=== PATIENT | female | born 1955 | race Caucasian/White ===

== ENCOUNTER 2022-03-27 14:58 | Outpatient (CLI) | payer MEDICARE, OTHER, SELFPAY ==
--- NOTE | 2022-03-27 15:45 | CRLHL7_ITS ---
For Patients: As a result of the Cures Act, medical imaging exams and procedure reports are released immediately into your electronic medical record. You may view this report before your referring provider. If you have questions, please contact your health care provider. BILATERAL MAMMOGRAM WITH COMPUTER-AIDED DETECTION AND TOMOSYNTHESIS TECHNIQUE: CC and MLO views were obtained. These mammographic images have been obtained using full-field digital technique. These mammographic images were interpreted with the benefit of computer-aided detection. Breast Tomosynthesis was used in this interpretation. COMPARISON FILM: 01/17/2021, 12/20/2018, 10/22/2017. FINDINGS: The breasts are heterogeneously dense, which may obscure small masses IMPRESSION: There is no radiographic evidence for malignancy. ASSESSMENT: BI-RADS Category 1: Negative RECOMMENDATION: Routine screening mammogram in 1 year. A lay language report of this examination will be provided to the patient. April Alarcon M.D. Diagnostic Radiologist [email or web address] Transcribed: 1:20 p.m. SCAR/Dictated by: April Alarcon MD @ 03/28/2022 10:42:00 AM (Electronically Signed)
== END 2022-03-27 14:59 | disposition home or self-care (01) ==
LOC: MAMMO 14:59
PROVIDERS: PCP Family Medicine; Visit Provider Family Medicine
DX: Z12.31 Encounter for screening mammogram for malignant neoplasm of breast (principal); R92.8 Other abnormal and inconclusive findings on diagnostic imaging of breast
CPT/HCPCS: 77063; 77067

== ENCOUNTER 2022-11-13 09:12 | Outpatient (CLI) | payer MEDICARE, OTHER, SELFPAY ==
[2022-11-13 10:40] LABS: Albumin* 4.4 g/dL (3.3-5.0)
[2022-11-13 10:41] LABS: Chloride* 107 mmol/L (96-114); Potassium* 4.6 mmol/L (3.6-5.1); Sodium* 141 mmol/L (135-149)
[2022-11-13 10:43] LABS: Bilirubin Total* 0.9 mg/dL (0.1-1.5); Carbon Dioxide* 30 mmol/L (20-32); Cholesterol* 184 mg/dL (90-199); Creatinine* 0.7 mg/dL (0.5-1.5); Estimated Glomerular Filt Rate 94 ml/min
[2022-11-13 10:44] LABS: Alanine Aminotransferase* 29 U/L (4-35); Alkaline Phosphatase* 55 U/L (40-150); Aspartate Amino Transferase* 27 U/L (12-35); Blood Urea Nitrogen* 17 mg/dL (7-30); Calcium* 9.2 mg/dL (8.4-10.6); Glucose* 91 mg/dL (60-115); HDL Cholesterol* 79 mg/dL (>=50); LDL Cholesterol Calculated 71 mg/dL (<100); Triglycerides* 170 mg/dL (40-149)
== END 2022-11-13 09:13 | disposition home or self-care (01) ==
LOC: NFLDREF 09:12
PROVIDERS: PCP Family Medicine; Visit Provider Family Medicine
DX: E78.5 Hyperlipidemia, unspecified (principal); I10 Essential (primary) hypertension
CPT/HCPCS: 80053; 80061

== ENCOUNTER 2023-06-25 13:32 | Outpatient (CLI) | payer MEDICARE, OTHER, SELFPAY ==
--- NOTE | 2023-06-25 13:40 | CRLHL7_ITS ---
For Patients: As a result of the Century Cures Act, medical imaging exams and procedure reports are released immediately into your electronic medical record. You may view this report before your referring provider. If you have questions, please contact your health care provider. BILATERAL SCREENING MAMMOGRAM WITH COMPUTER-AIDED DETECTION AND TOMOSYNTHESIS TECHNIQUE: CC and MLO views were obtained. These mammographic images have been obtained using full-field digital technique. These mammographic images were interpreted with the benefit of computer-aided detection. Breast Tomosynthesis was used in this interpretation. COMPARISON FILM: 03/27/22, 01/17/21, 12/20/18. FINDINGS: The breasts are heterogeneously dense, which may obscure small masses IMPRESSION: There is no radiographic evidence for malignancy. ASSESSMENT: BI-RADS Category 1: Negative RECOMMENDATION: Routine screening mammogram in 1 year. A lay language report of this examination will be provided to the patient. José Miguel Tracy M.D. Diagnostic Radiologist [email or web address] [email or web address]/[email or web address] Transcribed: 6:03 p.[email or web address] reed/Dictated by: José Miguel Tracy MD @ 06/26/2023 12:21:00 PM (Electronically Signed)
== END 2023-06-25 13:33 | disposition home or self-care (01) ==
LOC: MAMMO 13:33
PROVIDERS: PCP Family Medicine; Visit Provider Family Medicine
DX: Z12.31 Encounter for screening mammogram for malignant neoplasm of breast (principal); R92.2 Inconclusive mammogram
CPT/HCPCS: 77063; 77067

== ENCOUNTER 2023-07-03 09:30 | Outpatient (RCR) | payer MEDICARE, OTHER, SELFPAY ==
--- NOTE | 2023-05-29 12:42 | PT.OPEX ---
[facility] Outpatient Eval PT [facility] Outpatient Eval Start: 05/28/23 09:44 Freq: Status: Active Protocol: Document 05/28/23 09:44 CHRISTINA (Rec: 05/28/23 16:14 CHRISTINA [id number]) E-signed By Haritha Charles PT Physical Therapy Outpatient Evaluation Insurance Information Recert Due Date 08/25/23 Insurance Name Medicare B,[employer] [facility] THORACIC DDD M51.3 RHOMBOID STRAIN S46.911A Treating Diagnosis BACK PAIN S39.012A Subjective Subjective PATIENT REPORTS REACHING OVERHEAD PUTTING SOMETHING ON A TOP SHELF AND HEARD A RIP. THEN I FELT IMMEDIATE AND EXCRUCIATING PAIN. SHE FOLLOWED UP WITH HER PHYSICIAN WHO PRESCRIBED A MM RELAXER AND TYLENOL ARTHRITIS. SHE WANTED TO WAIT UNTIL HER PAIN SUBSIDED AND COULD PARTICIPATE IN THERAPY. Date of Last Physician Visit 04/02/23 Current Work Status Retired Preferred Name DON Precautions Treatment Precautions/Contraindications MENIERE'S Therapy Limitations/Systems Review Not Limited Assessment Assessment/Impression PATIENT IS A [address] SP GARRIDO TO EVAL AND TREAT A RIGHT RHOMBOID STRAIN. PMHX INCLUDES BUT NOT LIMITED TO OSTEOPOROSIS, HTN, HLD, IRREGULAR HEART BEAT, BILATERAL BUNIONECTOMY IN HER 40'S, LEFT TROCHANTERIC BURSITIS, BACK PAIN, VERTIGO, LEFT KNEE MENISCAL TEAR, LEFT KNEE OA, RIGHT KNEE OA, R ANKLE FX IN HER 40'S. XRAYS TAKEN ON 04/02/23 REVEALED NARROWING AND SPURRING OF MID T-SPINE AND SLIGHT CURVATURE. PATIENT DEMONSTRATES A PALPABLE AND POINT TENDER RIGHT MAJOR WELL ALONG THE THORACIC SPINE WITH ASSOCIATED HYPOMOBILITY NOTED. SHE DEMONSTRATES GOOD RTC/ SCAPULAR STRENGTH AND FULL ACTIVE AND PASSIVE ROM. SHE HAS VIRTUALLY ELIMINATED REACHING OVERHEAD AND VERY TIMID USING HER RIGHT UE IN GENERAL ABOVE 90 DEGREES. TODAY'S EXAMINATION REVEALED BOTH ACTIVE AND LATENT TRIGGER POINTS ALONG THE RHOMBOID MAJOR/MINOR AND LEVATOR SCAPULA WELL HYPOMOBILITY OF THE THORACIC SPINE. WE BEGAN WITH GENTLE AROM THROUGH BACKWARD CIRCLES WITH A SHRUG AND SCAP SQUEEZE ALONG WITH PEC STRETCH AND MID SCAPULAR STRETCH USING THE DOOR FRAME. LASTLY, SHE RESPONDED WELL TO THE DTM TO THAT AREA USING BOTH MANUAL AND INSTRUMENT ASSISTED TECHNIQUES FOLLOWED BY STATIC AND DRAGGING TECHNIQUES USING CUPS. SHE IS INSTRUCTED TO TAKE NOTE OF THE SYMPTOMS LATER TODAY AND THE NEXT SEVERAL DAYS TO ASCERTAIN THE EFFECTIVENESS OF THE MANUAL THERAPY WELL TO PERFORM HER HEP DAILY. SHE IS APPROPRIATE FOR SKILLED PHYSICAL THERAPY TO ADDRESS THE AFOREMENTIONED DEFICITS ALONG WITH SYMPTOM MGMT. THE PATIENT VERBALIZED UNDERSTANDING TO ALL INSTRUCTION AND AGREEABLE TO POC AND FREQ Primary Functional Limitations REACHING OVERHEAD, BEHIND BACK ADL'S Plan of Care Rehabilitation Potential Good Physical Therapy Goals IN 6-8 VISITS: 1.PATIENT WILL REPORT DECREASED TO <3/10 PAIN AT REST ABOUT THE RHOMBOID REGIONS. 2. PATIENT WILL BE ABLE TO REACH OVERHEAD, BEHIND BACK W/ O PAIN TO PARTICIPATE IN HER ADL'S, AND IADL'S 3. PATIENT WILL BE INDEPENDENT WITH HER HEP Coordination/Communication With Referral Source Treatment Plan/Direct Interventions Electrical Stimulation,Heat, Ice/Cold/Vasopneumatic,Joint Mobilization,Manual Therapy, Neuromuscular Re-ed, Therapeutic Activities, Therapeutic Exercises Patient Will Be Discharged From Therapy Completion of LTG(s), Independent w/HEP Discharge Plan Comments DISCHARGE TO SELF AND INDEPENDENT HOME PROGRAM. Evaluation Billing PT Eval No Charge No Complexity Moderate Certification Information Initial Certification Date 05/28/23 Ending Certification Date 08/25/23 Provider Signature Shows Agreement With POC & Medical Necessity Physician Signature & Date Requested Please Sign/Date Here Physician Comment/Change : Physician NPI Number #
== END 2023-08-12 11:19 | disposition home or self-care (01) ==
PROVIDERS: PCP Family Medicine; Visit Provider Family Medicine
DX: M54.9 Dorsalgia, unspecified (principal); M51.34 Other intervertebral disc degeneration, thoracic region; Z51.89 Encounter for other specified aftercare
CPT/HCPCS: 97110; 97140; 97162

== ENCOUNTER 2023-11-24 13:12 | Outpatient (CLI) | payer MEDICARE, OTHER, SELFPAY ==
--- NOTE | 2023-11-24 13:30 | XR_ITS ---
Patient: DON ALVAREZ Facility:?[facility] Patient ID:?[id number] Site Patient ID:?[id number]. Site :?[id number] Study:?DEXA-Bone Density Right DEXA - Spine/Hips-11/24/2023 1:54:46 PM Ordering Physician:SP THOMAS Final Report: DXA BONE MINERAL DENSITY STUDY Reason for exam: Osteoporosis. Current height (in): 59. Weight (lb): 116. Menopause age: 29. Ethnicity: White. 1. Have you had a previous hip or vertebral fracture? No. 2. Have you had any fractures during your adult life which did not result from significant trauma (e.g., auto accident)? Yes. 3. Did either of your parents have a hip fracture? No. 4. Do you smoke? No. 5. Have you ever taken Glucocorticoids? No. 6. Do you have rheumatoid arthritis? No. 7. Do you have secondary osteoporosis? No. 8. Do you drink 3 or more alcoholic drinks per day? No. 9. Are you being treated for osteoporosis? Yes. 10. Have you ever taken any of the following medications: Actonel, Evista, Fosamax, Miacalcin, Reclast, Boniva, Forteo, HRT (i.e., estrogen/hormone therapy), Protelos, Prolia, Vitamin D, Calcium, other ? please specify. ANSWER: Yes, Fosamax (i.e. alendronate), vitamin D, Boniva (i.e. ibandronate), and calcium. 11. Do you have any of the following medical conditions: Anorexia or bulimia, asthma or emphysema, end stage renal disease, hyperparathyroidism, any seizure disorders, cancer, inflammatory bowel diseases, hysterectomy, other ? please specify. ANSWER: Yes, hysterectomy. 12. What was your maximum height (inches)? 59. 13. Do you perform weight bearing exercise regularly? No. 14. Do you regularly consume dairy products? Yes. 15. Do you drink caffeinated beverages? Yes. If female: 16. At what age did your period start? 10. 17. Are you premenopausal? No. 18. How many full-term pregnancies have you had? 2. 19. Have you ever missed your period for more than 6 months in a row (not including or menopause)? No. TECHNIQUE: Bone mineral density study was performed using the [employer]. FINDINGS: The results of the study expressed as bone mineral density (BMD) are as follows: Lumbar spine L1 to L4: BMD: 0.915 g/cm2. T-score: -1.2. Z-score: 0.9 Neck Left: BMD: 0.724 g/cm2. T-score: -1.1. Z-score: 0.7 Right: BMD: 0.772 g/cm2. T-score: -0.7. Z-score: 1.1 Total Left: BMD: 0.880 g/cm2. T-score: -0.5. Z-score: 1.0 Right: BMD: 0.882 g/cm2. T-score: -0.5. Z-score: 1.0 IMPRESSION: Osteopenia. *Comparison exams done prior to 02/2020 were performed on different unit, [employer]. COMPARISON: Compared with scan of 12/12/2021, the bone mineral density has increased by 0.8 percent at the spine and decreased by 0.1 percent at the hip. Compared with scan of 10/06/2019, the bone mineral density has increased by 0.8 percent at the spine and increased by 7.0 percent at the hip. José Miguel Tracy M.D. Diagnostic Radiologist [email or web address] [email or web address]/[email or web address] derek/Dictated by: José Miguel Tracy MD @ 11/25/2023 8:24:00 AM Signed by:?José Miguel Tracy MD @11/26/2023 4:46:44 AM (Electronic Signature)
== END 2023-11-24 13:13 | disposition home or self-care (01) ==
PROVIDERS: PCP Family Medicine; Visit Provider Family Medicine
DX: M81.0 Age-related osteoporosis without current pathological fracture (principal)
CPT/HCPCS: 77080

== ENCOUNTER 2023-12-07 11:52 | Outpatient (CLI) | payer MEDICARE, OTHER, SELFPAY ==
[2023-12-07 12:16] LABS: Hematocrit 40.5 % (33.0-51.0); Hemoglobin* 13.7 gm/dL (12.0-16.0); Mean Corpuscular HGB Conc 34 gm/dL (32-36); Mean Corpuscular Hemoglobin 32 pg (26-34); Mean Corpuscular Volume 96 fL (80-100); Platelet Count* 517 K/uL (140-440); Red Blood Count 4.24 m/uL (4.00-5.20); White Blood Count* 9.23 K/uL (4.50-11.00)
[2023-12-07 12:17] LABS: Slide Review Reflex No
[2023-12-07 12:25] LABS: Albumin* 4.8 g/dL (3.3-5.0); Chloride* 97 mmol/L (96-114); Sodium* 134 mmol/L (135-149)
[2023-12-07 12:26] LABS: Potassium* 3.7 mmol/L (3.6-5.1)
[2023-12-07 12:27] LABS: Cholesterol* 168 mg/dL (90-199)
[2023-12-07 12:28] LABS: Alanine Aminotransferase* 33 U/L (4-35); Alkaline Phosphatase* 84 U/L (40-150); Anion Gap 8 mEq/L (7-15); Aspartate Amino Transferase* 29 U/L (12-35); Bilirubin Total* 0.7 mg/dL (0.1-1.5); Blood Urea Nitrogen* 23 mg/dL (7-30); Carbon Dioxide* 29 mmol/L (20-32); Creatinine* 0.9 mg/dL (0.5-1.5); Estimated Glomerular Filt Rate 69 ml/min; Glucose* 109 mg/dL (60-115); Triglycerides* 202 mg/dL (40-149)
[2023-12-07 12:29] LABS: Calcium* 9.7 mg/dL (8.4-10.6); HDL Cholesterol* 60 mg/dL (>=50); LDL Cholesterol Calculated 68 mg/dL (<100)
== END 2023-12-07 11:53 | disposition home or self-care (01) ==
PROVIDERS: PCP Family Medicine; Visit Provider Family Medicine
DX: E78.00 Pure hypercholesterolemia, unspecified (principal); I10 Essential (primary) hypertension; M81.0 Age-related osteoporosis without current pathological fracture; R53.83 Other fatigue
CPT/HCPCS: 36415; 80053; 80061; 84443; 85027

== ENCOUNTER 2023-12-16 01:02 | Emergency (ER) | payer MEDICARE, OTHER, SELFPAY ==
[2023-12-16] VITALS (7 sets, daily range): BP systolic 146–155; BP diastolic 82–85; PULSE 90–107; RESP 18; TEMP 36.8; O2SAT 93–96; BMI 24.6
[2023-12-16 01:34] LABS: Appearance Urine Clear (Clear); Bilirubin Urine Negative (Negative); Blood Urine Trace-intact (Negative); Color Urine Yellow (Yellow); Glucose Urine Trace (Negative); Ketones Urine Negative (Negative); Leukocyte Esterase Urine 2+ (Negative); Nitrite Urine Negative (Negative); Protein Urine 1+ (Negative); Urobilinogen Urine 0.2 (0.2-1.0)
--- NOTE | 2023-12-16 01:45 | XR_ITS ---
Patient: DON ALVAREZ Facility:?[facility] Patient ID:?[id number] Site Patient ID:?[id number]. Site :?[id number] Study:?XRay-Abdomen -12/16/2023 2:46:49 AM Ordering Physician:Immanuel Final Report: Indication: Distended, constipation Technique: Supine and upright views of the abdomen Comparison: None Findings/Impression: Nonobstructive, nonspecific bowel gas pattern with no acute radiographic abnormality appreciated. Dictated by Hermann Moreno MD @ 12/16/2023 2:54:13 AM Signed by:?Hermann Moreno MD @12/16/2023 2:54:13 AM (Electronic Signature)
[2023-12-16 01:49] LABS: Bacteria Urine Few; RBC Urine 0-2 (0-2); Squamous Epithelial Cell Urine Few (None-Few)
--- NOTE | 2023-12-16 01:51 | ED.GENADULT ---
HPI - General Adult General Chief complaint: Constipation Stated complaint: Dehydrated/Can't pee Time Seen by Provider: 12/16/23 01:08 Source: patient and family Mode of arrival: ambulatory Limitations: no limitations History of Present Illness HPI narrative: 68-year-old female presents the emergency department for evaluation of fear to constipation and inability to urinate. Patient reports that she had diarrhea over the last weekend, Thursday and Thursday. It is currently Thursday night. She has not had a bowel movement for the past 2 days. She typically takes MiraLax for chronic constipation from prior colectomy. She reports that she stop taking the MiraLax over the weekend. Since she had not had a bowel movement in 2 days, she restarted it this afternoon and has taken 2 additional doses out of fear that she has not yet had a bowel movement. She feels like she must have a ?blockage? and has been sitting on the stool straining to have a bowel movement. She reports that she has been did bearing down extensively and feels like this has made her dizzy and anxious and she fears that it could give her a stroke. She tried using an enema with no improvement in her symptoms. She has been eating and drinking normally but feels she could be dehydrated as she was recently started on a gentle diuretic for vertigo. Records reviewed, this was hydrochlorothiazide. She reports that tonight she felt like she could not urinate as well. She was also recently started on meclizine. No bloody stools. No vaginal discharge. No dysuria or feelings like a bladder infection. I had the nurses bladder scan her after triage, 240 mL noted but she was able to void just after that. It was not a large amount of urine but enough for a sample certainly. She is not running a fever. She felt nauseated when she was straining but has not had any vomiting. No injury or trauma. No abdominal pain. No dysuria or hematuria. On specific questioning, she does report known history of pelvic prolapse with no prior repair. Past medical history notable for the allergies accurate as listed. Medications are accurate as well the meclizine and hydrochlorothiazide are new. She also does occasionally use Mucinex and Sudafed which she wonders may have caused her diarrhea. She has a history of hypertension and hyperlipidemia. Surgical history pertinent in this case for her prior partial colectomy and reanastomosis. Related Data Home Medications Medication Instructions Recorded Confirmed cyclosporine 0.05 % eye drops in a drp ophthalmic (eye) 06/20/22 10/27/23 dropperette (Restasis) Previous Rx's Medication Instructions Recorded diclofenac sodium 50 mg 50 mg PO BID #180 tabs 10/27/23 tablet,delayed release hydrochlorothiazide 25 mg tablet 25 mg PO QAM PRN vertigo #30 tabs 10/27/23 ibandronate 150 mg tablet 150 mg PO Q30D #3 tabs 10/27/23 metoprolol succinate 50 mg 50 mg PO QDAY #90 tabs 10/27/23 tablet,extended release 24 hr nifedipine 60 mg tablet,extended 60 mg PO QDAY #90 tabs 10/27/23 release simvastatin 20 mg tablet 20 mg PO QHS #90 tabs 10/27/23 nitrofurantoin 100 mg PO Q12H 5 days #10 caps 12/16/23 monohydrate/macrocrystals 100 mg capsule (Macrobid) Allergies Allergy/AdvReac Type Severity Reaction Status Date / Time clarithromycin [From Biaxin] AdvReac Rash Verified 12/16/23 01:14 tolmetin [From Tolectin] AdvReac throat Verified 12/16/23 01:14 swelled shut tolterodine AdvReac kidney Verified 12/16/23 01:14 infection symptoms PFSH PFS Medical History Trochanteric bursitis of left hip ?M70.62 - Trochanteric bursitis, left hip (ICD-10) Skin tag ?L91.8 - Other hypertrophic disorders of the skin (ICD-10) Raynaud's disease (10/01/12) ?I73.00 - Raynaud's syndrome without gangrene (ICD-10) Papilloma of breast (10/01/12) ?D24.9 - Benign neoplasm of unspecified breast (ICD-10) Palpitations (10/01/12) ?R00.2 - Palpitations (ICD-10) Pain of left hip ?M25.552 - Pain in left hip (ICD-10) Neck pain ?M54.2 - Cervicalgia (ICD-10) History of benign breast biopsy (10/01/12) ?Z98.890 - Other specified postprocedural states (ICD-10) High risk medication use ?Z79.899 - Other adjunct faculty for medical terminology (current) drug therapy (ICD-10) Female genital prolapse (10/01/12) ?N81.9 - Female genital prolapse, unspecified (ICD-10) Dyskinesia of esophagus (10/01/12) ?K22.4 - Dyskinesia of esophagus (ICD-10) Chronically dry eyes (10/01/12) ?H04.129 - Dry eye syndrome of unspecified lacrimal gland (ICD-10) Back pain ?M54.9 - Dorsalgia, unspecified (ICD-10) Vertigo ?R42 - Dizziness and giddiness (ICD-10) Surgical History Status post bunionectomy (10/01/12) ?Z98.890 - Other specified postprocedural states (ICD-10) History of tonsillectomy (10/01/12) ?Z90.89 - Acquired absence of other organs (ICD-10) History of partial surgical removal of colon (10/01/12) ?Z90.49 - Acquired absence of other specified parts of digestive tract (ICD-10) History of hysterectomy (10/01/12) ?Z90.710 - Acquired absence of both cervix and uterus (ICD-10) Family History Mother High blood pressure Stroke Other Dementia High cholesterol Social History Smoking Status: Never smoker Do you use any of these nicotine containing products: None Second hand tobacco smoke exposure: No How often do you have a drink containing alcohol: 2-3 times a week AUDIT-C Alcohol total score: 3 Non-prescribed substance use: denies use Little interest or pleasure in doing things: more than half the days Feeling down, depressed, or hopeless: several days Exam Const: Vital Signs, click to edit/add: Vital Signs - 24 hr 12/16/23 01:07 Temperature 98.3 F Pulse Rate [Pulse Oximeter] 107 H Respiratory Rate 18 Blood Pressure [Le ft Upper Arm] 146/82 H Pulse Oximetry 96 Oxygen Delivery Me thod Room Air Documenting provider has reviewed patient's vital signs: yes Other: Anxious but well-appearing. Cooperative. HENMT: Common normals: normocephalic Head and scalp: normocephalic Face and sinus: normal facial exam Mouth: oral and palatal mucosa normal Throat: posterior oropharynx normal Eye: Common normals: conjunctivae normal General eye: normal appearance of both eyes Conjunctiva: conjunctiva(e) normal Neck & C-Spine: Common normals: full ROM and no lymphadenopathy Resp: Common normals: normal respiratory effort, no use of accessory muscles and clear to auscultation bilaterally Effort & inspection: able to speak in complete sentences Auscultation: clear to auscultation bilaterally Cardio: Common normals: regular rate, regular rhythm, S1 normal heart sound, S2 normal heart sound and no murmurs Rate: regular rate Rhythm: regular rhythm Heart sounds: S1 normal and S2 normal GI: Other: Abdomen does look slightly distended but bowel sounds are normoactive. She is nontender to palpation. Surgical scarring is consistent with reported history. Rectal exam shows rectal prolapse but no bleeding hemorrhoids. There was no stool in the rectal vault. Normal rectal tone. Extremity: Common normals: normal capillary refill and no pedal edema Neuro: Speech: speech normal Motor exam: no movement abnormalities noted Psych: Appearance: grossly normal Attitude: engaged Activity/motor behavior: appropriate eye contact Mood and affect: anxious Insight: fair Judgement: fair Skin: Common normals: no rashes or lesions noted General skin exam: no rashes or lesions noted Course Course ED Course: 68-year-old female with feared constipation but no evidence of fecal impaction. Possible urinary retention is likely related to meclizine but is not severe. Patient reassured regarding the fecal impaction and I do think that she probably has increased pelvic pressure from her prolapse and recent diarrhea. I recommended urinalysis, COVID influenza swabs, basic labs and an x-ray to make sure she is not obstructed. She was agreeable to this. Will give 1 L of normal saline and attempt again to urinate once she has finished her fluids. Differential diagnosis also including UTI, viral infection, bowel obstruction, colitis, rectal prolapse, constipation, dehydration, medication side effect, among others. Reevaluation(s) Time of Reevaluation #1: 03:14 Reevaluation #1: Patient was able to give a very small stool sample. C diff is pending. UA reviewed, suspicious for early bladder infection. I do not want to risk significant super infection, therefore will treat with Macrobid and anticipate 5 days of outpatient treatment. Peridium for bladder spasm to see if this improves her symptoms. Await C diff specimen results. No significant signs of dehydration or inflammation on labs otherwise. X-ray reassuring. Time of Reevaluation #2: 04:05 Reevaluation #2: Reviewed negative C diff findings with patient, reassuring. Cannot completely rule out C diff but less likely with negative testing. Uncertain what to make of the leukocytosis. Could be multifactorial. No hypotension. Tachycardia resolved honestly even before the fluids and was likely related to anxiety. She is feeling quite a bit better and was able to void and completely empty her bladder with no difficulty. Gave a dose of Pyridium and a 1st dose of Macrobid for what looks to be an early bladder infection. This is starting to help already. Counseled on alarm symptoms that would warrant further workup and return to the emergency department. She is comfortable starting Macrobid and seeing how her symptoms progress. Encouraged her to hold that MiraLax for a couple of days. Drink plenty of fluids. Return to the emergency department with abdominal pain, fever. Would have a low threshold for ordering an abdominal CT. Vital Signs Vital signs: Initial Vital Signs Temperature 98.3 F 12/16/23 01:07 Temperature Source Temporal Artery Scan 12/16/23 01:07 Pulse Rate 107 H 12/16/23 01:07 Respiratory Rate 18 12/16/23 01:07 Blood Pressure 146/82 H 12/16/23 01:07 Blood Pressure Mean 103 12/16/23 01:07 Blood Pressure Position Sitting 12/16/23 01:07 Pulse Oximetry 96 12/16/23 01:07 Oxygen Delivery Method Room Air 12/16/23 01:07 Vital Signs Temperature 98.3 F 12/16/23 01:07 Pulse Rate 107 H 12/16/23 01:07 Respiratory Rate 18 12/16/23 01:07 Blood Pressure 146/82 H 12/16/23 01:07 Pulse Oximetry 96 12/16/23 01:07 Oxygen Delivery Method Room Air 12/16/23 01:07 Temperature 98.3 F 12/16/23 01:07 Pulse Rate 107 H 12/16/23 01:07 Respiratory Rate 18 12/16/23 01:07 Blood Pressure 146/82 H 12/16/23 01:07 Pulse Oximetry 96 12/16/23 01:07 Oxygen Delivery Method Room Air 12/16/23 01:07 Medications Administered Medications: Discontinued Medications Generic Name Dose Route Start Last Admin Trade Name Freq PRN Reason Stop Dose Admin Sodium Chloride 1,000 mls @ 1,000 mls/hr 12/16/23 01:46 12/16/23 03:10 0.9 % Sodium Chloride 1000 Ml IV 12/16/23 02:45 Infused .Q1H ELOINA Infusion Nitrofurantoin Macrocrystals 100 mg 12/16/23 03:13 12/16/23 03:28 Nitrofurantoin Monohyd Macro 100 Mg Capsule PO 12/16/23 03:14 100 mg ONCE ONE Administration Phenazopyridine HCl 200 mg 12/16/23 03:13 12/16/23 03:28 Phenazopyridine Hcl 200 Mg Tablet PO 12/16/23 03:14 200 mg ONCE ONE Administration Medical Decision Making Lab Data Lab results reviewed: Yes I reviewed the patient's lab results Lab results narrative: Elevated white count of uncertain etiology. Certainly does raise the concern for C diff. inflammatory markers are reassuring, platelets are elevated. Urinalysis is mildly suspicious for infection as well. Stool C diff ordered. Labs: Lab Results 12/16/23 12/16/23 12/16/23 Range/Units 01:25 01:54 02:55 WBC 26.45 H* (4.50-11.00) K/uL RBC 3.93 L (4.00-5.20) m/uL Hgb 12.8 (12.0-16.0) gm/dL Hct 37.6 (33.0-51.0) % MCV 96 (80-100) fL MCH 33 (26-34) pg MCHC 34 (32-36) gm/dL RDW Coeff of Heri 12.5 (11.5-15.5) % Plt Count 441 H (140-440) K/uL Neut % (Auto) 89.8 H (42.0-72.0) % Lymph % (Auto) 4.4 L (20-44) % Dougherty % (Auto) 4.9 (0.0-11.0) % Eos % (Auto) 0.0 (0.0-7.0) % Baso % (Auto) 0.1 (0.0-3.0) % Neut # (Auto) 23.80 H (1.7-7.0) K/uL Lymph # (Auto) 1.20 (0.90-2.90) K/uL Dougherty # (Auto) 1.30 H (0.00-0.90) K/UL Eos # (Auto) 0.00 (0.00-0.50) K/uL Baso # (Auto) 0.00 (0.00-0.30) K/uL Abs Immat Gran (auto) 0.20 (0.00-0.30) K/uL Imm/Tot Granulo (auto) 0.8 % Diff Slide Review Acceptable Review (Acceptable) Sodium 135 (135-149) mmol/L Potassium 3.2 L (3.6-5.1) mmol/L Chloride 98 (96-114) mmol/L Carbon Dioxide 27 (20-32) mmol/L Anion Gap 10 (7-15) mEq/L BUN 20 (7-30) mg/dL Creatinine 0.5 (0.5-1.5) mg/dL Estimated Creat Clear 45.73 Estimated GFR 101 ml/min Glucose 144 H (60-115) mg/dL Lactate 2.1 H (0.5-1.9) mmol/L Calcium 9.1 (8.4-10.6) mg/dL C-Reactive Protein < 0.5 L (0.5-1.0) mg/dL Urine Color Yellow (Yellow) Urine Appearance Clear (Clear) Urine pH 7.0 (5.0-8.5) Ur Specific [place] 1.020 (1.000-1.030) Urine Protein 1+ A (Negative) Urine Glucose (UA) Trace A (Negative) Urine Ketones Negative (Negative) Urine Blood Trace-intact A (Negative) Urine Nitrite Negative (Negative) Urine Bilirubin Negative (Negative) Urine Urobilinogen 0.2 (0.2-1.0) Ur Leukocyte Esterase 2+ A (Negative) Urine RBC 0-2 (0-2) Urine WBC 2-5 (0-5) Ur Squamous Epith Cells Few (None-Few) Urine Bacteria Few A (None) Stl C. diff Tox B Gene Negative (Negative) Stl C. diff [id number] PRESUMPTIVE NEGATIVE (Negative) SARS-CoV-2 (PCR) Negative SARS-CoV-2 (Negative) Influenza Type A (PCR) Negative PCR FLU A (Negative) Influenza Type B (PCR) Negative PCR FLU B (Negative) RSV (PCR) Negative PCR RSV (Negative) Imaging Data Abdominal x-ray: Attestation: I have reviewed the pertinent imaging results. My impression: Nonobstructive, no free air. Certainly no constipation or fecal impaction. Radiologist's impression: Findings/Impression: Nonobstructive, nonspecific bowel gas pattern with no acute radiographic abnormality appreciated. Discharge Plan Discharge Clinical Impression: Gastroenteritis, Bladder infection Patient Disposition: Home w/ Parent or Adult Condition: Improved Instructions: Urinary Tract Infection in Older Adults (ED) Additional Instructions: As we discussed, there were no signs of fecal impaction or blockage today. Your white blood cell count was elevated. Your C diff test was negative, thankfully. There were signs of a bladder infection and I certainly do think that you recently had a bout of stomach flu that could have caused this. Since everything else looks so good an you are feeling a little better, we elected not to perform a CT scan. I would lay off the MiraLax for a couple more days. There is no harm to continuing the hydrochlorothiazide which is the diuretic that you were prescribed. The meclizine could cause urinary retention. If you have return of those symptoms, consider discontinuing that medication. It is okay to use Tylenol and ibuprofen for that heavy pelvic fullness feeling. It is okay to use diaper rash ointments on your perirectal area to help with that irritation from the prolapse as well. I have prescribed Macrobid, a gentle antibiotic to help with your bladder. We will culture your urine and adjust the antibiotic if needed. No call is good news. If you are not feeling markedly better in 48 hours, I would like for you to make a follow-up appointment with your primary care provider. If your symptoms worsen in the meantime, please come back to the emergency department. This would be especially important if you have fever, abdominal pain, bloody stools. We would want to proceed with a CT scan and some repeat testing. Your given a bladder spasm/numbing medication called pyridium. Remember that this will turn your urine dark orange. It is still [id number] as Uristat or as ?urinary pain relief? if you need subsequent dosing. Activity Level: Activity as Tolerated Discharge Diet: Regular Prescriptions: New nitrofurantoin monohyd/m-cryst [Macrobid] 100 mg capsule 100 mg PO Q12H 5 Days Qty: 10 0RF Rx Instructions: must administer with a meal/food No Action cyclosporine [Restasis] 0.05 % dropperette ophthalmic (eye) diclofenac sodium 50 mg tablet,delayed release (DR/EC) 50 mg PO BID Qty: 180 3RF hydrochlorothiazide 25 mg tablet 25 mg PO QAM PRN (Reason: vertigo) Qty: 30 1RF ibandronate 150 mg tablet 150 mg PO Q30D Qty: 3 3RF metoprolol succinate 50 mg tablet extended release 24 hr 50 mg PO QDAY Qty: 90 3RF nifedipine 60 mg tablet extended release 60 mg PO QDAY Qty: 90 3RF simvastatin 20 mg tablet 20 mg PO QHS Qty: 90 3RF Follow Up/Referrals: John Paul Miller MD [Primary Care Provider] - Stand Alone Forms: [employer] Info Instructions
[2023-12-16] MEDS: 0.9 % SODIUM CHLORIDE 1000 ml 1,000 ML IV (01:54)
[2023-12-16 01:59] LABS: Lactate* 2.1 mmol/L (0.5-1.9)
[2023-12-16 02:01] LABS: Basophils Percent Auto 0.1 % (0.0-3.0); Hematocrit 37.6 % (33.0-51.0); Hemoglobin* 12.8 gm/dL (12.0-16.0); Immature Granulocytes Pct Auto 0.8 %; Lymphocytes Percent Auto 4.4 % (20-44); Mean Corpuscular HGB Conc 34 gm/dL (32-36); Mean Corpuscular Hemoglobin 33 pg (26-34); Mean Corpuscular Volume 96 fL (80-100); Monocytes Percent Auto 4.9 % (0.0-11.0); Neutrophils Percent Auto 89.8 % (42.0-72.0); Platelet Count* 441 K/uL (140-440); RDW Coefficient of Variation % 12.5 % (11.5-15.5); Red Blood Count 3.93 m/uL (4.00-5.20)
[2023-12-16 02:08] LABS: PCR FLU A Negative PCR FLU A (Negative); PCR FLU B Negative PCR FLU B (Negative); PCR RSV Negative PCR RSV (Negative); SARS PCR* Negative SARS-CoV-2 (Negative)
[2023-12-16 02:15] LABS: Chloride* 98 mmol/L (96-114); Potassium* 3.2 mmol/L (3.6-5.1); Sodium* 135 mmol/L (135-149)
[2023-12-16 02:18] LABS: Creatinine* 0.5 mg/dL (0.5-1.5); Est. Creatinine Clearance* 45.73; Estimated Glomerular Filt Rate 101 ml/min
[2023-12-16 02:19] LABS: Anion Gap 10 mEq/L (7-15); Blood Urea Nitrogen* 20 mg/dL (7-30); Calcium* 9.1 mg/dL (8.4-10.6); Carbon Dioxide* 27 mmol/L (20-32); Glucose* 144 mg/dL (60-115)
[2023-12-16 02:22] LABS: Slide Review Reflex Yes; White Blood Count* 26.45 K/uL (4.50-11.00)
[2023-12-16 02:23] LABS: C Reactive Protein* < 0.5 mg/dL (0.5-1.0)
[2023-12-16 02:24] LABS: Slide Review Acceptable Review (Acceptable)
[2023-12-16] MEDS: PHENAZOPYRIDINE HCL 200 MG TABLET PO (03:28)
[2023-12-16] MEDS: NITROFURANTOIN MONOHYD MACRO 100 MG CAPSULE PO (03:28)
[2023-12-16 03:53] LABS: C.Difficile Negative (Negative); CDIFFEPI 027 PRESUMPTIVE NEGATIVE (Negative)
--- NOTE | 2023-12-19 09:57 | ED_ITS ---
HPI - General Adult General Chief complaint: Constipation Stated complaint: Dehydrated/Can't pee Time Seen by Provider: 12/16/23 01:08 Source: patient and family Mode of arrival: ambulatory Limitations: no limitations History of Present Illness HPI narrative: This note is an addendum to Dr. Martinez see ER note from 12/16/23. Patient was prescribed nitrofurantoin after her ER visit for possible UTI. Patient had urine culture that resulted this morning for Pseudomonas fluorescens Pseudomonas species would be resistant typically to nitrofurantoin. Sensitivity data indicates that it is also sensitive to fluoroquinolones such as level floxacillin. I contacted the patient on her cell phone this morning. She says she is doing better but is still ?not 100%?. She will discontinue the nitrofurantoin start Levaquin today. She requests that I send the prescription for Levaquin to her pharmacy at [facility]. Prescription for level floxacillin 250 mg daily for 3 days- total 3 pills- E prescribed at 9:55 a.m. 12/19/2023 Related Data Home Medications Medication Instructions Recorded Confirmed cyclosporine 0.05 % eye drops in a drp ophthalmic (eye) 06/20/22 10/27/23 dropperette (Restasis) Previous Rx's Medication Instructions Recorded diclofenac sodium 50 mg 50 mg PO BID #180 tabs 10/27/23 tablet,delayed release hydrochlorothiazide 25 mg tablet 25 mg PO QAM PRN vertigo #30 tabs 10/27/23 ibandronate 150 mg tablet 150 mg PO Q30D #3 tabs 10/27/23 metoprolol succinate 50 mg 50 mg PO QDAY #90 tabs 10/27/23 tablet,extended release 24 hr nifedipine 60 mg tablet,extended 60 mg PO QDAY #90 tabs 10/27/23 release simvastatin 20 mg tablet 20 mg PO QHS #90 tabs 10/27/23 nitrofurantoin 100 mg PO Q12H 5 days #10 caps 12/16/23 monohydrate/macrocrystals 100 mg capsule (Macrobid) levofloxacin 250 mg tablet 250 mg PO DAILY #3 tabs 12/19/23 Allergies Allergy/AdvReac Type Severity Reaction Status Date / Time clarithromycin [From Biaxin] AdvReac Rash Verified 12/16/23 01:14 tolmetin [From Tolectin] AdvReac throat Verified 12/16/23 01:14 swelled shut tolterodine AdvReac kidney Verified 12/16/23 01:14 infection symptoms PFSH PFS Medical History Trochanteric bursitis of left hip ?M70.62 - Trochanteric bursitis, left hip (ICD-10) Skin tag ?L91.8 - Other hypertrophic disorders of the skin (ICD-10) Raynaud's disease (10/01/12) ?I73.00 - Raynaud's syndrome without gangrene (ICD-10) Papilloma of breast (10/01/12) ?D24.9 - Benign neoplasm of unspecified breast (ICD-10) Palpitations (10/01/12) ?R00.2 - Palpitations (ICD-10) Pain of left hip ?M25.552 - Pain in left hip (ICD-10) Neck pain ?M54.2 - Cervicalgia (ICD-10) History of benign breast biopsy (10/01/12) ?Z98.890 - Other specified postprocedural states (ICD-10) High risk medication use ?Z79.899 - Other bench technician (current) drug therapy (ICD-10) Female genital prolapse (10/01/12) ?N81.9 - Female genital prolapse, unspecified (ICD-10) Dyskinesia of esophagus (10/01/12) ?K22.4 - Dyskinesia of esophagus (ICD-10) Chronically dry eyes (10/01/12) ?H04.129 - Dry eye syndrome of unspecified lacrimal gland (ICD-10) Back pain ?M54.9 - Dorsalgia, unspecified (ICD-10) Vertigo ?R42 - Dizziness and giddiness (ICD-10) Surgical History Status post bunionectomy (10/01/12) ?Z98.890 - Other specified postprocedural states (ICD-10) History of tonsillectomy (10/01/12) ?Z90.89 - Acquired absence of other organs (ICD-10) History of partial surgical removal of colon (10/01/12) ?Z90.49 - Acquired absence of other specified parts of digestive tract (ICD- 10) History of hysterectomy (10/01/12) ?Z90.710 - Acquired absence of both cervix and uterus (ICD-10) Family History Mother High blood pressure Stroke Other Dementia High cholesterol Social History Smoking Status: Never smoker Do you use any of these nicotine containing products: None Second hand tobacco smoke exposure: No How often do you have a drink containing alcohol: 2-3 times a week AUDIT-C Alcohol total score: 3 Non-prescribed substance use: denies use Little interest or pleasure in doing things: more than half the days Feeling down, depressed, or hopeless: several days Course Vital Signs Vital signs: Initial Vital Signs Temperature 98.3 F 12/16/23 01:07 Temperature Source Temporal Artery Scan 12/16/23 01:07 Pulse Rate 107 H 12/16/23 01:07 Respiratory Rate 18 12/16/23 01:07 Blood Pressure 146/82 H 12/16/23 01:07 Blood Pressure Mean 103 12/16/23 01:07 Blood Pressure Position Sitting 12/16/23 01:07 Pulse Oximetry 96 12/16/23 01:07 Oxygen Delivery Method Room Air 12/16/23 01:07 Vital Signs Temperature 98.3 F 12/16/23 01:07 Pulse Rate 107 H 12/16/23 01:07 Respiratory Rate 18 12/16/23 01:07 Blood Pressure 146/82 H 12/16/23 01:07 Pulse Oximetry 96 12/16/23 01:07 Oxygen Delivery Method Room Air 12/16/23 01:07 Temperature 98.3 F 12/16/23 01:07 Pulse Rate 90 12/16/23 04:15 Respiratory Rate 18 12/16/23 01:07 Blood Pressure 155/85 H 12/16/23 04:01 Pulse Oximetry 93 12/16/23 04:15 Oxygen Delivery Method Room Air 12/16/23 03:31 Medications Administered Medications: Discontinued Medications Generic Name Dose Route Start Last Admin Trade Name Freq PRN Reason Stop Dose Admin Sodium Chloride 1,000 mls @ 1,000 mls/hr 12/16/23 01:46 12/16/23 03:10 0.9 % Sodium Chloride 1000 Ml IV 12/16/23 02:45 Infused .Q1H ELOINA Infusion Nitrofurantoin Macrocrystals 100 mg 12/16/23 03:13 12/16/23 03:28 Nitrofurantoin Monohyd Macro 100 Mg Capsule PO 12/16/23 03:14 100 mg ONCE ONE Administration Phenazopyridine HCl 200 mg 12/16/23 03:13 12/16/23 03:28 Phenazopyridine Hcl 200 Mg Tablet PO 12/16/23 03:14 200 mg ONCE ONE Administration Medical Decision Making Lab Data Labs: Lab Results 12/16/23 12/16/23 12/16/23 Range/Units 01:25 01:54 02:55 WBC 26.45 H* (4.50-11.00) K/uL RBC 3.93 L (4.00-5.20) m/uL Hgb 12.8 (12.0-16.0) gm/dL Hct 37.6 (33.0-51.0) % MCV 96 (80-100) fL MCH 33 (26-34) pg MCHC 34 (32-36) gm/dL RDW Coeff of Heri 12.5 (11.5-15.5) % Plt Count 441 H (140-440) K/uL Neut % (Auto) 89.8 H (42.0-72.0) % Lymph % (Auto) 4.4 L (20-44) % Weber % (Auto) 4.9 (0.0-11.0) % Eos % (Auto) 0.0 (0.0-7.0) % Baso % (Auto) 0.1 (0.0-3.0) % Neut # (Auto) 23.80 H (1.7-7.0) K/uL Lymph # (Auto) 1.20 (0.90-2.90) K/uL Weber # (Auto) 1.30 H (0.00-0.90) K/UL Eos # (Auto) 0.00 (0.00-0.50) K/uL Baso # (Auto) 0.00 (0.00-0.30) K/uL Abs Immat Gran (auto) 0.20 (0.00-0.30) K/uL Imm/Tot Granulo (auto) 0.8 % Diff Slide Review Acceptable Review (Acceptable) Sodium 135 (135-149) mmol/L Potassium 3.2 L (3.6-5.1) mmol/L Chloride 98 (96-114) mmol/L Carbon Dioxide 27 (20-32) mmol/L Anion Gap 10 (7-15) mEq/L BUN 20 (7-30) mg/dL Creatinine 0.5 (0.5-1.5) mg/dL Estimated Creat Clear 45.73 Estimated GFR 101 ml/min Glucose 144 H (60-115) mg/dL Lactate 2.1 H (0.5-1.9) mmol/L Calcium 9.1 (8.4-10.6) mg/dL C-Reactive Protein < 0.5 L (0.5-1.0) mg/dL Urine Color Yellow (Yellow) Urine Appearance Clear (Clear) Urine pH 7.0 (5.0-8.5) Ur Specific [place] 1.020 (1.000-1.030) Urine Protein 1+ A (Negative) Urine Glucose (UA) Trace A (Negative) Urine Ketones Negative (Negative) Urine Blood Trace-intact A (Negative) Urine Nitrite Negative (Negative) Urine Bilirubin Negative (Negative) Urine Urobilinogen 0.2 (0.2-1.0) Ur Leukocyte Esterase 2+ A (Negative) Urine RBC 0-2 (0-2) Urine WBC 2-5 (0-5) Ur Squamous Epith Cells Few (None-Few) Urine Bacteria Few A (None) Stl C. diff Tox B Gene Negative (Negative) Stl C. diff [id number] PRESUMPTIVE NEGATIVE (Negative) SARS-CoV-2 (PCR) Negative SARS-CoV-2 (Negative) Influenza Type A (PCR) Negative PCR FLU A (Negative) Influenza Type B (PCR) Negative PCR FLU B (Negative) RSV (PCR) Negative PCR RSV (Negative) Discharge Plan Discharge Clinical Impression: Gastroenteritis, Bladder infection Patient Disposition: Home w/ Parent or Adult Condition: Improved Instructions: Urinary Tract Infection in Older Adults (ED) Additional Instructions: As we discussed, there were no signs of fecal impaction or blockage today. Your white blood cell count was elevated. Your C diff test was negative, thankfully. There were signs of a bladder infection and I certainly do think that you recently had a bout of stomach flu that could have caused this. Since everything else looks so good an you are feeling a little better, we elected not to perform a CT scan. I would lay off the MiraLax for a couple more days. There is no harm to continuing the hydrochlorothiazide which is the diuretic that you were prescribed. The meclizine could cause urinary retention. If you have return of those symptoms, consider discontinuing that medication. It is okay to use Tylenol and ibuprofen for that heavy pelvic fullness feeling. It is okay to use diaper rash ointments on your perirectal area to help with that irritation from the prolapse as well. I have prescribed Macrobid, a gentle antibiotic to help with your bladder. We will culture your urine and adjust the antibiotic if needed. No call is good news. If you are not feeling markedly better in 48 hours, I would like for you to make a follow-up appointment with your primary care provider. If your symptoms worsen in the meantime, please come back to the emergency department. This would be especially important if you have fever, abdominal pain, bloody stools. We would want to proceed with a CT scan and some repeat testing. Your given a bladder spasm/numbing medication called pyridium. Remember that this will turn your urine dark orange. It is still [id number] as Uristat or as ?urinary pain relief? if you need subsequent dosing. Activity Level: Activity as Tolerated Discharge Diet: Regular Prescriptions: New nitrofurantoin monohyd/m-cryst [Macrobid] 100 mg capsule 100 mg PO Q12H 5 Days Qty: 10 0RF Rx Instructions: must administer with a meal/food levofloxacin 250 mg tablet 250 mg PO DAILY Qty: 3 0RF No Action cyclosporine [Restasis] 0.05 % dropperette ophthalmic (eye) diclofenac sodium 50 mg tablet,delayed release (DR/EC) 50 mg PO BID Qty: 180 3RF hydrochlorothiazide 25 mg tablet 25 mg PO QAM PRN (Reason: vertigo) Qty: 30 1RF ibandronate 150 mg tablet 150 mg PO Q30D Qty: 3 3RF metoprolol succinate 50 mg tablet extended release 24 hr 50 mg PO QDAY Qty: 90 3RF nifedipine 60 mg tablet extended release 60 mg PO QDAY Qty: 90 3RF simvastatin 20 mg tablet 20 mg PO QHS Qty: 90 3RF Follow Up/Referrals: Felland,John Paul A, MD [Primary Care Provider] - Stand Alone Forms: [employer] Info Instructions
== END 2023-12-16 04:30 | disposition home or self-care (01) ==
PROVIDERS: Emergency Provider Family Medicine; PCP Family Medicine
DX: K52.9 Noninfective gastroenteritis and colitis, unspecified (principal); N30.90 Cystitis, unspecified without hematuria
CPT/HCPCS: 36415; 51798; 74019; 80048; 81001; 83605; 85025; 86140; 87086; 87186; 87493; 87631; 96360; 99281; 99284; A9270; J7030

== ENCOUNTER 2023-12-24 11:09 | Outpatient (CLI) | payer MEDICARE, OTHER, SELFPAY | END 2023-12-24 11:10 | disposition home or self-care (01) | LOC: NFLDREF 12-25 11:06 | PROVIDERS: PCP Family Medicine; Referring Provider Family Medicine; Visit Provider Family Medicine | DX: N39.0 Urinary tract infection, site not specified (principal); E87.6 Hypokalemia; Z90.49 Acquired absence of other specified parts of digestive tract | CPT/HCPCS: 87086 ==

== ENCOUNTER 2024-02-15 21:12 | Emergency (ER) | payer MEDICARE, OTHER, SELFPAY ==
[2024-02-15 21:50] VITALS: BP 129/96; PULSE 80; RESP 20; TEMP 36.1; O2SAT 97; BMI 24.2
--- NOTE | 2024-02-15 23:06 | ED_ITS ---
HPI - Wound/Laceration General Time Seen by Provider: 23:06 Date Seen: 02/15/24 Chief Complaint: Laceration/Wound Stated Complaint: right thumb lac Time Seen by Provider: 02/15/24 23:00 Source: patient and RN notes reviewed Mode of arrival: ambulatory Limitations: no limitations History of Present Illness HPI narrative: Patient is a very pleasant 68-year-old female with unsure tetanus date who comes to the emergency room after having sustained a laceration to the dorsal aspect of her right thumb over the IP joint. Patient was noted to be doing dishes and accidentally caused a laceration. Since that time and has been bleeding quite a bit but she has been able to move her finger without difficulty. She thinks her last tetanus was greater than 20 years ago. She is not currently on a blood thinners and has not taken any medications. Related Data Home Medications Medication Instructions Recorded Confirmed cyclosporine 0.05 % eye drops in a drp ophthalmic (eye) 06/20/22 01/07/24 dropperette (Restasis) Previous Rx's Medication Instructions Recorded diclofenac sodium 50 mg 50 mg PO BID #180 tabs 10/27/23 tablet,delayed release hydrochlorothiazide 25 mg tablet 25 mg PO QAM PRN vertigo #30 tabs 10/27/23 ibandronate 150 mg tablet 150 mg PO Q30D #3 tabs 10/27/23 metoprolol succinate 50 mg 50 mg PO QDAY #90 tabs 10/27/23 tablet,extended release 24 hr nifedipine 60 mg tablet,extended 60 mg PO QDAY #90 tabs 10/27/23 release simvastatin 20 mg tablet 20 mg PO QHS #90 tabs 10/27/23 loratadine 10 mg tablet (Allergy 10 mg PO QDAY PRN allergic 12/24/23 Relief (loratadine)) symptoms #90 tabs mupirocin 2 % topical ointment 1 applic topical 3XW #15 grams 01/07/24 Allergies Allergy/AdvReac Type Severity Reaction Status Date / Time clarithromycin [From Biaxin] AdvReac Rash Verified 01/07/24 10:38 tolmetin [From Tolectin] AdvReac throat Verified 01/07/24 10:38 swelled shut tolterodine AdvReac kidney Verified 01/07/24 10:38 infection symptoms PFSH PFSH Medical History Encounter for Medicare annual wellness exam ?Z00.00 - Encounter for general adult medical examination without abnormal findings (ICD-10) Trochanteric bursitis of left hip ?M70.62 - Trochanteric bursitis, left hip (ICD-10) Skin tag ?L91.8 - Other hypertrophic disorders of the skin (ICD-10) Raynaud's disease (10/01/12) ?I73.00 - Raynaud's syndrome without gangrene (ICD-10) Papilloma of breast (10/01/12) ?D24.9 - Benign neoplasm of unspecified breast (ICD-10) Palpitations (10/01/12) ?R00.2 - Palpitations (ICD-10) Pain of left hip ?M25.552 - Pain in left hip (ICD-10) Neck pain ?M54.2 - Cervicalgia (ICD-10) History of benign breast biopsy (10/01/12) ?Z98.890 - Other specified postprocedural states (ICD-10) High risk medication use ?Z79.899 - Other chcf (current) drug therapy (ICD-10) Female genital prolapse (10/01/12) ?N81.9 - Female genital prolapse, unspecified (ICD-10) Dyskinesia of esophagus (10/01/12) ?K22.4 - Dyskinesia of esophagus (ICD-10) Chronically dry eyes (10/01/12) ?H04.129 - Dry eye syndrome of unspecified lacrimal gland (ICD-10) Back pain ?M54.9 - Dorsalgia, unspecified (ICD-10) Vertigo ?R42 - Dizziness and giddiness (ICD-10) Surgical History Status post bunionectomy (10/01/12) ?Z98.890 - Other specified postprocedural states (ICD-10) History of tonsillectomy (10/01/12) ?Z90.89 - Acquired absence of other organs (ICD-10) History of partial surgical removal of colon (10/01/12) ?Z90.49 - Acquired absence of other specified parts of digestive tract (ICD- 10) History of hysterectomy (10/01/12) ?Z90.710 - Acquired absence of both cervix and uterus (ICD-10) Family History Mother High blood pressure Stroke Other Dementia High cholesterol Social History Smoking Status: Never smoker Do you use any of these nicotine containing products: None Second hand tobacco smoke exposure: No How often do you have a drink containing alcohol: 2-3 times a week AUDIT-C Alcohol total score: 3 Non-prescribed substance use: denies use Little interest or pleasure in doing things: not at all Feeling down, depressed, or hopeless: not at all Exam Narrative: Exam Narrative: Patient is very pleasant. Alert and oriented. Examination of the right thumb shows a 1.3 cm laceration extending over the IP joint of the right thumb. This is proximal to distal. There is moderate bleeding occurring. No foreign bodies are noted. No underlying structures are noted. Patient is able to flex extend and extend against resistance without difficulty. Distally sensation is intact. Const: Vital Signs, click to edit/add: Vital Signs - 24 hr 02/15/24 21:50 Temperature 96.9 F L Pulse Rate [Left P ulse Oximeter] 80 Respiratory Rate 20 Blood Pressure [Ri ght Upper Arm] 129/96 H Pulse Oximetry 97 Oxygen Delivery Me thod Room Air Documenting provider has reviewed patient's vital signs: yes Course Course ED Course: At this time I give patient 2 options. First option would be to put pressure on the wound allowed to stop bleeding an add glue. The risk of this is any hyper flexion would cause this to break open. Instead patient would like us to do stitches which I do agrees the better option. She agrees to anesthesia and stitch placement. Does not appear to be any underlying structural damage were given the exam. Vital Signs Vital signs: Initial Vital Signs Temperature 96.9 F L 02/15/24 21:50 Temperature Source Temporal Artery Scan 02/15/24 21:50 Pulse Rate 80 02/15/24 21:50 Pulse Rhythm Regular 02/15/24 21:50 Respiratory Rate 20 02/15/24 21:50 Blood Pressure 129/96 H 02/15/24 21:50 Blood Pressure Mean 107 H 02/15/24 21:50 Blood Pressure Position Sitting 02/15/24 21:50 Pulse Oximetry 97 02/15/24 21:50 Oxygen Delivery Method Room Air 02/15/24 21:50 Vital Signs Temperature 96.9 F L 02/15/24 21:50 Pulse Rate 80 02/15/24 21:50 Respiratory Rate 20 02/15/24 21:50 Blood Pressure 129/96 H 02/15/24 21:50 Pulse Oximetry 97 02/15/24 21:50 Oxygen Delivery Method Room Air 02/15/24 21:50 Temperature 96.9 F L 02/15/24 21:50 Pulse Rate 80 02/15/24 21:50 Respiratory Rate 20 02/15/24 21:50 Blood Pressure 129/96 H 02/15/24 21:50 Pulse Oximetry 97 02/15/24 21:50 Oxygen Delivery Method Room Air 02/15/24 21:50 Medications Administered Medications: Generic Name Dose Route Start Last Admin Trade Name Freq PRN Reason Stop Dose Admin Lidocaine/Epinephrine 20 ml 02/15/24 23:07 02/15/24 23:44 Lidocaine 1%-Epi 1:100,000 20 Ml INFILTRATI 02/15/24 23:08 20 ml ONCE ONE Administration MDM - Wound/Laceration MDM Narrative Medical decision making narrative: Procedure note: Patient's wound was soaked in Hibiclens. There was no evidence of underlying foreign body. Patient was anesthetized with 1% lidocaine with epinephrine. Approximately 0.5 mils. Patient tolerated procedure well and 3 sutures of 4 0 Ethilon were placed in interrupted fashion with good wound closure. Assessment/plan 1. Right thumb laceration-no evidence of underlying injury. Patient had sutures placed and wound is hemostatic at this time. Have recommended not getting wound wet over the next 24 hours. Thereafter may get wet such as washing hands or in the shower but I did discuss with her that I would rather not her take a bath or swim or submerge the thumb such as with dish washing. Suture removal in 10 days time. Ibuprofen or Tylenol may be used for discomfort. 2. Disposition-home. Recommend return for increasing fever redness purulent drainage and as needed. Suture removal in 10 days at the clinic. Discharge Plan Discharge Clinical Impression: Laceration of thumb Qualifiers: Encounter type: initial encounter Damage to nail status: without damage Foreign body presence: with foreign body Laterality: right Qualified Code(s): S61.021A - Laceration with foreign body of right thumb without damage to nail, initial encounter Patient Disposition: Home, Self-Care Condition: Improved Additional Instructions: Keep clean and dry for 24 hours. Thereafter you may wash your hands or shower but she still should not soak your thumb such as doing dishes or in a bath tub or swimming until sutures are removed. Suture removal in 10 days time. This can happen at your clinic. Monitor for signs of infection which would include increasing redness, drainage, fever or chills. Return if needed. Ibuprofen or Tylenol as needed for discomfort. Do your best to not bend your some in extreme angles for at least 72 hours. Prescriptions: No Action mupirocin 2 % ointment 1 applic topical 3XW Qty: 15 1RF loratadine [Allergy Relief (loratadine)] 10 mg tablet 10 mg PO QDAY PRN (Reason: allergic symptoms) Qty: 90 2RF cyclosporine [Restasis] 0.05 % dropperette ophthalmic (eye) diclofenac sodium 50 mg tablet,delayed release (DR/EC) 50 mg PO BID Qty: 180 3RF hydrochlorothiazide 25 mg tablet 25 mg PO QAM PRN (Reason: vertigo) Qty: 30 1RF ibandronate 150 mg tablet 150 mg PO Q30D Qty: 3 3RF metoprolol succinate 50 mg tablet extended release 24 hr 50 mg PO QDAY Qty: 90 3RF nifedipine 60 mg tablet extended release 60 mg PO QDAY Qty: 90 3RF simvastatin 20 mg tablet 20 mg PO QHS Qty: 90 3RF Follow Up/Referrals: John Paul Miller MD [Primary Care Provider] - Stand Alone Forms: [employer] Info Instructions
--- OUTSIDE RECORDS SUMMARY | 2024-02-15 23:15 | XMS_ITS | Clinical Summary ---
Author Name Unknown Organization [facility] Address [address] [place] [address] Care Team Providers Care Slurry Worker Name Role Phone Unavailable Primary Care Provider Unavailabl e Source Comments Patient records contain information from all sites at [facility]. For routine questions regarding patient records, call [phone] during business hours, M-F 8:00 AM - 5:00 PM Central Time. Record requests for emergency care only can be directed to [phone] at any time.[facility] Allergies Active Allergy Reactions Criticality Noted Date Comments Clarithromycin Hives (Reselect Reaction),Rash Medium 01/05/2013 Tolectin 600 Other (see comments) ,Edema, suggestive of allergic reaction, i.e., lip, tongue, or throat swelling High 01/08/2024 Throat swells up Tolmetin Edema, suggestive of allergic reaction, i.e., lip, tongue, or throat swelling,Swelling,Anaphylaxi s High 01/05/2013 Tolterodine Other (see comments) 11/28/2016 Medications Medication Sig Dispensed Refills Start Date End Date Status calcium carbonate (TUMS) 500 mg (200 mg calcium) chewable tablet Chew 1 tablet daily. 11/28/2016 Acti ve cycloSPORINE (Restasis) 0.05 % ophthalmic emulsion Administer 1 drop into both eyes daily. 01/05/2013 Active diclofenac sodium (VOLTAREN) 50 mg EC tablet Take 1 tablet by mouth 2 (two) times a day. 10/27/2023 Active esomeprazole (NexIUM) [address] capsule Take 1 capsule by mouth at bedtime. 11/28/2016 Active hydroCHLOROthiazide (HYDRODIURIL) 25 mg tablet Take 25 mg by mouth as needed. Active ibandronate (BONIVA) 150 mg tablet Take 150 mg by mouth every 30 (thirty) days. 11/04/2023 Active meclizine (ANTIVERT) 25 mg tablet Take 25 mg by mouth 3 (three) times a day as needed. 11/28/2016 Active metoprolol succinate (TOPROL-XL) 50 mg 24 hr tablet Take 50 mg by mouth daily. Active multivitamin tablet Take 1 tablet by mouth daily. 11/28/2016 Active NIFEdipine XL (PROCARDIA XL) 60 mg 24 hr tablet Take 60 mg by mouth at bedtime. 10/27/2023 Active nitroglycerin (NITRO-BID) 2 % ointment 2 (two) times a day as needed. 11/28/2016 Active nitroglycerin (NITROSTAT) 0.[address] 0.4 mg under the tongue every 2 (two) hours as needed. 11/28/2016 Active polyethylene glycol (MIRALAX) 17 gram powder packet Take 1 packet by mouth daily. 11/28/2016 Active simvastatin (ZOCOR) 20 mg tablet Take 20 mg by mouth at bedtime. 08/31/2016 Active vits A,C,E/lutein/mineral s (OCUVITE WITH LUTEIN ORAL) Take 150 mg by mouth daily. 11/28/2016 Active mupirocin (BACTROBAN) 2 % ointment Apply 1 Application topically as directed. Apply to affected areas topically three times weekly as directed 01/07/2024 Active Active Problems Problem Noted Date Diagnosed Date Adjustment Disorder With Depressed Mood 01/09/20 24 Cystitis Unspecified Without Hematuria Fatigue 01/09/2024 Gastroenteritis 01/09/2024 Pain Back 01/09/2024 Primary Osteoarthritis Knee Right 01/09/2024 Primary Osteoarthritis First Carpometacarpal Joints Bilateral 01/09/2024 Strain Of Muscle And Tendon Of Back Wall Of Thor ax Initial 01/09/2024 Tear Knee Lateral Meniscus Current Initial Left 01/09/2024 Vertigo 01/09/2024 Prolapse Rectal 01/09/2024 Angina Pectoris Unspecified 01/09/2024 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 11/28/2016 Degeneration Macular 11/28/2016 Diffuse Cystic Mastopathy Of Right Breast 2016 Dry Eye Syndrome Right 11/28/2016 Dyskinesia Esophagus 11/28/2016 Gastroesophageal Reflux Disease NOS 11/28/2016 Polyosteoarthritis Unspecified 11/28/2016 Raynaud's Phenomena Without Gangrene 11/28/2016 Hyperlipidemia 10/01/2012 Hypertension Essential Primary 10/01/2012 Meniere's Disease Right 10/01/2012 Osteoporosis 10/01/2012 Pneumonia Osteopenia Encounters Date Type Department Care Team Description 01/11/2024 9:30 AM CDT Telemedicine Division of Colon and Rectal Surgery in [place], [place] [address] [place] [phone] Renate Youngblood APRN, C.N.P., M.S.N. Prolapse Rectal (Primary Dx); Gastroenteritis; Acquired Absence Of Other Specified Parts Of Digestive Tract; Hypertension Essential Primary; Palpitations; Angina Pectoris Unspecified (HCC); Hyperlipidemia; Dyskinesia Esophagus; Gastroesophageal Reflux Disease Without Esophagitis; Raynaud's Phenomena Without Gangrene; Pain Back; Polyosteoarthritis Unspecified; Osteoporosis; Adjustment Disorder With Depressed Mood; Vertigo; Other Female Genital Prolapse 01/11/2024 Clinical Communication Division of Colon and Rectal Surgery in [place], [place] [address] [place] [phone] Renate Youngblood APRN, C.N.P., M.S.N. 01/08/2024 8:00 AM CDT Clinical Communication Virtual Review in [place], [place] 200 [place] [phone] Pre-visit Intake 12/24/2023 [facility] [address] [place] [address] John Paul Miller M.D. Acquired Absence Of Other Specified Parts Of Digestive Tract (Primary Dx); Urinary Tract Infection Site Not Specified; Hypokalemia from Last 3 Months Immunizations Name Administration Dates Next Due Influenza Split 09/29/2012 Tdap 09/29/2012 Family History Medical History Relation Name Comments Prostate cancer Father Emilia Skin cancer Father Emilia Arthritis Mother Cheri Dementia Mother Cheri Hypertension Mother Cheri Stroke Mother Cheri Relation Name Status Comments Father Emilia Mother Cheri Social History Tobacco Use Types Packs/Day Years Used Date Smoking Tobacco: Never Passive Smoke Exposure: Never Smokeless Tobacco: Never Tobacco Cessation:Counseling Given: Not Answered Alcohol Use Standard Drinks/Week Comments Yes 3 (1 standard drink = 0.6 oz pur e alcohol) [facility] Utilities Answer Date Recorded In the past 12 months has th e electric, gas, oil, or water company threatened to shut off services in your home? No 01/07/2024 Exercise Vital Sign Answer Date Recorde d On average, how many days pe r week do you engage in moderate to strenuous exercise (like a brisk walk)? 3 days 01/07/2024 On average, how many minutes do you engage in exercise at this level? 60 min 01/07/2024 Hunger Vital Sign Answer Date Recorded Within the past 12 months, y ou worried that your food would run out before you got the money to buy more. Never true 01/07/20 24 Within the past 12 months, t he food you bought just didn't last and you didn't have money to get more. Never true 01/07/2024 PRAPARE - Transportation Answer Date Re corded In the past 12 months, has l ack of transportation kept you from medical appointments or from getting medications? No 12/27 In the past 12 months, has l ack of transportation kept you from meetings, work, or from getting things needed for daily living? No 01/07/2024 Nutrition Answer Date Recorded Nutrition: EVOO Fat Source Unknown 01/06 On average, how many serving s of fruits and vegetables do you eat per day (serving size is equal to 1 cup or approximately the size of a tennis ball)? 0-2 01/07/2024 Dental Answer Date Recorded Dental: Regular Dentist Yes 01/07/20 24 Employment Answer Date Recorded Employment status Retired 01/07/2024 Housing Stability Answer Date Recorded What is your living situation today? I have a [facility] place to live 01/07/2024 Sex and Gender Information Value Date Recorded Sex Assigned at Female 01/07/2024 8:31 PM CDT Gender Identity Female 01/07/2024 8:31 PM CDT Sexual Orientation Straight 01/07/2024 8: 31 PM CDT Last Filed Vital Signs Vital Sign Reading Time Taken Comments Blood Pressure 136/81 01/05/2013 12:35 PM CDT Pulse 60 01/05/2013 12:35 PM CDT Temperature - - Respiratory Rate - - Oxygen Saturation - - Inhaled Oxygen Concentration - - Weight 56.7 kg (125 lb) 01/05/2013 12:35 PM CDT Height 149.5 cm (4' 10.86) 01/05/2013 12:35 PM CDT Body Mass Index 25.37 01/05/2013 12:35 PM CDT Plan of Treatment Upcoming Encounters Date Type Department Care Team (Latest Contact Info) Description 04/05/2024 9:00 AM CDT Clinical Communication Virtual Review in [address] [phone] 04/07/2024 8:00 AM CDT Appointment Department of Radiology, [facility], in [address] [phone] Renate Youngblood APRN, C.N.P., M.S.N. [address] [place] [phone] 04/07/2024 10:00 AM CDT Ancillary Procedure Department of Cardiovascular Medicine in [address] [phone] Renate Youngblood APRN, C.N.P., M.S.N. [address] [place] [phone] 04/07/2024 11:00 AM CDT Clinical Support Enema Prep Facility in [address] [phone] Renate Youngblood APRN, Celeste.N.P., M.S.N. [address] [place] [phone] 04/07/2024 12:30 PM CDT Appointment Division of Gastroenterology in [address] [phone] Renate Youngblood APRN, C.N.P., M.S.N. [address] [place] [phone] 04/08/2024 10:00 AM CDT Comprehensive Visit Division of Colon and Rectal Surgery in [place], [place] [address] [place] [phone] Brianne Beebe M.D., Ph.D. [address] [place] [phone] 04/08/2024 11:30 AM CDT Office Visit Division of Colon and Rectal Surgery in [place], [place] [address] [place] [phone] Renate Youngblood APRN, C.N.P., M.S.N. [address] [place] [phone] Health Maintenance Due Date Last Done Comments CT Colonography 1953 Cologuard 1953 Colonoscopy 1953 Colorectal Cancer Screening 1953 Creatinine Level (Kidney Fun ction Test) 1953 FIT 1953 Hepatitis C Screening 1953 Lipid (Cholesterol) Screening 1953 Mammogram 1953 Office Visit for Blood Press ure Check / Re-check 1953 Potassium Level 1953 Sodium Level 01/10/2014 01/10/2013 Fasting Glucose for Diabetes Screening 02/25/2016 02/24/2013 Depression Screening (Annual PHQ-2) 09/28/2023 Fall Risk Screen (Annual) 09/28/2023 COVID-19 Vaccine (2022-2 4 season) 2023 07/24/2023, 08/06/2022, 07/26/2021, Additional history exists DTaP,Tdap,and Td Vaccines (3 - Td or Tdap) 10/27/2033 10/27/2023, 09/29/2012 Zoster Vaccines Completed 11/05/2021, 04/28, 08/31/2015 Pneumococcal vaccine (65+ years) Completed 11/29/19, 09/30/2019 Influenza Vaccine Completed 08/26/2023, , 09/10/2021, Additional history exists Medical Devices Implanted Type Area Felter Tennis Balls Device Identifier Shelf Expiration Date Model / Serial / Lot Hardware E.G. Pins/Screws/R ods Hardware e.g. pins/screws/ rods Right: Foot Description:Pins in right fo ot. Hardware E.G. Pins/Screws/R ods-09/28/1999 Implanted:09/1999 (Quantity not on file) Hardware e.g. pins/screws/ rods Bilateral: Hip Description:Pins implanted o n hips to hold slings. Pt unsure of exact date of procedure. Imaging Marker-09/28/19 08 Implanted:09/2007 (Quantity not on file) Imaging Marker Left: Breast Description:Marker on the le ft breast Procedures Procedure Name Priority Date/Time Associated Diagnosis Comments GLUCOSE, FASTING, S/P Routine 02/24/2013 11:22 AM CDT SODIUM, S/P Routine 01/10/2013 9:29 AM CDT from Last 3 Months or Most Recently Relevant to Health Maintenance Results * Glucose, Fasting (02/24/2013 11:22 AM CDT) Last Intake 16 HR [facility] Glucose, P 96 70 - 100 MG/DL [facility] 02/24/2013 11:2 2 AM CDT 02/24/2013 11:22 AM CDT Any Atkins M.D. LAB BLOOD NON AD D-ON [facility] [address] * Sodium (01/10/2013 9:29 AM CDT) Sodium, S 145 135 - 145 MMOL/L [facility] 01/10/2013 9:29 AM CDT 01/10/2013 9:29 AM CDT Judie Stanton M.D. LAB BLOOD ADD-ON [facility] [address] [place] [address], [facility] from Last 3 Months or Most Recently Relevant to Health Maintenance
--- OUTSIDE RECORDS SUMMARY | 2024-02-15 23:16 | XMS_ITS | Encounter Summary ---
Author Name Unknown Organization [facility] Address [address] [place] [address] Care Team Providers Care Board Setter Name Role Phone Unavailable Primary Care Provider Unavailabl e Encounter Details Date Type Department Care Team ([facility] st Contact Info) Description 01/11/2024 Clinical Communication Division of Colon and Rectal Surgery in [place], [place] [address] [place] [phone] Renate Youngblood APRN, C.N.P., M.S.N. [address] [place] [phone] Social History Tobacco Use Types Packs/Day Years Used Date Smoking Tobacco: Never Passive Smoke Exposure: Never Smokeless Tobacco: Never Alcohol Use Standard Drinks/Week Comments Yes 3 (1 standard drink = 0.6 oz pur e alcohol) [facility] Utilities Answer Date Recorded In the past 12 months has [employer], gas, oil, or water [employer] threatened to shut off services in your [...] Date Recorded Dental: Regular Dentist Yes 01/07/20 Employment Answer Date Recorded Employment status Retired 01/07/2024 Housing Stability Answer Date Recorded What is your living situation today? I have a [facility] place to live 01/07/2024 Sex and Gender Information Value Date Recorded Sex Assigned at Female 01/07/2024 8:31 PM CDT Gender Identity Female 01/07/2024 8:31 PM CDT Sexual Orientation Straight 01/07/2024 8: 31 PM CDT documented as of this encounter Plan of Treatment Upcoming Encounters Date Type Department Care Team (Latest Contact Info) Description 04/05/2024 9:00 AM CDT Clinical Communication Virtual Review in [place], [place] 200 [place] [phone] 04/07/2024 8:00 AM CDT Appointment Department of Radiology, [facility], in [place], [place] [address] [place] [phone] Renate Youngblood APRN, C.N.P., M.S.N. [address] [place] [phone] 04/07/2024 10:00 AM CDT Ancillary Procedure Department of Cardiovascular Medicine in [place], [place] [address] [place] [phone] Renate Youngblood APRN, C.N.P., M.S.N. [address] [place] [phone] 04/07/2024 11:00 AM CDT Clinical Support Enema Prep Facility in [place], [place] [address] [place] [phone] Renate Youngblood APRN, Celeste.N.P., M.S.N. [address] [place] [phone] 04/07/2024 12:30 PM CDT Appointment Division of Gastroenterology in [place], [place] [address] [place] [phone] Renate Youngblood APRN, C.N.P., M.S.N. [address] [place] [phone] 04/08/2024 10:00 AM CDT Comprehensive Visit Division of Colon and Rectal Surgery in [place], [place] [address] [place] [phone] Brianne Beebe M.D., Ph.D. [address] [place] [phone] 04/08/2024 11:30 AM CDT Office Visit Division of Colon and Rectal Surgery in [place], [place] [address] [place] [phone] Renate Youngblood APRN, C.N.P., M.S.N. [address] [place] [phone] documented as of this encounter Visit Diagnoses Not on filedocumented in this encounter
--- OUTSIDE RECORDS SUMMARY | 2024-02-15 23:16 | XMS_ITS ---
Author Name Unknown Organization [facility] Address [address] [place] [address] Care Team Providers Care Manager Support Services Name Role Phone Unavailable Unavailable Unavailable Surgery Details Not on file Complications Check Surgery Details section. Procedure Estimated Blood Loss Check Surgery Details section. Procedure Findings Check Surgery Details section. Procedure Specimens Taken Check Surgery Details section.
--- OUTSIDE RECORDS SUMMARY | 2024-02-15 23:16 | XMS_ITS | Clinical Summary ---
Author Name Unknown Organization [facility] Address [place], [place] [address] Care Team Providers Care Rolls Baker Name Role Phone John Paul Miller MD Primary Care Provider [phone] Allergies Active Allergy Reactions Criticality Noted Date Comments Clarithromycin Hives 11/28/2016 Tolterodine Intolerance-Can't Take 11/28/2016 Tolmetin Throat Swelling/Closing High 11/28/2016 Medications Medication Sig Dispensed Refills Start Date End Date Status metoprolol tartrate (LOPRESSOR) 50 mg tablet Take 1 tablet by mouth 2 times daily. 0 11/28/2016 Active simvastatin (ZOCOR) 20 mg tabletIndications:Hyp erlipidemia, unspecified Take 1 tablet by mouth once daily with evening meal. 90 tablet 3 11/28/2016 Active polyethylene glycol (MIRALAX) 17 g powder for solutionIndications:H /O colectomy Take 17 g by mouth. 0 11/28/2016 Active hydroCHLOROthiazide (HCTZ) 25 mg tabletIndications:Men iere disease, unspecified laterality Take 1 tablet by mouth once daily. 0 11/28/2016 Active cycloSPORINE (RESTASIS) 0.05 % ophthalmic emulsionIndications:D ry eye 1 Drop every 12 hours. 0 11/28/2016 Active multivitamin (MVI) tabletIndications:H/O colectomy Take 1 tablet by mouth once daily. 0 11/28/2016 Active calcium carbonate (CALCIUM ANTACID) 200 mg calcium (500 mg) chewable tabletIndications:Chr onic GERD Take 1 tablet by mouth 3 times daily with meals. 0 11/28/2016 Active Vit C-Vit A-Zouilw-Eky-OM-3 (OCUVITE 150 MG-30 UNIT-5 MG-150 MG CAPSULE) [id number] af-lwjf-ib-mg capsuleIndications:Ma cular degeneration (senile) of retina, unspecified Take by mouth. 0 11/28/2016 Active Qmbor-0-SBN-EPA-Fish Oil (FISH OIL) 1,000 mg (120 mg-180 mg) capIndications:Essent ial hypertension Take by mouth. 0 11/28/2016 Acti ve meclizine (ANTIVERT) 25 mg tabletIndications:Men iere disease, unspecified laterality Take 1 tablet by mouth 3 times daily if needed. 0 11/28/2016 Active simvastatin (ZOCOR) 20 mg tablet Take 20 mg by mouth at bedtime. 1 08/31/2016 Active RESTASIS 0.05 % ophthalmic emulsion INSTILL 1 DROP(S) IN EACH EYE BY OPHTHALMIC ROUTE TWICE A DAY 4 08/28/2016 Active esomeprazole (NEXIUM) 20 mg capsuleIndications:Ch ronic GERD Take 1 capsule by mouth once daily before a meal. 0 11/28/2016 Active nitroglycerin (NITRO-BID) 2 % ointmentIndications:P rimary Raynaud's phenomenon Apply twice daily as needed. 0 11/28/2016 Active nitroglycerin (NITROSTAT) 0.4 mg sublingual tabletIndications:Ess ential hypertension Place 1 tablet under the tongue every 5 minutes if needed for Chest Pain. 1 Bottle 11 11/28/2016 Active metoprolol succinate (TOPROL XL) 50 mg sustained-release tabletIndications:Ess ential hypertension Take 1 tablet by mouth once daily. 90 tablet 3 01/05/2017 Active celecoxib (CELEBREX) 200 mg capsuleIndications:Pr imary osteoarthritis involving multiple joints Take 1 capsule by mouth once daily with a meal. 90 capsule 3 01/13/2017 Active NIFEdipine (ADALAT CC) 60 mg Extended-Release tabletIndications:HTN (hypertension) Take 1 tablet by mouth once daily before a meal. 90 tablet 3 01/13/2017 Active Active Problems Problem Noted Date Diagnosed Date Chronic GERD 11/28/2016 Esophageal spasm 11/28/2016 Essential hypertension 11/28/2016 History of PSVT (paroxysmal supraventricular tac hycardia) 11/28/2016 Hyperlipidemia, unspecified 11/28/2016 Primary osteoarthritis involving multiple joints 11/28/2016 H/O colectomy 11/28/2016 Primary Raynaud's phenomenon 11/28/2016 Meniere disease 11/28/2016 H/O osteopenia 11/28/2016 Macular degeneration (senile) of retina, unspeci fied 11/28/2016 Dry eye 11/28/2016 Fibrocystic breast changes of both breasts 11/28 High risk for cervical cancer 11/28/2016 Family History Medical History Relation Name Comments Arthritis Brother Cancer-prostate Father Irregular heart beat Father Stroke Maternal Grandmother Dementia Mother Hypertension Mother Stroke Mother Stroke Other Aunt indentical twin to sister Relation Name Status Comments Brother Alive Father Alive Maternal Grandmother Mother Alive Other Aunt Social History Tobacco Use Types Packs/Day Years Used Date Smoking Tobacco: Never Smokeless Tobacco: Never Tobacco Cessation:Counseling Given: Yes Alcohol Use Standard Drinks/Week Comments Yes 0 (1 standard drink = 0.6 oz pur e alcohol) Social Connections Answer Date Recorded Frequency of Communication with Friends and Fami ly Not on file 02/03/2022 Sex and Gender Information Value Date Recorded Sex Assigned at Not on file Gender Identity Not on file Sexual Orientation Not on file Obstetrics History Last Filed Vital Signs Vital Sign Reading Time Taken Comments Blood Pressure 110/67 02/03/2022 9:06 AM CDT tow er Pulse 58 02/03/2022 9:06 AM CDT Temperature 36.8 ??C (98.3 ??F) 11/28/2016 9:05 AM CS T Respiratory Rate - - Oxygen Saturation 98% 02/03/2022 9:06 AM CDT Inhaled Oxygen Concentration - - Weight 54.9 kg (121 lb) 02/03/2022 9:06 AM CDT Height 148.6 cm (4' 10.5) 11/28/2016 9:05 AM CS T Body Mass Index 24.86 11/28/2016 9:05 AM BOLT MAKER Plan of Treatment Health Maintenance Due Date Last Done Comments Tdap 1964 Tetanus booster 1973 Colonoscopy through age 75 1998 Mammogram for age 45-75 1998 Zoster (shingles) series for age 50+ (1 of 2) 2003 BMI (ht and wt on same day) for age 18+ 11/28/2017 11/28/2016 Depression screening for age 12+ 11/28/2017 11/29/19 17 DEXA/DXA scan for age 65+ 2018 Medicare Wellness for age 65+ 2018 Pneumococcal series for age 65+ (1 of 1 - PCV) 2018 Lipids for age 45-75 11/28/2021 11/28/2016 COVID-19 vaccine series (4 - 2022- season) 2023 07/26/2021, 12/01/2020, 11/10/2020 Influenza for age 65+ 05/29/2024 Hepatitis C screening for age 18-79 Completed 11/28 Procedures Procedure Name Priority Date/Time Associated Diagnosis Comments ANTI HCV Routine 11/28/2016 10:50 AM BOLT MAKER Need for hepatitis C screening test LIPID PANEL W REFLEX MEASURED LDL Routine 11/28/2016 10:50 AM BOLT MAKER Hyperlipidemia, unspecified from Last 3 Months or Most Recently Relevant to Health Maintenance Results * LIPID PANEL W REFLEX MEASURED LDL (11/28/2016 10:50 AM BOLT MAKER) CHOLESTEROL,TOTAL 164 100 - 199 mg/dL 11/28/2016 11:36 AM BOLT MAKER [facility] TRIGLYCERIDES 85 <150 mg/dL 11/28/2016 11:36 AM BOLT MAKER [facility] HDL CHOLESTEROL 65 >40 mg/dL 7 11:36 AM BOLT MAKER [facility] NON-HDL CHOLESTEROL 99 <145 mg/dl 11/28/2016 11:36 AM BOLT MAKER [facility] CHOL/HDL RATIO 2.52 <4.50 11/28/2016 11:36 AM BOLT MAKER [facility] LDL CHOLESTEROL 82 <=130 mg/dL 11/28/2016 11:36 AM BOLT MAKER [facility] PATIENT STATUS FASTING 11/28/2016 11:36 AM BOLT MAKER [facility] Blood BLOOD SPECIMEN / Unknown Venipuncture / Unknown 11/28/2016 10:50 AM BOLT MAKER 11/28/2016 10:50 AM BOLT MAKER Lucas Abebe MD CHEMISTRY [facility] [address] [place] [address], [place] [phone] * ANTI HCV [85360.2] (11/28/2016 10:50 AM BOLT MAKER) HEPATITIS C ANTIBODY Non-Reacti ve Non-Reacti ve 11/28/2016 4:20 PM BOLT MAKER [facility] Blood BLOOD SPECIMEN / Unknown Venipuncture / Unknown 11/28/2016 10:50 AM BOLT MAKER 11/28/2016 10:50 AM BOLT MAKER Narrative [facility] - 11/28/2016 4:20 PM BOLT MAKER Antibodies to HCV not detected; does not exclude the possibility of exposure to HCV. Lucas Abebe MD SEND OUTS [facility] [address] [place] [address], from Last 3 Months or Most Recently Relevant to Health Maintenance Care Teams Rolls Baker Relationship Specialty Start Date End Date John Paul Miller MD [address] [place] [address] PCP - General Family Practice 01/03/22
--- OUTSIDE RECORDS SUMMARY | 2024-02-15 23:16 | XMS_ITS | Encounter Summary ---
Author Name Unknown Organization [facility] Address [address] [place] [address] Care Team Providers Care Payroll Supervisor Name Role Phone Unavailable Primary Care Provider Unavailabl e Encounter Details Date Type Department Care Team (Late st Contact Info) Description 12/24/2023 [facility] [address] [place] [address] John Paul Miller M.D. [address], [place] [phone] Acquired Absence Of Other Specified Parts Of Digestive Tract (Primary Dx); Urinary Tract Infection Site Not Specified; Hypokalemia Social History Tobacco Use Types Packs/Day Years Used Date Smoking Tobacco: Never Nutrition Answer Date Recorded Nutrition: EVOO Fat Source Unknown 12/23 Nutrition: Servings of Fruits/Vegetables per Day Not on file 12/24/2023 Dental Answer Date Recorded Dental: Regular Dentist Unknown 12/24/19 Sex and Gender Information Value Date Recorded Sex Assigned at Female 01/07/2024 8:31 PM CDT Gender Identity Female 01/07/2024 8:31 PM CDT Sexual Orientation Straight 01/07/2024 8: 31 PM CDT documented as of this encounter Plan of Treatment Upcoming Encounters Date Type Department Care Team (Latest Contact Info) Description 04/05/2024 9:00 AM CDT Clinical Communication Virtual Review in [place], [place] [address] [place] [phone] 04/07/2024 8:00 AM CDT Appointment Department of Radiology, [facility], in [place], [place] [address] [place] [phone] Renate Youngblood APRN, C.NLewis., M.S.N. [address] [place] [phone] 04/07/2024 10:00 AM CDT Ancillary Procedure Department of Cardiovascular Medicine in [place], [place] [address] [place] [phone] Renate Youngblood APRN, C.NLewis., M.S.N. [address] [place] [phone] 04/07/2024 11:00 AM CDT Clinical Support Enema Prep Facility in [place], [place] [address] [place] [phone] Renate Youngblood APRN, C.N.P., M.S.N. [address] [place] [phone] 04/07/2024 12:30 PM CDT Appointment Division of Gastroenterology in [address] [phone] Renate Youngblood APRN, C.N.P., M.S.N. [address] [place] [phone] 04/08/2024 10:00 AM CDT Comprehensive Visit Division of Colon and Rectal Surgery in [address] [phone] Brianne Beebe M.D., Ph.D. [address] [place] [phone] 04/08/2024 11:30 AM CDT Office Visit Division of Colon and Rectal Surgery in [place], [place] [address] [place] [phone] Renate Youngblood APRN, C.N.P., M.S.N. [address] [place] [phone] documented as of this encounter Visit Diagnoses Diagnosis Acquired Absence Of Other Specified Parts Of Digestive Tract- Primary Urinary Tract Infection Site Not Specified Hypokalemia documented in this encounter
--- OUTSIDE RECORDS SUMMARY | 2024-02-15 23:16 | XMS_ITS | Encounter Summary ---
Author Name Unknown Organization [facility] Address [address] [place] [address] Care Team Providers Care Sack Sorter Name Role Phone Unavailable Primary Care Provider Unavailabl e Reason for Referral * Outpatient (Routine) - Authorized Specialty Diagnoses / Procedures Referred By Contac t Referred To Contact Diagnoses Prolapse Rectal Hypertension Essential Primary Palpitations Angina Pectoris Unspecified (HCC) Hyperlipidemia Procedures ECG 12 Lead Renate Youngblood APRN, C.N.Dandre., M.S.N. 200 [place] [phone] [facility] Referral ID Status Reason Start Date Expiration Date V isits Requested Visits Authorized [id number] Authorized 01/11/2024 01/10/2025 1 1 * Outpatient (Routine) - Authorized Specialty Diagnoses / Procedures Referred By Contac t Referred To Contact Colon and Rectal Surgery Renate Youngblood APRN, C.NBenton, M.S.N. 200 [place] [address] [facility] Referral ID Status Reason Start Date Expiration Date V isits Requested Visits Authorized [id number] Authorized 01/11/2024 07/12/2025 1 1 Scheduling Instructions Rectal Prolapse; RENAY * Outpatient (Routine) - Authorized Specialty Diagnoses / Procedures Referred By Contac t Referred To Contact Colon and Rectal Surgery Diagnoses Prolapse Rectal Acquired Absence Of Other Specified Parts Of Digestive Tract Hypertension Essential Primary Palpitations Angina Pectoris Unspecified (HCC) Hyperlipidemia Dyskinesia Esophagus Gastroesophageal Reflux Disease Without Esophagitis Raynaud's Phenomena Without Gangrene Pain Back Polyosteoarthritis Unspecified Osteoporosis Other Female Genital Prolapse Renate Youngblood APRN, C.NBenton, M.S.N. [address] [place] [phone] [facility] Referral ID Status Reason Start Date Expiration Date V isits Requested Visits Authorized [id number] Authorized 01/11/2024 07/12/2025 1 1 * Outpatient (Routine) - Authorized Specialty Diagnoses / Procedures Referred By Contac t Referred To Contact Diagnoses Prolapse Rectal Acquired Absence Of Other Specified Parts Of Digestive Tract Other Female Genital Prolapse Procedures Enema Prep Renate Youngblood APRN, C.N.P., M.S.N. [address] [place] [phone] [facility] Referral ID Status Reason Start Date Expiration Date V isits Requested Visits Authorized [id number] Authorized 01/11/2024 01/10/2025 1 1 * Outpatient (Routine) - Authorized Specialty Diagnoses / Procedures Referred By Contac t Referred To Contact Diagnoses Prolapse Rectal Acquired Absence Of Other Specified Parts Of Digestive Tract Other Female Genital Prolapse Procedures Anorectal Manometry Renate Youngblood APRN, C.N.Aliyah, M.S.N. [address] [place] [phone] [facility] Referral ID Status Reason Start Date Expiration Date V isits Requested Visits Authorized [id number] Authorized 01/11/2024 01/10/2025 1 1 * MRI/CAT/PET Scan (Routine) - Authorized Specialty Diagnoses / Procedures Referred By Contac t Referred To Contact Radiology Diagnoses Other Female Genital Prolapse Procedures MR Proctogram Dynamic and Sphincter Eval without IV Contrast Renate Youngblood APRN, C.N.P., M.S.N. 200 [place] [address] [facility] Referral ID Status Reason Start Date Expiration Date V isits Requested Visits Authorized [id number] Authorized 01/11/2024 01/10/2025 1 1 Reason for Visit * Appointment Request (Routine) - Closed Specialty Diagnoses / Procedures Referred By Contac t Referred To Contact Colon and Rectal Surgery Diagnoses Prolapse Rectal John Paul Miller M.D. [address] [place] [phone] Referral ID Status Reason Start Date Expiration Date Visits Re quested Visits Authorized [id number] Closed 12/24/2023 12/23/2024 1 1 Encounter Details Date Type Department Care Team (Late st Contact Info) Description 01/11/2024 9:30 AM CDT Telemedicine Division of Colon and Rectal Surgery in [place], [place] 200 [place] [phone] Renate Youngblood APRN, C.NB[place], M.S.N. 200 [place] [phone] Prolapse Rectal (Primary Dx); Gastroenteritis; Acquired Absence Of Other Specified Parts Of Digestive Tract; Hypertension Essential Primary; Palpitations; Angina Pectoris Unspecified (HCC); Hyperlipidemia; Dyskinesia Esophagus; Gastroesophageal Reflux Disease Without Esophagitis; Raynaud's Phenomena Without Gangrene; Pain Back; Polyosteoarthritis Unspecified; Osteoporosis; Adjustment Disorder With Depressed Mood; Vertigo; Other Female Genital Prolapse Social History Tobacco Use Types Packs/Day Years Used Date Smoking Tobacco: Never Passive Smoke Exposure: Never Smokeless Tobacco: Never Tobacco Cessation:Counseling Given: Not Answered Alcohol Use Standard Drinks/Week Comments Yes 3 (1 standard drink = 0.6 oz pur e alcohol) [facility] Utilities Answer Date Recorded In the past 12 months has th e [place], gas, oil, or water [employer] threatened to shut off services in your [...] money to buy more. Never true 01/07/20 Within the past 12 months, t he [...] your living situation today? I have a [facility] place to live 01/07/2024 Sex and Gender Information Value Date Recorded Sex Assigned at Female 01/07/2024 8:31 PM CDT Gender Identity Female 01/07/2024 8:31 PM CDT Sexual Orientation Straight 01/07/2024 8: 31 PM CDT documented as of this encounter Consult Notes * Renate Youngblood APRN, C.N.P., M.S.N. - 01/11/2024 9:30 AM CDT Consult conducted via real-time video technology by Renate Youngblood APRN, C.N.P., M.S.N. in [facility] [place] to the patient in Patient's Home SUBJECTIVE CHIEF COMPLAINT / REASON FOR VISIT Allie Barbosa is a very pleasant 68 y.o. female, retired [employer] employee, presenting in [facility] John Paul Miller M.D. for a Pre-Visit Intake and requesting future surgical consultation regarding Rectal Prolapse. HISTORY OF PRESENT ILLNESS Mrs. Allie Barbosa has comorbidities that include: gastroenteritis, chronic constipation s/p bowel resection, back pain, esophageal dyskinesia, GERD, raynaud's, hypertension, hyperlipidemia, SVThistory, palpitations, angina, meniere's disease right, osteoarthritis, osteoporosis, depression, vertigo, fatigue, fracture history, pneumonia history, pelvic floor weakness, rectal prolapse Surgical/procedural history includes: tonsillectomy (1965), total hysterectomy (1984), bunionectomy(1986), partial colectomy (2005), cystocele repair (2000), left breast lumpectomy (2011), right foot surgery (horse stepped on foot) Family history: prostate cancer (Dad) Mrs. Allie Barbosa underwent a partial colectomy in 2005, related to chronic constipation and rectalprolapse and continues to take MiraLAX daily since surgery. In review of outside records on 12/16/2023, she presented to her local emergency department with an inability to urinate, pelvic pressure/heaviness, and no bowel movement for 2 days after experiencingdiarrhea the weekend prior. She took additional doses of MiraLAX and proceeded to bear down extensively, making her feel dizzy, anxious, and fearful of a stroke. She felt like she had a tennis ball in her rectum and was straining to try and relieve this. She was needing to push up on her rectum in order to pass urine. Physical exam revealed a rectal prolapse. She recently started hydrochlorothiazide and meclizine for her vertigo. C diff was negative, positive bladder infection-prescribed Macrobid and later Levaquin after culture returned, slight urinary retention felt to be related to meclozine. Leucocytosis felt to be related to bladder infection from recent diarrhea from stomach flu, abdominal x-ray did not show constipation or obstructive findings. Her last colonoscopy was approximately 2 years ago at the [facility]. She states that internal hemorrhoids were noted and unsure if she has a colon polyp history.- Report is not available. Today, patient is reporting: - history of rectal prolapse previously; s/p 12 inches colectomy in 2005 - weak pelvic floor; s/p rectocele/cystocele repair - She has never had pelvic floor physical therapy. - urinary symptoms have resolved - she is no longer having bowel issues; returned to baseline Prolapse symptoms: - known pelvic floor weakness s/p prior prolapse repair - pelvic pressure and heaviness, feeling like a tennis ball in rectum and recent dysuria - no external prolapse Typical bowel pattern: - movements/day: 2-3 - stool consistency: soft, formed and pinky finger sized - pushing/straining: not currently - bleeding/drainage: no bleeding or mucous drainage Interventions trialed: - daily MiraLAX since colectomy/prolapse repair in 2005 - reports eating a healthy diet; cooks her meals from scratch. - consuming 6-8 cups water daily Mrs. Barbosa's goal from Colorectal surgery is: determine if she is experiencing pelvic organ prolapse that contributed to her recent rectal/pelvic pain and inability to urinate and defecate. She is hopeful that surgery will not be required and mentions that her last prolapse surgery was difficult. The following portions of the patient's history were reviewed and updated as appropriate: allergies, current medications, family history, medical history, social history, surgical history, and problem list. ASSESSMENT / PLAN #1 Prolapse Rectal #2 Gastroenteritis #3 Acquired Absence Of Other Specified Parts Of Digestive Tract It is a pleasure meeting with Mrs. Allie Barbosa today regarding a rectal prolapse that was found onphysical exam locally after presenting to the Emergency Department with pelvic heaviness/pressure, inability to urinate, and no bowel movement for 2 days after experiencing a few days of diarrhea stools. She was found to have a bladder infection likely related to the diarrhea episodes. She does have a history of chronic constipation and rectal prolapse that she underwent a partial colectomy for in 2005 and continues with daily MiraLAX. Mrs. Barbosa's goal from Colorectal surgery is: determine if she is experiencing pelvic organ prolapse that contributed to her recent rectal/pelvic pain and inability to urinate and defecate. She is hopeful that surgery will not be required and mentions that her last prolapse surgery was difficult. Plan: - MR Proctogram with sphincter evaluation - Anorectal manometry - Enema prep prior - CRS surgeon consultation after testing is complete - RENAY with me if surgery is pursued - ECG - Obtain outside Operative Report from partial colectomy for rectal prolapse in 2005 - Obtain outside colonoscopy report from [facility] from 2 years ago #4 Hypertension Essential Primary #5 Palpitations #6 Angina Pectoris Unspecified (HCC) #7 Hyperlipidemia On simvastatin, nitroglycerin SL tablet, nitroglycerin ointment, nifedipine, metoprolol, Hctz. Managed by local providers #8 Dyskinesia Esophagus #9 Gastroesophageal Reflux Disease Without Esophagitis On esomeprazole and Tums. Managed by local providers. #10 Raynaud's Phenomena Without Gangrene Managed by local providers. #11 Pain Back #12 Polyosteoarthritis Unspecified #13 Osteoporosis On ibandronate (Boniva), diclofenac sodium. Managed by local providers #14 Adjustment Disorder With Depressed Mood Not medicated. Managed by local providers #15 Vertigo On hydrochlorothiazide and meclizine. Managed by local providers documented in this encounter Plan of Treatment Upcoming Encounters Date Type Department Care Team (Latest Contact Info) Description 04/05/2024 9:00 AM CDT Clinical Communication Virtual Review in [place], [place] 200 [place] [phone] 04/07/2024 8:00 AM CDT Appointment Department of Radiology, [facility], in [place], [place] [address] [place] [phone] Renate Youngblood APRN, C.N.P., M.S.N. [address] [place] [phone] 04/07/2024 10:00 AM CDT Ancillary Procedure Department of Cardiovascular Medicine in [place], [place] [address] [place] [phone] Renate Youngblood APRN, Celeste.N.P., M.S.N. [address] [place] [phone] 04/07/2024 11:00 AM CDT Clinical Support Enema Prep Facility in [place], [place] [address] [place] [phone] Renate Youngblood APRN, C.N.P., M.S.N. [address] [place] [phone] 04/07/2024 12:30 PM CDT Appointment Division of Gastroenterology in [address] [phone] Renate Youngblood APRN, Celeste.N.P., M.S.N. [address] [place] [phone] 04/08/2024 10:00 AM CDT Comprehensive Visit Division of Colon and Rectal Surgery in [address] [phone] Brianne Beebe M.D., Ph.D. [address] [place] [phone] 04/08/2024 11:30 AM CDT Office Visit Division of Colon and Rectal Surgery in [address] [phone] Renate Youngblood APRN, Celeste.N.P., M.S.N. [address] [place] [phone] Scheduled Orders Name Type Priority Associated Diagnoses Orde r Schedule MR Proctogram Dynamic and Sphincter Eval without IV Contrast Imaging RAD - Routine (most inpatients and all outpatients) Other Female Genital Prolapse Expected: 01/11/2024, Expires: 01/08/2025 Anorectal Manometry GI Routine Prolapse Rectal Acquired Absence Of Other Specified Parts Of Digestive Tract Other Female Genital Prolapse Expected: 01/11/2024, Expires: 04/09/2025 Enema Prep Procedures Routine Prolapse Rectal Acquired Absence Of Other Specified Parts Of Digestive Tract Other Female Genital Prolapse Expected: 01/11/2024, Expires: 04/09/2025 ECG 12 Lead ECG Routine Prolapse Rectal Hypertension Essential Primary Palpitations Angina Pectoris Unspecified (HCC) Hyperlipidemia Expected: 01/11/2024, Expires: 04/09/2025 Scheduled Referrals Name Type Priority Associated Diagnoses Orde r Schedule Colon and Rectal Surgery - General consult (clinic) Outpatient Referral Routine Prolapse Rectal Acquired Absence Of Other Specified Parts Of Digestive Tract Hypertension Essential Primary Palpitations Angina Pectoris Unspecified (HCC) Hyperlipidemia Dyskinesia Esophagus Gastroesophageal Reflux Disease Without Esophagitis Raynaud's Phenomena Without Gangrene Pain Back Polyosteoarthritis Unspecified Osteoporosis Other Female Genital Prolapse Expected: 01/11/2024, Expires: 04/09/2025 Colon and Rectal Surgery office visit (clinic) Outpatient Referral Routine Expected: 01/11/2024, Expires: 04/09/2025 documented as of this encounter Visit Diagnoses Diagnosis Prolapse Rectal- Primary Gastroenteritis Acquired Absence Of Other Specified Parts Of Digestive Tract Hypertension Essential Primary Palpitations Angina Pectoris Unspecified (HCC) Hyperlipidemia Dyskinesia Esophagus Gastroesophageal Reflux Disease Without Esophagitis Raynaud's Phenomena Without Gangrene Pain Back Polyosteoarthritis Unspecified Osteoporosis Adjustment Disorder With Depressed Mood Vertigo Other Female Genital Prolapse documented in this encounter
--- OUTSIDE RECORDS SUMMARY | 2024-02-15 23:16 | XMS_ITS | Encounter Summary ---
Author Name Unknown Organization [facility] Address [address] [place] [address] Care Team Providers Care Surgical Scrub Technologist Name Role Phone Unavailable Primary Care Provider Unavailabl e Encounter Details Date Type Department Care Team (Late st Contact Info) Description 02/24/2013 Historical Ophthalmology [facility] Wyatt Calle O.D., Ph.D. Social History Tobacco Use Types Packs/Day Years Used Date Smoking Tobacco: Never Assessed Sex and Gender Information Value Date Recorded Sex Assigned at Female 01/07/2024 8:31 PM CDT Gender Identity Female 01/07/2024 8:31 PM CDT Sexual Orientation Straight 01/07/2024 8: 31 PM CDT documented as of this encounter Progress Notes * Wyatt Calle O.D., Ph.D. - 02/24/2013 1:27 PM CDT Eye General CHIEF COMPLAINT chronic dry eye HISTORY OF PRESENT ILLNESS 57 year old here for eye exam. Blurred vision; comes and goes; some days vision is so blurred she can't drive; other days it's crystal clear. Trouble driving at night. Chronic dry eye; She has had a Clifford test done, and found to have no moisture in her eyes. She has used Restasis, and other drops. Currently using Restasis both eyes twice per day. She has a salty taste in her mouth. She has been told it may be the Restasis causing this. [facility] - in [facility], she was placed on Lotemax, elvin 128, and artificial tears at different times IMPRESSION / REPORT / PLAN Consult requested by: Wilbert [id number] #1 Dry eye Refer to Dr. Ospina, anterior segment #2 Night blindness She notes difficulty in theaters, driving at night, in the presence of good visual acuity It is possible that this is related to blur from dry eye, but the symptoms in the theater Vitamin A level is normal - 71.3 mcg/dL on 02/07/13 Get ERG (full field and mfERG), manual visual field, OCT spectralis with 12 radial cuts, photo, refer to retina DIAGNOSIS #1 Dry eye #2 Night blindness CDM Reports - EYEGEN Id: [id number] Status: Fnl documented in this encounter Plan of Treatment Upcoming Encounters Date Type Department Care Team (Latest Contact Info) Description 04/05/2024 9:00 AM CDT Clinical Communication Virtual Review in [address] [phone] 04/07/2024 8:00 AM CDT Appointment Department of Radiology, [facility], in [address] [phone] Renate Youngblood APRN, C.N.P., M.S.N. [address] [place] [phone] 04/07/2024 10:00 AM CDT Ancillary Procedure Department of Cardiovascular Medicine in [address] [phone] Renate Youngblood APRN, C.N.P., M.S.N. [address] [place] [phone] 04/07/2024 11:00 AM CDT Clinical Support Enema Prep Facility in [address] [phone] Renate Youngblood APRN, C.N.P., M.S.N. [address] [place] [phone] 04/07/2024 12:30 PM CDT Appointment Division of Gastroenterology in [place], [place] [address] [place] [phone] Renate Youngblood APRN, C.N.P., M.S.N. [address] [place] [phone] 04/08/2024 10:00 AM CDT Comprehensive Visit Division of Colon and Rectal Surgery in [place], [place] [address] [place] [phone] Brianne Beebe M.D., Ph.D. [address] [place] [phone] 04/08/2024 11:30 AM CDT Office Visit Division of Colon and Rectal Surgery in [place], [place] [address] [place] [phone] Renate Youngblood APRN, C.N.P., M.S.N. [address] [place] [phone] documented as of this encounter Visit Diagnoses Not on filedocumented in this encounter
--- OUTSIDE RECORDS SUMMARY | 2024-02-15 23:16 | XMS_ITS | Referral Summary ---
Author Name Unknown Organization [facility] Address [address] [place] [address] Care Team Providers Care Saw Feeder Name Role Phone Unavailable Primary Care Provider Unavailabl e Source Comments Patient records contain information from all sites at [facility]. For routine questions regarding patient records, call [phone] during business hours, M-F 8:00 AM - 5:00 PM Central Time. Record requests for emergency care only can be directed to [phone] at any time.[facility] Encounters Date Type Department Care Team Description 01/11/2024 Clinical Communication Division of Colon and Rectal Surgery in [address] [phone] Renate Youngblood APRN, C.N.P., M.S.N. 01/11/2024 9:30 AM CDT Telemedicine Division of Colon and Rectal Surgery in [address] [phone] Renate Youngblood APRN C.N.P., M.S.N. Prolapse Rectal (Primary Dx); Gastroenteritis; Acquired Absence Of Other Specified Parts Of Digestive Tract; Hypertension Essential Primary; Palpitations; Angina Pectoris Unspecified (HCC); Hyperlipidemia; Dyskinesia Esophagus; Gastroesophageal Reflux Disease Without Esophagitis; Raynaud's Phenomena Without Gangrene; Pain Back; Polyosteoarthritis Unspecified; Osteoporosis; Adjustment Disorder With Depressed Mood; Vertigo; Other Female Genital Prolapse 01/08/2024 8:00 AM CDT Clinical Communication Virtual Review in [address] [phone] Pre-visit Intake 12/24/2023 [facility] AND [address] [phone] John Paul Miller M.D. Acquired Absence Of Other Specified Parts Of Digestive Tract (Primary Dx); Urinary Tract Infection Site Not Specified; Hypokalemia from Last 3 Months Allergies Active Allergy Reactions Criticality Noted Date [...] Disease Right 10/01/2012 Osteoporosis 10/01/2012 Pneumonia Osteopenia Immunizations Name Administration Dates Next Due Influenza Split 09/29/2012 Tdap 09/29/2012 Social History Tobacco Use Types Packs/Day Years Used Date Smoking Tobacco: Never Passive Smoke Exposure: Never Smokeless Tobacco: Never Tobacco Cessation:Counseling Given: Not Answered Alcohol Use Standard Drinks/Week Comments Yes 3 (1 standard drink = 0.6 oz pur e alcohol) [facility] Utilities Answer Date Recorded In the past [...] your living situation today? I have a [facility] place to live 01/07/2024 Sex [...] AM CDT Clinical Communication Virtual Review in [place], [place] 200 [place] [address] 04/07/2024 8:00 AM CDT Appointment Department of Radiology, [facility], in [place], [place] [address] [place] [phone] Renate Youngblood APRN, C.N.P., M.S.N. [address] [place] [phone] 04/07/2024 10:00 AM CDT Ancillary Procedure Department of Cardiovascular Medicine in [address] [phone] Renate Youngblood APRN, C.N.P., M.S.N. [address] [place] [phone] 04/07/2024 11:00 AM CDT Clinical Support Enema Prep Facility in [address] [phone] Renate Youngblood APRN, C.N.P., M.S.N. [address] [place] [phone] 04/07/2024 12:30 PM CDT Appointment Division of Gastroenterology in [place], [place] [address] [place] [phone] Renate Youngblood APRN, C.N.P., M.S.N. [address] [place] [phone] 04/08/2024 10:00 AM CDT Comprehensive Visit Division of Colon and Rectal Surgery in [place], [place] [address] [place] [address] Brianne Beebe M.D., Ph.D. [address] [place] [phone] 04/08/2024 11:30 AM CDT Office Visit Division of Colon and Rectal Surgery in [place], [place] [address] [place] [phone] Renate Youngblood APRN, C.N.P., M.S.N. [address] [place] [phone] Medical Devices Implanted Type Area Automatic Steel Tie Adjuster Device Identifier Shelf Expiration Date Model / [...] 11:22 AM CDT) Last Intake 16 HR [facility] Glucose, P 96 70 - 100 MG/DL [facility] 02/24/2013 11:2 2 AM CDT 02/24/2013 11:22 AM CDT Any Atkins M.D. LAB BLOOD NON AD D-ON Performing Organization Address City/[facility]/ZIP Co de Phone Number [facility] [address] * Sodium (01/10/2013 9:29 AM CDT) Sodium, S 145 135 - 145 MMOL/L [facility] 01/10/2013 9:29 AM CDT 01/10/2013 9:29 AM CDT Judie Stanton M.D. LAB BLOOD ADD-ON Performing Organization Address City/[facility] Co de Phone Number [facility] [address] from Last 3 Months or Most Recently Relevant to Health Maintenance
--- OUTSIDE RECORDS SUMMARY | 2024-02-15 23:16 | XMS_ITS | Encounter Summary ---
Author Name Unknown Organization [facility] Address [address] [place] [address] Care Team Providers Care Forming Roll Operator Name Role Phone Unavailable Primary Care Provider Unavailabl e Reason for Visit * Reason Onset Date Comments Pre-visit Intake 01/08/2024 Encounter Details Date Type Department Care Team (Latest Contact Info) Description 01/08/2024 8:00 AM CDT Clinical Communication Virtual Review in [place], [place] 200 [place] [address] Pre-visit Intake Social History Tobacco Use Types Packs/Day Years Used Date Smoking Tobacco: Never Passive Smoke Exposure: Never Smokeless Tobacco: Never Tobacco Cessation:Counseling Given: Not Answered Alcohol Use Standard Drinks/Week Comments Yes 2 (1 standard drink = 0.6 oz pur e alcohol) [facility] Utilities Answer Date Recorded In the past 12 months has [facility] [employer], gas, oil, or water [employer] threatened to shut off services in your [...] your living situation today? I have a [facility] place to live 01/07/2024 Sex [...] AM CDT Clinical Communication Virtual Review in [place], [place] 200 [place] [address] 04/07/2024 8:00 AM CDT Appointment Department of Radiology, [facility], in [place], [place] [address] [place] [phone] Renate Youngblood APRN, C.N.P., M.S.N. [address] [place] [phone] 04/07/2024 10:00 AM CDT Ancillary Procedure Department of Cardiovascular Medicine in [place], [place] [address] [place] [phone] Renate Youngblood APRN, C.N.P., M.S.N. [address] [place] [phone] 04/07/2024 11:00 AM CDT Clinical Support Enema Prep Facility in [place], [place] [address] [place] [phone] Renate Youngblood APRN, Celeste.N.P., M.S.N. [address] [place] [phone] 04/07/2024 12:30 PM CDT Appointment Division of Gastroenterology in [place], [place] [address] [place] [phone] Renate Youngblood APRN, C.N.Dandre., M.S.N. [address] [place] [phone] 04/08/2024 10:00 AM CDT Comprehensive Visit Division of Colon and Rectal Surgery in [place], [place] [address] [place] [phone] Brianne Beebe M.D., Ph.D. [address] [place] [phone] 04/08/2024 11:30 AM CDT Office Visit Division of Colon and Rectal Surgery in [place], [place] [address] [place] [phone] Renate Youngblood APRN, C.N.P., M.S.N. [address] [place] [phone] documented as of this encounter Visit Diagnoses Not on filedocumented in this encounter
--- OUTSIDE RECORDS SUMMARY | 2024-02-15 23:16 | XMS_ITS | Encounter Summary ---
Author Name Unknown Organization [facility] Address [address] [place] [address] Care Team Providers Care Price Accuracy Supervisor Name Role Phone Unavailable Primary Care Provider Unavailabl e Encounter Details Date Type Department Care Team (Late st Contact Info) Description 04/08/2013 Historical Ophthalmology RST OPH Dmitriy Staples M.D. [address] [place] [phone] Social History Tobacco Use Types Packs/Day Years Used Date Smoking Tobacco: Never Assessed Sex and Gender Information Value Date Recorded Sex Assigned at Female 01/07/2024 8:31 PM CDT Gender Identity Female 01/07/2024 8:31 PM CDT Sexual Orientation Straight 01/07/2024 8: 31 PM CDT documented as of this encounter Progress Notes * Dmitriy Staples M.D. - 04/08/2013 7:52 AM CDT Eye General CHIEF COMPLAINT Referral for evaluation of night blindness HISTORY OF PRESENT ILLNESS Patient denies ocular pain. Blurred vision; comes and goes; some days vision is so blurred she can't drive; other days it's crystal clear. Trouble driving at night. Chronic dry eye; She has had a Clifford test done, and found to have no moisture in her eyes. She has used Restasis, and other drops. Currently using Restasis both eyes twice per day. Patient had an ERG,manual VF, and OCT done yestersday. Denies light flashes. Floaters;xseveral years;both eyes;intermittently. +diabetes insipidus.Has noted poor night vision for about 10 years. Difficulty seeing chairs in movie theater in dark. IMPRESSION / REPORT / PLAN Consult requested by: Cachorro Atkins #1 nyctalopia Vitamin A level is normal - 71.3 mcg/dL on 02/07/13. Full Goldmann meng OU, normal ffERG today. Noexam findings to suggest retinal degeneration, no significant family history. Consider dark adaptation testing and scotopic microperimetry and/or scotopic meng. 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 Drusen consistent with early ARMD. Plan: Appointment for Dark adaptation curve and return to [facility] for appt after that return to Dr. Calle today [address] for dilated refraction Recommend AREDS II 04/08/13 Addendum: DAC shows mildly reduced christopher sensitivity after 10-minutes. recommend return 2-3 years with repeat dark adaptation curve testing. 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 [address] [place] [phone] 04/07/2024 10:00 AM CDT Ancillary Procedure Department of Cardiovascular Medicine in [address] [phone] Renate Youngblood APRN, C.N.P., M.S.N. [address] [place] [phone] 04/07/2024 11:00 AM CDT Clinical Support Enema Prep Facility in [place], [place] [address] [place] [phone] Renate Youngblood APRN, C.N.P., M.S.N. [address] [place] [phone] 04/07/2024 12:30 PM CDT Appointment Division of Gastroenterology in [place], [place] [address] [place] [phone] Renate Youngblood APRN, C.N.Dandre., M.S.N. [address] [place] [phone] 04/08/2024 10:00 AM CDT Comprehensive Visit Division of Colon and Rectal Surgery in [place], [place] [address] [place] [phone] Brianne Beebe M.D., Ph.D. [address] [place] [phone] 04/08/2024 11:30 AM CDT Office Visit Division of Colon and Rectal Surgery in [place], [place] [address] [place] [phone] Renate Youngblood APRN, Celeste.N.P., M.S.N. [address] [place] [phone] documented as of this encounter Visit Diagnoses Not on filedocumented in this encounter
--- OUTSIDE RECORDS SUMMARY | 2024-02-15 23:16 | XMS_ITS | Encounter Summary ---
Author Name Unknown Organization [facility] Address [address] [place] [address] Care Team Providers Care Bronzer Name Role Phone Unavailable Primary Care Provider Unavailabl e Encounter Details Date Type Department Care Team (Late st Contact Info) Description 04/18/2013 Historical Ophthalmology RST OPH Thomas Ospina M.D. Social History Tobacco Use Types Packs/Day Years Used Date Smoking Tobacco: Never Assessed Sex and Gender Information Value Date Recorded Sex Assigned at Female 01/07/2024 8:31 PM CDT Gender Identity Female 01/07/2024 8:31 PM CDT Sexual Orientation Straight 01/07/2024 8: 31 PM CDT documented as of this encounter Progress Notes * Thomas Ospina M.D. - 04/18/2013 7:19 AM CDT Eye General CHIEF COMPLAINT dry eyes HISTORY OF PRESENT ILLNESS Pt with dry eyes for years despite rx with restasis. Noticing variable vision during the day with some progression; occurs on top of her nyctalopia issues. Note nl vit A level. pt feels her dryness is better with the restasis x 3 years- she is comfortable while using this.. Dr Calle wanted this eval since this has been an ongoing issue. she has been tested for sjogrens- burning dry mouth as well.. she is unsure of the results. SHE FEEL GOOD ON RESTASIS AND DOES NOT FEEL SHE NEEDS A VISIT TODAY. IMPRESSION / REPORT / PLAN PT DOES NOT WANT EXAM FOR DRY EYES SHE IS FEELING FINE ON RESTASIS CDM Reports - EYEGEN Id: [id number] Status: Fnl documented in this encounter Plan of Treatment Upcoming Encounters Date Type Department Care Team (Latest Contact Info) Description 04/05/2024 9:00 AM CDT Clinical Communication Virtual Review in [place], [place] 200 [place] [address] 04/07/2024 8:00 AM CDT Appointment Department of Radiology, [facility], in [address] [phone] Renate Youngblood APRN, Celeste.N.P., M.S.N. [address] [place] [phone] 04/07/2024 10:00 AM CDT Ancillary Procedure Department of Cardiovascular Medicine in [address] [phone] Renate Youngblood APRN, C.N.P., M.S.N. [address] [place] [phone] 04/07/2024 11:00 AM CDT Clinical Support Enema Prep Facility in [address] [phone] Renate Youngblood APRN, C.N.P., M.S.N. [address] [place] [phone] 04/07/2024 12:30 PM CDT Appointment Division of Gastroenterology in [address] [phone] Renate Youngblood APRN, C.N.P., M.S.N. [address] [place] [phone] 04/08/2024 10:00 AM CDT Comprehensive Visit Division of Colon and Rectal Surgery in [place], [place] [address] [place] [phone] Brianne Beebe M.D., Ph.D. [address] [place] [phone] 04/08/2024 11:30 AM CDT Office Visit Division of Colon and Rectal Surgery in [place], [place] [address] [place] [phone] Renate Youngblood APRN, C.N.P., M.S.N. [address] [place] [phone] documented as of this encounter Visit Diagnoses Not on filedocumented in this encounter
--- OUTSIDE RECORDS SUMMARY | 2024-02-15 23:16 | XMS_ITS | Encounter Summary ---
Author Name Unknown Organization [facility] Address [address] [place] [address] Care Team Providers Care Donor Center Technician Name Role Phone Unavailable Primary Care Provider Unavailabl e Encounter Details Date Type Department Care Team (Late st Contact Info) Description 04/07/2013 Historical Ophthalmology RST OPH Wyatt Calle O.D., [...] Notes * Wyatt Calle O.D., Ph.D. - 04/07/2013 7:37 AM CDT Eye Subsequent Visit HISTORY OF PRESENT ILLNESS The following tests have been completed and need interpretation. Manual visual field TOLECTIN - Swelling BIAXIN - Rash IMPRESSION / REPORT / PLAN The following tests have been completed and need interpretation. OCT macula, fundus #1 Night blindness with normal meng, normal retina OCT normal Visual field normal DIAGNOSIS #1 Night blindness with normal meng, normal retina CDM Reports - EYESV Id: [id number] Status: Fnl documented in this encounter Plan of Treatment Upcoming Encounters Date Type Department Care Team (Latest Contact Info) Description 04/05/2024 9:00 AM CDT Clinical Communication Virtual Review in [place], [place] 200 [place] [address] 04/07/2024 8:00 AM CDT Appointment Department of Radiology, [facility], in [place], [place] [address] [place] [phone] Renate Youngblood APRN, Celeste.N.P., M.S.N. [address] [place] [phone] 04/07/2024 10:00 AM CDT Ancillary Procedure Department of Cardiovascular Medicine in [place], [place] [address] [place] [phone] Renate Yougnblood APRN, Celeste.N.P., M.S.N. [address] [place] [phone] 04/07/2024 11:00 AM CDT Clinical Support Enema Prep Facility in [place], [place] [address] [place] [phone] Renate Youngblood APRN, Celeste.N.P., M.S.N. [address] [place] [phone] 04/07/2024 12:30 PM CDT Appointment Division of Gastroenterology in [address] [phone] Renate Youngblood APRN, C.N.P., M.S.N. [address] [place] [phone] 04/08/2024 10:00 AM CDT Comprehensive Visit Division of Colon and Rectal Surgery in [address] [phone] Brianne Beebe M.D., Ph.D. [address] [place] [phone] 04/08/2024 11:30 AM CDT Office Visit Division of Colon and Rectal Surgery in [place], [place] [address] [place] [phone] Renate Youngblood APRN, C.N.P., M.S.N. [address] [place] [phone] documented as of this encounter Visit Diagnoses Not on filedocumented in this encounter
== END 2024-02-16 00:09 | disposition home or self-care (01) ==
PROVIDERS: Emergency Provider Family Medicine; PCP Family Medicine
DX: S61.011A Laceration without foreign body of right thumb without damage to nail, initial encounter (principal); W26.9XXA Contact with unspecified sharp object(s), initial encounter
CPT/HCPCS: 12001; 99283

== ENCOUNTER 2024-07-07 10:17 | Outpatient (CLI) | payer OTHER, SELFPAY ==
--- OUTSIDE RECORDS SUMMARY | 2024-07-07 10:19 | XMS_ITS | Clinical Summary ---
Author Organization [facility] Address [address] [place] [address] Care Team Providers Care Captain Airline Pilot Name Role Phone Elsewhere, Pcp Primary Care Provider Unavailabl e Source Comments Patient records contain information from all sites at [facility]. For routine questions regarding patient records, call [phone] during business hours, M-F 8:00 AM - 5:00 PM Central Time. Record requests for emergency care only can be directed to [phone] at any time.[facility] Allergies Active Allergy Reactions Criticality Noted Date Comments Clarithromycin Hives (Reselect Reaction),Rash Medium 01/05/2013 Tolectin 600 Other (see comments) ,Edema, suggestive of allergic reaction, i.e., lip, tongue, or throat swelling High 01/08/2024 Throat swells up Tolmetin Edema, suggestive of allergic reaction, i.e., lip, tongue, or throat swelling,Swelling,Anaphylaxi s High 01/05/2013 Medications Medication Sig Dispensed Refills Start Date End Date Status cycloSPORINE (Restasis) 0.05 % ophthalmic emulsion Administer 1 drop into both eyes 2 (two) times a day. 01/05/2013 Active diclofenac sodium (VOLTAREN) 50 mg [...] mouth every 30 (thirty) days. 11/04/2023 Active metoprolol succinate (TOPROL-XL) 50 mg 24 hr tablet Take 50 mg by mouth daily. Active multivitamin tablet Take 1 tablet by mouth daily. 11/28/2016 Active NIFEdipine XL (PROCARDIA XL) 60 mg 24 hr tablet Take 60 mg by mouth at bedtime. 10/27/2023 Active nitroglycerin (NITROSTAT) 0.4 mg SL tablet [...] 150 mg by mouth daily. 11/28/2016 Active Active Problems Problem Noted Date Diagnosed Date Other Female Genital Prolapse 04/08/2024 Adjustment Disorder With Depressed Mood 01/09/20 Cystitis Unspecified Without Hematuria Fatigue 01/09/2024 Gastroenteritis [...] Encounters Date Type Department Care Team Description 07/05/2024 Clinical Communication Department of Obstetrics and Gynecology in [place], [place] [address] [place] [phone] Prescheduling, Provider 07/04/2024 Clinical Communication Division of Colon and Rectal Surgery in [place], [place] [address] [place] [phone] Brianne Beebe M.D., Ph.D. 07/04/2024 Referral Triage Division of General Internal Medicine in [place], [place] [address] [place] [phone] Prescheduling, Provider Referral Triage 07/01/2024 10:12 PM CDT - 07/02/2024 2:58 AM CDT Emergency [facility] Emergency Department [address] [place] [phone] Micha Baumann M.D. Abnormal Computed Tomography (Primary Dx); Constipation; Proctitis Discharge Disposition: Home or Self Care 06/13/2024 9:00 AM CDT Telemedicine Department of Medical Genetics in [place], [place] [address] [place] [address] Renate Youngblood APRN, C.N.P., M.S.N. Fern Ewing, M.S., [facility] Pain Back (Primary Dx); Raynaud's Phenomena Without Gangrene; Other Female Genital Prolapse; Tear Knee Lateral Meniscus Current Initial Left; Strain Of Muscle And Tendon Of Back Wall Of Thorax Initial; Primary Osteoarthritis First Carpometacarpal Joints Bilateral; Polyosteoarthritis Unspecified; Prolapse Rectal; Dyskinesia Esophagus; Hypermobility Joint 06/08/2024 11:00 AM CDT Clinical Support Department of Medical Genetics in [place], [place] [address] [place] [phone] Renate Youngblood APRN, C.N.P., M.S.N. Peng Cowart Pain Back; Raynaud's Phenomena Without Gangrene; Other Female Genital Prolapse; Tear Knee Lateral Meniscus Current Initial Left; Strain Of Muscle And Tendon Of Back Wall Of Thorax Initial; Primary Osteoarthritis First Carpometacarpal Joints Bilateral; Polyosteoarthritis Unspecified; Prolapse Rectal; Dyskinesia Esophagus; Hypermobility Joint 04/19/2024 9:00 AM CDT Comprehensive Visit Department of Physical Medicine and Rehabilitation in [place], [place] [address] [place] [phone] Renate Youngblood APRN, Celeste.N.P., M.S.N. Karin Chambers, P.T., D.P.T. Dysfunction Pelvic Floor; Prolapse Rectal; Acquired Absence Of Other Specified Parts Of Digestive Tract; Other Female Genital Prolapse 04/08/2024 5:45 PM CDT Admin Visit Division of Colon and Rectal Surgery in [place], [place] [address] [place] [phone] Renate Youngblood APRN, C.N.P., M.S.N. 04/08/2024 11:30 AM CDT Office Visit Division of Colon and Rectal Surgery in [place], [place] [address] [place] [phone] Renate Youngblood APRN, C.N.P., M.S.N. Preanesthetic Medical Exam (Primary Dx); Prolapse Rectal; Gastroenteritis; Acquired Absence Of Other Specified Parts Of Digestive Tract; Hypertension Essential Primary; Hyperlipidemia; Angina Pectoris Unspecified (HCC); Abnormal Electrocardiogram; Silent Myocardial Ischemia; Dyskinesia Esophagus; Gastroesophageal Reflux Disease Without Esophagitis; Raynaud's Phenomena Without Gangrene; Pain Back; Polyosteoarthritis Unspecified; Osteoporosis; Osteopenia; Adjustment Disorder With Depressed Mood; Vertigo 04/08/2024 10:00 AM CDT Comprehensive Visit Division of Colon and Rectal Surgery in [place], [place] [address] [place] [phone] Brianne Beebe M.D., Ph.D. Angina Pectoris Unspecified (HCC) (Primary Dx); Prolapse Rectal; Other Female Genital Prolapse 04/08/2024 Orders Only Division of Colon and Rectal Surgery in [address] [phone] Renate Youngblood APRN, C.N.P., M.S.N. Pain Back (Primary Dx); Raynaud's Phenomena Without Gangrene; Other Female Genital Prolapse; Tear Knee Lateral Meniscus Current Initial Left; Strain Of Muscle And Tendon Of Back Wall Of Thorax Initial; Primary Osteoarthritis First Carpometacarpal Joints Bilateral; Polyosteoarthritis Unspecified; Prolapse Rectal; Dyskinesia Esophagus; Hypermobility Joint 04/07/2024 11:38 AM CDT - 04/07/2024 11:59 PM CDT Hospital Encounter Division of Gastroenterology in [place], [place] [address] [place] [phone] Renate Youngblood APRN C.N.P., M.S.N. Prolapse Rectal; Acquired Absence Of Other Specified Parts Of Digestive Tract; Other Female Genital Prolapse Discharge Disposition: Home or Self Care 04/07/2024 11:00 AM CDT Clinical Support Enema Prep Facility in [place], [place] [address] [place] [phone] Renate Youngblood APRN, C.N.P., M.S.N. Jose Guadalupe Obregon, RJose. Prolapse Rectal; Acquired Absence Of Other Specified Parts Of Digestive Tract; Other Female Genital Prolapse 04/07/2024 7:18 AM CDT - 04/07/2024 11:37 AM CDT Hospital Encounter Department of Radiology, [facility], in [place], [place] [address] [place] [address] Renate Youngblood APRN, C.N.P., M.S.N. Other Female Genital Prolapse Discharge Disposition: Home or Self Care 04/07/2024 Orders Only Division of Colon and Rectal Surgery in [place], [place] [address] [place] [phone] Renate Youngblood APRN, C.N.P., M.S.N. Dysfunction Pelvic Floor (Primary Dx); Prolapse Rectal; Acquired Absence Of Other Specified Parts Of Digestive Tract; Other Female Genital Prolapse from Last 3 Months Immunizations Name Administration Dates Next Due Influenza Split 09/29/2012 Tdap 09/29/2012 Family History Medical History Relation Name Comments Prostate cancer Father Emilia Skin cancer Father Emilia Arthritis Mother Cheri Dementia Mother Cheri Hypertension Mother Cheri Stroke Mother Cheri Terrance-Danlos syndrome Niece 1 neck muscles have collapsed leading to TIAs TIA - Transient ischaemic attack Niece 1 Spasticity Niece 3 Relation Name Status Comments Brother Alive Daughter 1 Alive Daughter 2 Alive Father Emilia Alive Mother Cheri (Age 89) d. older a ge/Dementia Niece 1 Alive Niece 2 Alive Niece 3 Alive Social History Tobacco Use Types Packs/Day Years [...] living? No 01/07/2024 Nutrition Answer Date Recorded On average, how many serving s of fruits and vegetables do you eat per day (serving size is equal to 1 cup or approximately the size of a tennis ball)? 0-2 01/07/2024 Dental Answer Date Recorded Dental: Regular Dentist Yes 01/07/20 Employment Answer Date Recorded Employment status Retired 01/07/2024 Housing Stability Answer Date Recorded What is your living situation today? I have a [facility] place to live 01/07/2024 Sex and Gender Information Value Date Recorded Sex Assigned at Female 01/07/2024 8:31 PM CDT Gender Identity Female 01/07/2024 8:31 PM CDT Sexual Orientation Straight 01/07/2024 8: 31 PM CDT Last Filed Vital Signs Vital Sign Reading Time Taken Comments Blood Pressure 145/86 07/02/2024 2:30 AM CDT Pulse 95 07/02/2024 2:30 AM CDT Temperature 36.6 ??C (97.9 ??F) 07/02/2024 2:35 AM CD T Respiratory Rate 15 07/02/2024 2:30 AM CDT Oxygen Saturation 98% 07/02/2024 2:30 AM CDT Inhaled Oxygen Concentration - - Weight 54.1 kg (119 lb 4.3 oz) 07/01/2024 10:14 PM CDT Height 153 cm (5' 0.24) 04/08/2024 9:50 AM CDT Body Mass Index 23.11 04/08/2024 9:50 AM CDT Plan of Treatment Upcoming Encounters Date Type Department Care Team (Latest Contact Info) Description 07/08/2024 9:30 AM CDT Office Visit Division of Colon and Rectal Surgery in [place], [place] [address] [place] [phone] Brianne Beebe M.D., Ph.D. [address] [place] [phone] 07/25/2024 2:15 PM CDT Clinical Communication Virtual Review in [place], [place] 200 [place] [phone] 07/26/2024 9:15 AM CDT Appointment Department of Radiology, [facility], in [place], [place] [address] [place] [phone] Eleazar Yin M.D. [address] [place] [phone] 07/26/2024 3:00 PM CDT Comprehensive Visit Department of Obstetrics and Gynecology in [place], [place] [address] [place] [phone] Elia Portillo M.D. [address] [place] [phone] Health Maintenance Due Date Last Done Comments CT Colonography 1953 Cologuard 1955 Colonoscopy 1953 Colorectal Cancer Screening 1953 FIT 1953 Hepatitis C Screening 1953 Lipid (Cholesterol) Screening 1955 Mammogram 1955 Depression Screening (Annual PHQ-2) 09/28/2023 Fall Risk Screen (Annual) 09/28/2023 COVID-19 Vaccine (2023-2 5 season) 2024 07/24/2023, 08/06/2022, 07/26/2021, Additional history exists Influenza Vaccine (#1) 2024 , 07/25/2022, 09/10/2021, Additional history exists Office Visit for Blood Press ure Check / Re-check 04/08/2025 04/08/2024 Creatinine Level (Kidney Fun ction Test) 07/01/2025 07/01/2024 Potassium Level 07/01/2025 07/01/2024 Sodium Level 07/01/2025 07/01/2024, 01/10/2013 Fasting Glucose for Diabetes Screening 07/01/2027 07/01/2024, 02/24/2013 DTaP,Tdap,and Td Vaccines (3 - Td or Tdap) 10/27/2033 10/27/2023, 09/29/2012 Zoster Vaccines Completed 11/05/2021, 04/28, 08/31/2015 Pneumococcal vaccine (65+ years) Completed 11/29/19, 09/30/2019 RSV vaccine - (32-3 6 weeks) or 60+ years Completed 07/31/2023 Medical Devices Implanted Type Area [employer]afood Process Worker Device Identifier Shelf Expiration Date Model / [...] Procedure Name Priority Date/Time Associated Diagnosis Comments CT ABDOMEN PELVIS WITH IV CONTRAST RAD - Semiurgent (Fast; most ED patients; some inpatients) 07/01/2024 11:49 PM CDT LACTATE, B/P STAT 07/01/2024 10:55 PM CDT CBC WITH DIFFERENTIAL, B STAT 07/01/2024 10:55 PM CDT LIPASE, S/P STAT 07/01/2024 10:55 PM CDT HEPATIC FUNCTION PANEL, S STAT 07/01/2024 10:55 PM CDT BASIC METABOLIC PANEL, S/P STAT 07/01/2024 10:55 PM CDT ANORECTAL MANOMETRY Routine 04/07/2024 5:52 PM CDT Prolapse Rectal Acquired Absence Of Other Specified Parts Of Digestive Tract Other Female Genital Prolapse ECG Routine 04/07/2024 10:10 AM CDT Prolapse Rectal Hypertension Essential Primary Palpitations Angina Pectoris Unspecified (HCC) Hyperlipidemia MR PROCTOGRAM DYNAMIC AND SPHINCTER EVAL WITHOUT IV CONTRAST RAD - Routine (most inpatients and all outpatients) 04/07/2024 9:22 AM CDT Other Female Genital Prolapse from Last 3 Months Results * CT Abdomen Pelvis with IV Contrast (07/01/2024 11:49 PM CDT) Anatomical Region Laterality Modality Abdomen, Pelvis, Abdominal R ST LOS, Abdominal ARZ LOS, Abdominal FLA LOS N/A Computed Tomograp hy, Computed Tomography 07/01/2024 11:4 5 PM CDT Impressions 07/02/2024 9:41 AM CDT Findings suggestive of a mild proctitis. Narrative 07/02/2024 9:41 AM CDT EXAM: ??CT ABDOMEN PELVIS WITH IV CONTRAST COMPARISON: ??None FINDINGS: ??Normal liver, gallbladder, pancreas, spleen, adrenals, kidneys. Small hiatal hernia. Small and large bowel are normal in caliber. Postsurgical changes of the sigmoid colon. Mild rectal wall thickening. Normal appendix. Left adnexal cystic lesion measuring 12 mm (series 3, image 88). No free intraperitoneal fluid. No adenopathy. No suspicious osseous abnormality. Degenerative changes of the pubic symphysis. Arterial calcification. Normal caliber abdominal aorta. Visualized lung bases are clear. Procedure Note Lupe Hays M.D. - 07/02/2024 EXAM: CT ABDOMEN PELVIS WITH IV CONTRAST COMPARISON: None FINDINGS: Normal liver, gallbladder, pancreas, spleen, adrenals, kidneys.Small hiatal hernia. Small and large bowel are normal in caliber.Postsurgical changes of the sigmoid colon. Mild rectal wall thickening.Normal appendix. Left adnexal cystic lesion measuring 12 mm (series 3, image 88). No free intraperitonealfluid. No adenopathy. No suspicious osseous abnormality. Degenerativechanges of the pubic symphysis. Arterial calcification. Normal caliberabdominal aorta. Visualized lung bases are clear. IMPRESSION: Findings suggestive of a mild proctitis. Micha Baumann M.D. [facility] [place] PROCEDURES * Hepatic Function Panel (07/01/2024 10:55 PM CDT) Bilirubin, Total, S 0.4 0.0 - 1.2 mg/dL 07/01/2024 11:44 PM CDT DTL Bilirubin, Direct, S <0.2 0.0 - 0.3 mg/dL 07/01/2024 11:44 PM CDT DTL Aspartate Aminotransferase (AST), S 22 8 - 43 U/L 07/01/2024 11:44 PM CDT DTL Alanine Aminotransferase (ALT), S 39 7 - 45 U/L 07/01/2024 11:44 PM CDT DTL Alkaline Phosphatase, S 103 35 - 104 U/L 07/01/2024 11:44 PM CDT DTL Albumin, S 4.3 3.5 - 5.0 g/dL 07/01/2024 11:44 PM CDT DTL Protein, Total, S 7.1 6.3 - 7.9 g/dL 07/01/2024 11:44 PM CDT DTL Blood (Blood, Venous) 07/01/2024 10:55 PM CDT 07/01/2024 11:30 PM CDT Micha Baumann M.D. LAB BLOOD ADD-ON [facility] [address] [place] [address], [facility] [address] [place] [address] * (ABNORMAL) CBC with Differential, Blood (07/01/2024 10:55 PM CDT) Hemoglobin 11.8 11.6 - 15.0 g/dL 07/01/2024 11:13 PM CDT [facility] Hematocrit 34.5(L) 35.5 - 44.9 % 07/01/2024 11:13 PM CDT [facility] Erythrocytes 3.59(L) 3.92 - 5.13 x10(12)/L 07/01/2024 11:13 PM CDT [facility] MCV 96.1 78.2 - 97.9 fL 07/01/2024 11:13 PM CDT [facility] RBC Distrib Width 12.4 12.2 - 16.1 % 07/01/2024 11:13 PM CDT [facility] Platelet Count 502(H) 157 - 371 x10(9)/L 07/01/2024 11:13 PM CDT [facility] Leukocytes 10.4(H) 3.4 - 9.6 x10(9)/L 07/01/2024 11:13 PM CDT [facility] Neutrophils 5.94 1.56 - 6.45 x10(9)/L 07/01/2024 11:13 PM CDT DHPM Lymphocytes 3.48(H) 0.95 - 3.07 x10(9)/L 07/01/2024 11:13 PM CDT [facility] Monocytes 0.85(H) 0.26 - 0.81 x10(9)/L 07/01/2024 11:13 PM CDT [facility]MA Eosinophils 0.07 0.03 - 0.48 x10(9)/L 07/01/2024 11:13 PM CDT [facility] Basophils 0.04 0.01 - 0.08 x10(9)/L 07/01/2024 11:13 PM CDT ST[facility] Blood (Blood, Venous) 07/01/2024 10:55 PM CDT 07/01/2024 11:10 PM CDT Micha Baumann M.D. LAB BLOOD ADD-ON [facility] [address] [place] [address], [facility] STMA [facility] [address] [place] [address] DHPM [facility] [address] [place] [address] * Lipase (07/01/2024 10:55 PM CDT) Pathologist [facility] Lipase, S 30 13 - 60 U/L 07/01/2024 11:44 PM CDT DTL Blood (Blood, Venous) 07/01/2024 10:55 PM CDT 07/01/2024 11:30 PM CDT Micha Baumann M.D. LAB BLOOD ADD-ON [facility] [address] [place] [address], [facility] DTL [facility] [address] [place] [address] * Lactate (07/01/2024 10:55 PM CDT) Lactate, P 1.0 0.5 - 2.2 mmol/L 07/01/2024 11:25 PM CDT ST[facility] Blood (Blood, Venous) 07/01/2024 10:55 PM CDT 07/01/2024 11:10 PM CDT Micha Baumann M.D. LAB BLOOD NON ADD -ON [facility] [address] [place] [address], [facility] STMA [facility] [address] [place] [address] * (ABNORMAL) Basic Metabolic Panel (07/01/2024 10:55 PM CDT) [facility] Potassium, P 3.5(L) 3.6 - 5.2 mmol/L 07/01/2024 11:28 PM CDT ST[facility] Sodium, P 139 135 - 145 mmol/L 07/01/2024 11:28 PM CDT ST[facility] Chloride, P 103 98 - 107 mmol/L 07/01/2024 11:28 PM CDT ST[facility] Bicarbonate, P 22 22 - 29 mmol/L 07/01/2024 11:28 PM CDT ST[facility] Anion Gap, P 14 7 - 15 07/01/2024 11:28 PM CDT [facility] BUN (Blood Urea Nitrogen), P 12 6 - 21 mg/dL 07/01/2024 11:28 PM CDT ST[facility] Creatinine 0.74 0.59 - 1.04 mg/dL 07/01/2024 11:28 PM CDT ST[facility] Estimated GFR (eGFR) 87 >=60 mL/min/BSA 07/01/2024 11:28 PM CDT ST[facility] Comment: Estimated GFR calculated using the 2020 CKD_EPI creatinine equation. Calcium, Total, P 9.3 8.8 - 10.2 mg/dL 07/01/2024 11:28 PM CDT ST[facility] Glucose, P 101 70 - 140 mg/dL 07/01/2024 11:28 PM CDT ST[facility] Blood (Blood, Venous) 07/01/2024 10:55 PM CDT 07/01/2024 11:10 PM CDT Micha Baumann M.D. LAB BLOOD ADD-ON [facility] [address] [place] [address], [facility] [address] [place] [address] * Anorectal Manometry (04/07/2024 5:52 PM CDT) Renate Youngblood APRN, C.N.P., M.S.N. GI PROCEDURE ORDERABLES Performing Organization Address [facility] de Phone Number MMODAL NA * ECG 12 Lead (04/07/2024 10:10 AM CDT) Ventricular Rate ECG/Min 63 BPM MUSE [place] Interval 134 ms MUSE QRSD Interval 84 ms MUSE QT Interval 424 ms MUSE QTC Interval 433 ms MUSE P [place] 63 degrees MUSE R [place] 76 degrees MUSE T Wave [place] 64 degrees MUSE 04/07/2024 10:1 0 AM CDT 04/07/2024 10:12 AM CDT Impressions MUSE - 04/07/2024 10:12 AM CDT Normal sinus rhythm ST and T wave abnormality, consider anterior ischemia No previous ECGs available Reviewed by CONOR Thompson Narrative Procedure Note Jose Caraballo M.D., Ph.D. - 04/07/2024 IMPRESSION: Normal sinus rhythm ST and T wave abnormality, consider anterior ischemia No previous ECGs available Reviewed by CONOR Thompson Renate Youngblood APRN, C.N.P., M.S.N. EC G ORDERABLES Performing Organization Address [facility] de Phone Number MUSE NA * MR Proctogram Dynamic and Sphincter Eval without IV Contrast (04/07/2024 9:22 AM CDT) Anatomical Region Laterality Modality Abdomen, Pelvis, Abdominal R ST LOS, Abdominal ARZ LOS, Abdominal FLA LOS N/A Magnetic Resonance Impressions 04/07/2024 12:33 PM CDT 1. Normal-appearing internal sphincter. There is some fatty atrophy of the external sphincter, typical for age. 2. By report the patient has had a cystocele and rectocele repair. It is possible that we see PET/CT material, but a definite hitch to the sacrum is not identified. 3. Normal squeeze function and relaxation. 3. Abnormal anorectal junction descent at rest and excessive descent with evacuation. 4. Moderate sized anterior rectocele. 5. Circumferential rectal prolapse. 6. Enterocele. 7. Moderate to large cystocele with urethral kinking. Narrative 04/07/2024 12:33 PM CDT EXAM: ??MR PROCTOGRAM DYNAMIC AND SPHINCTER EVAL WITHOUT IV CONTRAST ANATOMY: ??Endoanal imaging of the anal sphincters was performed. The external anal sphincter mild fatty atrophy but otherwise normal. The internal anal sphincter normal. Puborectalis normal. Coronal and anatomic images of the levator at rest demonstrates mild laxity and with Valsalva mildly more significant downward laxity. INCIDENTAL FINDINGS: Postoperative changes of total hysterectomy and partial colectomy. ??By report the patient has had cystocele and rectocele repair. Linear T2 dark material in the pelvis may be related to pexy material, but no definite connection to the sacrum. FUNCTION: ??Dynamic MR proctography was performed. Anal canal is not patulous at rest. Anorectal angle measures 116 degrees at rest, 79 degrees during squeeze, and 160 degrees during simulated defecation, indicating normal squeeze function and normal relaxation. Anorectal junction is located ??3.8cm below pubococcygeal line at rest, 2.1cm below at squeeze, and 8.8 cm below the pubococcygeal line at maximum descent. This is consistent with abnormal descent at rest, normal rise with squeeze, and excessive descent with evacuation. During simulated defecation, approximately 100% of rectal contents are evacuated with no delay. ?? Moderate 2.8cm anterior rectocele. The rectocele initially does not empty but does eventually empty. Circumferential rectal prolapse, best seen on the postevacuation Valsalva images (series 17 and 18). An enterocele is present and descends 6.7 cm below the pubococcygeal line, and measures 7.7 cm transverse by 6.9 cm AP. Bladder base descends to a maximum of 3cm below the pubococcygeal line, consistent with a moderate to large cystocele. There is urethral hypermobility and kinking. Tiny post void residual. The vaginal cuff descends to a maximum of 2.7cm below the pubococcygeal line. ?? Procedure Note Bryanna Sorto M.D. - 04/07/2024 EXAM: MR PROCTOGRAM DYNAMIC AND SPHINCTER EVAL WITHOUT IV CONTRAST ANATOMY: Endoanal imaging of the anal sphincters was performed. The external anal sphincter mild fatty atrophy but otherwise normal. The internal anal sphincter normal. Puborectalis normal. Coronal and anatomic images of the levator at rest demonstrates mildlaxity and with Valsalva mildly more significant downward laxity. INCIDENTAL FINDINGS: Postoperative changes of total hysterectomy andpartial colectomy. By report the patient has had cystocele and rectocelerepair. Linear T2 dark material in the pelvis may be related to pexymaterial, but no definite connection to the sacrum. FUNCTION: Dynamic MR proctography was performed. Anal canal is not patulous at rest. Anorectal angle measures 116 degrees at rest, 79 degrees during squeeze,and 160 degrees during simulated defecation, indicating normal squeezefunction and normal relaxation. Anorectal junction is located 3.8cm below pubococcygeal line at rest,2.1cm below at squeeze, and 8.8 cm below the pubococcygeal line at maximumdescent. This is consistent with abnormal descent at rest, normal risewith squeeze, and excessive descent with evacuation. During simulated defecation, approximately 100% of rectal contents areevacuated with no delay. Moderate 2.8cm anterior rectocele. The rectocele initially does not emptybut does eventually empty. Circumferential rectal prolapse, best seen on the postevacuation Valsalvaimages (series 17 and 18). An enterocele is present and descends 6.7 cm below the pubococcygeal line,and measures 7.7 cm transverse by 6.9 cm AP. Bladder base descends to a maximum of 3cm below the pubococcygeal line,consistent with a moderate to large cystocele. There is urethralhypermobility and kinking. Tiny post void residual. The vaginal cuff descends to a maximum of 2.7cm below the pubococcygealline. IMPRESSION: 1. Normal-appearing internal sphincter. There is some fatty atrophy of theexternal sphincter, typical for age. 2. By report the patient has had a cystocele and rectocele repair. It ispossible that we see PET/CT material, but a definite hitch to the sacrumis not identified. 3. Normal squeeze function and relaxation. 3. Abnormal anorectal junction descent at rest and excessive descent withevacuation. 4. Moderate sized anterior rectocele. 5. Circumferential rectal prolapse. 6. Enterocele. 7. Moderate to large cystocele with urethral kinking. Renate Youngblood APRN C.N.P., M.S.N. IM G MRI PROCEDURES from Last 3 Months Care Teams Captain Airline Pilot Relationship Specialty Start Date End Date Elsewhere, Pcp PCP - General Internal Medicine 07/02/24
--- OUTSIDE RECORDS SUMMARY | 2024-07-07 10:19 | XMS_ITS ---
Author Organization [facility] Address [address] [place] [address] Care Team Providers Care Surgical Services Coordinator Name Role Phone Unavailable Unavailable Unavailable Surgery Details Not on file Complications Check Surgery Details section. Procedure Estimated Blood Loss Check Surgery Details section. Procedure Findings Check Surgery Details section. Procedure Specimens Taken Check Surgery Details section.
--- OUTSIDE RECORDS SUMMARY | 2024-07-07 10:19 | XMS_ITS | Referral Summary ---
Author Organization [facility] Address [address] [place] [phone] Care Team Providers Care Production Crew Supervisor Name Role Phone Elsewhere, Pcp Primary Care Provider Unavailabl e Source Comments Patient records contain information from all sites at [facility]. For routine questions regarding patient records, call [phone] during business hours, M-F 8:00 AM - 5:00 PM Central Time. Record requests for emergency care only can be directed to [phone] at any time.[facility] Encounters Date Type Department Care Team Description 07/05/2024 Clinical Communication Department of Obstetrics and Gynecology in [place], [place] [address] [place] [address] Prescheduling, Provider 07/04/2024 Clinical Communication Division of Colon and Rectal Surgery in [place], [place] [address] [place] [phone] Brianne Beebe M.D., Ph.D. 07/04/2024 Referral Triage Division of General Internal Medicine in [place], [place] [address] [place] [phone] Prescheduling, Provider Referral Triage 07/01/2024 10:12 PM CDT - 07/02/2024 2:58 AM CDT Emergency [facility] Emergency Department [address] [place] [phone] Micha Baumann M.D. Abnormal Computed Tomography (Primary Dx); Constipation; Proctitis Discharge Disposition: Home or Self Care 06/13/2024 9:00 AM CDT Telemedicine Department of Medical Genetics in [place], [place] [address] [place] [phone] Renate Youngblood APRN, C.N.Dandre., M.S.N. Fern Ewing M.S., CASSANDRA Pain Back (Primary Dx); Raynaud's Phenomena Without Gangrene; Other Female Genital Prolapse; Tear Knee Lateral Meniscus Current Initial Left; Strain Of Muscle And Tendon Of Back Wall Of Thorax Initial; Primary Osteoarthritis First Carpometacarpal Joints Bilateral; Polyosteoarthritis Unspecified; Prolapse Rectal; Dyskinesia Esophagus; Hypermobility Joint 06/08/2024 11:00 AM CDT Clinical Support Department of Medical [facility] in [place], [place] [address] [place] [phone] Renate Youngblood APRN, C.N.P., M.S.N. Peng Cowart Pain Back; Raynaud's Phenomena Without Gangrene; Other Female Genital Prolapse; Tear Knee Lateral Meniscus Current Initial Left; Strain Of Muscle And Tendon Of Back Wall Of Thorax Initial; Primary Osteoarthritis First Carpometacarpal Joints Bilateral; Polyosteoarthritis Unspecified; Prolapse Rectal; Dyskinesia Esophagus; Hypermobility Joint 04/19/2024 9:00 AM CDT Comprehensive Visit Department of Physical Medicine and Rehabilitation in [place], [place] [address] [place] [phone] Renate Youngblood APRN C.N.P., M.S.N. Karin Chambers, P.T., D.P.T. Dysfunction Pelvic Floor; Prolapse Rectal; Acquired Absence Of Other Specified Parts Of Digestive Tract; Other Female Genital Prolapse 04/08/2024 Orders Only Division of Colon and Rectal Surgery in [place], [place] [address] [place] [phone] Renate Youngblood APRN, C.N.P., M.S.N. Pain Back (Primary Dx); Raynaud's Phenomena Without Gangrene; Other Female Genital Prolapse; Tear Knee Lateral Meniscus Current Initial Left; Strain Of Muscle And Tendon Of Back Wall Of Thorax Initial; Primary Osteoarthritis First Carpometacarpal Joints Bilateral; Polyosteoarthritis Unspecified; Prolapse Rectal; Dyskinesia Esophagus; Hypermobility Joint 04/08/2024 5:45 PM CDT Admin Visit Division of Colon and Rectal Surgery in [place], [place] [address] [place] [phone] Renate Youngblood APRN, C.N.P., M.S.N. 04/08/2024 11:30 AM CDT Office Visit Division of Colon and Rectal Surgery in [place], [place] [address] [place] [phone] Renate Youngblood APRN, C.N.P., M.S.N. Preanesthetic Medical [...] Division of Colon and Rectal Surgery in [place], [place] [address] [place] [phone] Brianne Beebe M.D., Ph.D. Angina Pectoris Unspecified (HCC) (Primary Dx); Prolapse Rectal; Other Female Genital Prolapse 04/07/2024 Orders Only Division of Colon and Rectal Surgery in [place], [place] [address] [place] [phone] Renate Youngblood APRN, C.N.P., M.S.N. Dysfunction Pelvic Floor (Primary Dx); Prolapse Rectal; Acquired Absence Of Other Specified Parts Of Digestive Tract; Other Female Genital Prolapse 04/07/2024 11:00 AM CDT Clinical Support [facility] in [place], [place] [address] [place] [phone] Renate Youngblood APRN, C.N.P., M.S.N. Jose Guadalupe Obregon R.N. Prolapse Rectal; Acquired Absence Of Other Specified Parts Of Digestive Tract; Other Female Genital Prolapse 04/07/2024 11:38 AM CDT - 04/07/2024 11:59 PM CDT Hospital Encounter Division of Gastroenterology in [place], [place] [address] [place] [address] Renate Youngblood APRN, C.N.P., M.S.N. Prolapse Rectal; Acquired Absence Of Other Specified Parts Of Digestive Tract; Other Female Genital Prolapse Discharge Disposition: Home or Self Care 04/07/2024 7:18 AM CDT - 04/07/2024 11:37 AM CDT Hospital Encounter Department of Radiology, [facility] in [place], [place] [address] [place] [phone] Renate Youngblood APRN, C.N.P., M.S.N. Other Female Genital Prolapse Discharge Disposition: Home or Self Care from Last 3 Months Allergies Active Allergy [...] 04/08/2024 Adjustment Disorder With Depressed Mood 01/09/20 24 [...] drink = 0.6 oz pur e alcohol) [facility] Utilities Answer Date Recorded In the past 12 months has e electric, gas, oil, or water company [...] your living situation today? I have a [facility] place to live 01/07/2024 Sex [...] Division of Colon and Rectal Surgery in [place], [place] [address] [place] [phone] Brianne Beebe M.D., Ph.D. [address] [place] [phone] 07/25/2024 2:15 PM CDT Clinical Communication Virtual Review in [place], [place] 200 [place] [phone] 07/26/2024 9:15 AM CDT Appointment Department of Radiology, [facility], in [address] [phone] Eleazar Yin M.D. [address] [place] [phone] 07/26/2024 3:00 PM CDT Comprehensive Visit Department of Obstetrics and Gynecology in [address] [phone] Elia Portillo M.D. [address] [place] [phone] Medical Devices Implanted Type Area Video Game Engineer Device Identifier Shelf Expiration Date Model / [...] of a mild proctitis. Micha Baumann M.D. [facility] PROCEDURES * Hepatic Function Panel (07/01/2024 [...] CDT Micha Baumann M.D. LAB BLOOD ADD-ON [facility] [address] [place] [address], [facility] 200 [place] [address] * (ABNORMAL) CBC with Differential, Blood (07/01/2024 10:55 PM CDT) Pathologist [facility] Hemoglobin 11.8 11.6 - 15.0 g/dL 07/01/2024 [...] CDT Micha Baumann M.D. LAB BLOOD ADD-ON [facility] [address] [place] [address], [facility] STMA [facility] [address] [place] [address] DHPM [facility] 200 [place] [address] * Lipase (07/01/2024 10:55 PM CDT) Lipase, S 30 13 - 60 U/L 07/01/2024 11:44 PM CDT DTL Blood (Blood, Venous) 07/01/2024 10:55 PM CDT 07/01/2024 11:30 PM CDT Micha Baumann M.D. LAB BLOOD ADD-ON [facility] [address] [place] [address], [facility] DTL [facility] 200 [place] [address] * Lactate (07/01/2024 10:55 PM CDT) Lactate, P 1.0 0.5 - 2.2 mmol/L 07/01/2024 11:25 PM CDT STMA Blood (Blood, Venous) 07/01/2024 10:55 PM CDT 07/01/2024 11:10 PM CDT Micha Baumann M.D. LAB BLOOD NON ADD -ON [facility] 200 [place] [address], [facility] STMA [facility] 200 [place] [address] * (ABNORMAL) Basic Metabolic Panel (07/01/2024 10:55 PM CDT) [facility] Potassium, P 3.5(L) 3.6 - 5.2 [...] CDT Micha Baumann M.D. LAB BLOOD ADD-ON [facility] 200 [place] [address], [facility] [address] [place] [address] * Anorectal Manometry (04/07/2024 5:52 PM CDT) Renate Youngblood APRN, C.N.P., M.S.N. GI PROCEDURE ORDERABLES Performing Organization Address [facility] de Phone Number MMODAL NA * ECG 12 Lead (04/07/2024 10:10 AM CDT) Ventricular Rate ECG/Min 63 BPM MUSE NM Interval 134 ms MUSE QRSD Interval 84 ms MUSE QT Interval 424 ms MUSE QTC Interval 433 ms MUSE P [place] 63 degrees MUSE R [place] 76 degrees MUSE T Wave [place] 64 degrees MUSE 04/07/2024 10:1 0 AM [...] M.S.N. EC G ORDERABLES Performing Organization Address [facility] de Phone Number MUSE NA * [...] Moderate to large cystocele with urethral kinking. Celeste Montilla APRN.N.Dandre., M.S.N. IM G MRI PROCEDURES from Last 3 Months Care Teams Production Crew Supervisor Relationship Specialty Start Date End Date Elsewhere, Pcp PCP - General Internal Medicine 07/02/24
--- OUTSIDE RECORDS SUMMARY | 2024-07-07 10:19 | XMS_ITS | Encounter Summary ---
Author Organization [facility] Address [address] [place] [address] Care Team Providers Care Needle Maker Name Role Phone Elsewhere, Pcp Primary Care Provider Unavailabl e Reason for Referral * Outpatient (Routine) - Authorized Specialty Diagnoses / Procedures Referred By Contdana t Referred To Contact Diagnoses Abnormal Computed Tomography Lesion Ovary Procedures US Pelvis Transvaginal and Transabdominal Eleazar Yin M.D. [address] [place] [address] [facility] Referral ID Status Reason Start Date Expiration Date V isits Requested Visits Authorized [id number] Authorized 07/05/2024 07/05/2025 1 1 Encounter Details Date Type Department Care Team (Late st Contact Info) Description 07/05/2024 Clinical Communication Department of Obstetrics and Gynecology in [place], [place] [address] [place] [phone] Prescheduling, Provider Social History Tobacco Use Types Packs/Day Years Used Date Smoking Tobacco: Never Passive Smoke Exposure: Never Smokeless Tobacco: Never Alcohol Use Standard Drinks/Week Comments Yes 3 (1 standard drink = 0.6 oz pur e alcohol) [facility] Utilities Answer Date Recorded In the past 12 months has th e electric, gas, oil, or water [employer] threatened to shut off services in your [...] your living situation today? I have a [facility] place to live 01/07/2024 Sex and Gender [...] Division of Colon and Rectal Surgery in [place], [place] [address] [place] [address] Brianne Beebe M.D., Ph.D. 200 [place] [phone] 07/25/2024 2:15 PM CDT Clinical Communication Virtual Review in [place], [place] [address] [place] [address] 07/26/2024 9:15 AM CDT Appointment Department of Radiology, [facility], in [place], [place] [address] [place] [phone] Eleazar Yin M.D. [address] [place] [phone] 07/26/2024 3:00 PM CDT Comprehensive Visit Department of Obstetrics and Gynecology in [place], [place] [address] [place] [phone] Elia Portillo M.D. [address] [place] [phone] Scheduled Orders Name Type Priority Associated Diagnoses Order Schedule US Pelvis Transvaginal and Transabdominal Imaging RAD - Routine (most inpatients and all outpatients) Abnormal Computed Tomography Lesion Ovary Expected: 07/05/2024, Expires: 10/05/2025 documented as of this encounter Visit Diagnoses Diagnosis Abnormal Computed Tomography- Primary Lesion Ovary documented in this encounter Care Teams Needle Maker Relationship Specialty Start Date End Date Elsewhere, Pcp PCP - General Internal Medicine 07/02/24 documented as of this encounter
--- OUTSIDE RECORDS SUMMARY | 2024-07-07 10:19 | XMS_ITS | Encounter Summary ---
Author Organization [facility] Address [address] [place] [address] Care Team Providers Care Chainstitch Elastic Attacher Name Role Phone Elsewhere, Pcp Primary Care Provider Unavailabl e Encounter Details Date Type Department Care Team (Late st Contact Info) Description 07/04/2024 Clinical Communication Division of Colon and Rectal Surgery in [place], [place] [address] [place] [address] Brianne Beebe M.D., Ph.D. [address] [place] [phone] Social History Tobacco Use Types Packs/Day Years Used Date Smoking Tobacco: Never Passive Smoke Exposure: Never Smokeless Tobacco: Never Alcohol Use Standard Drinks/Week Comments Yes 3 (1 standard drink = 0.6 oz pur e alcohol) [facility] Utilities Answer Date Recorded In the past 12 months has [employer] electric, gas, oil, or water company threatened [...] your living situation today? I have a [facility] place to live 01/07/2024 Sex and Gender [...] Division of Colon and Rectal Surgery in [place], [place] [address] [place] [phone] Brianne Beebe M.D., Ph.D. [address] [place] [phone] 07/25/2024 2:15 PM CDT Clinical Communication Virtual Review in [place], [place] [address] [place] [phone] 07/26/2024 9:15 AM CDT Appointment Department of Radiology, [facility], in [place], [place] [address] [place] [phone] Eleazar Yin M.D. [address] [place] [phone] 07/26/2024 3:00 PM CDT Comprehensive Visit Department of Obstetrics and Gynecology in [place], [place] [address] [place] [address] Elia Portillo M.D. [address] [place] [address] documented as of this encounter Visit Diagnoses Not on filedocumented in this encounter Care Teams Chainstitch Elastic Attacher Relationship Specialty Start Date End Date Elsewhere, Pcp PCP - General Internal Medicine 07/02/24 documented as of this encounter
--- OUTSIDE RECORDS SUMMARY | 2024-07-07 10:20 | XMS_ITS | Encounter Summary ---
Author Organization [facility] Address [address] [place] [address] Care Team Providers Care Post Graduate Internship Name Role Phone Elsewhere, Pcp Primary Care Provider Unavailabl e Reason for Visit * Reason Onset Date Comments Referral Triage 07/04/2024 Encounter Details Date Type Department Care Team (Late st Contact Info) Description 07/04/2024 Referral Triage Division of General Internal Medicine in [place], [place] [address] [place] [address] Prescheduling, Provider Referral Triage Social History Tobacco Use Types Packs/Day Years Used Date Smoking Tobacco: Never Passive Smoke Exposure: Never Smokeless Tobacco: Never Alcohol Use Standard Drinks/Week Comments Yes 3 (1 standard drink = 0.6 oz pur e alcohol) [facility] Utilities Answer Date Recorded In the past 12 months has [employer], gas, oil, or water [employer] threatened to shut off services in your [...] your living situation today? I have a [facility] place to live 01/07/2024 Sex and [...] Division of Colon and Rectal Surgery in [place], [place] [address] [place] [phone] Brianne Beebe M.D., Ph.D. [address] [place] [phone] 07/25/2024 2:15 PM CDT Clinical Communication Virtual Review in [place], [place] 200 [place] [address] 07/26/2024 9:15 AM CDT Appointment Department of Radiology, [facility], in [place], [place] [address] [place] [phone] Eleazar Yin M.D. [address] [place] [phone] 07/26/2024 3:00 PM CDT Comprehensive Visit Department of Obstetrics and Gynecology in [place], [place] [address] [place] [phone] Elia Portillo M.D. [address] [place] [address] documented as of this encounter Visit Diagnoses Not on filedocumented in this encounter Care Teams Post Graduate Internship Relationship Specialty Start Date End Date Elsewhere, Pcp PCP - General Internal Medicine 07/02/24 documented as of this encounter
--- OUTSIDE RECORDS SUMMARY | 2024-07-07 10:20 | XMS_ITS | Encounter Summary ---
Author Organization [facility] Address [address] [place] [phone] Care Team Providers Care Substance Abuse Counselor Name Role Phone Unavailable Primary Care Provider Unavailabl e Reason for Visit * Outpatient (Routine) - Closed Specialty Diagnoses / Procedures Referred By Floresita barraza Referred To Contact Colon and Rectal Surgery Renate Youngblood APRN, C.N.P., M.S.N. [address] [place] [phone] [facility] Referral ID Status Reason Start Date Expiration Date Visits Re quested Visits Authorized [id number] Closed 01/11/2024 07/12/2025 1 1 Encounter Details Date Type Department Care Team (Latest Contact Info) Description 04/08/2024 11:30 AM CDT Office Visit Division of Colon and Rectal Surgery in [place], [place] [address] [place] [phone] Renate Youngblood APRN, C.N.P., M.S.N. [address] [place] [phone] Preanesthetic Medical Exam (Primary Dx); Prolapse Rectal; Gastroenteritis; Acquired Absence Of Other Specified Parts Of Digestive Tract; Hypertension Essential Primary; Hyperlipidemia; Angina Pectoris Unspecified (HCC); Abnormal Electrocardiogram; Silent Myocardial Ischemia; Dyskinesia Esophagus; Gastroesophageal Reflux Disease Without Esophagitis; Raynaud's Phenomena Without Gangrene; Pain Back; Polyosteoarthritis Unspecified; Osteoporosis; Osteopenia; Adjustment Disorder With Depressed Mood; Vertigo Social History Tobacco Use Types Packs/Day Years Used Date Smoking Tobacco: Never Passive Smoke Exposure: Never Smokeless Tobacco: Never Alcohol Use Standard Drinks/Week Comments Yes 3 (1 standard drink = 0.6 oz pur e alcohol) [facility] Utilities Answer Date Recorded In the past 12 months has e [employer], [employer], oil, or water [employer] threatened to shut off services in your [...] living situation today? I have a [facility] place to live 01/07/2024 Sex and Gender Information Value Date Recorded Sex Assigned at Female 01/07/2024 8:31 PM CDT Gender Identity Female 01/07/2024 8:31 PM CDT Sexual Orientation Straight 01/07/2024 8: 31 PM CDT documented as of this encounter Consult Notes * Renate Youngblood, JOSE, C.N.P., M.S.N. - 04/08/2024 11:30 AM CDT HISTORY OF PRESENT ILLNESS Please see my Colon and Rectal surgery note from 01/11/2024 for further history and physical exam details. Plan: - MR Proctogram with sphincter evaluation (04/07/2024) - Anorectal manometry (04/07/2024) - Enema prep prior - CRS surgeon consultation after testing is complete (04/08/[address] Beebe) - RENAY with me if surgery is pursued (04/08/2024) - ECG (04/07/2024) - Obtain outside Operative Report from partial colectomy for rectal prolapse in 2005 - Obtain outside colonoscopy report from [facility] from 2 years ago Diagnosis Plan 1. Preanesthetic Medical Exam 2. Prolapse Rectal She has a history of chronic constipation and rectal prolapse s/p partial colectomy for in 2005 andcontinues with daily MiraLAX. Recurrent rectal/pelvic pain 3. Gastroenteritis 4. Acquired Absence Of Other Specified Parts Of Digestive Tract 5. Hypertension Essential Primary 6. Hyperlipidemia 7. Angina Pectoris Unspecified (HCC) On simvastatin, nitroglycerin SL tablet, nitroglycerin ointment, nifedipine, metoprolol, Hctz. Managed by local providers 8. Abnormal Electrocardiogram 9. Silent Myocardial Ischemia Stress ECHO requested r/t ST and T wave abnormality; possible anterior ischemia 10. Dyskinesia Esophagus 11. Gastroesophageal Reflux Disease Without Esophagitis On esomeprazole and Tums. Managed by local providers. 12. Raynaud's Phenomena Without Gangrene 13. Pain Back 14. Polyosteoarthritis Unspecified 15. Osteoporosis 16. Osteopenia On ibandronate (Boniva), diclofenac sodium. Managed by local providers 17. Adjustment Disorder With Depressed Mood 18. Vertigo On hydrochlorothiazide and meclizine. Managed by local providers DIAGNOSTICS ECG: ECG 12 Lead Result Date: 04/07/[address] and T wave abnormality, consider anterior ischemia No previous ECGs available Reviewed by CONOR Thompson Stress Echo has been requested, later cancelled and plans to follow up with local PCP Imaging: MR Proctogram Dynamic and Sphincter Eval without IV Contrast Result Date: 04/07/2024 Impression: 1. Normal-appearing internal sphincter. There is some [...] Moderate to large cystocele with urethral kinking. Anorectal Manometry 04/07/2024 - The anal pressure at rest was high During simulated evacuation (maneuver #1): - the increase in the intra-rectal pressure was normal - percent anal relaxation was normal - residual anal pressure was normal - the rectoanal pressure gradient was normal. The rectal balloon expulsion test was abnormal (>60 seconds). 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 Single visit PM&R requested to determine if she is a candidate for PFPT, scheduled 04/19/2024 FUNCTIONAL CAPACITY: 4-10 METS: walking, scrub floor, move furniture Caprini Score Breakdown 3 Total Score 1 Pneumonia (30d) 2 Age Plan: After surgical consultation with Dr. Beebe, it was decided that patient should pursue pelvic floor physical therapy. She is currently scheduled for a single visit here on 04/19/2024. Patient is planning to pursue surgical intervention in approximately 1-2 years. Patient states there was discussion of possible Ehler's Danlos Syndrome. Her brother has 3 daughters that have this diagnosis and patient is wondering if she could be referred or set up with a specialist to determine if she has this condition. I will reach out to Dr. Beebe about what was discussed and see if a referral is advised or if local provider needs to refer. Stress Echo was cancelled and patient plans to follow up regarding her ECG findings with her local PCP. Approximately 48 minutes were spent on patient visit; this includes face to face and non-face to face time. No Charge Visit/Saw surgeon earlier today documented in this encounter Plan of Treatment Upcoming Encounters Date Type Department Care Team (Latest Contact Info) Description 07/08/2024 9:30 AM CDT Office Visit Division of Colon and Rectal Surgery in [place], [place] [address] [place] [phone] Brianne Beebe M.D., Ph.D. [address] [place] [phone] 07/25/2024 2:15 PM CDT Clinical Communication Virtual Review in [place], [place] 200 [place] [phone] 07/26/2024 9:15 AM CDT Appointment Department of Radiology, [facility], in [place], [place] [address] [place] [phone] Eleazar Yin M.D. [address] [place] [phone] 07/26/2024 3:00 PM CDT Comprehensive Visit Department of Obstetrics and Gynecology in [place], [place] [address] [place] [phone] Elia Poritllo M.D. 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
--- OUTSIDE RECORDS SUMMARY | 2024-07-07 10:20 | XMS_ITS | Encounter Summary ---
Author Organization [facility] Address [address] [place] [address] Care Team Providers Care Plaster Machine Operator Name Role Phone Unavailable Primary Care Provider Unavailabl e Reason for Referral * Outpatient (Routine) - Closed Specialty Diagnoses / Procedures Referred By Floresita barraza Referred To Contact Clinical Genomics Diagnoses Pain Back Raynaud's Phenomena Without Gangrene Other Female Genital Prolapse Tear Knee Lateral Meniscus Current Initial Left Strain Of Muscle And Tendon Of Back Wall Of Thorax Initial Primary Osteoarthritis First Carpometacarpal Joints Bilateral Polyosteoarthritis Unspecified Prolapse Rectal Dyskinesia Esophagus Hypermobility Joint Renate Youngblood APRN C.N.P., M.S.N. [address] [place] [phone] [facility] Referral ID Status Reason Start Date Expiration Date Visits Re quested Visits Authorized [id number] Closed 04/08/2024 10/08/2025 1 1 Encounter Details Date Type Department Care Team (Late st Contact Info) Description 04/08/2024 Orders Only Division of Colon and Rectal Surgery in [place], [place] [address] [place] [phone] Renate Youngblood APRN, C.NLaurelP., M.S.N. [address] [place] [phone] Pain Back (Primary Dx); Raynaud's Phenomena Without Gangrene; Other Female Genital Prolapse; Tear Knee Lateral Meniscus Current Initial Left; Strain Of Muscle And Tendon Of Back Wall Of Thorax Initial; Primary Osteoarthritis First Carpometacarpal Joints Bilateral; Polyosteoarthritis Unspecified; Prolapse Rectal; Dyskinesia Esophagus; Hypermobility Joint Social History Tobacco Use Types Packs/Day Years Used Date Smoking Tobacco: Never Passive Smoke Exposure: Never Smokeless Tobacco: Never Alcohol Use Standard Drinks/Week Comments Yes 3 (1 standard drink = 0.6 oz pur e alcohol) [facility] Utilities Answer Date Recorded In the past 12 months has e [employer], gas, oil, or water [employer] threatened to shut off services in your [...] your living situation today? I have a [facility] place to live 01/07/2024 Sex and Gender [...] Division of Colon and Rectal Surgery in [place], [place] [address] [place] [phone] Brianne Beebe M.D., Ph.D. [address] [place] [phone] 07/25/2024 2:15 PM CDT Clinical Communication Virtual Review in [place], [place] 200 [place] [phone] 07/26/2024 9:15 AM CDT Appointment Department of Radiology, [facility], in [place], [place] [address] [place] [phone] Eleazar Yin M.D. [address] [place] [phone] 07/26/2024 3:00 PM CDT Comprehensive Visit Department of Obstetrics and Gynecology in [place], [place] [address] [place] [phone] Elia Portillo M.D. [address] [place] [phone] Scheduled Referrals Name Type Priority Associated Diagnoses Orde r Schedule Clinical Genomics - Connective tissue disorder consult (clinic) Outpatient Referral Routine Pain Back Raynaud's Phenomena Without Gangrene Other Female Genital Prolapse Tear Knee Lateral Meniscus Current Initial Left Strain Of Muscle And Tendon Of Back Wall Of Thorax Initial Primary Osteoarthritis First Carpometacarpal Joints Bilateral Polyosteoarthritis Unspecified Prolapse Rectal Dyskinesia Esophagus Hypermobility Joint Expected: 04/08/2024, Expires: 07/09/2025 documented as of this encounter Visit Diagnoses Diagnosis Pain Back- Primary Raynaud's Phenomena Without Gangrene Other Female Genital Prolapse Tear Knee Lateral Meniscus Current Initial Left Strain Of Muscle And Tendon Of Back Wall Of Thorax Initial Primary Osteoarthritis First Carpometacarpal Joints Bilateral Polyosteoarthritis Unspecified Prolapse Rectal Dyskinesia Esophagus Hypermobility Joint documented in this encounter
--- OUTSIDE RECORDS SUMMARY | 2024-07-07 10:20 | XMS_ITS | Encounter Summary ---
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 [address] [place] [phone] [facility] Referral ID Status Reason Start Date Expiration Date V isits Requested Visits Authorized [id number] Authorized 04/07/2024 04/07/2025 99 99 Encounter Details Date Type Department Care Team (Latest Contact Info) Description 04/19/2024 9:00 AM CDT Comprehensive Visit Department of Physical Medicine and Rehabilitation in [place], [place] [address] [place] [phone] Renate Youngblood APRN, C.N.P., M.S.N. [address] [place] [phone] aKrin Chambers P.T., D.P.T. [address] [place] [phone] Dysfunction Pelvic Floor; Prolapse Rectal; Acquired Absence Of Other Specified Parts Of Digestive Tract; Other Female Genital Prolapse Social History Tobacco Use Types Packs/Day Years Used Date Smoking Tobacco: Never Passive Smoke Exposure: Never Smokeless Tobacco: Never Alcohol Use Standard Drinks/Week Comments Yes 3 (1 standard drink = 0.6 oz pur e alcohol) [facility] Utilities Answer Date Recorded In the past 12 months has th e [employer], gas, oil, or water [employer] threatened to shut off services in your [...] your living situation today? [facility] 01/07/2024 Sex and Gender Information Value Date Recorded Sex Assigned at Female 01/07/2024 8:31 PM CDT Gender Identity Female 01/07/2024 8:31 PM CDT Sexual Orientation Straight 01/07/2024 8: 31 PM CDT documented as of this encounter Consult Notes * Karin Chambers PEsther., D.P.T. - 04/19/2024 9:00 AM CDT Outpatient Pelvic Health Evaluation and Treatment By co-signing this note, the provider certifies the therapy being provided to this patient is reasonable and necessary for the diagnosis or treatment of this patient. SUBJECTIVE Patient's Name: Allie Barbosa Referring Provider: Renate Youngblood APRN, C.NLaurelPLaurel, M.S.N. Medical Diagnosis: 1. Dysfunction Pelvic Floor 2. Prolapse Rectal 3. Acquired Absence Of Other Specified Parts Of Digestive Tract 4. 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 Right Dyskinesia Esophagus Fatigue Gastroenteritis Gastroesophageal Reflux Disease NOS Hyperlipidemia Hypertension Essential Primary Meniere's Disease Right Osteoporosis Pain Back Polyosteoarthritis Unspecified Primary Osteoarthritis Knee Right Primary Osteoarthritis First Carpometacarpal Joints Bilateral Raynaud's Phenomena Without Gangrene Strain Of Muscle And Tendon Of Back Wall Of Thorax Initial Tear Knee Lateral Meniscus Current Initial Left Vertigo Pneumonia Osteopenia Prolapse Rectal Angina Pectoris Unspecified (HCC) Other Female Genital Prolapse Past Surgical History: Procedure Laterality Date BLADDER SURGERY COLON SURGERY TONSILLECTOMY TOTAL HYSTERECTOMY History of Present Illness: rectal prolapse, cystocele, rectocele, enterocele- history of repair Allie Barbosa is a 68 y.o. female who presents to outpatient physical therapy for evaluation. Patient goals:delay surgical procedures Primary symptoms: rectal prolapse, fecal incontinence, gas incontinence, bladder incomplete emptying Symptom Progression: worsening Symptom Frequency: all the time Patient rates general health as Good. Occupation: retired Current Exercise: walking Diet: adequate, notes everything is home cooked. Pt reports she has had decreased caloric intake over the past few month due to the stress of moving/life events Hydration: >48 oz of water, 12 oz iced decaf tea Patient endorses balance problems or a history of a fall. Notes 2 recent falls, one when she misstepped and one when she was trying to unfold a table and it happened too quickly and she fell on top of it Pelvic floor muscle functioning/screen: ORTHOPEDIC CONCERNS: Patient denies low back pain. URINARY: Pt reports dribbling vs a stream of urine. Pt reports straining in attempts to completely empty, pretty significantly. Notes occasional leakage that happens without her awareness that she has to void, a few times a moth. Denies leakage with specific activities/urgency. Notes nocturia x 3-5 a night PROLAPSE: Patient reports prolapse repair around the year 1999. She notes she then had a colectomy due to rectal prolapse in 2005. Notes she was unaware that she had to be concerned of prolapse again due to already having surgery,she was unaware that she was prolapsing until she went to the ER in November of 2023 due to feeling a blockage and inability to void/defecate. Patient notes feeling of prolapse when she has significant number of bowel movements in a day, she will relax and the tissue will subside eventually. COLORECTAL: Patient reports she has been taking miraLAX since her surgery in 2005, navigating dosage based on the consistency of her bowel movement the day before. If she skips a day of miraLAX, she will have significant constipation the next day with having to manually digitate, take a fleet enema, and strain significantly. First noticed symptoms: prior to 1999 Bowel Movement Frequency: every time she voids, sometimes cannot even feel when she is defecating. [place] Type: type 6 with use of miralax, occasionally type 3 without Time on toilet: < 5 mins Straining: Yes, moderately then significantly if she misses dosage of MiraLAX Incomplete emptying: Yes, is defecating all throughout the day Blood with bowel movements: occasionally due to hemorrhoids Rectal Pain: no History of hemorrhoids or fissures: yes. Active currently: no Abdominal Pain and/or Bloating: no Nausea/Vomiting: no Fecal Incontinence: Yes, of gas and stool. Notes she cannot feel stool incontinence but will noticestains in her pad. Is currently utilizing 2-3 pads a day Laxative or Supplement Regimen: MiraLAX daily, as needed digitation and fleet enemas Digitation: Occasionally REPRODUCTIVE/SEXUAL: Patient denies history of unwanted sexual experience and/or trauma. Patient denies history of otherform of abuse. OBJECTIVE History obtained from chart review and the patient I have briefly reviewed the Review of Systems and patient's electronic medical record. I am only responding to those symptoms which are directly relevant to the specific indication for my consultation. I recommend that the patient follow up with their primary or referring provider to pursue any other symptoms which may be of concern. OUTCOME MEASURES Constipation Scoring System Minimum Score: 0, Maximum Score: 30 Constipation-Related Quality of Life Questionnaire Minimal Score: 18, Maximum Score: 90 Distress Subscale: Social Impairment Subscale: Eating Subscale: Bathroom Subscale: Total: Patient Health Questionnaire-9 PHYSICAL EXAM Pleasant female in no acute distress. Alert and orientated to person, place and date. Musculoskeletal examination General: Sitting comfortably in chair. Gait & Transfers: Normal Squat: - Quadriceps dominant (increased anterior translation of knee) with increased dynamic valgusat knee Balance: able to maintain single leg stance for >10 seconds without difficulty on R LE, unable to hold > 5 seconds on L LE Lumbar Active Range of Motion: Lumbar range of motion normal. Hip Passive Range of Motion: within normal limits throughout, mildly excessive Strength: Poor assessment due to pt continuing to experience muscle spasms with resistance. Abdominal muscle coordination/strength: Able to contract transversus abdominis, multifidus, and pelvic floor muscles indicating good motor control Carnett's:Abdomen is not tender to palpation, all quadrants. Pain with palpation: negative Pelvic floor external examination Paused to explain pelvic floor muscles examination. Patient consents to evaluation with no additional soil specialist present. Explained each step of pelvic floor muscle assessment prior to performing. Patient given option to discontinue examination at any time. Diaphragmatic breathing assessment: Apical and excessive chest vs abdominal wall movement despite cueing Perineal body position at rest: Normal Skin integrity at perineum: On visual inspection externally, redundant external hemorrhoidal tissuewith no thrombosed or enlarged external hemorrhoids. Sensation: Symmetric bilaterally to light touch. Voluntary pelvic floor muscles contraction contract pelvic floor: Present Relaxation of pelvic floor muscles relax pelvic floor: Present Perineal movement with rapid increase in IAP (cough test): Absent Perineal movement with sustained increase in IAP bear down gently: excessive descent Bearing down (prolapse): no external prolapse notable in a sidelying position, excessive decent appreciated External palpation of pelvic floor muscles (ischiocavernosus, bulbocavernosus, superficial transverse perineal, pubococcygeus, obturator internus): non tender to light palpation. Tone: normal Pelvic floor internal examination Pelvic floor/pelvic diaphragm (levator ani, pubo/iliococcygeus, obturator internus) : nontender to palpation Simulated defecation: Excessive descent noted with significant increase in superior force, mild decrease in sphincter relaxation during bearing down attempts Internal manual muscle test of the pelvic diaphragm (PERFECT): Power (out of 5): Trace Endurance (goal of 10 seconds): - Coordination (goal of 10 quick contractions): 2 sEMG / Biofeedback Assessment -we attempted to place the biofeedback x 4 with therapist and patient. Due to significance of external hemorrhoidal tissue unable to place and was becoming painful to patient, deferred for today's assessment TREATMENT Treatment today consisted of: Using 3D model, educated the patient on the anatomy and functions of pelvic floor musculature, including the relationship between lumbar spine, hip, and pelvic floor. Discussed the impact the nervoussystem has on overall muscle tension. Explained how increased tension in pelvic floor musculature can cause dysfunction with defecation. Reviewed the process of how the gastrointestinal system produces stool and the connection with pelvic floor muscles to make a successful bowel movement. Neuromuscular re-education- Therapist used a variety of verbal and tactile cues with the goal of: The following neuromuscular re-education utilized to increase body awareness and interoception. Verbal and tactile cues used when appropriate. Educated on pelvic floor and abdominal muscle awareness and application to ADLS. -optimizing baseline muscle tone and patient's ability to relax pelvic floor muscles and improve pace and abdominal expansion during diaphragmatic breathing -With digital assessment and verbal feedback, worked with the patient to optimize pelvic floor muscle coordination for both isolated pelvic floor contractions without glutes as well as proper lengthening/bearing down to integrate good pelvic floor control into her prescribed HEP. Educated on pelvic floor and abdominal muscle awareness and application to ADLS. Therapeutic activities- Therapist used a variety of verbal and tactile cues with the goal of: The following therapeutic activities were utilized to promote improved performance in the ADL of toileting. Various verbal and tactile cues used as needed to teach patient correct techniques for pelvic floor relaxation and breath control for defecation coordination. -activating gluteal and lateral rotator musculature for optimal performance of ADLs including squatting, bed mobility -pelvic floor muscle relaxation and core muscle coordination to optimize emptying mechanics in appropriate postures -enhancing defecation posture with the purpose of optimizing the anorectal angle to improve ease ofdefecation with postural adjustments. -pelvic floor muscle coordination cuing for urge suppression for maintained continence while walking to the bathroom Home Management Training/Self Care- - Provided verbal instruction in the use of Diaphragmatic breathing to increase parasympathetic activity for the purpose of improving down training and decreasing sympathetic stimulation. -See [employer] below -Finding a local pelvic floor therapist with list of providers given Home Exercise Program/Education- -Attend local pelvic floor therapy Access Code: [email or web address] URL: [email or web address] Date: 04/19/2024 Prepared by: Karin Chambers Exercises - Supine Pelvic Floor Contraction - 1 x daily - 7 x weekly - 2 sets - 8 reps - 7-10 seconds hold - Quick Flick Pelvic Floor Contractions in Hooklying - 1 x daily - 7 x weekly - 2 sets - 10 reps - Seated Diaphragmatic Breathing - 1-3 x daily - 7 x weekly - 1 sets - 1 reps - 60-120 seconds hold Discussed examination findings and plan of care. Provided time and space for questions, all of which I answered to the best of my ability. Assessment Clinical Impression: Ms. Barbosa presents with signs and symptoms which are appropriate for treatment in the Evacuation Disorders Program. Examination today reveals the patient is safe for participation in the program anddemonstrates impaired pelvic floor range of motion, impaired pelvic floor and abdominal coordination during simulated defecation, impaired mechanics of respiration, decreased pelvic floor strength, and impaired contraction coordination for continence, which will respond well to therapeutic intervention. The patient's current symptoms limit their ability to participate fully in daily tasks withoutdiscomfort or the need to alter their schedule due to bowel routine. The patient would benefit from further skilled therapy to improve work on pelvic floor muscle awareness, work on decreasing straining strategies to decrease worsening of prolapse symptoms in order to return to prior level of function. Discussed options for pelvic floor therapy here at [facility] for the 2-week program or locally. At this time, the patient prefers to Attend local pelvic floor therapy, pt is welcome to reach out to myself or our team to attend some pelvic floor follow ups here at [facility] as well. Rehab Potential: Ms. Barbosa has Good potential to achieve established therapy goals within the timeframe outlined below, provided she actively participates in her therapy treatment plan and home program. Comorbid Conditions: Other (Comment) Personal Factors: Sedentary lifestyle Clinical Presentation: Evolving Examination elements: 4+ Clinical Decision Making: Moderate complexity clinical decision making Clinical Decision Making Complexity: Moderate complexity clinical decision making Functional Goals and Timeframes: PT Outpatient Goals PT Goal #1: Patient will understand the anatomy and function of the pelvic floor musculature and the relationship to bowel evacuations disorders. PT Goal #1 Date: 04/19/24 PT Goal #1 Status: Achieved PT Goal #2: Patient will demonstrate an understanding of ongoing care recommendations from a pelvicfloor therapy standpoint. PT Goal #2 Date: 04/19/24 PT Goal #2 Status: Achieved Plan Ms. Barbosa was educated regarding evaluative findings, diagnosis, prognosis, potential risks and benefits of rehabilitation interventions. A collaborative effort was used to establish goals and plan of care. She was informed of her right to make decisions regarding her care, including refusal of examination or treatment or selection of services from another provider if desired. The treatment planmay be progressed or modified based upon her response to treatment. Physical Therapy Attestation Statement: Patient agrees with the plan of care and goals. Treatment Plan: Start of Plan of Care: 04/19/2024 PT Next Certification Date: 07/18/24 Number of Visits: visits PT Duration: PT Frequency: One-time visit Treatment interventions may include: Treatment/Interventions: Therapeutic exercise, Therapeutic functional activity, Neuromuscular re-education, Manual therapy, Therapeutic modalities as needed Other PT Interventions: Biofeedback q Time Spent with Patient Evaluations PT Eval - Mod Complexity: 49 min Therapeutic Interventions Home Management Training (min): 4 min Neuromuscular Re-Education (min): 9 min Therapeutic Activity (min): 15 min Time Tracking Total Timed Units (min): 28 min Total Treatment Time (min): 77 min Krain Chambers P.T., D.P.T. documented in this encounter Plan of Treatment Upcoming Encounters Date Type Department Care Team (Latest Contact Info) Description 07/08/2024 9:30 AM CDT Office Visit Division of Colon and Rectal Surgery in [place], [place] [address] [place] [phone] Brianne Beebe M.D., Ph.D. [address] [place] [phone] 07/25/2024 2:15 PM CDT Clinical Communication Virtual Review in [place], [place] 200 [place] [phone] 07/26/2024 9:15 AM CDT Appointment Department of Radiology, [facility], in [place], [place] [address] [place] [phone] Eleazar Yin M.D. [address] [place] [phone] 07/26/2024 3:00 PM CDT Comprehensive Visit Department of Obstetrics and Gynecology in [place], [place] [address] [place] [phone] Elia Portillo M.D. [address] [place] [phone] documented as of this encounter Visit Diagnoses Diagnosis Dysfunction Pelvic Floor Prolapse Rectal Acquired Absence Of Other Specified Parts Of Digestive Tract Other Female Genital Prolapse documented in this encounter
--- OUTSIDE RECORDS SUMMARY | 2024-07-07 10:20 | XMS_ITS | Encounter Summary ---
Author Organization [facility] Address [address] [place] [address] Care Team Providers Care Systems Project Manager Name Role Phone Elsewhere, Pcp Primary Care [...] ON RESTASIS CDM Reports - EYEGEN Id: [id number] Status: Fnl documented in this encounter Plan of Treatment Upcoming Encounters Date Type Department Care Team (Latest Contact Info) Description 07/08/2024 9:30 AM CDT Office Visit Division of Colon and Rectal Surgery in [place], [place] [address] [place] [phone] Brianne Beebe M.D., Ph.D. [address] [place] [phone] 07/25/2024 2:15 PM CDT Clinical Communication Virtual Review in [place], [place] 200 [place] [phone] 07/26/2024 9:15 AM CDT Appointment Department of Radiology, [facility], in [address] [phone] Eleazar Yin M.D. [address] [place] [phone] 07/26/2024 3:00 PM CDT Comprehensive Visit Department of Obstetrics and Gynecology in [address] [phone] Elia Portillo M.D. [address] [place] [phone] documented as of this encounter Visit Diagnoses Not on filedocumented in this encounter Care Teams Systems Project Manager Relationship Specialty Start Date End Date Elsewhere, Pcp PCP - General Internal Medicine 07/02/24 documented as of this encounter
--- OUTSIDE RECORDS SUMMARY | 2024-07-07 10:20 | XMS_ITS | Encounter Summary ---
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 [address] [place] [phone] [facility] Referral ID Status Reason Start Date Expiration Date V isits Requested Visits Authorized [id number] Authorized 04/07/2024 04/07/2025 99 99 Encounter Details Date Type Department Care Team (Late st Contact Info) Description 04/07/2024 Orders Only Division of Colon and Rectal Surgery in [place], [place] [address] [place] [phone] Renate Youngblood APRN, C.N.Dandre., M.S.N. [address] [place] [phone] Dysfunction Pelvic Floor (Primary Dx); Prolapse Rectal; Acquired Absence Of Other Specified Parts Of Digestive Tract; Other Female Genital Prolapse Social History Tobacco Use Types Packs/Day Years Used Date Smoking Tobacco: Never Passive Smoke Exposure: Never Smokeless Tobacco: Never Alcohol Use Standard Drinks/Week Comments Yes 3 (1 standard drink = 0.6 oz pur e alcohol) [facility] Utilities Answer Date Recorded In the past 12 months has e [employer], gas, oil, or water [employer] threatened to shut off services in your [...] your living situation today? I have a [facility] place to live 01/07/2024 Sex and [...] Division of Colon and Rectal Surgery in [place], [place] [address] [place] [phone] Brianne Beebe M.D., Ph.D. [address] [place] [phone] 07/25/2024 2:15 PM CDT Clinical Communication Virtual Review in [place], [place] 200 [place] [phone] 07/26/2024 9:15 AM CDT Appointment Department of Radiology, [facility], in [place], [place] [address] [place] [phone] Eleazar Yin M.D. [address] [place] [phone] 07/26/2024 3:00 PM CDT Comprehensive Visit Department of Obstetrics and Gynecology in [place], [place] [address] [place] [phone] Elia Portillo M.D. 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
--- OUTSIDE RECORDS SUMMARY | 2024-07-07 10:20 | XMS_ITS | Encounter Summary ---
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 [address] [place] [phone] [facility] Referral ID Status Reason Start Date Expiration Date Visits Re quested Visits Authorized [id number] Closed 01/11/2024 01/10/2025 1 1 Encounter Details Date Type Department Care Team (Latest Contact Info) Description 04/07/2024 11:00 AM CDT Clinical Support Enema Prep Facility in [place], [place] [address] [place] [phone] Renate Youngblood APRN, C.N.P., M.S.N. [address] [place] [phone] Jose Guadalupe Obregon RVivek Prolapse Rectal; Acquired Absence Of Other Specified Parts Of Digestive Tract; Other Female Genital Prolapse Social History Tobacco Use Types Packs/Day Years Used Date Smoking Tobacco: Never Passive Smoke Exposure: Never Smokeless Tobacco: Never Alcohol Use Standard Drinks/Week Comments Yes 3 (1 standard drink = 0.6 oz pur e alcohol) [facility] Utilities Answer Date Recorded In the past 12 months has e [employer], gas, oil, or water company threatened to [...] your living situation today? I have a [facility] place to live 01/07/2024 Sex and [...] Division of Colon and Rectal Surgery in [place], [place] [address] [place] [phone] Brianne Beebe M.D., Ph.D. [address] [place] [phone] 07/25/2024 2:15 PM CDT Clinical Communication Virtual Review in [place], [place] 200 [place] [address] 07/26/2024 9:15 AM CDT Appointment Department of Radiology, [facility], in [address] [phone] Eleazar Yin M.D. [address] [place] [phone] 07/26/2024 3:00 PM CDT Comprehensive Visit Department of Obstetrics and Gynecology in [place], [place] [address] [place] [phone] Elia Portillo M.D. 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
--- OUTSIDE RECORDS SUMMARY | 2024-07-07 10:20 | XMS_ITS | Encounter Summary ---
Author Organization [facility] Address [address] [place] [address] Care Team Providers Care Green Marketer Name Role Phone Unavailable Primary Care Provider [...] Joint Renate Youngblood APRN C.N.P., M.S.N. 200 [place] [address] [facility] Referral ID Status Reason Start Date Expiration Date Visits Re quested Visits Authorized [id number] Closed 04/08/2024 10/08/2025 1 1 Encounter Details Date Type Department Care Team (Latest Contact Info) Description 06/08/2024 11:00 AM CDT Clinical Support Department of Medical Genetics in [place], [place] [address] [place] [phone] Renate Youngblood APRN, C.N.P., M.S.N. [address] [place] [phone] Peng Cowart [address] [place] [phone] Pain Back; Raynaud's Phenomena Without Gangrene; Other [...] drink = 0.6 oz pur e alcohol) [facility] Utilities Answer Date Recorded In the past 12 months has th e [employer], gas, oil, or water [employer] threatened to shut off services in your [...] your living situation today? I have a [facility] place to live 01/07/2024 Sex and Gender Information Value Date Recorded Sex Assigned at Female 01/07/2024 8:31 PM CDT Gender Identity Female 01/07/2024 8:31 PM CDT Sexual Orientation Straight 01/07/2024 8: 31 PM CDT documented as of this encounter Progress Notes * Peng Cowart Dani - 06/08/2024 11:00 AM CDT Images from the original note were not included. 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 No Joint hypermobility? Yes Wrists, Fingers, Spine, Hips, Knees, and Ankles Loose or unstable joints that dislocate easily or pop out of place without trauma? No Chronic joint pain all day every day? Yes Neck, Shoulders, and Hips Wounds that take a long time to heal or heal poorly? Yes Gastrointestinal problems such as IBS, chronic constipation or diarrhea? Yes chronic constipation Hernia? Yes perineal hernia Organ prolapse or rupture (uterine prior to of child, rectal, intestinal, etc.)? Yes Rectal prolapse,cystocele prolapse, and pelvic floor prolapse Fragile skin that tears/splits easily? No Extremely stretchy, soft, or doughy skin? Uncertain. Arterial aneurysm, dissection, rupture? No Spontaneous pneumothorax/Collapsed Lung? No Retinal detachment or retinal lens dislocation? No Scoliosis? Yes no bracing or surgical correction required POTS (postural orthostatic tachycardia syndrome), any other issues regulating blood pressure, heartrate, or body temperature? Yes heart rate Any completed genetic testing? No Do you have any genetic testing pending currently? No FAMILY HISTORY A targeted family history, focused on first-degree relatives only (children, siblings, parents), was obtained from the patient and a pedigree was constructed by the Genetic Counseling Venereal Disease Control Head. Our risk assessment is based upon medical and family history information as provided by the patient and may change in the future should new information be obtained. 06.08.2024 Pedigree Image Of the first degree family relatives we have talked about, do any have: Arterial aneurysm, dissection, or rupture: No Someone that suddenly: No Have a diagnosis of EDS: Yes - niece has a clinical diagnosis Had genetic testing for EDS or another connective tissue disorder such as Marfan syndrome: Uncertain The patient???s ancestry is [place]. There is high probability of paternal consanguinity. PLAN Above information will be available to the genetic counselor for review prior to patient's virtual appointment. The virtual appointment is scheduled on 06/13/2024 with Sirena Ewing CGC. A portal message will be sent to the patient outlining the scope of their EDS appointment and what it will entail. documented in this encounter Plan of Treatment Upcoming Encounters Date Type Department Care Team (Latest Contact Info) Description 07/08/2024 9:30 AM CDT Office Visit Division of Colon and Rectal Surgery in [address] [phone] Brianne Beebe M.D., Ph.D. [address] [place] [phone] 07/25/2024 2:15 PM CDT Clinical Communication Virtual Review in [address] [phone] 07/26/2024 9:15 AM CDT Appointment Department of Radiology, [facility], in [address] [phone] Eleazar Yin M.D. [address] [place] [phone] 07/26/2024 3:00 PM CDT Comprehensive Visit Department of Obstetrics and Gynecology in [address] [phone] Elia Portillo M.D. [address] [place] [phone] documented as of this encounter Visit Diagnoses Diagnosis Pain Back Raynaud's Phenomena Without Gangrene Other Female Genital Prolapse Tear Knee Lateral Meniscus Current Initial Left Strain Of Muscle And Tendon Of Back Wall Of Thorax Initial Primary Osteoarthritis First Carpometacarpal Joints Bilateral Polyosteoarthritis Unspecified Prolapse Rectal Dyskinesia Esophagus Hypermobility Joint documented in this encounter
--- OUTSIDE RECORDS SUMMARY | 2024-07-07 10:20 | XMS_ITS | Encounter Summary ---
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 200 [place] [phone] [facility] Referral ID Status Reason Start Date Expiration Date Visits Re quested Visits Authorized [id number] Closed 01/11/2024 01/10/2025 1 1 Encounter Details Date Type Department Care Team (Latest Contact Info) Description 04/07/2024 11:38 AM CDT - 04/07/2024 11:59 PM CDT Hospital Encounter Division of Gastroenterology in [place], [place] [address] [place] [phone] Renate Youngblood, JOSE, C.N.P., M.S.N. [address] [place] [phone] Prolapse Rectal; Acquired Absence Of Other Specified Parts Of Digestive Tract; Other Female Genital Prolapse Discharge Disposition: Home or Self Care Social History Tobacco Use Types Packs/Day Years Used Date Smoking Tobacco: Never Passive Smoke Exposure: Never Smokeless Tobacco: Never Alcohol Use Standard Drinks/Week Comments Yes 3 (1 standard drink = 0.6 oz pur e alcohol) [facility] Utilities Answer Date Recorded In the past 12 months has [employer], gas, oil, or water [employer] threatened to shut off services in your [...] your living situation today? [facility] 01/07/2024 Sex and Gender Information Value Date Recorded Sex Assigned at Female 01/07/2024 8:31 PM CDT Gender Identity Female 01/07/2024 8:31 PM CDT Sexual Orientation Straight 01/07/2024 8: 31 PM CDT documented as of this encounter Medications at Time of Discharge Medication Sig Dispensed Refills Start Date End Date cycloSPORINE (Restasis) 0.05 % ophthalmic emulsion Administer 1 drop into both eyes 2 (two) times a day. 01/05/2013 diclofenac sodium (VOLTAREN) 50 mg EC tablet Take 1 tablet by mouth 2 (two) times a day. 10/27/2023 esomeprazole (NexIUM) [address] capsule Take 1 capsule by mouth at bedtime. 11/28/2016 hydroCHLOROthiazide (HYDRODIURIL) 25 mg tablet Take 25 mg by mouth as needed. ibandronate (BONIVA) 150 mg tablet Take 150 mg by mouth every 30 (thirty) days. 11/04/2023 metoprolol succinate (TOPROL-XL) 50 mg 24 hr tablet Take 50 mg by mouth daily. multivitamin tablet Take 1 tablet by mouth daily. 11/28/2016 NIFEdipine XL (PROCARDIA XL) 60 mg 24 hr tablet Take 60 mg by mouth at bedtime. 10/27/2023 nitroglycerin (NITROSTAT) 0.[address] 0.4 mg under the tongue every 2 (two) hours as needed. 11/28/2016 polyethylene glycol (MIRALAX) 17 gram powder packet Take 1 packet by mouth daily. 11/28/2016 simvastatin (ZOCOR) 20 mg tablet Take 20 mg by mouth at bedtime. 08/31/2016 vits A,C,E/lutein/minerals (OCUVITE WITH LUTEIN ORAL) Take 150 mg by mouth daily. 11/28/2016 documented as of this encounter Plan of Treatment Upcoming Encounters Date Type Department Care Team (Latest Contact Info) Description 07/08/2024 9:30 AM CDT Office Visit Division of Colon and Rectal Surgery in [place], [place] [address] [place] [phone] Brianne Beebe M.D., Ph.D. [address] [place] [phone] 07/25/2024 2:15 PM CDT Clinical Communication Virtual Review in [place], [place] 200 [place] [phone] 07/26/2024 9:15 AM CDT Appointment Department of Radiology, [facility], in [place], [place] [address] [place] [phone] Eleazar Yin M.D. [address] [place] [phone] 07/26/2024 3:00 PM CDT Comprehensive Visit Department of Obstetrics and Gynecology in [place], [place] [address] [place] [phone] Elia Portillo M.D. 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
--- OUTSIDE RECORDS SUMMARY | 2024-07-07 10:20 | XMS_ITS | Encounter Summary ---
Author Organization [facility] Address [address] [place] [address] Care Team Providers Care Rural Service Engineer Name Role Phone Unavailable Primary Care Provider Unavailabl e Reason for Visit * Reason Onset Date Comments Pre-visit Intake 04/05/2024 Encounter Details Date Type Department Care Team (Latest Contact Info) Description 04/05/2024 9:00 AM CDT Clinical Communication Virtual Review in [place], [place] 200 [place] [phone] Pre-visit Intake Social History Tobacco Use Types Packs/Day Years Used Date Smoking Tobacco: Never Passive Smoke Exposure: Never Smokeless Tobacco: Never Tobacco Cessation:Counseling Given: Not Answered Alcohol Use Standard Drinks/Week Comments Yes 3 (1 standard drink = 0.6 oz pur e alcohol) [facility] Utilities Answer Date Recorded In the past 12 months has [employer], gas, oil, or water [employer] threatened to shut off services in your [...] your living situation today? I have a [facility] place to live 01/07/2024 Sex and [...] Division of Colon and Rectal Surgery in [place], [place] [address] [place] [phone] Brianne Beebe M.D., Ph.D. [address] [place] [phone] 07/25/2024 2:15 PM CDT Clinical Communication Virtual Review in [place], [place] 200 [place] [phone] 07/26/2024 9:15 AM CDT Appointment Department of Radiology, [facility], in [place], [place] [address] [place] [phone] Eleazar Yin M.D. [address] [place] [phone] 07/26/2024 3:00 PM CDT Comprehensive Visit Department of Obstetrics and Gynecology in [place], [place] [address] [place] [phone] Elia Portillo M.D. [address] [place] [phone] documented as of this encounter Visit Diagnoses Not on filedocumented in this encounter
--- OUTSIDE RECORDS SUMMARY | 2024-07-07 10:20 | XMS_ITS | Encounter Summary ---
Author Organization [facility] Address [address] [place] [address] Care Team Providers Care Food Quality Tester Name Role Phone Unavailable Primary Care Provider Unavailabl e Reason for Referral * MRI/CAT/PET Scan (Routine) - Closed Specialty Diagnoses / Procedures Referred By Contac t Referred To Contact Radiology Diagnoses Other Female Genital Prolapse Procedures MR Proctogram Dynamic and Sphincter Eval without IV Contrast Renate Youngblood APRN, C.NLewis., M.S.N. 200 [place] [address] [facility] Referral ID Status Reason Start Date Expiration Date Visits Re quested Visits Authorized [id number] Closed 01/11/2024 01/10/2025 1 1 Reason for Visit * MRI/CAT/PET Scan (Routine) - Closed Specialty Diagnoses / Procedures Referred By Contac t Referred To Contact Radiology Diagnoses Other Female Genital Prolapse Procedures MR Proctogram Dynamic and Sphincter Eval without IV Contrast Renate Youngblood APRN, C.NLewis., M.S.N. 200 [place] [phone] [facility] Referral ID Status Reason Start Date Expiration Date Visits Re quested Visits Authorized [id number] Closed 01/11/2024 01/10/2025 1 1 Encounter Details Date Type Department Care Team (Latest Contact Info) Description 04/07/2024 7:18 AM CDT - 04/07/2024 11:37 AM CDT Hospital Encounter Department of Radiology, [facility], in [place], [place] [address] [place] [phone] Renate Youngblood APRN, C.N.P., M.S.N. [address] [place] [phone] Other Female Genital Prolapse Discharge Disposition: Home or Self Care Social History Tobacco Use Types Packs/Day Years Used Date Smoking Tobacco: Never Passive Smoke Exposure: Never Smokeless Tobacco: Never Alcohol Use Standard Drinks/Week Comments Yes 3 (1 standard drink = 0.6 oz pur e alcohol) [facility] Utilities Answer Date Recorded In the past 12 months has th e [employer], gas, oil, or water [employer] threatened to shut off services in your [...] living situation today? I have a [facility] place to live 01/07/2024 Sex and Gender [...] daily. 11/28/2016 documented as of this encounter Nursing Notes * Deniz Fisher R.N. - 04/07/2024 8:00 AM CDT Rectal Administration Screening: * If also ordered with Glucagon, perform that screening as well. If not ordered with Glucagon, verify with Technologist if this may have been an oversight and Glucagon is wanted (Rectal exams typically use Glucagon). Does patient have known or suspected rectal perforation? NO If no, continue. Has patient had past rectal surgeries? YES If no, continue. Prepare and administered as ordered and outlined in medication reference document. * Deniz Fisher R.N. - 04/07/2024 8:00 AM CDT Gel Administration Screening: * If also ordered with Glucagon, perform that screening as well. If not ordered with Glucagon, verify with Technologist if this may have been an oversight and Glucagon is wanted. Does patient have an allergy or sensitivity to Lidocaine or other amide-type (Prilocaine, Mepivacaine, Bupivacaine, Levobupivacaine, Articaine, Ropivacaine) local anesthetics? NO If no, continue Prostate exams only: Does patient have a latex allergy? NO If no, administer as ordered and outlined in medication reference document. documented in this encounter Plan of Treatment Upcoming Encounters Date Type Department Care Team (Latest Contact Info) Description 07/08/2024 9:30 AM CDT Office Visit Division of Colon and Rectal Surgery in [place], [place] [address] [place] [phone] Brianne Beebe M.D., Ph.D. [address] [place] [phone] 07/25/2024 2:15 PM CDT Clinical Communication Virtual Review in [place], [place] 200 [place] [address] 07/26/2024 9:15 AM CDT Appointment Department of Radiology, [facility], in [place], [place] [address] [place] [phone] Eleazar Yin M.D. [address] [place] [phone] 07/26/2024 3:00 PM CDT Comprehensive Visit Department of Obstetrics and Gynecology in [place], [place] [address] [place] [phone] Elia Portillo M.D. [address] [place] [phone] documented as of this encounter Procedures Procedure Name Priority Date/Time Associated Diagnosis Comments MR PROCTOGRAM DYNAMIC AND SPHINCTER EVAL WITHOUT IV CONTRAST RAD - Routine (most inpatients and all outpatients) 04/07/2024 9:22 AM CDT Other Female Genital Prolapse documented in this encounter Results * MR Proctogram Dynamic and Sphincter Eval [...] APRN C.N.P., M.S.N. IM G MRI PROCEDURES documented in this encounter Visit Diagnoses Diagnosis Other Female Genital Prolapse documented in this encounter Administered Medications Inactive Administered Medications - up to 3 most recent administrations Medication Order MAR Action Action Date Dose Rate Site lidocaine HCL 2 % topical jelly 5 mL (Glydo) 5 mL, rectal, Once, On Elis 04/07/24 at 0845, For 1 dose, Imaging Protocol Orders, Use as directed. Given 04/07/2024 8:00 AM CDT 5 mL ultrasound gel topical gel 60-180 mL 60-180 mL, rectal, Once, On Elis 04/07/24 at 0845, For 1 dose, Imaging Protocol Orders, Dose per Radiant Medication Guidelines Given 04/07/2024 8:45 AM CDT 180 mL documented in this encounter
--- OUTSIDE RECORDS SUMMARY | 2024-07-07 10:20 | XMS_ITS | Encounter Summary ---
Author Organization [facility] Address [address] [place] [address] Care Team Providers Care Doll Surgeon Name Role Phone Unavailable Primary Care Provider Unavailabl e Reason for Visit * Outpatient (Routine) - Closed Specialty Diagnoses / Procedures Referred By Floresita t Referred To Contact Colon and Rectal Surgery Diagnoses Prolapse Rectal Acquired Absence Of Other Specified Parts Of Digestive Tract Hypertension Essential Primary Palpitations Angina Pectoris Unspecified (HCC) Hyperlipidemia Dyskinesia Esophagus Gastroesophageal Reflux Disease Without Esophagitis Raynaud's Phenomena Without Gangrene Pain Back Polyosteoarthritis Unspecified Osteoporosis Other Female Genital Prolapse Renate Youngblood APRN, C.N.P., M.S.N. 200 [place] [phone] [facility] Referral ID Status Reason Start Date Expiration Date Visits Re quested Visits Authorized [id number] Closed 01/11/2024 07/12/2025 1 1 Encounter Details Date Type Department Care Team (Latest Contact Info) Description 04/08/2024 10:00 AM CDT Comprehensive Visit Division of Colon and Rectal Surgery in [place], [place] [address] [place] [phone] Brianne Beebe M.D., Ph.D. [address] [place] [phone] Angina Pectoris Unspecified (HCC) (Primary Dx); Prolapse Rectal; Other Female Genital Prolapse Social History Tobacco Use Types Packs/Day Years Used Date Smoking Tobacco: Never Passive Smoke Exposure: Never Smokeless Tobacco: Never Alcohol Use Standard Drinks/Week Comments Yes 3 (1 standard drink = 0.6 oz pur e alcohol) [facility] Utilities Answer Date Recorded In the past 12 months has th e [employer], gas, oil, or water [employer] threatened to shut off services in your [...] PM CDT documented as of this encounter Last Filed Vital Signs Vital Sign Reading Time Taken Comments Blood Pressure 126/77 04/08/2024 9:50 AM CDT Pulse 64 04/08/2024 9:50 AM CDT Temperature - - Respiratory Rate - - Oxygen Saturation - - Inhaled Oxygen Concentration - - Weight 55 kg (121 lb 4.1 oz) 04/08/2024 9:50 AM CDT Height 153 cm (5' 0.24) 04/08/2024 9:50 AM CDT Body Mass Index 23.5 04/08/2024 9:50 AM CDT documented in this encounter Consult Notes * Brianne Beebe M.D., Ph.D. - 04/08/2024 10:00 AM CDT Colorectal Surgery Consult Note Allie Barbosa is a(n) 68 y.o. female here today for rectal prolapse. Referred by Ref Prov: Toby Youngblood* Accompanied by her daughter They report no prolapse since episode in November. Takes MiraLAX (adjusts dose as needed) to have softstools daily. No urinary symptoms. Recovery from surgery in 2005 was terribly difficult and prolonged. Has not started PT but has appointment scheduled. With flatus, she will leak stool. Goal is to avoid surgery. EDS runs in the family, she is hypermobile but without formal diagnosis of EDS. -11/2023 to ED with inability to urinate, pelvic pressure/heaviness, and no bowel movement for 2 days after experiencing diarrhea the weekend prior. She had a tennis ball in her rectum [...] did not show constipation or obstructive findings. -daily MiraLAX use, 2-3 BMs per day, soft, formed, thin. No straining generally. No bleeding or mucous -Raynaud, GERD, HTN, hyperlipidemia, -1984 SNOW, -2005 partial colectomy: profound intussusception, low abdominal resection with abdominal rectopexyand cecal colpopexy to correct enterocele. Posterior dissection down to coccyx. 2-0 prolene suture rectopexy. Left uterosacral ligament secured to sacral promontory for vaginal support. Posterior vagina adherent to anterior rectum with no appreciable cul-de-sac or peritonealization between the two.Normal colon on pathology. Palpable perineal hernia and perineal body separation noted but not addressed at that operation. -2000 cystocele/rectocele repair (pubovaginal sling and transvaginal enterocele repair-enterocele described as significant so no significant dissection of the repair was performed). -2021 colonoscopy: anastomosis at 10cm, extensive circumferential external hemorrhoids. . 2013 colonoscopy with large external hemorrhoids and small in ternal hemorrhoids. 03/2024 MRI proctogram: IMPRESSION: 1. Normal-appearing internal sphincter. There is [...] Moderate to large cystocele with urethral kinking. ARM: high resting pressure. Abnormal balloon expulsion Review of systems otherwise negative. Past Medical History: Diagnosis Date Gastroesophageal Reflux Disease NOS Hyperlipidemia Hypertension NOS Osteopenia Osteoporosis Other Injury Of Unspecified Body Region Pneumonia Past Surgical History: Procedure Laterality Date BLADDER SURGERY COLON SURGERY TONSILLECTOMY TOTAL HYSTERECTOMY Active Home Medications Medication Sig Taking cycloSPORINE (Restasis) 0.05 % ophthalmic emulsion Administer 1 drop into both eyes 2 (two) times aday. diclofenac sodium (VOLTAREN) 50 mg EC tablet Take 1 tablet by mouth 2 (two) times a day. esomeprazole (NexIUM) [address] capsule Take 1 capsule by mouth at bedtime. hydroCHLOROthiazide (HYDRODIURIL) 25 mg tablet Take 25 mg by mouth as needed. ibandronate (BONIVA) 150 mg tablet Take 150 mg by mouth every 30 (thirty) days. metoprolol succinate (TOPROL-XL) 50 mg 24 hr tablet Take 50 mg by mouth daily. multivitamin tablet Take 1 tablet by mouth daily. NIFEdipine XL (PROCARDIA XL) 60 mg 24 hr tablet Take 60 mg by mouth at bedtime. nitroglycerin (NITROSTAT) 0.[address] 0.4 mg under the tongue every 2 (two) hours as needed. polyethylene glycol (MIRALAX) 17 gram powder packet Take 1 packet by mouth daily. simvastatin (ZOCOR) 20 mg tablet Take 20 mg by mouth at bedtime. vits A,C,E/lutein/minerals (OCUVITE WITH LUTEIN ORAL) Take 150 mg by mouth daily. Allergies Allergen Reactions Tolectin 600 Other (see comments) and Edema, suggestive of allergic reaction, i.e., lip, tongue, orthroat swelling Throat swells up Tolmetin Edema, suggestive of allergic reaction, i.e., lip, tongue, or throat swelling, Swelling and Anaphylaxis Clarithromycin Hives (Reselect Reaction) and Rash Family History Problem Relation Name Age of Onset Stroke Mother Cheri Hypertension Mother Cheri Arthritis Mother Cheri Dementia Mother Cheri Skin cancer Father Emilia Prostate cancer Father Emilia Social History Socioeconomic History Marital status: Tobacco Use Smoking status: Never Passive exposure: Never Smokeless tobacco: Never Vaping Use Vaping status: never used Substance and Sexual Activity Alcohol use: Yes Alcohol/week: 3.0 standard drinks of alcohol Types: 2 Glasses of wine, 1 Cans of beer per week Drug use: Never Sexual activity: Not Currently Social Determinants of Health Food Insecurity: No Food Insecurity (01/07/2024) Hunger Vital Sign Worried About Running Out of Food in the Last Year: Never true Ran Out of Food in the Last Year: Never true Transportation Needs: No Transportation Needs (01/07/2024) PRAPARE - Transportation Lack of Transportation (Medical): No Lack of Transportation (Non-Medical): No Physical Activity: Sufficiently Active (01/07/2024) Exercise Vital Sign Days of Exercise per Week: 3 days Minutes of Exercise per Session: 60 min Housing Stability: Low Risk (01/07/2024) Housing Stability Housing: Living Situation: I have a steady place to live There were no vitals filed for this visit. Nurse Dorcas present for exam No acute distress, well-appearing Normocephalic atraumatic Grossly normal range of motion Normal work of breathing on room air Soft nontender nondistended Low midline scar from resection rectopexy and hysterectomy noted Perianal exam: circumferential hemorrhoidal skin tags VICKI: high-normal baseline tone, minimal augmentation with voluntary squeeze-use of accessory muscles. With valsalva, there is circumferential descent of a large quantity of rectal mucosa to the levelof the levators without external prolapse Assessment and Plan: #1 Angina Pectoris Unspecified (HCC) Managed by primary #2 Prolapse Rectal Internal circumferential rectal prolapse after prior resection rectopexy. Rectocele, enterocele, cystocele after prior transvaginal repair. She is currently able to manage her bowel and bladder function in a way that works for her. I have encouraged her to try fiber to see if she can archive more bulked stools that may be easier to pass and prevent incontinence episodes with flatus. Surgery is indicated in her situation based on imaging, symptoms and exam. She would likely have improvements in bowel function, although difficult to predict. It is also likely that the symptoms will worsen with time. However, given her goal to avoid surgery and her good function currently, she will continue with her current bowel management with beginning physical therapy. We reviewed surgery, which would be robotic ventral mesh rectopexy and combined with urogynecology. Will review imaging and case at [facility]. She will reach out if surgery makes sense for her in the future. #7 Other Female Genital Prolapse See above Lori Beebe MD/PhD Division of Colon and Rectal Surgery documented in this encounter Plan of Treatment Upcoming Encounters Date Type Department Care Team (Latest Contact Info) Description 07/08/2024 9:30 AM CDT Office Visit Division of Colon and Rectal Surgery in [place], [place] [address] [place] [phone] Brianne Beebe M.D., Ph.D. [address] [place] [phone] 07/25/2024 2:15 PM CDT Clinical Communication Virtual Review in [place], [place] 200 [place] [phone] 07/26/2024 9:15 AM CDT Appointment Department of Radiology, [facility], in [place], [place] [address] [place] [phone] Eleazar Yin M.D. [address] [place] [phone] 07/26/2024 3:00 PM CDT Comprehensive Visit Department of Obstetrics and Gynecology in [place], [place] [address] [place] [phone] Elia Portillo M.D. [address] [place] [phone] documented as of this encounter Visit Diagnoses Diagnosis Angina Pectoris Unspecified (HCC)- Primary Prolapse Rectal Other Female Genital Prolapse documented in this encounter
--- OUTSIDE RECORDS SUMMARY | 2024-07-07 10:20 | XMS_ITS | Encounter Summary ---
Author Organization [facility] Address [address] [place] [address] Care Team Providers Care Photo Printer Name Role Phone Elsewhere, Pcp Primary Care [...] normal retina CDM Reports - EYESV Id: [id number] Status: Fnl documented in this encounter Plan of Treatment Upcoming Encounters Date Type Department Care Team (Latest Contact Info) Description 07/08/2024 9:30 AM CDT Office Visit Division of Colon and Rectal Surgery in [place], [place] [address] [place] [phone] Brianne Beebe M.D., Ph.D. [address] [place] [phone] 07/25/2024 2:15 PM CDT Clinical Communication Virtual Review in [place], [place] 200 [place] [phone] 07/26/2024 9:15 AM CDT Appointment Department of Radiology, [facility], in [address] [phone] Eleazar Yin M.D. [address] [place] [phone] 07/26/2024 3:00 PM CDT Comprehensive Visit Department of Obstetrics and Gynecology in [place], [place] [address] [place] [phone] Elia Portillo M.D. [address] [place] [phone] documented as of this encounter Visit Diagnoses Not on filedocumented in this encounter Care Teams Photo Printer Relationship Specialty Start Date End Date Elsewhere, Pcp PCP - General Internal Medicine 07/02/24 documented as of this encounter
--- OUTSIDE RECORDS SUMMARY | 2024-07-07 10:20 | XMS_ITS | Encounter Summary ---
Author Organization [facility] Address [address] [place] [address] Care Team Providers Care Intramural Director Name Role Phone Elsewhere, Pcp Primary Care Provider Unavailabl e Encounter Details Date Type Department Care Team (Late st Contact Info) Description 04/08/2013 Historical Ophthalmology RST OPH Dmitriy Staples M.D. [address] [place] [phone] Social History Tobacco Use Types Packs/Day Years [...] after that return to Dr. Calle today [address] for dilated refraction Recommend AREDS II 04/08/13 Addendum: DAC shows mildly reduced christopher sensitivity after 10-minutes. recommend return 2-3 years with repeat dark adaptation curve testing. 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 [address] [place] [phone] 07/25/2024 2:15 PM CDT Clinical Communication Virtual Review in [place], [place] 200 [place] [phone] 07/26/2024 9:15 AM CDT Appointment Department of Radiology, [facility], in [place], [place] [address] [place] [phone] Eleazar Yin M.D. [address] [place] [phone] 07/26/2024 3:00 PM CDT Comprehensive Visit Department of Obstetrics and Gynecology in [place], [place] [address] [place] [phone] Elia Portillo M.D. [address] [place] [phone] documented as of this encounter Visit Diagnoses Not on filedocumented in this encounter Care Teams Intramural Director Relationship Specialty Start Date End Date Elsewhere, Pcp PCP - General Internal Medicine 07/02/24 documented as of this encounter
--- OUTSIDE RECORDS SUMMARY | 2024-07-07 10:20 | XMS_ITS | Encounter Summary ---
Author Organization [facility] Address [address] [place] [address] Care Team Providers Care Daily Release And Dupe Printer Name Role Phone Elsewhere, Pcp Primary [...] the Restasis causing this. [facility] - in [facility], she was placed on Lotemax, elvin 128, and artificial tears at different times IMPRESSION / REPORT / PLAN Consult requested by: Cachorro Atkins #1 Dry eye Refer to Dr. Ospina, [...] Night blindness CDM Reports - EYEGEN Id: [id number] Status: Fnl documented in this encounter Plan of Treatment Upcoming Encounters Date Type Department Care Team (Latest Contact Info) Description 07/08/2024 9:30 AM CDT Office Visit Division of Colon and Rectal Surgery in [address] [phone] Brianne Beebe M.D., Ph.D. [address] [place] [phone] 07/25/2024 2:15 PM CDT Clinical Communication Virtual Review in [place], [place] 200 [place] [phone] 07/26/2024 9:15 AM CDT Appointment Department of Radiology, [facility], in [place], [place] [address] [place] [phone] Eleazar Yin M.D. [address] [place] [phone] 07/26/2024 3:00 PM CDT Comprehensive Visit Department of Obstetrics and Gynecology in [place], [place] [address] [place] [phone] Elia Portillo M.D. 200 [place] [phone] documented as of this encounter Visit Diagnoses Not on filedocumented in this encounter Care Teams Daily Release And Dupe Printer Relationship Specialty Start Date End Date Elsewhere, Pcp PCP - General Internal Medicine 07/02/24 documented as of this encounter
--- OUTSIDE RECORDS SUMMARY | 2024-07-07 10:20 | XMS_ITS | Encounter Summary ---
Author Organization [facility] Address [address] [place] [address] Care Team Providers Care English Teacher Name Role Phone Elsewhere, Pcp Primary Care Provider Unavailabl e Reason for Referral * Outpatient (Routine) - Authorized Specialty Diagnoses / Procedures Referred By Contac t Referred To Contact Colon and Rectal Surgery Diagnoses Constipation Proctitis Micha Bamuann M.D. [address] [place] [address] [facility] Referral ID Status Reason Start Date Expiration Date V isits Requested Visits Authorized [id number] Authorized 07/02/2024 01/01/2026 1 1 * Outpatient (Routine) - Authorized Specialty Diagnoses / Procedures Referred By Contac t Referred To Contact Gynecology Diagnoses Abnormal Computed Tomography Micha Baumann M.D. [address] [place] [address] [facility] Referral ID Status Reason Start Date Expiration Date V isits Requested Visits Authorized [id number] Authorized 07/02/2024 01/01/2026 1 1 Reason for Visit * Reason Comments Constipation Encounter Details Date Type Department Care Team (Late st Contact Info) Description 07/01/2024 10:12 PM CDT - 07/02/2024 2:58 AM CDT Emergency [facility] Emergency Department [address] [place] [address] Micha Baumann M.D. [address] [place] [address] Abnormal Computed Tomography (Primary Dx); Constipation; Proctitis Discharge Disposition: Home or Self Care Social History Tobacco Use Types Packs/Day Years Used Date Smoking Tobacco: Never Passive Smoke Exposure: Never Smokeless Tobacco: Never Alcohol Use Standard Drinks/Week Comments Yes 3 (1 standard drink = 0.6 oz pur e alcohol) [facility] Utilities Answer Date Recorded In [...] living situation today? I have a [facility] place to live 01/07/2024 Sex and [...] 4.3 oz) 07/01/2024 10:14 PM CDT Height - - Body Mass Index 23.11 04/08/2024 9:50 AM CDT documented in this encounter Discharge Instructions * Discharge Instructions* Micha Baumann M.D. - 07/02/2024 12:25 AM CDT You were evaluated in the [facility] today for constipation in the setting ofrecurrent rectal prolapse. Examination and imaging were not concerning for an acute finding that would require admission or surgical intervention. A digital rectal exam was performed which demonstrated no obvious impaction. This was followed by a Fleet enema. We have scheduled to follow up visit with Colorectal surgery here at [facility] for further evaluation and workup of failed rectal flexi recurrent rectal prolapse. We have also placed an order for a follow up appointment to OBGYN due to a left adnexal cystic lesion measuring 12 mm incidentally found on CT abdomen and pelvis. [facility] in the next 1-2 weeks regarding incidental findings of left adnexal cystic lesion. Please return to the emergency department if you experience severe abdominal pain, nausea, vomiting, severe fatigue, shortness of breath, chest pain, etc.. documented in this encounter Medications at Time of Discharge Medication Sig Dispensed Refills Start Date End Date metoprolol succinate (TOPROL-XL) 50 mg 24 hr tablet Take 50 mg by mouth daily. cycloSPORINE (Restasis) 0.05 % ophthalmic emulsion Administer [...] by mouth every 30 (thirty) days. 11/04/2023 multivitamin tablet Take 1 tablet by mouth [...] daily. 11/28/2016 documented as of this encounter ED Notes * Micha Baumann M.D. - 07/02/2024 2:58 AM CDT I have personally seen and examined this patient. I have fully participated in the care of this patient. I have reviewed all clinical information including history, physical exam, orders, and plan. Gordon with the note of the resident. Allie Barbosa is a 68 y.o. female history of hypertension, osteoporosis, partial colectomy, failed rectopexy presenting with constipation. She reports recurrent rectal prolapse though does not feel this has ongoing at the time of our assessment. She has been taking MiraLax for constipation butultimately feels that she has been constipated for almost 2 weeks. She denies acute chest pain shortness breath or cough. She denies acute headache or vision changes. She has not had any bowel or bladder incontinence or any acute back pain. No lower extremity weakness. She has however been constipated. She has been taking oxycodone intermittently for chronic neck pain and feels this has been contr ibuting. On physical exam the patient is awake alert oriented, lungs are clear, heart has a regular rate andrhythm no murmurs gallops rubs rate abdomen is soft nondistended and nontender. Performed a chaperoned external rectal exam, hemorrhoids are present. I do not see any clear rectal prolapse externally. MDM: #1 Constipation The patient presents with constipation. She has not had abdominal pain. I have considered whether this may represent a bowel obstruction, appendicitis, diverticulitis, pancreatitis, cholecystitis or other surgical emergency. The patient does have mild leukocytosis but no anemia. The patient has mild hypokalemia we have repleted this. Renal function is normal. Hepatic function panel is normal and lipase is normal. She has no pain in her abdomen on exam. CT does not show signs of an acute surgical cause of her symptoms. CT raise concern for mild proctitis. My resident did perform a digital rectal exam and did not appreciate impacted stool. CT did raise concern for left adnexal cyst and we have ordered follow up withGynecology. We did discuss with the on-call gynecology team to help facilitate this and have ordered this. We discussed this with the patient. We also called and discussed with colorectal surgery andhave ordered colorectal surgery follow up. Based on CT they feel that infectious proctitis would beless likely no clear evidence of ischemia, and findings are mild on CT per Radiology. Colorectal agrees that the patient would not benefit from antibiotics at this time. We called and discussed with R adiology to ensure that the read did not indicate stercoral colitis, at this point they did not feel this was the case. The patient does not feel that she has any evidence of prolapse rectum at this time and she was able to have a bowel movement in the ED. We discussed bowel regimens and follow up plan. We have recommended primary care follow-up along with the specialty services that we ordered. All questions were answered return precautions were discussed. ED Course as of 07/02/24 0739 Sat Jul 02, 2024 0231 Blood Pressure: 158/73 0231 Heart Rate: 105 0231 Resp Rate: 21 0231 Leukocytes(!): 10.4 0234 Colon rectal surgery at this point feels the patient does not need antibiotics, we have ordered follow up in outpatient clinic for her. They do not feel that this has stercoral colitis based on discussion with Radiology. The patient has had a bowel movement in the emergency department. We discussed her incidental findings including her gynecological fall findings. We have recommended follow up in the next few days with the Gynecology Service. All questions were answered return precautions were discussed. Final Diagnoses: as of 07/02/24 0739 Abnormal Computed Tomography - Left adnexal cystic lesion measuring 12 mm (series 3, image 88) Constipation Proctitis Micha Baumann M.D. 07/02/24 1404 Micha Baumann M.D. 07/02/24 1405 Micha Baumann M.D. 07/02/24 1406 * Fatoumata Malave R.N., MISSAEL - 07/01/2024 10:41 PM CDT Pt has not had a bowel movement for the last 2 weeks; per pt report she hasn't been eating as much due to fear that she will have a BM that will complicate her prolapsed uterus Last full meal was last Thursday. Fatoumata Malave R.N., DANIELN 07/01/24 224 * Ness Robles Jr., M.D., M.B.A. - 07/01/2024 10:34 PM CDT SUBJECTIVE CHIEF COMPLAINT/REASON FOR VISIT Constipation HISTORY OF PRESENT ILLNESS This is a 68-year-old woman with a history of hyperlipidemia, hypertension, osteoporosis, previous partial colectomy, failed rectopexy who is presenting to the [facility] with proximally 2 weeks of constipation. Patient states that she has a longstanding history of rectal prolapse for which she has been evaluated by Colorectal surgery. She is typically able to manage her prolapse with maneuvers which manually elevate the rectum to allow her to pass stool and urine. Unfortunately, patient has developed radicular neck pain being treated with outpatient opioid medication. This has complicated her already tenuous GI condition. Thus, she has experienced now several weeks of constipation. She is generally passing gas, at least up until yesterday. She chronically takes MiraLax for constipation, however, her current regimen has been ineffective. She has also attempted 3 days of rectal suppositories which will also been ineffective in producing a bowel movement. Of note, patient has been voluntarily limiting her oral intake of food prophylactically in order to avoid exacerbating or constipation. She states that she only eats a few bites of food today when she is constipated. Patient does not feel abdominal discomfort, bloating, pain, denies fevers, chills, night sweats, denies urinary symptoms. Past Medical History: Diagnosis Date Gastroesophageal Reflux Disease NOS Hyperlipidemia Hypertension NOS Osteopenia Osteoporosis Other Injury Of Unspecified Body Region Pneumonia Past Surgical History: Procedure Laterality Date BLADDER SURGERY COLON SURGERY TONSILLECTOMY TOTAL HYSTERECTOMY No current facility-administered medications on file prior to encounter. Current Outpatient Medications on File Prior to Encounter Medication Sig Dispense Refill metoprolol succinate (TOPROL-XL) 50 mg 24 hr tablet Take 50 mg by mouth daily. cycloSPORINE (Restasis) 0.05 % ophthalmic emulsion Administer [...] mg by mouth every 30 (thirty) days. multivitamin tablet Take 1 tablet by mouth [...] ORAL) Take 150 mg by mouth daily. REVIEW OF SYSTEMS Review of systems completed as noted in HPI. OBJECTIVE Initial Vitals Temperature 07/01/242218 37 ??C Pulse Rate 07/01/242218 (!) 113 Heart Rate 07/01/242218 (!) 113 Resp Rate 07/01/242218 12 Blood Pressure 07/01/242218 (!) 188/91 SpO2 07/01/242218 100 % Pain Score 07/01/242219 5 - Moderate pain Recent Results (from the past 24 hour(s)) Basic Metabolic Panel Collection Time: 07/01/24 10:55 PM Result Value Potassium, P 3.5 (L) Sodium, P 139 Chloride, P 103 Bicarbonate, P 22 Anion Gap, P 14 BUN (Blood Urea Nitrogen), P 12 Creatinine 0.74 Estimated GFR (eGFR) 87 Calcium, Total, P 9.3 Glucose, P 101 Hepatic Function Panel Collection Time: 07/01/24 10:55 PM Result Value Bilirubin, Total, S 0.4 Bilirubin, Direct, S <0.2 Aspartate Aminotransferase (AST), S 22 Alanine Aminotransferase (ALT), S 39 Alkaline Phosphatase, S 103 Albumin, S 4.3 Protein, Total, S 7.1 Lipase Collection Time: 07/01/24 10:55 PM Result Value Lipase, S 30 CBC with Differential, Blood Collection Time: 07/01/24 10:55 PM Result Value Hemoglobin 11.8 Hematocrit 34.5 (L) Erythrocytes 3.59 (L) MCV 96.1 RBC Distrib Width 12.4 Platelet Count 502 (H) Leukocytes 10.4 (H) Neutrophils 5.94 Lymphocytes 3.48 (H) Monocytes 0.85 (H) Eosinophils 0.07 Basophils 0.04 Lactate Collection Time: 07/01/24 10:55 PM Result Value Lactate, P 1.0 PHYSICAL EXAMINATION General: Alert and Oriented X 3. No Acute Distress Eye: PEARRL, EOMI, Normal Conjunctiva HENT: NCAT. Normal appearance of external ears. Normal EOM. Oral mucosa is moist. NO Pharyngeal erythema; no exudates Neck: Supple CV: RRR; No Murmurs. Distal pulses 1+. No cyanosis. No edema. Pulm: LCAB; no crackles, rales, or wheezes. Breath sounds equal bilaterally. Respirations non-labored. Symmetrical chest wall expansion GI: No TTP. No Rigidity, guarding, rebound tenderness or organomegally : No CVA Tenderness Integumentary: Warm, Dry, [place], Intact, no jaundice or visible bruises Neuro: A&O. Normal sensory and motor function. Psych: Cooperative. Appropriate mood & affect. Normal judgement. MSK: ROM and muscle strength grossly normal. No deformity, tenderness, localized swelling or erythema. ASSESSMENT/PLAN This is a 68 old woman with a history of partial colectomy and failed rectopexy presenting to the [facility] with 2 weeks of constipation. Patient is passing gas and is not appear to be obstructed. She is chronically on MiraLax daily and has known rectal prolapse. A recent diagnosis of cervical stenosis is exacerbated her pain, for which she was placed on narcotic medication, exacerbating or GI condition. Based on abdominal CT, she was found to have [id number] amountof stool in the rectum, without concern for acute abdomen. Patient was given magnesium citrate and Fleet enema, was able to pass a small amount of stool, and was discharged from the ED. in ED follow up referral with Colorectal surgery was placed, as was 1 for OBGYN due to a incidental left adnexal cystic lesion found on CT abdomen. Final Diagnoses: as of 07/02/24539 Abnormal Computed Tomography - Left adnexal cystic lesion measuring 12 mm (series 3, image 88) Constipation Proctitis Ness Robles Jr., M.D., M.B.A. Resident 07/02/24539 documented in this encounter Plan of Treatment Upcoming Encounters Date Type Department Care Team (Latest Contact Info) Description 07/08/2024 9:30 AM CDT Office Visit Division of Colon and Rectal Surgery in [place], [place] [address] [place] [phone] Brianne Beebe M.D., Ph.D. [address] [place] [address] 07/25/2024 2:15 PM CDT Clinical Communication Virtual Review in [place], [place] [address] [place] [address] 07/26/2024 9:15 AM CDT Appointment Department of Radiology, [facility], in [place], [place] [address] [place] [phone] Eleazar Yin M.D. [address] [place] [phone] 07/26/2024 3:00 PM CDT Comprehensive Visit Department of Obstetrics and Gynecology in [place], [place] [address] [place] [phone] Elia Portillo M.D. [address] [place] [phone] Scheduled Referrals Name Type Priority Associated Diagnoses Order Schedule POST ED VISIT Gynecology Outpatient Referral Routine Abnormal Computed Tomography Expected: 07/07/2024, Expires: 10/02/2025 POST ED VISIT Colon and Rectal Surgery Outpatient Referral Routine Constipation Proctitis Expected: 07/05/2024, Expires: 10/02/2025 documented as of this encounter Procedures Procedure Name Priority Date/Time Associated Diagnosis Comments CT ABDOMEN PELVIS WITH IV CONTRAST RAD - Semiurgent (Fast; most ED patients; some inpatients) 07/01/2024 11:49 PM CDT HEPATIC FUNCTION PANEL, S STAT 07/01/2024 10:55 PM CDT CBC WITH DIFFERENTIAL, B STAT 07/01/2024 10:55 PM CDT LIPASE, S/P STAT 07/01/2024 10:55 PM CDT LACTATE, B/P STAT 07/01/2024 10:55 PM CDT BASIC METABOLIC PANEL, S/P STAT 07/01/2024 10:55 PM CDT documented in this encounter Results * CT Abdomen Pelvis with IV [...] of a mild proctitis. Micha Baumann M.D. [facility] CT PROCEDURES * Lactate (07/01/2024 10:55 PM CDT) Lactate, P 1.0 0.5 - 2.2 mmol/L 07/01/2024 11:25 PM CDT STMA Blood (Blood, Venous) 07/01/2024 10:55 PM CDT 07/01/2024 11:10 PM CDT Micha Baumann M.D. LAB BLOOD NON ADD -ON [facility] [address] [place] [address], [facility] STMA [facility] [address] [place] [address] * (ABNORMAL) CBC with Differential, Blood (07/01/2024 10:55 PM CDT) [facility] Hemoglobin 11.8 11.6 - 15.0 g/dL 07/01/2024 [...] CDT Micha Baumann M.D. LAB BLOOD ADD-ON [facility] [address] [place] [address], [facility] STMA [facility] [address] [place] [address] DHPM [facility] [address] [place] [address] * Lipase (07/01/2024 10:55 PM CDT) Lipase, S 30 13 - 60 U/L 07/01/2024 11:44 PM CDT DTL Blood (Blood, Venous) 07/01/2024 10:55 PM CDT 07/01/2024 11:30 PM CDT Micha Baumann M.D. LAB BLOOD ADD-ON [facility] [address] [place] [address], [facility] [address] [place] [address] * Hepatic Function Panel (07/01/2024 10:55 PM [...] CDT Micha Baumann M.D. LAB BLOOD ADD-ON [facility] [address] [place] [address], [facility] [address] [place] [address] * (ABNORMAL) Basic Metabolic Panel (07/01/2024 10:55 PM CDT) Potassium, P 3.5(L) 3.6 - 5.2 mmol/L [...] Baumann M.D. LAB BLOOD ADD-ON [facility] [address] [place] [address], [facility] [address] [place] [address] documented in this encounter Visit Diagnoses Diagnosis Abnormal Computed Tomography- Primary Constipation Proctitis documented in this encounter Administered Medications Inactive Administered Medications - up to 3 most recent administrations Medication Order MAR Action Action Date Dose Rate Site iohexoL 300 mg iodine/mL solution 1-200 mL (Omnipaque) 1-200 mL, intravenous, Once in imaging, contrast, Starting on Thu07/01/24 at 2336, For 1 dose, Imaging Protocol Orders, Dose per Radiant Medication Guidelines Given 07/01/2024 11:43 PM CDT 100 mL magnesium citrate solution 296 mL 296 mL, oral, Once, On 07/02/24 at 0110, For 1 dose Given 07/02/2024 1:57 AM CDT 296 mL potassium chloride ER tablet 40 mEq 40 mEq, oral, Once, On 07/02/24 at 0233, For 1 dose, For K<3.3-3.5 mEq/L - give total of 40 mEq Swallow whole. Do NOT crush, chew, or split tablet., Monitor the following for replacement: Potassium, Replace Potassium per: Standard Schedule Given 07/02/2024 2:38 AM CDT 40 mEq sodium chloride (PF) 0.9 % injection 1-100 mL 1-100 mL, intravenous, Once, On 07/01/24 at 2337, For 1 dose, Imaging Protocol Orders, Dose per Radiant Medication Guidelines Given 07/01/2024 11:43 PM CDT 50 mL sodium phosphates enema 1 enema (Fleet) 1 enema, rectal, Once, On 07/02/24 at 0110, For 1 dose Given 07/02/2024 1:19 AM CDT 1 enema documented in this encounter Active and Recently Administered Medications Times are shown in CDT. Scheduled Medication Order 06/30/2024 07/01/2024 07/02/2024 magnesium citrate solution 296 mL (COMPLETED) 296 mL, oral, Once, On 07/02/24 at 0110, For 1 dose 0157 (Given - Provid er: Fatoumata Malave R.N., CCRN) potassium chloride ER tablet 40 mEq (COMPLETED) 40 mEq, oral, Once, On 07/02/24 at 0233, For 1 dose, For K<3.3-3.5 mEq/L - give total of 40 mEq Swallow whole. Do NOT crush, chew, or split tablet., Monitor the following for replacement: Potassium, Replace Potassium per: Standard Schedule 0238 (Given - Provid er: Fatoumata Malave R.N., CCRN - Comment: doesnt want anything thats hard on her stomach) sodium chloride (PF) 0.9 % injection 1-100 mL (COMPLETED) 1-100 mL, intravenous, Once, On 07/01/24 at 2337, For 1 dose, Imaging Protocol Orders, Dose per Radiant Medication Guidelines 2343 (Given - Provider: Mecca Rai R.N.) sodium phosphates enema 1 enema (Fleet) (COMPLETED) 1 enema, rectal, Once, On 07/02/24 at 0110, For 1 dose 0119 (Given - Provid er: Fatoumata Malave R.N., CCRN) PRN Medication Order 06/30/2024 07/01/2024 07/02/2024 iohexoL 300 mg iodine/mL solution 1-200 mL (Omnipaque) (COMPLETED) 1-200 mL, intravenous, Once in imaging, contrast, Starting on Thu07/01/24 at 2336, For 1 dose, Imaging Protocol Orders, Dose per Radiant Medication Guidelines 2343 (Given - Provider: Ella Rai R.N. - Comment: lot # [id number]) documented in this encounter Care Teams English Teacher Relationship Specialty Start Date End Date Elsewhere, Pcp PCP - General Internal Medicine 07/02/24 documented as of this encounter
--- OUTSIDE RECORDS SUMMARY | 2024-07-07 10:20 | XMS_ITS | Encounter Summary ---
Author Organization [facility] Address [address] [place] [id number] Care Team Providers Care Waste Treatment Operator Name Role Phone Unavailable Primary Care [...] Joint Renate Youngblood APRN C.N.P., M.S.N. [address] [place] [address] [facility] Referral ID Status Reason Start Date Expiration Date Visits Re quested Visits Authorized [id number] Closed 04/08/2024 10/08/2025 1 1 Encounter Details Date Type Department Care Team (Late st Contact Info) Description 06/13/2024 9:00 AM CDT Telemedicine Department of Medical Genetics in [place], [place] [address] [place] [phone] Renate Youngblood APRN, C.N.P., M.S.N. [address] [place] [phone] Fern Ewing M.S., [facility] [place] [address] [place] [address] Pain Back (Primary Dx); [facility] Without [...] drink = 0.6 oz pur e alcohol) [facility] [employer] Answer Date Recorded In the past 12 months has e [employer], gas, oil, or water [employer] threatened to shut off services in your [...] your living situation today? 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 Please see the intake form which is available for review in the documentation encounter dated 06/08/2024. This includes the patient's self-reported symptoms. A targeted family history was also obtained from the patient at this time and a pedigree was constructed by a Genetic Counseling Shoe Stitcher. Please also see the referring provider's consult note for current diagnoses. Allie has not undergone a clinical evaluation for hypermobile EDS and does not currently have a diagnosis of hypermobile EDS. 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 She has not previously undergone genetic testing. Allie attended today's consultation unaccompanied to discuss the genetics and inheritance of EDS aswell as available genetic testing. Consult conducted via real-time audio/video technology by Sirena Ewing M.S., [place] the Patient's Home. FAMILY HISTORY Our risk assessment is based upon medical and family history information as provided by the patientand may change in the future should new information be obtained. Relevant Summary The patient has a mother with a stroke. She also has 2 nieces with diagnoses of EDS. One niece is 37y and has had TIAs due to her neck muscles collapsing. Her other niece is 34y and has a history of spasticity. She was not sure if her nieces have undergone any previous genetic testing. There were no other reported individuals diagnosed with EDS, unexplained sudden deaths, or vascularaneurysms or dissections. IMPRESSION/REPORT/PLAN I had the pleasure of meeting Allie to discuss what is currently known surrounding the genetics of EDS. I began my consultation with them by reviewing the reason for their referral. I discussed that my role in her process of care would be to discuss genetic testing for EDS and provide education surrounding these conditions. The patient understood and was interested in this consultation. PATIENT EDUCATION We generally discussed connective tissue disorders. EDS is a group of connective tissue conditions that involve an abnormality in the formation and function of connective tissue in the body that can lead to multiple medical issues which may include joint laxity, chronic joint pain/dislocations, abnormal scarring, poor wound healing, easy bruising, vascular issues, and many others. There are curren tly 13 known subtypes of EDS. For more information on the different types of EDS, please visit https://www.[employer].com/eds-types/. For many of the subtypes of EDS genetic causes have been identified and genetic testing is available. A genetic diagnosis of certain subtypes of EDS could impact medical management, making genetic testing reasonable to pursue. It is important to note that an underlying genetic cause has not been identified for the most common type of EDS which is the hypermobile type (hEDS). Therefore, the genetic testing being discussed today would not be able to provide an individual with a diagnosis of this condition. hEDS is characterized by joint hypermobility/instability, chronic pain, hyperextensible skin, poor wound healing, hernias, pelvic floor/rectal/uterine prolapse in childhood or prior to women becoming , IBS, and autonomic dysfunction. Many other symptoms have also been reported in individuals with hEDS and please see the resource section listed below if more information is desired. Currently a diagnosis of hEDS is a clinical diagnosis, meaning any physician can perform a physical exam using the guidelines outlined by the 2017 International Classification of the Elvis-Danlos Syndromes (PMID: 31365768).This is also available in a check list format on the EDS Society website (https://www.[employer]. com/ohng-rywysmqgdu-xqwaorami/). The majority of people who are hypermobile do not meet criteria for hEDS, but this does not mean the symptoms and pain they may experience is not real. Joint hypermobility is extremely common in the general population and current literature suggests at least 2% if not more of the adult population have this feature. Joint hypermobility is also a spectrum which has resulted in the creation of the Hypermobility spectrum disorders (HSD). The medical management and recommendations for individuals with hEDS and with HSD are the same. All treatment is symptomatic in nature, meaning if a person starts to exhibit symptoms, then a referral to the appropriate specialists would be indicated. We have included some generalized recommendations below however we strongly recommend you discuss these with your primary care provider to ensure they are appropriate for your situation. Generalized Recommendations Activity: A referral to Physical Medicine & Rehabilitation (PM&R) and physical therapy for instruction in appropriate exercises is often appropriate. Avoid, or at least minimize, high-impact activity and resistance exercise. Those would be expected to worsen the joint instability and pain. The cornerstone of managing joint laxity and pain is to try to improve joint stability by increasing muscle tone. Tone is the resting state of muscle contraction and should not be confused with strength. Strength is a voluntary force exerted at will. Exercises should be very low resistance, gradually increasing duration, frequency, or repetitions. Good examples could include walking, bicycling, swimming, water exercise, elliptical hearing dog trainer, yoga, Pilates, and core toning/stability exercises. It is important to recognize and not exceed her current physical limitations, not only in minimizing resistance, but also in avoiding excess repetitions. Some patients can initially tolerate only a few minutes of repetitive motion exercise, and need to be careful not to advance too quickly. It typically takes 6-12 months of routine toning exercise 5 or more days per week to stop getting worse, and several years to notice improved stability and decreased pain. Joint Bracing: In addition to toning exercise, braces and other mechanical supports can be useful to help with joint instability and pain, as needed. As long as toning exercises are maintained, thereis no significant risk of atrophy due to bracing. However it should still be limited as much as possible to encourage improving muscle tone. Joint Surgery: Joint stabilizing surgeries should be avoided unless absolutely necessary. There is an increased risk of immediate or intermediate term failure of joint stabilizing surgery in patientswith inherited disorders of connective tissue. Muscle Relaxation: The current thinking is that a lot of the pain and fatigue associated with jointhypermobility is due muscle spasm, triggered by the underlying joint instability. Passive treatments such as myofascial release, stretching, acupuncture, and muscle relaxants can bring short-term relief and are worth pursuing. Pain Medication: Pain should be managed by vdri-ebc-gexdtso medications as much as possible. Participation in physical therapy is strongly recommended and will hopefully assist in decreasing pain as muscle tone improves. Acetaminophen and NSAIDS should be maximized prior to adding on additional analgesics. Bruising or bleeding is not a contraindication to NSAID therapy, but occasionally requires dose reduction or change to a Dean-2 inhibitor. Skeletal muscle relaxers and neuropathic pain medications are often useful adjuncts, in addition toanalgesics and anti-inflammatories. Opioids should be reserved for add-on use after all of the above have been maximized, not as a substitute for any of the above. Autonomic dysfunction (POTS, NMH, postural hypotension, etc): This is very common in patients with EDS as well as the general population. The exact underlying cause has not been established. Maximizing blood volume by increasing salt intake and fluid intake (not just water) is the foundation for management. In addition to adding salt to food, salt tablets are sometimes necessary. Plain water is not sufficient, and can sometimes exacerbate symptoms. There are xjws-ven-edqlkzk electrolyte products that can be added to water, or she should choose low-carbohydrate/low-sugar fluids that already contain electrolytes. Ongoing psychological approaches to manage stress and anxiety can be very helpful, at least by virtue of reducing adrenaline surges associated with such stress. Compression garments are usually also helpful. If you are experiencing concerns of this nature a referral to an autonomic specialty care clinic may be beneficial. Irritable Bowel syndrome: A gastrointestinal evaluation for diagnosis and management of lower GI symptoms is encouraged. Management of irritable bowel syndrome is no different in patients with or without underlying hereditary connective tissue disorders. Management typically includes stress reduction, avoidance of dietary triggers, and pharmacologic therapy as needed. Cardiovascular: Current evidence suggests that hEDS is not associated with cardiac or arterial fragility, and no special precautions are necessary. : Limited information is available about additional risk during for individuals with hEDS. Importantly, current studies have not shown a link between hEDS and vascular or aortic rupture. It is important to notify your OBGYN and care team of your symptoms so recommendations can bemade if indicated. Rapid labor and delivery is also common in individuals with hEDS. Sometimes this can be as short as30 minutes, so they should pursue their planned delivery method (e.g. hospital, birthing center, home deliver) as soon as they think they might be in labor. Joint and spinal pain may increase during the course of the . Similarly, to the general population, prolapse of the uterus and/or bladder may occur post and/or the future. FAMILIAL IMPLICATIONS We reviewed autosomal dominant inheritance as this is the most common inheritance pattern for the majority of EDS subtypes. Although hEDS does not have an identifiable genetic marker at this time, wewould similarly estimate up to a 50% risk for each of her current or future children to have the same type of EDS that they have. The same risk applies to all other first-degree relatives (parents and siblings). Severity and specific manifestations are variable and cannot be predicted. GENETIC TESTING We discussed available genetic testing, including the option of testing several genes at once by using a large panel test. This testing involves a saliva sample, which will be analyzed for disease-causing variants in the gene or genes of interest. We discussed the EDS gene panel available through [facility]. This test includes comprehensive sequencing and gross deletion/duplication analysis of 22 genes associated with EDS subtypes that have a known genetic etiology, as well as some related conditions. A complete list of the included genes is available at the end of this consult note. As previously mentioned, a genetic diagnosis of certain subtypes of EDS could impact medical management, making genetic testing reasonable to pursue. Considerations related to decision-making were discussed. Approximate cost and insurance coverage were discussed. The risks, benefits, and limitations of genetic testing were discussed. The Genetic Information Nondiscrimination Act of 2008 (MARLON) is a federal law that protects people from genetic discrimination in health insurance and employment. It is against the law for health insurers to request, require, or use genetic information to make decisions about your eligibility for health insurance or your health insurance premium, contribution amounts or terms of coverage. However, MARLON does not protect against discrimination for life insurance, long-term care insurance, and disability insurance. Other limitations apply. For more information about MARLON, please visit GINAhelp.org. The results from the genetic test should take approximately 3-4 weeks to get back. We discussed thefour possible results that could be obtained from this targeted multi-gene panel including the following: Negative: meaning normal or no mutations are identified in the genes that are tested. A negative result decreases the likelihood but does not completely rule out an underlying hereditary etiology forthe patient's symptoms. No further evaluation with genetics would be indicated. Notification Process: We would notify you of the negative results through the portal and we recommend that you follow-up with your primary care provider for additional recommendations. Positive: meaning a mutation that is known to be associated with hereditary forms of EDS is identified. We discussed the implications associated with a positive result. Specifically, a positive result could help solidify an explanation for the patient's clinical findings as well as impact how they are managed. If a causative mutation(s) is identified, the patient will be scheduled for an in-person consultation with a medical records specialist for a comprehensive evaluation and discussion surrounding the results. A plan of care would also be determined at this time. Notification Process: You would receive a portal message from our team notifying you that you will be contacted by scheduling to set up this appointment. If you would like to have a preliminary discussion with myself prior to this appointment this can certainly be arranged upon request. Variant of uncertain significance (VUS): meaning a change in the DNA sequence of a particular gene was seen but it is not known if it explains the patient's clinical history. It could be a harmless change in the DNA (a benign variant) that has no clinical significance, or it could be a harmful change (a pathogenic variant). This result does not exclude the possibility of a genetic form of EDS. However, a VUS is a common finding, and most are eventually reclassified as benign changes in our DNA.It is not recommended to change medical management based on a VUS and they should not be used to test other asymptomatic family members. If a VUS is detected, this result would be reviewed by our clinical team to determine next steps which can take 1-2 weeks. Notification Process: If further evaluation by genetics is indicated, we would communicate this to you through the portal and you would be contacted by scheduling to set up an in-person evaluation with a medical records specialist. For the majority of VUSs further evaluation by genetics is not indicated aswe are limited by our current knowledge surrounding this genetic change. We may be able to clarify the meaning of these results in the future with additional research and technological advances. In this case we would notify you of the results through the portal and we recommend that you follow-up with your primary care provider for additional recommendations. Carrier: Sometimes we find disease-causing changes in certain genes, but only having one genetic change would be unlikely to result in symptom development for an individual. In order to develop symptoms, individuals require a mutation in both copies of the same gene. While this type of result wouldnot explain your symptoms or change your medical management, this could be important information for reproductive risk awareness if you or family members are considering having children. Notification Process: We would notify you of the carrier result through the portal and we recommendthat you follow-up with your primary care provider for additional recommendations. No further follow-up with genetics would be indicated unless we communicate to you otherwise. We will send you a letter through your portal that you may distribute to your family members to assist in communicating this information. BILLING INFORMATION Approximate cost and insurance coverage of genetic testing was discussed. [facility] [employer] will bill your insurance for the genetic testing. A prior authorization will be initiated upon submission of the test order today. Please note the prior authorization process can take up to 30 days. If prior authorization is approved by your insurance, please be advised that approval does not guarantee no-cost to the patient. Any cost associated will be determined by your insurance plan coverage. If your insurance denies the authorization for genetic testing coverage, our team will reach out via portal message outlining the options available. If the patient wishes to not go through their insurance company to explore coverage, the cost of this genetic testing panel can be billed to the patient directly at the sullivan of $2,000.00. All billing questions or concerns should be directed to [facility] at [phone]. ALONDRA Kelley deferred genetic testing today. If they are interested in pursuing genetic testing in the future, they are encouraged to contact me. Patient expressed understanding of this information. The impression and plan were discussed in detail. There were no apparent barriers to learning or understanding. Questions were answered to the best of my ability. It was a pleasure to meet Allie and I remain available to answer any questions in the future. Total time: 40 minutes COUNSELING & PATIENT RESOURCES Psychosocial support and counseling were provided to the patient. We briefly discussed the EDS Society webpage (https://elvis-danshoshanas.com/wp-content/uploads/hEDSvHSD.pdf) and the Elvis- Danlos National Foundation (http://www.ednf.org) as connecting with other individuals with similar symptoms can sometimes be helpful. The additional resources outlined below may also be beneficial should additional information about EDS be desired. 1. Dr. Ernesto Hewitt: Joint Hypermobility Handbook- A Guide for the Issues & Management of Elvis-Danlos Syndrome Hypermobility Type and the Hypermobility Syndrome; [employer] 2. Eunice Kelsey and Surinder Godinez (resource for PTs): Hypermobility Syndrome: Diagnosis and Management for Physiotherapists; [employer] 3.Earnestine Pablo (resource for myofascial trigger point release at home to address muscle spasms andmyofascial pain): The Trigger Point Therapy Workbook; [employer] (https://www.painscience.com/tutorials/trigger-points.php) 4. In general, mindfulness-based stress reduction can aid in coping with chronic pain. A good resource is Dr. Carlos Pride's books called ???Full Catastrophe Living: Using the [place] of Your Body and Mind to Face Stress, Pain, and Illness?? and ???Wherever You Go, There You Are.?? 5. DEBORAH Jim, VINEET Rivero, DEMARCO Duke Elvis-Danlos Syndrome: A MultiDisciplinary Approach. 370 page e-book (or can order hard copy). http://ebooks.iospress.nl/ISBN/459-2-52182-878-5 6.Dannie Muse, PT Living Life to the Fullest with Elvis-Danlos syndrome. A guide for a person living with EDS to achieve a Better quality of life.Dasient 7. In November,, the [place] Journal of Medical Genetics Part C: Seminars in Medical Genetics was dedicated to Elvis Danlos syndrome. These articles are available at https://www.[employer]ense/ 4143-ylz-fozdwklgmiwsj-classification/. Issue Information: Table of Contents, Volume 175C, Number 1, November 2016 (pages 1-2) 1. The international consortium on the Elvis-Danlos syndromes (pages 5-7) Nathalia Flood, Yoni Salvador, Luz Lopez, Kt Hewitt, Vince Martínez and on behalf of the Steering Committee of The International Consortium on the Elvis- Danlos Syndromes 2. The 2017 international classification of the Elvis-Danlos syndromes (pages 8-26) Vince Martínez, Luz Lopez, Yoni Salvador, Yan Patel, Cary Tsang, Juliano Wang, Nathalia Flood, Marissa Cook, Beth Diamond, Yemi Escobar, John Dutta, Mahi Johnson, Veronica Quiles, Maral Posey, Tory Currie, Martha Herrera, Chelsie Francisco, Milton Ruiz, Mariajose Lai, Mandy Swenson, Sruinder Godinez, Yousif Kolb, Zoltan Coronel, Megan Hobson, Christie Villalpando, Melodei Elizondo, Roxy Jain, David Hernandes, Lonnie Lozoya, Dennis Mendoza, [facility], Domonique Conteh, Vivian Syed, Jeremiah Anton, Heena Gardner, Uzma Peñaloza, Breanna Umaña, Shraddha Ambriz, Joaquin Amaro, Joey Rodriguez, Adela Agustin, Noreen De La Cruz, Yemi Mercado, Marielle Mustafa and Kt Hewitt 3. 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 Measurement properties of clinical assessment methods for classifying generalized joint hypermobility--A systematic review (pages 116-147) Christie Villalpando, Rosalva Aldrich, Carmelo Almonte and Amadou Jacbo 5. A framework for the classification of joint hypermobility and related conditions (pages 148-157) John Dutta, Kt Hewitt, Dennis Mendoza, Surinder Godinez, Vince Martínez and Yousif Kolb 6. The evidence-based rationale for physical therapy treatment of children, adolescents, and adultsdiagnosed with joint hypermobility syndrome/hypermobile Elvis Danlos syndrome (pages 158-167) Amadou Jacob, Christie Villalpando, Brittney Cabrera, Janine Lee, Shayna Varela, [place], Yi Reyez, Lonnie Dean, Nicolasa Francis and Clare Chavarria 7.Chronic fatigue in Elvis-Danlos syndrome--Hypermobile type (pages 175-180) Yousif Kolb, Janine Lee, Edinson Flores, Yousif Valdivia and Yoni Waddell 8. Gastrointestinal involvement in the Elvis-Danlos syndromes (pages 181-187) Lily Samuel, Gabby Crowley, Genesis Chavira, Hernan Orosco and Taz Esparza 9. Orthopaedic management of the Elvis-Danlos syndromes (pages 188-194) Wyatt Garvin Jr. and Eleno Lopez 10. Pain management in the Elvis-Danlos syndromes (pages 212-219) Jt Ramirez, Kt Hewitt, Dillan Lemus, Laila Mcbride, Martha Ortiz, Meliton Rutherford and Nori 11. Mast cell disorders in Elvis-Danlos syndrome (pages 226-236) Christiana Arenas, Martha Barreto and Reggie Flores 12. Psychiatric and psychological aspects in the Elvis-Danlos syndromes (pages 237-245) Meliton Rutherford, Mary Ann Arreola, Roberto Carlos Rutherford-Cabr??, Celestine Mendez, Main Resendiz, Jt Ramirez, Ro Poon??-Bagu??, Clau Ruiz and Enoc Kaufman [facility] EDS Panel Gene List: ADAMTS2, AEBP1, ATP7A, C2XHXO5, B3GAT3, G4DELO9, CHST14, PNV28P0, COL1A1, COL1A2, COL3A1, COL5A1, COL5A2, DSE, FKBP14, FLNA, PLOD1, PRDM5, QGG31G35, SPARC, TNXB, and RFP849 documented in this encounter Plan of Treatment Upcoming Encounters Date Type Department Care Team (Latest Contact Info) Description 07/08/2024 9:30 AM CDT Office Visit Division of Colon and Rectal Surgery in [address] [phone] Brianne Beebe M.D., Ph.D. [address] [place] [phone] 07/25/2024 2:15 PM CDT Clinical Communication Virtual Review in [place], [place] [address] [place] [address] 07/26/2024 9:15 AM CDT Appointment Department of Radiology, [facility], in [address] [phone] Eleazar Yin M.D. [address] [place] [phone] 07/26/2024 3:00 PM CDT Comprehensive Visit Department of Obstetrics and Gynecology in [address] [phone] Elia Portillo M.D. [address] [place] [phone] documented as of this encounter Visit Diagnoses Diagnosis Pain Back- Primary Raynaud's Phenomena Without Gangrene Other Female Genital Prolapse Tear Knee Lateral Meniscus Current Initial Left Strain Of Muscle And Tendon Of Back Wall Of Thorax Initial Primary Osteoarthritis First Carpometacarpal Joints Bilateral Polyosteoarthritis Unspecified Prolapse Rectal Dyskinesia Esophagus Hypermobility Joint documented in this encounter
--- OUTSIDE RECORDS SUMMARY | 2024-07-07 10:20 | XMS_ITS | Encounter Summary ---
Author Organization [facility] Address [address] [place] [id number] Care Team Providers Care Tyre Finisher And Examiner Name Role Phone Unavailable Primary Care Provider Unavailabl e Encounter Details Date Type Department Care Team (Late st Contact Info) Description 04/08/2024 5:45 PM CDT Admin Visit Division of Colon and Rectal Surgery in [place], [place] [address] [place] [address] Renate Youngblood, JOSE, C.N.P., M.S.N. [address] [place] [address] Social History Tobacco Use Types Packs/Day Years Used Date Smoking Tobacco: Never Passive Smoke Exposure: Never Smokeless Tobacco: Never Alcohol Use Standard Drinks/Week Comments Yes 3 (1 standard drink = 0.6 oz pur e alcohol) [facility] Utilities Answer Date Recorded In the [...] your living situation today? I have a [facility] place to live 01/07/2024 Sex and Gender [...] Division of Colon and Rectal Surgery in [place], [place] [address] [place] [phone] Brianne Beebe M.D., Ph.D. [address] [place] [phone] 07/25/2024 2:15 PM CDT Clinical Communication Virtual Review in [place], [place] [address] [place] [address] 07/26/2024 9:15 AM CDT Appointment Department of Radiology, [facility], in [place], [place] [address] [place] [phone] Eleazar Yin M.D. [address] [place] [address] 07/26/2024 3:00 PM CDT Comprehensive Visit Department of Obstetrics and Gynecology in [place], [place] [address] [place] [address] Elia Portillo M.D. [address] [place] [address] documented as of this encounter Visit Diagnoses Not on filedocumented in this encounter
--- OUTSIDE RECORDS SUMMARY | 2024-07-07 10:21 | XMS_ITS | Clinical Summary ---
Author Organization [facility] Address [place], [place] [address] Care Team Providers Care Cupola Charger Name Role Phone John Paul Miller MD Primary Care Provider [phone] Allergies Active Allergy Reactions Criticality Noted Date [...] with meals. 0 11/28/2016 Active Vit C-Vit Q-Izshbv-Inm-OM-3 (OCUVITE 150 MG-30 UNIT-5 MG-150 MG CAPSULE) 495-58-2-150 mc-ldub-zg-mg capsuleIndications:Ma cular degeneration (senile) of retina, unspecified Take by mouth. 0 11/28/2016 Active Gsjsl-5-ZXC-EPA-Fish Oil (FISH OIL) 1,000 mg (120 mg-180 [...] Body Mass Index 24.86 11/28/2016 9:05 AM DRAFTER ELECTRICAL Plan of Treatment Health Maintenance Due Date Last Done Comments Tdap 1964 Tetanus booster 1973 Colonoscopy through age 75 1998 Mammogram for age 45-75 1998 Zoster (shingles) series for age 50+ (1 of 2) 2003 BMI (ht and wt on same day) for age 18+ 11/28/2017 11/28/2016 Depression screening for age 12+ 11/28/2017 03/03/20 17 DEXA/DXA scan for age 65+ 2018 Medicare Wellness for age 65+ 2018 Pneumococcal series for age 65+ (1 of 1 - PCV) 2018 Lipids for age 45-75 11/28/2021 11/28/2016 COVID-19 vaccine series (4 - 2023- season) 2024 07/26/2021, 12/01/2020, 11/10/2020 Influenza for age 65+ 05/29/2024 Hepatitis C screening for age 18-79 Completed 11/28 Procedures Procedure Name Priority Date/Time Associated Diagnosis Comments ANTI HCV Routine 11/28/2016 10:50 AM DRAFTER ELECTRICAL Need for hepatitis C screening test LIPID PANEL W REFLEX MEASURED LDL Routine 11/28/2016 10:50 AM DRAFTER ELECTRICAL Hyperlipidemia, unspecified from Last 3 Months or Most Recently Relevant to Health Maintenance Results * LIPID PANEL W REFLEX MEASURED LDL (11/28/2016 10:50 AM DRAFTER ELECTRICAL) CHOLESTEROL,TOTAL 164 100 - 199 mg/dL 11/28/2016 11:36 AM DRAFTER ELECTRICAL [facility] TRIGLYCERIDES 85 <150 mg/dL 11/28/2016 11:36 AM DRAFTER ELECTRICAL [facility] HDL CHOLESTEROL 65 >40 mg/dL 7 11:36 AM DRAFTER ELECTRICAL [facility] NON-HDL CHOLESTEROL 99 <145 mg/dl 11/28/2016 11:36 AM DRAFTER ELECTRICAL [facility] CHOL/HDL RATIO 2.52 <4.50 11/28/2016 11:36 AM DRAFTER ELECTRICAL [facility] LDL CHOLESTEROL 82 <=130 mg/dL 11/28/2016 11:36 AM DRAFTER ELECTRICAL [facility] PATIENT STATUS FASTING 11/28/2016 11:36 AM DRAFTER ELECTRICAL [facility] Blood BLOOD SPECIMEN / Unknown Venipuncture / Unknown 11/28/2016 10:50 AM DRAFTER ELECTRICAL 11/28/2016 10:50 AM DRAFTER ELECTRICAL Lucas Abebe MD CHEMISTRY [facility] [address] [place] [address], * ANTI HCV [50333.2] (11/28/2016 10:50 AM DRAFTER ELECTRICAL) HEPATITIS C ANTIBODY Non-Reacti ve Non-Reacti ve 11/28/2016 4:20 PM DRAFTER ELECTRICAL [facility] Blood BLOOD SPECIMEN / Unknown Venipuncture / Unknown 11/28/2016 10:50 AM DRAFTER ELECTRICAL 11/28/2016 10:50 AM DRAFTER ELECTRICAL Narrative [facility] - 11/28/2016 4:20 PM DRAFTER ELECTRICAL Antibodies to HCV not detected; does not exclude the possibility of exposure to HCV. Lucas Abebe MD SEND OUTS [facility] [address] [place] [address], from Last 3 Months or Most Recently Relevant to Health Maintenance Care Teams Cupola Charger Relationship Specialty Start Date End Date John Paul Miller MD [address] [place] [address] PCP - General Family Practice 01/03/22
[2024-07-07 10:52] LABS: Creatinine* 0.7 mg/dL (0.5-1.5); Estimated Glomerular Filt Rate 93 ml/min
--- NOTE | 2024-07-07 11:00 | CRLHL7_ITS ---
For Patients: As a result of the Century Cures Act, medical imaging exams and procedure reports are released immediately into your electronic medical record. You may view this report before your referring provider. If you have questions, please contact your health care provider. INDICATION: ISSUES W/ AIRWAY OBSTRUCTION. WHEN NECK IS EXTENDED FEELS LIKE CHOKING. PROGRESSING OVER LAST FEW MONTHS. COMPARISON: none TECHNIQUE: CT ST Neck W/ 58CC ISOVUE 370 Please note that all CT scans at this facility use dose modulation, iterative reconstruction, and/or weight-based dosing when appropriate to reduce radiation dose to as low as reasonably achievable. FINDINGS: The CT images demonstrate normal aeration of the mastoid air cells and middle ear cavities. The paranasal sinuses are clear. The nasopharynx appears normal. The parotid and submandibular glands are of normal size and have uniform enhancement. The oropharynx appears normal. The valleculae, epiglottis, aryepiglottic folds and piriform sinuses appear normal. There is a normal appearance of the larynx and subglottic trachea. The thyroid gland is of normal size and has uniform density. There is no evidence of lymphadenopathy within the anterior and posterior cervical triangles or within the supraclavicular region. Atelectasis is present within the dependent visualized lungs. IMPRESSION: No suspicious findings are present. Please note that all CT scans at this facility use dose modulation, iterative reconstruction, and/or weight-based dosing when appropriate to reduce radiation dose to as low as reasonably achievable. Dictated by José Miguel Tracy MD @ 07/07/2024 12:35:49 PM (Electronically Signed)
== END 2024-07-07 10:18 | disposition home or self-care (01) ==
LOC: CT 10:18
PROVIDERS: PCP Family Medicine; Visit Provider Family Medicine
DX: J98.9 Respiratory disorder, unspecified (principal)
CPT/HCPCS: 36415; 70491; 82565; Q9967

== ENCOUNTER 2024-08-02 14:11 | Outpatient (CLI) | payer OTHER, SELFPAY ==
--- OUTSIDE RECORDS SUMMARY | 2024-08-02 14:14 | XMS_ITS | Encounter Summary ---
Author Organization [facility] Address [address] [place] [address] Care Team Providers Care Press Reader Name Role Phone Elsewhere, Pcp Primary Care Provider Unavailabl e Reason for Visit * Outpatient (Routine) - Closed Specialty Diagnoses / Procedures Referred By Floresita t Referred To Contact Gynecology Diagnoses Abnormal Computed Tomography Micha Baumann M.D. [address] [place] [address] Phone: tel: fax: [facility] Referral ID Status Reason Start Date Expiration Date Visits Re quested Visits Authorized [id number] Closed 07/02/2024 01/01/2026 1 1 Encounter Details Date Type Department Care Team (Latest Contact Info) Description 07/26/2024 3:00 PM CDT Comprehensive Visit Department of Obstetrics and Gynecology in [place], [place] [address] [place] [phone] Elia Portillo M.D. [address] [place] [phone] Mass Adnexal (Primary Dx); Abnormal Computed Tomography Social History Tobacco Use Types Packs/Day Years Used Date Smoking Tobacco: Never Passive Smoke Exposure: Never Smokeless Tobacco: Never Alcohol Use Standard Drinks/Week Comments Yes 3 (1 standard drink = 0.6 oz pur e alcohol) [facility] Utilities Answer Date Recorded In the [...] your living situation today? I have a [facility] place to live 01/07/2024 Comments No Sex and Gender Information Value Date Recorded Sex Assigned at Female 01/07/2024 8:31 PM CDT Legal Sex Female 5:11 PM FOOD CLERK Gender Identity Female 01/07/2024 8:31 PM CDT Sexual Orientation Straight 01/07/2024 8: 31 PM CDT documented as of this encounter Last Filed Vital Signs Vital Sign Reading Time Taken Comments Blood Pressure - - Pulse - - Temperature - - Respiratory Rate - - Oxygen Saturation - - Inhaled Oxygen Concentration - - Weight 54.5 kg (120 lb 2.4 oz) 07/26/2024 2:54 P M CDT Height 149.2 cm (4' 10.74) 07/26/2024 2:54 PM C DT Body Mass Index 24.48 07/26/2024 2:54 PM CDT documented in this encounter Consult Notes * Elia Portillo M.D. - 07/26/2024 3:00 PM CDT Images from the original note were not included. OBSTETRICS AND GYNECOLOGY, DIVISION OF GYNECOLOGY New Patient Consultation DATE OF SERVICE: 07/26/2024 CHIEF COMPLAINT: Mass Adnexal [N94.89] SUBJECTIVE HISTORY OF PRESENT CONDITION Ms. Barbosa is a 68 y.o. who presents in consultation at the request of Dr. Baumann for evaluation of an adnexal mass. Today, she is accompanied by her daughter. Chart review: Allie was seen in the ED on 07/02/2024 after 2 weeks of constipation. She does have a history of partial colectomy and failed rectopexy. CT obtained demonstrated a 12mm left adnexal cystic lesion. Therefore, she was referred to Gynecology. She recently had follow up with Dr Beebe of [facility] re: rectal prolapse. Plan is for a combo case in conjunction with Urogynecology (Dr. Turner) to address her multi-compartment prolapse. Today a pelvic US was scheduled. However, she was not able to tolerate the exam and therefore neither ovary was visualized. Does not have any prior imaging on file for review. Ms. Barbosa that after her CT scan earlier this month was the first time she has been told she has an adnexal cyst. She has no history of ovarian cysts. She did have a SNOW at age 29 for fibroids, pelvic pain, as well as recurrent abnormal pap smears (performed in [facility]). She does not recall the specifics of the degree of cervical dysplasia. She shares that her primary care continued doing pap smears for several years after her hysterectomy and they were all normal. She has no symptoms related to the small left adnexal cyst. She is concerned about the cyst. She has no additional gynecologic concerns. She has several questions about her upcoming surgery. HISTORY REVIEW The following portions of the patient's history were reviewed: allergies, current medications, family history, medical history, social history, surgical history and problem list. Past Medical History: She has a past medical history of Abnormal Pap Smear Cervix, Fibroid Uterus Intramural, Gastroesophageal Reflux Disease NOS, Hyperlipidemia, Hypertension NOS, Osteopenia, Osteoporosis, Other Injury Of Unspecified Body Region, and Pneumonia. Past Surgical History: She has a past surgical history that includes Tonsillectomy; Colon surgery; Bladder surgery; and Total hysterectomy. Cataloging Assistant History: Last pap smear: 11/11/2018 Result: NILM and HPV negative History of abnormal pap smear(s): Yes, see HPI Obstetrics history - OB History Para Term AB Living 2 2 2 0 0 2 SAB IAB Ectopic Molar Multiple Live Births 0 0 0 0 0 2 # Outcome Date GA Lbr Deepak/2nd Weight Sex Type Anes PTL Lv 2 Term Vag-Spont YASMINE 1 Term Vag-Spont YASMINE Pertinent social and family history: Reviewed and updated in chart where indicated OBJECTIVE PHYSICAL EXAM Ht 149.2 cm Wt 54.5 kg BMI 24.48 kg/m?? General appearance: Very pleasant female. Well nourished, well developed female in no acute distress. Neuro: Normal mood and affect. Neck: Normal appearance, no masses. Respiratory: Normal respiratory effort. Pelvic exam: Deferred at this time as patient had difficult experience with TVUS and urodynamic testing today LABS/TESTS: I reviewed the patient's records (summarized in HPI), labs, and imaging and discussed findings withthe patient as needed. CT A/P 07/01/2024 FINDINGS: Normal liver, gallbladder, pancreas, spleen, adrenals, kidneys. Small hiatal hernia. Small and large bowel are normal in caliber. Postsurgical changes of the sigmoid colon. Mild rectal wallthickening. Normal appendix. Left adnexal cystic lesion measuring 12 mm (series 3, image 88). No free intraperitoneal fluid. No adenopathy. No suspicious osseous abnormality. Degenerative changes of the pubic symphysis. Arterial calcification. Normal caliber abdominal aorta. Visualized lung bases are clear. IMPRESSION: Findings suggestive of a mild proctitis Pelvic US 07/26/2024 Uterus: Surgically absent. Right ovary: Not visualized. Patient was unable to tolerate full transvaginal exam. No adnexal massvisualized. Left ovary: Not visualized. Patient was unable to tolerate full transvaginal exam. No adnexal mass visualized. Intraperitoneal Fluid: None. IMPRESSION: The left ovary was unable to be visualized. The 12 mm cystic lesion seen on the CT from 07/01/2024 was unable be visualized sonographically. ASSESSMENT / PLAN Ms. Barbosa is a 68 y.o. female with: 1. Mass Adnexal 2. Abnormal Computed Tomography It was a pleasure to meet with Allie and her daughter today. We reviewed her history, current symptoms, diagnostic testing in the above diagnoses. Briefly, Allie is status post hysterectomy about 40 years ago due to fibroids, pelvic pain, and abnormal Pap smear. She was recently in the emergency department for constipation in the setting of recurrent rectal prolapse. During this visit, a CT scan was performed - resulting in incidental finding of a 12 mm left adnexal cystic lesion. Pelvic ultrasound was attempted today, however severely limited by discomfort and therefore neither ovary was visualized. Discussed the etiology and natural history of ovarian cysts. Explained that simple cysts may represent a functional cyst, complex cysts could be hemorrhagic cyst versus endometrioma, teratoma or neoplasm. Reassured patient that there is no overt concern for malignancy based on the imaging, though it is never possible to completely rule out cancer on clinical grounds. We discussed the indications for surgical intervention, which would include concern for torsion, continuing symptoms, increase insize/failure to resolve or concern for malignancy. We discussed the proposed surgery in those caseswhich would be bilateral oophorectomy given her post-menopausal status. We discussed ongoing surveillance (likely via CT or MRI which is less ideal that TVUS) of this small lesion versus surgery. Although the cyst is very small and asymptomatic, she is concerned about the cyst and would feel better knowing what it is with surgical pathology. Additionally, because she has an upcoming surgery she inquires if the ovaries could be removed at the same time. She is planning for a combo case with Drs. Beebe ([facility]) and Johnny (Urogyn) during the early part of next year. I think it would be very reasonable to remove both ovaries during this procedure to address the current cyst and also reduce the risk of needing further surgical intervention in the future for the ovaries. I will reach out to Dr. Turner to discuss - he has not seen the patient yet. We appreciate the opportunity to participate in Ms. Barbosa's care. At the conclusion of this consultation, her questions had been answered to her satisfaction and she was in agreement with the plan. Over 50% of this 30 minute visit was spent in counseling and coordination of care, exclusive of theany examination or procedure performed. Elia Portillo M.D. documented in this encounter Plan of Treatment Upcoming Encounters Date Type Department Care Team (Latest Contact Info) Description 08/05/2024 11:00 AM FOOD CLERK Clinical Support Department of Physical Medicine and Rehabilitation in [address] [phone] Renate Youngblood APRN, C.N.P., M.S.N. [address] [place] [phone] 08/05/2024 2:00 PM FOOD CLERK Clinical Support Department of Physical Medicine and Rehabilitation in [address] [phone] Renate Youngblood APRN, C.N.P., M.S.N. [address] [place] [phone] 08/08/2024 2:00 PM FOOD CLERK Clinical Support Department of Physical Medicine and Rehabilitation in [address] [phone] Renate Youngblood APRN, C.N.P., M.S.N. [address] [place] [phone] 08/11/2024 10:00 AM FOOD CLERK Clinical Support Department of Physical Medicine and Rehabilitation in [address] [phone] Renate Youngblood APRN, C.N.P., M.S.N. [address] [place] [phone] 11/10/2024 10:00 AM FOOD CLERK Comprehensive Visit Department of Obstetrics and Gynecology, Division of Urogynecology in [address] [place] [phone] Yan Turner M.D., M.S. [address] [place] [address] Scheduled Procedures Name Priority Associated Diagnoses Date/Ti me ROBOTIC-ASSISTED RECTOPEXY Prolapse Rectal Cystocele Rectocele ROBOTIC-ASSISTED EXPLORATION Prolapse Rectal Cystocele Rectocele documented as of this encounter Goals Goal Patient Goal Type Associated Problems Recent Progress Patient-Stated? Author [facility] Care Plan for Nicotine Dependency Perioperative Care Plan [facility] Care Plan for Nicotine Dependency Perioperative No Genevieve Strickland, RLaurelN. Surgical Readiness and Recovery Care Plan Care Plan Surgical Readiness and Recovery Care Plan No Genevieve Strickland, R.N. documented as of this encounter Visit Diagnoses Diagnosis Mass Adnexal- Primary Abnormal Computed Tomography documented in this encounter Additional Health Concerns Active Problems Noted Date Diagnosed Date [facility] Care Plan for Nicotine Dependency Pe rioperative 07/08/2024 Surgical Readiness and Recovery Care Plan 2023 documented as of this encounter Care Teams Press Reader Relationship Specialty Start Date End Date Elsewhere, Pcp PCP - General Internal Medicine 07/02/24 documented as of this encounter
--- OUTSIDE RECORDS SUMMARY | 2024-08-02 14:14 | XMS_ITS | Encounter Summary ---
Author Organization [facility] Address [address] [place] [address] Care Team Providers Care Dish Cloth Inspector Name Role Phone Elsewhere, Pcp Primary Care Provider Unavailabl e Reason for Visit * Outpatient (Routine) - Closed Specialty Diagnoses / Procedures Referred By Floresita barraza Referred To Contact Diagnoses Cystocele Midline Procedures OBG Urodynamic Studies Yan Turner M.D., M.S. [address] [place] [phone] Phone: tel: fax: [facility] Referral ID Status Reason Start Date Expiration Date Visits Re quested Visits Authorized [id number] Closed 07/08/2024 07/08/2025 1 1 Encounter Details Date Type Department Care Team (Latest Contact Info) Description 07/26/2024 1:00 PM CDT Procedure visit Department of Obstetrics and Gynecology, Division of Urogynecology in [place], [place] [address] [place] [phone] Yan Turner M.D., M.S. [address] [place] [phone] Cystocele Midline (Primary Dx) Social History Tobacco Use Types Packs/Day Years Used Date Smoking Tobacco: Never Passive Smoke Exposure: Never Smokeless Tobacco: Never Alcohol Use Standard Drinks/Week Comments Yes 3 (1 standard drink = 0.6 oz pur e alcohol) [facility] Utilities Answer Date Recorded In the [...] your living situation today? I have a [facility] place to live 01/07/2024 Comments No Sex and Gender Information Value Date Recorded Sex Assigned at Female 01/07/2024 8:31 PM CDT Legal Sex Female 5:11 PM MACHINE TOOL MECHANIC Gender Identity Female 01/07/2024 8:31 PM CDT Sexual Orientation Straight 01/07/2024 8: 31 PM CDT documented as of this encounter Procedure Notes * Cass Miller M.D. - 07/26/2024 1:00 PM CDTAssociated Order(s): OBG Urodynamic Studies Pre-Procedure Diagnose(s): Cystocele Midline Post-Procedure Diagnose(s): Cystocele Midline OBG Urodynamic Studies Performed by: Yan Turner M.D., M.S. Authorized by: Yan Turner M.D., M.S. Care team members present 1. Victorino Fairchild PROCEDURE DETAILS: Procedures: Combined (CMG + Uro) Equipment used: calibrated electronically Cough stress test: positive Flow pattern: garay Interpretation: normal Uroflow voided volume (mL): 750 Uroflow post-void residual (mL): 200 (UA and Culture Sent) Uroflow postvoid residual measured by: catheter Volume infused (mL): 500 Detrusor activity: stable during filling Support of significant prolapse: yes Valsalva-related leakage: present (Lying, Sitting, Standing) Cough-related leakage: present (Lying, Standing) Volume of stress urinary incontinence: moderate Repeat Uroflow: yes Cough stress test: positive Repeat Uroflow voided volume (mL): 575 (+150 mL bathroom hat) Repeat Uroflow post-void residual (mL): 8 Repeat Uroflow post-void residual measured by: ultrasound Uroflow: abnormal Abnormal pattern due to: intermittency and interuption Cystometry: stress urinary incontinence and no urodynamic evidence of detrusor overactivity The following procedures were performed during this urodynamic study: Bladder irrigation installation, post-void residual - catheter, post-void residual - ultrasound and complex uroflow CONSENT Consent obtained: verbal Consent given by: patient The benefits, risks and alternatives to the procedure and the potential need for sedation or anesthesia as well as the names, roles, and responsibilities of healthcare team members performing significant interventional tasks were discussed with the patient and/or decision maker. UNIVERSAL PROTOCOL All relevant documentation and testing were reviewed and available. All required blood products, implants, devices and or special equipment were made available as applicable. Pre-procedure verification was conducted and the correct site was marked if required. A fire risk and smoke assessment were done as applicable. The procedural time-out to verify correct patient, correct side/site, and procedure was conducted prior to performing the procedure and confirmed in a procedural pause. PRE-PROCEDURE DETAILS: Indications: prolapse Appropriate hand hygiene, gown, cap, mask, protective eyewear, sterile gloves, skin preparation, sterile drape, and strict aseptic technique were utilized as applicable for the procedure.: yes Site preparation: Povidone-iodine SEDATION / ANESTHESIA Anesthesia method: none POST-PROCEDURE DETAILS Procedure completed successfully: yes Complications: no apparent complications Comments Impression: 1. Normal first uroflow, second uroflow with intermittency 2. Present evidence of moderate volume stress urinary incontinence 3. No evidence of detrusor overactivity 4. Elevated first PVR (200 ml) after large volume void (750 ml). Negligible PVR after second void (8 ml). Overall, low suspicion for incomplete bladder emptying Please correlate clinically. GYNSURG Exam Amb Cosigned by Yan Turner M.D., M.S. at 08/01/2024 12:50 PM MACHINE TOOL MECHANIC INE TOOL MECHANIC INE TOOL MECHANIC documented in this encounter Plan of Treatment Upcoming Encounters Date Type Department Care Team (Latest Contact Info) Description 08/05/2024 11:00 AM MACHINE TOOL MECHANIC Clinical Support Department of Physical Medicine and Rehabilitation in [address] [phone] Renate Youngblood APRN, C.N.P., M.S.N. [address] [place] [phone] 08/05/2024 2:00 PM MACHINE TOOL MECHANIC Clinical Support Department of Physical Medicine and Rehabilitation in [place], [place] [address] [place] [phone] Renate Youngblood APRN C.N.P., M.S.N. [address] [place] [phone] 08/08/2024 2:00 PM MACHINE TOOL MECHANIC Clinical Support Department of Physical Medicine and Rehabilitation in [place], [place] [address] [place] [phone] Renate Youngblood APRN, C.N.P., M.S.N. [address] [place] [phone] 08/11/2024 10:00 AM MACHINE TOOL MECHANIC Clinical Support Department of Physical Medicine and Rehabilitation in [place], [place] [address] [place] [phone] Renate Youngblood APRN, C.N.P., M.S.N. [address] [place] [phone] 11/10/2024 10:00 AM MACHINE TOOL MECHANIC Comprehensive Visit Department of Obstetrics and Gynecology, Division of Urogynecology in [place], [place] [address] [place] [phone] Yan Turner M.D., M.S. [address] [place] [phone] Scheduled Procedures Name Priority Associated Diagnoses Date/Ti me ROBOTIC-ASSISTED RECTOPEXY Prolapse Rectal Cystocele Rectocele ROBOTIC-ASSISTED EXPLORATION Prolapse Rectal Cystocele Rectocele documented as of this encounter Goals Goal Patient Goal Type Associated Problems Recent Progress Patient-Stated? Author [facility] Care Plan for Nicotine Dependency Perioperative Care Plan [facility] Care Plan for Nicotine Dependency Perioperative No Genevieve Strickland RLaurelN. Surgical Readiness and Recovery Care Plan Care Plan Surgical Readiness and Recovery Care Plan No Genevieve Strickland RJose. documented as of this encounter Procedures Procedure Name Priority Date/Time Associated Diagnosis Comments DIPSTICK, U Routine 07/26/2024 1:19 PM CDT MICROSCOPIC AUTOMATED Routine 07/26/2024 1:19 PM CDT BACTERIAL CULTURE, AEROBIC + SUSC, URINE Routine 07/26/2024 1:19 PM CDT Cystocele Midline PH, U Routine 07/26/2024 1:19 PM CDT OSMOLALITY, U Routine 07/26/2024 1:19 PM CDT URINALYSIS WITH MICROSCOPIC Routine 07/26/2024 1:19 PM CDT Cystocele Midline DC CYSTOMETROGRAM COMPLEX Routine 07/26/2024 1:00 PM CDT Cystocele Midline DC UROFLOWMETRY CMPLX Routine 07/26/2024 1:00 PM CDT Cystocele Midline DC ODELL PST VOID RESID US NON IMG Routine 07/26/2024 1:00 PM CDT Cystocele Midline documented in this encounter Results * Dipstick, Urine (07/26/2024 1:19 PM CDT) Hemoglobin, QL, U Negative Negative 07/26/2024 3:51 PM CDT DTL Leukocyte Esterase, U Negative Negative 07/26/2024 3:51 PM CDT DTL Nitrite, U Negative Negative 07/26/2024 3:51 PM CDT DTL Ketone, U Negative Negative mg/dL 07/26/2024 3:51 PM CDT DTL Glucose, U Negative Negative mg/dL 07/26/2024 3:51 PM CDT DTL Urine 07/26/2024 1:19 PM CDT 07/26/2024 3:25 PM CDT Yan Turner M.D., M.S. LAB URINE ORDERABLES F inal Result [facility] [address] [place] [address], [facility] [address] [place] [address] * pH, Urine (07/26/2024 1:19 PM CDT) pH, U 6.7 4.5 - 8.0 07/26/2024 4:3 5 PM CDT DTL Urine 07/26/2024 1:19 PM CDT 07/26/2024 3:25 PM CDT us Yan Turner M.D., M.S. LAB URINE ORDERABLES F inal Result Performing Organization Address [facility] Co de Phone Number [facility] [address] [place] [address], [facility] [address] [place] [address] * Microscopic Automated (07/26/2024 1:19 PM CDT) Microscopy Normal 07/26/2024 3:51 PM CDT DTL RBC None Seen <3 /hpf 07/26/2024 3:51 PM CDT DTL WBC None Seen /hpf 07/26/2024 3:51 PM CDT DTL Comment: ----REFERENCE VALUE---- <4 ??(Males) <11 (Females) Urine 07/26/2024 1:19 PM CDT 07/26/2024 3:25 PM CDT us Yan Turner M.D., M.S. LAB URINE ORDERABLES F inal Result Performing Organization Address [facility] de Phone Number [facility] 200 [place] [address], [facility] [address] [place] [address] * (ABNORMAL) Osmolality, Urine (07/26/2024 1:19 PM CDT) Osmolality, U 78(L) 150 - 1150 mOsm/kg 07/26/2024 4:35 PM CDT DTL Urine 07/26/2024 1:19 PM CDT 07/26/2024 3:25 PM CDT us Yan Turner M.D., M.S. LAB URINE ORDERABLES F inal Result Performing Organization Address City/[facility] Co de Phone Number [facility] [address] [place] [address], [facility] 200 [place] [address] * (ABNORMAL) Urinalysis, with Microscopic: Urine, Straight Catheter (07/26/2024 1:19 PM CDT) Source Urine, Urine, Straight Catheter 07/26/2024 3:25 PM CDT DTL Color, U Colorless 07/26/2024 3:25 PM CDT DTL Clarity, U Clear 07/26/2024 3:25 PM CDT DTL Protein, U <4 <26 mg/dL 07/26/2024 4:21 PM CDT DTL Protein/Osmol ality <0.51(H) <0.42 ratio 07/26/2024 4:35 PM CDT DTL Predicted 24 HR Protein, U <365(H) <229 mg/24 h 07/26/2024 4:35 PM CDT DTL Predicted Range <1477 mg/24 h 07/26/2024 4:35 PM CDT DTL Urine (Urine, Straight Catheter) 07/26/2024 1:19 PM CDT 07/26/2024 3:25 PM CDT Yan Turner M.D., M.S. LAB URINE ORDERABLES F inal Result [facility] [address] [place], [place] [address] [address] [place] [address] * Bacterial Culture, Aerobic + Susceptibility, Urine (07/26/2024 1:19 PM CDT) Urine Culture No growth after 1 day of incubation. 07/28/2024 7:23 AM CDT DTL Urine (Urine, Straight Catheter) 07/26/2024 1:19 PM CDT 07/26/2024 5:39 PM CDT Comment:Specimen Source Site : Urine Yan Turner M.D., M.S. LAB MICROBIOLOGY - GEN ERAL ORDERABLES Final Result [facility] [address] [place] [address], [place] [facility] [address] [place] [address] * DC ODELL PST VOID RESID US NON IMG, DC UROFLOWMETRY CMPLX, DC CYSTOMETROGRAM COMPLEX (07/26/2024 1:00 PM CDT) Narrative Yan Turner M.D., M.S. - 07/26/2024 1:00 PM CDT Cass Miller M.D. ? 08/01/2024 11:10 AM OBG Urodynamic Studies Performed by: Yan Turner M.D., M.S. Authorized by: Yan Turner M.D., M.S. ?? Care team members present 1. Victorino Fairchild PROCEDURE DETAILS: Procedures: Combined (CMG + Uro) Equipment used: calibrated electronically Cough stress test: positive ?? Flow pattern: garay ?? Interpretation: normal ?? Uroflow voided volume (mL): 750 Uroflow post-void residual (mL): 200 (UA and Culture Sent) Uroflow postvoid residual measured by: catheter ?? Volume infused (mL): 500 Detrusor activity: stable during filling ?? Support of significant prolapse: yes ?? Valsalva-related leakage: present (Lying, Sitting, Standing) ?? Cough-related leakage: present (Lying, Standing) ?? Volume of stress urinary incontinence: moderate ?? Repeat Uroflow: yes ?? Cough stress test: positive ?? Repeat Uroflow voided volume (mL): 575 (+150 mL bathroom hat) Repeat Uroflow post-void residual (mL): 8 Repeat Uroflow post-void residual measured by: ultrasound Uroflow: abnormal ?? Abnormal pattern due to: intermittency and interuption Cystometry: stress urinary incontinence and no urodynamic evidence of detrusor overactivity ?? The following procedures were performed during this urodynamic study: ?? Bladder irrigation installation, post-void residual - catheter, post-void residual - ultrasound and complex uroflow CONSENT Consent obtained: verbal Consent given by: patient The benefits, risks and alternatives to the procedure and the potential need for sedation or anesthesia as well as the names, roles, and responsibilities of healthcare team members performing significant interventional tasks were discussed with the patient and/or decision maker. UNIVERSAL PROTOCOL All relevant documentation and testing were reviewed and available. All required blood products, implants, devices and or special equipment were made available as applicable. Pre-procedure verification was conducted and the correct site was marked if required. A fire risk and smoke assessment were done as applicable. The procedural time-out to verify correct patient, correct side/site, and procedure was conducted prior to performing the procedure and confirmed in a procedural pause. PRE-PROCEDURE DETAILS: ??Indications: prolapse ?Appropriate hand hygiene, gown, cap, mask, protective eyewear, sterile gloves, skin preparation, sterile drape, and strict aseptic technique were utilized as applicable for the procedure.: yes ?Site preparation: ??Povidone-iodine SEDATION / ANESTHESIA Anesthesia method: none POST-PROCEDURE DETAILS ?? Procedure completed successfully: yes ?? Complications: no apparent complications Comments Impression: 1. Normal first uroflow, second uroflow with intermittency 2. Present evidence of moderate volume stress urinary incontinence 3. No evidence of detrusor overactivity 4. Elevated first PVR (200 ml) after large volume void (750 ml). Negligible PVR after second void (8 ml). Overall, low suspicion for incomplete bladder emptying Please correlate clinically. us Yan Turner M.D., M.S. OB GYNE ORDERABLES Fin al Result documented in this encounter Visit Diagnoses Diagnosis Cystocele Midline- Primary documented in this encounter Additional Health Concerns Active Problems Noted Date Diagnosed Date [facility] Care Plan for Nicotine Dependency Pe rioperative 07/08/2024 Surgical Readiness and Recovery Care Plan 2023 documented as of this encounter Care Teams Dish Cloth Inspector Relationship Specialty Start Date End Date Elsewhere, Pcp PCP - General Internal Medicine 07/02/24 documented as of this encounter
--- OUTSIDE RECORDS SUMMARY | 2024-08-02 14:14 | XMS_ITS | Encounter Summary ---
Author Organization [facility] Address [address] [place] [address] Care Team Providers Care Caustic Mixer Name Role Phone Elsewhere, Pcp Primary Care Provider Unavailabl e Reason for Visit * Reason Onset Date Comments Pre-visit Intake 07/25/2024 Encounter Details Date Type Department Care Team (Latest Contact Info) Description 07/25/2024 2:15 PM CDT Clinical Communication Virtual Review in [place], [place] [address] [place] [phone] Pre-visit Intake Social History Tobacco Use Types Packs/Day Years Used Date Smoking Tobacco: Never Passive Smoke Exposure: Never Smokeless Tobacco: Never Tobacco Cessation:Counseling Given: Not Answered Alcohol Use Standard Drinks/Week Comments Yes 3 (1 standard drink = 0.6 oz pur e alcohol) [facility] Utilities Answer Date Recorded In the past [...] situation today? I have a [facility] place to live 01/07/2024 Comments Unknown Sex and Gender Information Value Date Recorded Sex Assigned at Female 01/07/2024 8:31 PM CDT Legal Sex Female 5:11 PM PUBLIC RELATIONS REPRESENTATIVE Gender Identity Female 01/07/2024 8:31 PM CDT Sexual Orientation Straight 01/07/2024 8: 31 PM CDT documented as of this encounter Plan of Treatment Upcoming Encounters Date Type Department Care Team (Latest Contact Info) Description 08/05/2024 11:00 AM PUBLIC RELATIONS REPRESENTATIVE Clinical Support Department of Physical Medicine and Rehabilitation in [place], [place] 200 [place] [phone] Renate Youngblood APRN, C.N.P., M.S.N. 200 [place] [phone] 08/05/2024 2:00 PM PUBLIC RELATIONS REPRESENTATIVE Clinical Support Department of Physical Medicine and Rehabilitation in [place], [place] 200 [place] [phone] Renate Youngblood APRN, C.N.P., M.S.N. 200 [place] [phone] 08/08/2024 2:00 PM PUBLIC RELATIONS REPRESENTATIVE Clinical Support Department of Physical Medicine and Rehabilitation in [place], [place] [address] [place] [phone] Renate Youngblood APRN, C.NLaurelP., M.S.N. [address] [place] [phone] 08/11/2024 10:00 AM PUBLIC RELATIONS REPRESENTATIVE Clinical Support Department of Physical Medicine and Rehabilitation in [place], [place] [address] [place] [phone] Renate Youngblood APRN, Celeste.N.P., M.S.N. [address] [place] [phone] 11/10/2024 10:00 AM PUBLIC RELATIONS REPRESENTATIVE Comprehensive Visit Department of Obstetrics and Gynecology, Division of Urogynecology in [place], [place] [address] [place] [phone] Yan Turner M.D., M.S. [address] [place] [phone] Scheduled Procedures Name Priority Associated Diagnoses Date/Ti me ROBOTIC-ASSISTED RECTOPEXY Prolapse Rectal Cystocele Rectocele ROBOTIC-ASSISTED EXPLORATION Prolapse Rectal Cystocele Rectocele documented as of this encounter Goals Goal Patient Goal Type Associated Problems Recent Progress Patient-Stated? Author [facility] Care Plan for Nicotine Dependency Perioperative Care Plan [facility] Care Plan for Nicotine Dependency Perioperative No Genevieve Strickland RLaurelN. Surgical Readiness and Recovery Care Plan Care Plan Surgical Readiness and Recovery Care Plan No Genevieve Strickland R.N. documented as of this encounter Visit Diagnoses Not on filedocumented in this encounter Additional Health Concerns Active Problems Noted Date Diagnosed Date [facility] Care Plan for Nicotine Dependency Pe rioperative 07/08/2024 Surgical Readiness and Recovery Care Plan 2023 documented as of this encounter Care Teams Caustic Mixer Relationship Specialty Start Date End Date Elsewhere, Pcp PCP - General Internal Medicine 07/02/24 documented as of this encounter
--- OUTSIDE RECORDS SUMMARY | 2024-08-02 14:14 | XMS_ITS | Encounter Summary ---
Author Organization [facility] Address [address] [place] [id number] Care Team Providers Care Warm In Worker Name Role Phone Elsewhere, Pcp Primary Care Provider Unavailabl e Reason for Visit * Outpatient (Routine) - Authorized Specialty Diagnoses / Procedures Referred By Contact Referred To Contact Physical Medicine and Rehabilitation Diagnoses Dysfunction Pelvic Floor Prolapse Rectal Other Female Genital Prolapse Procedures PMR Pelvic floor & bowel/bladder programs Renate Youngblood APRN, C.N.P., M.S.N. [address] [place] [address] Phone: tel: fax: [facility] Referral ID Status Reason Start Date Expiration Date V isits Requested Visits Authorized [id number] Authorized 07/08/2024 09/27/2024 23 23 Encounter Details Date Type Department Care Team (Latest Contact Info) Description 07/27/2024 10:00 AM CDT Comprehensive Visit Department of Physical Medicine and Rehabilitation in [place], [place] [address] [place] [phone] Renate Youngblood APRN, C.N.P., M.S.N. [address] [place] [phone] Dysfunction Pelvic Floor; Prolapse Rectal; Other Female Genital Prolapse Social History Tobacco Use Types Packs/Day Years Used Date Smoking Tobacco: Never Passive Smoke Exposure: Never Smokeless Tobacco: Never Alcohol Use Standard Drinks/Week Comments Yes 3 (1 standard drink = 0.6 oz pur e alcohol) [facility] Utilities Answer Date Recorded In [...] your living situation today? I have a [facility] place to live 01/07/2024 Comments No Sex and Gender Information Value Date Recorded Sex Assigned at Female 01/07/2024 8:31 PM CDT Legal Sex Female 5:11 PM MULTIMEDIA EDITOR Gender Identity Female 01/07/2024 8:31 PM CDT Sexual Orientation Straight 01/07/2024 8: 31 PM CDT documented as of this encounter Progress Notes * Crissy Cohen OEsther., [facility] - 07/27/2024 10:00 AM CDT Pelvic Health Occupational Therapy Progress Note SUBJECTIVE Patient's Name: Allie Barbosa Referring Provider: Renate Youngblood APRN, C.NLaurelPLaurel, M.S.N. Medical Diagnosis: No diagnosis found. Reason for Referral: Rectal Prolapse, cystocele, rectocele, enterocele-hx of repair Onset Date: 07/08/24 Payor: MEDICA / Plan: MED[employer] ADVANTAGE SOLUTION PPO / Product Type: PPO / Total Visit Count: 2,3 History of Present Illness: rectal prolapse, cystocele, rectocele, enterocele- history of repair Patient goals:delay surgical procedures Session 1: Patient reports she takes 1-2 senna pills daily as well as 3 fiber gummies. Patient reports would like to make improvement with pelvic therapy prior to having another surgical intervention. Session 2: Patient reports no change. OBJECTIVE Reviewed and agreed with Pelvic Therapist Evaluation and plan of care completed 04/19/24 by Karin Chambers P.T., D.P.T. Vitals: Not indicated at this time TREATMENT Treatment today consisted of: Procedural pause was used to discuss next steps in pelvic floor treatment prior to assessment. Patient consented to ongoing treatment which included the below items. Patient given option to discontinue examination at any time. Session 1: Neuromuscular Re-education- The following neuromuscular re-education utilized to increase body awareness and interoception. Verbal and tactile cues used when appropriate. Educated on pelvic floor and abdominal muscle awareness and application to ADLS. - Diaphragmatic Breathing - In sitting and supine position, the patient was guided through the appropriate body mechanics for proper diaphragmatic breathing technique. Verbal and tactile cues at lateral ribs for rib cage expansion and diaphragm range of motion coupled with relaxation of the pelvic floor musculature. - Awareness - Coached patient in recognition of pelvic floor activation and relaxation, using the following strategies: contract-relax, diaphragmatic breathing, and visualization. Guided patient in identifying ways they can integrate these strategies into their daily routine for improved pelvic floor awareness. Session 2: Therapeutic Exercise- Patient was instructed in the following therapeutic exercises, beginner bridge, with the goal of improving strength, stability and coordination of hips,abdominal and gluteal muscles. Appropriate verbal and tactile cues were used to ensure correct and safe performance. Yoga - Instructed in, provided verbal and tactile cues and had the patient perform home exercise program including:Supported Butterfly Stretch with Pelvic Floor Relaxation, Diaphragmatic Breathing with Legs on Wall And Hips on a Pillow , Diaphragmatic Breathing in Child's Pose with Pelvic Floor Relaxation, Supine Diaphragmatic Breathing with Pelvic Floor Lengthening , Diaphragmatic Breathing in Supported Child's Pose with Pelvic Floor Relaxation . Demonstrated correct positioning and breathing mechanics with each pose/stretch. Manual Therapy- -Brief digital rectal exam performed with patient consent to confirm findings from initial eval. Yamileth noted. Home Management Training- Educated patient in the use of consistent routines for stimulation of bowel movements. Dialogued with patient on the role of nervous system regulation as it relates to pelvic floor and bowel function. Guided patient in identifying ways they plans to implement stress management strategies in their daily routine. Provided education on dietary fiber, insoluble vs. soluble, how to integrate it slowly into your meals for improved stool texture and consistent bowel function. Positioning - Educated patient on positioning for bowel evacuation, including use of a footstool. Coached patient in integrating these concepts with personal preferences and current habits. HEP: Access Code: [email or web address] URL: [email or web address] Date: 07/28/2024 Prepared by: Crissy Cohen Exercises - Beginner Bridge - 1 x daily - 4-5 x weekly - 3 sets - 10 reps - Supported Butterfly Stretch with Pelvic Floor Relaxation - 3 x daily - 7 x weekly - Diaphragmatic Breathing with Legs on Wall And Hips on a Pillow - 3 x daily - 7 x weekly - Diaphragmatic Breathing in Child's Pose with Pelvic Floor Relaxation - 3 x daily - 7 x weekly - 3sets - 60 seconds hold - Supine Diaphragmatic Breathing with Pelvic Floor Lengthening - 3 x daily - 7 x weekly - Diaphragmatic Breathing in Supported Child's Pose with Pelvic Floor Relaxation - 1 x daily - 90 sec hold - Toileting Posture Assessment Ms. Barbosa presents to pelvic health occupational therapy in the format of adapted local evacuationdisorders program, with primary concerns of rectal prolapse, fecal incontinence, gas incontinence, bladder incomplete emptying . As identified in evaluation, the patient demonstrates impaired pelvic floor range of motion, impaired pelvic floor and abdominal coordination during simulated defecation,impaired mechanics of respiration, decreased pelvic floor strength, and impaired contraction coordination for continence . During therapy, the patient will be educated on skills and strategies to improve coordination of the pelvic floor musculature as it relates to bowel habits and routines. The patient has shown progress with these skills and strategies as they have been able to demonstrate improved diaphragmatic breathing techniques, perform exercises to improve pelvic floor awareness and positioning for toileting. Continued skilled occupational therapy services necessary for furtherdevelopment of functional activation and relaxation of the pelvic floor musculature for improved toileting techniques and bowel routines. The patient has been given a home program to which they have agreed and verbalized understanding. Rehab Potential: Ms. Barbosa has potential to achieve established occupational therapy goals within the time frame outlined below, provided she actively participates in her occupational therapy treatment plan and home program. Functional Goals and Timeframes: OT Goal #1 Patient will understand pressure management and skills to support prolapse management by discharge. Progressing OT Goal #2 Patient will be able to demonstrate and verbalize home exercise program correctly in order to show independence and understanding of the exercises. Progressing OT Goal #3 Patient will demonstrate and/or verbalize correct sequencing for pelvic floor relaxation to ensure a successful and complete defecation of stool. Progressing OT Goal #4 Patient will be able to identify necessary behavioral changes for improved management of bowel symptoms within daily routines. Progressing Plan Treatment Plan: Number of Visits: up to 15 visits OT Duration: 90 days Plan: Plan of care initiated Treatment interventions may include: Treatment Interventions: Therapeutic exercise, Therapeutic functional activity, Neuromuscular re-education, Self-care/home management, Manual therapy, Therapeutic modalities as needed Other OT Interventions: Biofeedback, Sensory Integration Time Spent with Patient Therapeutic Interventions Home Management Training (min): 40 min Neuromuscular Re-Education (min): 15 min Therapeutic Exercise (min): 10 min Manual Therapy (min): 5 min Time Tracking Total Timed Units (min): 70 min Total Treatment Time (min): 70 min Crissy Cohen OTR/L documented in this encounter Plan of Treatment Upcoming Encounters Date Type Department Care Team (Latest Contact Info) Description 08/05/2024 11:00 AM MULTIMEDIA EDITOR Clinical Support Department of Physical Medicine and Rehabilitation in [place], [place] [address] [place] [phone] Renate Youngblood APRN, C.N.P., M.S.N. [address] [place] [phone] 08/05/2024 2:00 PM MULTIMEDIA EDITOR Clinical Support Department of Physical Medicine and Rehabilitation in [place], [place] [address] [place] [phone] Renate Youngblood APRN, C.N.P., M.S.N. [address] [place] [phone] 08/08/2024 2:00 PM MULTIMEDIA EDITOR Clinical Support Department of Physical Medicine and Rehabilitation in [place], [place] [address] [place] [phone] Renate Youngblood APRN, C.NLewis., M.S.N. [address] [place] [phone] 08/11/2024 10:00 AM MULTIMEDIA EDITOR Clinical Support Department of Physical Medicine and Rehabilitation in [place], [place] [address] [place] [phone] Renate Youngblood APRN, C.N.P., M.S.N. [address] [place] [phone] 11/10/2024 10:00 AM MULTIMEDIA EDITOR Comprehensive Visit Department of Obstetrics and Gynecology, Division of Urogynecology in [address] [phone] Yan Turner M.D., M.S. [address] [place] [phone] Scheduled Procedures Name Priority Associated Diagnoses Date/Ti ca ROBOTIC-ASSISTED RECTOPEXY Prolapse Rectal Cystocele Rectocele ROBOTIC-ASSISTED EXPLORATION Prolapse Rectal Cystocele Rectocele documented as of this encounter Goals Goal Patient Goal Type Associated Problems Recent Progress Patient-Stated? Author [facility] Care Plan for Nicotine Dependency Perioperative Care Plan [facility] Care Plan for Nicotine Dependency Perioperative No Schwanke, Genevieve L, R.N. Surgical Readiness and Recovery Care Plan Care Plan Surgical Readiness and Recovery Care Plan No Genevieve Strickland R.N. documented as of this encounter Visit Diagnoses Diagnosis Dysfunction Pelvic Floor Prolapse Rectal Other Female Genital Prolapse documented in this encounter Additional Health Concerns Active Problems Noted Date Diagnosed Date [facility] Care Plan for Nicotine Dependency Pe rioperative 07/08/2024 Surgical Readiness and Recovery Care Plan 2023 documented as of this encounter Care Teams Warm In Worker Relationship Specialty Start Date End Date Elsewhere, Pcp PCP - General Internal Medicine 07/02/24 documented as of this encounter
--- OUTSIDE RECORDS SUMMARY | 2024-08-02 14:14 | XMS_ITS | Clinical Summary ---
Author Organization [facility] Address [address] [place] [address] Care Team Providers Care Bioinformatics Technician Name Role Phone Elsewhere, Pcp Primary Care Provider Unavailabl e Source Comments Patient records contain information from all sites at [facility]. For routine questions regarding patient records, call [phone] during business hours, M-F 8:00 AM - 5:00 PM Central Time. Record requests for emergency care only can be directed to [phone] at any time.[facility] Allergies Active Allergy Reactions Criticality Noted Date Comments Clarithromycin Hives (Reselect Reaction),Rash Medium 01/05/2013 Tolectin 600 Other (see comments) ,Edema, suggestive of allergic reaction, i.e., lip, tongue, or throat swelling High 01/08/2024 Throat swells up Medications cycloSPORINE (Restasis) 0.05 % ophthalmic emulsion Administer 1 drop into both eyes 2 (two) times a day. 3 Active diclofenac sodium (VOLTAREN) 50 mg EC tablet Take 1 tablet by mouth 2 (two) times a day. 4 Active esomeprazole (NexIUM) [address] capsule Take 1 capsule by mouth at bedtime. 7 Active hydroCHLOROthia zide (HYDRODIURIL) 25 mg tablet Take 25 mg by mouth as needed. Active ibandronate (BONIVA) 150 mg tablet Take 150 mg by mouth every 30 (thirty) days. 4 Active metoprolol succinate (TOPROL-XL) 50 mg 24 hr tablet Take 50 mg by mouth daily. Active multivitamin tablet Take 1 tablet by mouth daily. 7 Active NIFEdipine XL (PROCARDIA XL) 60 mg 24 hr tablet Take 60 mg by mouth at bedtime. 4 Active nitroglycerin (NITROSTAT) 0.[address] 0.4 mg under the tongue every 2 (two) hours as needed. 7 Active simvastatin (ZOCOR) 20 mg tablet Take 20 mg by mouth at bedtime. 6 Active vits A,C,E/lutein/mi nerals (OCUVITE WITH LUTEIN ORAL) Take 150 mg by mouth daily. 7 Active bisacodyL (Dulcolax) 10 mg suppository Insert 10 mg into the rectum daily as needed. 4 Active Senexon-S 8.6-50 mg per tablet Take 1 tablet by mouth daily. 4 Active psyllium, with sugar, (KonsyL) 3.4 gram packet Take 1 packet by mouth daily. Gummies Active acetaminophen (TylenoL 8 Hr) 650 mg ER tablet Take 1,300 mg by mouth every 8 (eight) hours. Active calcium carbonate (calcium carbonate EX) 750 mg (300 mg calcium) chewable tablet Chew 506 mg daily. Christal chocolate waffers Active calcium carbonate 1,500 mg (600 mg calcium) tablet Take 650 mg of calcium by mouth daily with morning meal. Viactiv caramels Active polyethylene glycol (MIRALAX) 17 gram powder packet Take 1 packet by mouth daily. 7 07/08/20 24 Discontin ued(Thera py completed ) Active Problems Problem Noted Date Diagnosed Date Cystocele 07/08/2024 Rectocele 07/08/2024 Other Female Genital Prolapse 04/08/2024 Adjustment Disorder With Depressed Mood 01/09/20 Cystitis Unspecified Without Hematuria 4 Fatigue 01/09/2024 Gastroenteritis 01/09/2024 Pain Back 01/09/2024 [...] Encounters Date Type Department Care Team Description 07/27/2024 2:00 PM CDT Clinical Support Department of Physical Medicine and Rehabilitation in [place], [place] [address] [place] [phone] Renate Youngblood APRN C.N.P., M.S.N. Dysfunction Pelvic Floor (Primary Dx); Prolapse Rectal; Other Female Genital Prolapse 07/27/2024 10:00 AM CDT Comprehensive Visit Department of Physical Medicine and Rehabilitation in [place], [place] [address] [place] [phone] Renate Youngblood APRN, C.N.P., M.S.N. Dysfunction Pelvic Floor; Prolapse Rectal; Other Female Genital Prolapse 07/26/2024 3:00 PM CDT Comprehensive Visit Department of Obstetrics and Gynecology in [place], [place] [address] [place] [phone] Elia Portillo M.D. Mass Adnexal (Primary Dx); Abnormal Computed Tomography 07/26/2024 1:00 PM CDT Procedure visit Department of Obstetrics and Gynecology, Division of Urogynecology in [place], [place] [address] [place] [address] Yan Turner M.D., M.S. Cystocele Midline (Primary Dx) 07/26/2024 9:03 AM CDT - 07/26/2024 11:59 PM CDT Hospital Encounter Department of Radiology, [facility], in [address] [phone] Eleazar Yin M.D. Abnormal Computed Tomography; Lesion Ovary Discharge Disposition: Home or Self Care 07/25/2024 2:15 PM CDT Clinical Communication Virtual Review in [address] [phone] Pre-visit Intake 07/22/2024 Clinical Communication Department of Obstetrics and Gynecology, Division of Urogynecology in [address] [phone] Yan Turner M.D., M.S. 07/21/2024 1:00 PM CDT Telemedicine Department of Patient Education in [address] [phone] Brianne Beebe M.D., Ph.D. Constipation; Cystocele Midline; Rectocele 07/14/2024 1:00 PM CDT Telemedicine Department of Patient Education in [address] [phone] Brianne Beebe M.D., Ph.D. Constipation; Cystocele Midline; Rectocele 07/08/2024 9:30 AM CDT Office Visit Division of Colon and Rectal Surgery in [address] [phone] Brianne Beebe M.D., Ph.D. Angina Pectoris Unspecified (HCC) (Primary Dx); Other Female Genital Prolapse; Constipation; Proctitis 07/08/2024 Orders Only Department of Obstetrics and Gynecology, Division of Urogynecology in [address] [phone] Tanner Camacho R.N. Cystocele Midline (Primary Dx) 07/08/2024 Orders Only Division of Colon and Rectal Surgery in [address] [phone] Brianne Beebe M.D., Ph.D. Constipation (Primary Dx); Cystocele Midline; Rectocele 07/05/2024 Clinical Communication Department of Obstetrics and Gynecology in [place], [place] [address] [place] [phone] Prescheduling, Provider 07/04/2024 Clinical Communication Division of Colon and Rectal Surgery in [place], [place] [address] [place] [phone] Brianne Beebe M.D., Ph.D. 07/04/2024 Referral Triage Division of General Internal Medicine in [place], [place] [address] [place] [phone] Prescheduling, Provider Referral Triage 07/01/2024 10:12 PM CDT - 07/02/2024 2:58 AM CDT Emergency [facility] Emergency Department [address] [place] [phone] Micha Baumann M.D. Abnormal Computed Tomography (Primary Dx); Constipation; Proctitis Discharge Disposition: Home or Self Care 06/13/2024 9:00 AM CDT Telemedicine Department of Medical Genetics in [place], [place] [address] [place] [phone] Renate Youngblood APRN, C.N.P., M.S.N. Fern Ewing, M.S., [facility] Pain Back (Primary Dx); Raynaud's Phenomena Without Gangrene; Other Female Genital Prolapse; Tear Knee Lateral Meniscus Current Initial Left; Strain Of Muscle And Tendon Of Back Wall Of Thorax Initial; Primary Osteoarthritis First Carpometacarpal Joints Bilateral; Polyosteoarthritis Unspecified; Prolapse Rectal; Dyskinesia Esophagus; Hypermobility Joint 06/08/2024 11:00 AM CDT Clinical Support Department of Medical Genetics in [place], [place] [address] [place] [phone] Rneate Youngblood APRN, C.N.P., M.S.N. Peng Cowart Pain Back; Raynaud's Phenomena Without Gangrene; Other Female Genital Prolapse; Tear Knee Lateral Meniscus Current Initial Left; Strain Of Muscle And Tendon Of Back Wall Of Thorax Initial; Primary Osteoarthritis First Carpometacarpal Joints Bilateral; Polyosteoarthritis Unspecified; Prolapse Rectal; Dyskinesia Esophagus; Hypermobility Joint from Last 3 Months Immunizations Name Administration Dates Next Due Influenza Split 09/29/2012 Tdap 09/29/2012 Family History Medical History Relation Name Comments Prostate cancer Father Emilia Skin cancer Father Emilia Arthritis Mother Cheri Dementia Mother Cheri Hypertension Mother Cheri Stroke Mother Cheri Terrance-Danlos syndrome Niece 1 neck muscles have collapsed leading to TIAs TIA - Transient ischaemic attack Niece 1 Spasticity Niece 3 Breast cancer Neg Hx Cervical cancer Neg Hx Endometrial cancer Neg Hx Ovarian cancer Neg Hx Relation Name Status Comments Brother Alive Daughter [...] drink = 0.6 oz pur e alcohol) [facility] Utilities Answer Date Recorded In the past 12 months has e [employer], gas, oil, or water [employer] threatened to shut off services in your [...] your living situation today? I have a [facility] place to live 01/07/2024 Comments No Sex and Gender Information Value Date Recorded Sex Assigned at Female 01/07/2024 8:31 PM CDT Legal Sex Female 5:11 PM FALAFEL CART COOK Gender Identity Female 01/07/2024 8:31 PM CDT [...] CDT Inhaled Oxygen Concentration - - Weight 54.5 kg (120 lb 2.4 oz) 07/26/2024 2:54 P M CDT Height 149.2 cm (4' 10.74) 07/26/2024 2:54 PM C DT Body Mass Index 24.48 07/26/2024 2:54 PM CDT Plan of Treatment Upcoming Encounters Date Type Department Care Team (Latest Contact Info) Description 08/05/2024 11:00 AM FALAFEL CART COOK Clinical Support Department of Physical Medicine and Rehabilitation in [place], [place] [address] [place] [phone] Renate Youngblood APRN, C.N.P., M.S.N. [address] [place] [phone] 08/05/2024 2:00 PM FALAFEL CART COOK Clinical Support Department of Physical Medicine and Rehabilitation in [place], [place] [address] [place] [phone] Renate Youngblood APRN, C.NLewis., M.S.N. [address] [place] [phone] 08/08/2024 2:00 PM FALAFEL CART COOK Clinical Support Department of Physical Medicine and Rehabilitation in [place], [place] [address] [place] [phone] Renate Youngblood APRN, C.NLewis., M.S.N. [address] [place] [phone] 08/11/2024 10:00 AM FALAFEL CART COOK Clinical Support Department of Physical Medicine and Rehabilitation in [place], [place] [address] [place] [phone] Renate Youngblood APRN, C.NLewis., M.S.N. [address] [place] [phone] 11/10/2024 10:00 AM FALAFEL CART COOK Comprehensive Visit Department of Obstetrics and Gynecology, Division of Urogynecology in [place], [place] [address] [place] [phone] Yan Turner M.D., M.S. [address] [place] [phone] Scheduled Procedures Name Priority Associated Diagnoses Date/Ti nh ROBOTIC-ASSISTED RECTOPEXY Prolapse Rectal Cystocele Rectocele ROBOTIC-ASSISTED EXPLORATION Prolapse Rectal Cystocele Rectocele Health Maintenance Due Date Last Done Comments CT Colonography 1953 Cologuard 1955 Colonoscopy 1955 Colorectal Cancer Screening 1955 FIT 1953 Hepatitis C Screening 1955 Lipid (Cholesterol) Screening 1955 Mammogram 1953 Depression Screening (Annual PHQ-2) 09/28/2023 Fall Risk Screen (Annual) 09/28/2023 COVID-19 Vaccine ( season) 2024 07/24/2023, 08/06/2022, 07/26/2021, Additional history exists Influenza Vaccine (#1) 2024 , 07/25/2022, 09/10/2021, Additional history exists Office Visit for Blood Pressure Check / Re-check 04/08/2025 04/08/2024 Creatinine Level (Kidney Function Test) 07/01/2025 07/01/2024 Potassium Level 07/01/2025 07/01/2024 Sodium Level 07/01/2025 07/01/2024, 01/10/2013 Fasting Glucose for Diabetes Screening 07/01/2027 07/01/2024, 02/24/2013 DTaP,Tdap,and Td Vaccines (3 - Td or Tdap) 10/27/2033 10/27/2023, 09/29/2012 Zoster Vaccines Completed 11/05/2021, 04/28, 08/31/2015 Pneumococcal vaccine (65+ years) Completed 11/28/2021, 09/30/2019 RSV vaccine - (32-36 weeks) or 60+ years Completed 07/31/2023 IPV Vaccines Aged Out No longer eligi ble based on patient's age to complete this topic Goals Goal Patient Goal Type Associated Problems Recent Progress Patient-Stated? Author [facility] Care Plan for Nicotine Dependency Perioperative Care Plan [facility] Care Plan for Nicotine Dependency Perioperative No Genevieve Strickland R.N. Surgical Readiness and Recovery Care Plan Care Plan Surgical Readiness and Recovery Care Plan No Genevieve Strickland R.N. Medical Devices Implanted Type Area Clinical Operations Consultant Device Identifier Shelf Expiration Date Model / [...] DIPSTICK, U Routine 07/26/2024 1:19 PM CDT PH, U Routine 07/26/2024 1:19 PM CDT MICROSCOPIC AUTOMATED Routine 07/26/2024 1:19 PM CDT OSMOLALITY, U Routine 07/26/2024 1:19 PM CDT URINALYSIS WITH MICROSCOPIC Routine 07/26/2024 1:19 PM CDT Cystocele Midline BACTERIAL CULTURE, AEROBIC + SUSC, URINE Routine 07/26/2024 1:19 PM CDT Cystocele Midline KS CYSTOMETROGRAM COMPLEX Routine 07/26/2024 1:00 PM CDT Cystocele Midline KS UROFLOWMETRY CMPLX Routine 07/26/2024 1:00 PM CDT Cystocele Midline KS ODELL PST VOID RESID US NON IMG Routine 07/26/2024 1:00 PM CDT Cystocele Midline US PELVIS TRANSVAGINAL AND TRANSABDOMINAL RAD - Routine (most inpatients and all outpatients) 07/26/2024 9:47 AM CDT Abnormal Computed Tomography Lesion Ovary CT ABDOMEN PELVIS WITH IV CONTRAST RAD - Semiurgent (Fast; most ED patients; some inpatients) 07/01/2024 11:49 PM CDT LACTATE, B/P STAT 07/01/2024 10:55 PM CDT CBC WITH DIFFERENTIAL, B STAT 07/01/2024 10:55 PM CDT LIPASE, S/P STAT 07/01/2024 10:55 PM CDT HEPATIC FUNCTION PANEL, S STAT 07/01/2024 10:55 PM CDT BASIC METABOLIC PANEL, S/P STAT 07/01/2024 10:55 PM CDT from Last 3 Months Results * Dipstick, Urine (07/26/2024 1:19 PM [...] ORDERABLES F inal Result Performing Organization Address [facility] Co de Phone Number [address] [place] [address] * Microscopic Automated (07/26/2024 1:19 PM CDT) Pathologist [facility] Microscopy Normal 07/26/2024 3:51 PM CDT DTL RBC None Seen <3 /hpf 07/26/2024 3:51 PM CDT DTL WBC None Seen /hpf 07/26/2024 3:51 PM CDT DTL Comment: ----REFERENCE VALUE---- <4 ??(Males) <11 (Females) Urine 07/26/2024 1:19 PM CDT 07/26/2024 3:25 PM CDT Yan Turner M.D., M.S. LAB URINE ORDERABLES F inal Result [facility] [address] [place], [place] [phone] [place] [address] 200 [place] [address] * Bacterial Culture, Aerobic + Susceptibility, Urine (07/26/2024 1:19 PM CDT) Urine Culture No growth after 1 day of incubation. 07/28/2024 7:23 AM CDT DTL Urine (Urine, Straight Catheter) 07/26/2024 1:19 PM CDT 07/26/2024 5:39 PM CDT Comment:Specimen Source Site : Urine Yan Turner M.D., M.S. LAB MICROBIOLOGY - GEN ERAL ORDERABLES Final Result Performing Organization Address [facility] Co de Phone Number [facility] [address] [place] [address] * pH, Urine (07/26/2024 1:19 PM CDT) pH, U 6.7 4.5 - 8.0 07/26/2024 4:3 5 PM CDT DT Urine 07/26/2024 1:19 PM CDT 07/26/2024 3:25 PM CDT Yan Turner M.D., M.S. LAB URINE ORDERABLES F inal Result Performing Organization Address City/[facility]/ZIP Co de Phone Number [facility] [address] [place], [place] [phone] [place] [address] 200 [place] [address] * (ABNORMAL) Osmolality, Urine (07/26/2024 1:19 PM CDT) Osmolality, U 78(L) 150 - 1150 mOsm/kg 07/26/2024 4:35 PM CDT DTL Urine 07/26/2024 1:19 PM CDT 07/26/2024 3:25 PM CDT us Yan Turner M.D., M.S. LAB URINE ORDERABLES F inal Result Performing Organization Address [facility] Co de Phone Number [facility] [address] [place] [address], [facility] [address] [place] [address] * (ABNORMAL) Urinalysis, with Microscopic: Urine, Straight [...] ORDERABLES F inal Result Performing Organization Address [facility]/ZIP Co de Phone Number [facility] [address] [place] [address], [facility] [address] [place] [address] * KS ODELL PST VOID RESID US NON IMG, KS UROFLOWMETRY CMPLX, KS CYSTOMETROGRAM COMPLEX (07/26/2024 1:00 PM CDT) Narrative [...] M.S. OB GYNE ORDERABLES Fin al Result * US Pelvis Transvaginal and Transabdominal (07/26/2024 9:47 AM CDT) Anatomical Region Laterality Modality Pelvis, Ultrasound RST LOS, Ultrasound ARZ LOS, Ultrasound FLA LOS N/A Ultrasound Impressions 07/26/2024 9:50 AM CDT The left ovary was unable to be visualized. The 12 mm cystic lesion seen on the CT from 07/01/2024 was unable be visualized sonographically. Narrative 07/26/2024 9:50 AM CDT EXAM: US PELVIS TRANSVAGINAL AND TRANSABDOMINAL COMPARISON: CT from 07/01/2024 TECHNIQUE: Transabdominal and transvaginal. Transvaginal exam performed to better visualize the uterus and/or adnexal regions. FINDINGS: Uterus: Surgically absent. Right ovary: Not visualized. Patient was unable to tolerate full transvaginal exam. No adnexal mass visualized. Left ovary: Not visualized. Patient was unable to tolerate full transvaginal exam. No adnexal mass visualized. Intraperitoneal Fluid: None. Procedure Note Sonido Badillo M.D. - 07/26/2024 EXAM: US PELVIS TRANSVAGINAL AND TRANSABDOMINAL COMPARISON: CT from 07/01/2024 TECHNIQUE: Transabdominal and transvaginal. Transvaginal exam performed tobetter visualize the uterus and/or adnexal regions. FINDINGS: Uterus: Surgically absent. Right ovary: Not visualized. Patient was unable to tolerate fulltransvaginal exam. No adnexal mass visualized. Left ovary: Not visualized. Patient was unable to tolerate fulltransvaginal exam. No adnexal mass visualized. Intraperitoneal Fluid: None. IMPRESSION: The left ovary was unable to be visualized. The 12 mm cystic lesion seenon the CT from 07/01/2024 was unable be visualized sonographically. us Eleazar Yin M.D. IMG US PROCEDURES Final R esult * CT Abdomen Pelvis with IV Contrast [...] IMPRESSION: Findings suggestive of a mild proctitis. us Micha Baumann M.D. IMG CT PROCEDURES Final R esult * Hepatic Function Panel (07/01/2024 10:55 PM [...] 10:55 PM CDT 07/01/2024 11:30 PM CDT us Micha Baumann M.D. LAB BLOOD ADD-ON Final Re sult [facility] [address] [place] [address], [facility] DTL [facility] [address] [place] [address] * (ABNORMAL) CBC with Differential, Blood (07/01/2024 [...] CDT Micha Baumann M.D. LAB BLOOD ADD-ON Final Re sult [facility] [address] [place] [address], [facility] [address] [place] [address] [facility] [address] [place] [address] * Lipase (07/01/2024 10:55 PM CDT) Pathologist [facility] Lipase, S 30 13 - 60 U/L 07/01/2024 11:44 PM CDT DTL Blood (Blood, Venous) 07/01/2024 10:55 PM CDT 07/01/2024 11:30 PM CDT Micha Baumann M.D. LAB BLOOD ADD-ON Final Re sult [facility] [address] [place] [facility] [address] [place] [address] * Lactate (07/01/2024 10:55 PM CDT) [facility] Lactate, P 1.0 0.5 - 2.2 mmol/L 07/01/2024 11:25 PM CDT STMA Blood (Blood, Venous) 07/01/2024 10:55 PM CDT 07/01/2024 11:10 PM CDT Micha Baumann M.D. LAB BLOOD NON ADD-ON Luisana l Result [facility] [address] STMA [facility] [address] [place] [address] * (ABNORMAL) Basic Metabolic Panel (07/01/2024 10:55 PM CDT) Pathologist [facility] Potassium, P 3.5(L) 3.6 - 5.2 mmol/L [...] CDT Micha Baumann M.D. LAB BLOOD ADD-ON Final Re sult [facility] [address] [place] [address], [facility] [address] [place] [address] from Last 3 Months Additional Health Concerns Active Problems Noted Date Diagnosed Date [facility] Care Plan for Nicotine Dependency Pe rioperative 07/08/2024 Surgical Readiness and Recovery Care Plan 2023 Insurance [place] [id number] Care Teams Bioinformatics Technician Relationship Specialty Start Date End Date Elsewhere, Pcp PCP - General Internal Medicine 07/02/24
--- OUTSIDE RECORDS SUMMARY | 2024-08-02 14:14 | XMS_ITS ---
Author Organization [facility] Address [address] [place] [address] Care Team Providers Care Reimbursement Rep Name Role Phone Unavailable Unavailable Unavailable Surgery Details Not on file Complications Check Surgery Details section. Procedure Estimated Blood Loss Check Surgery Details section. Procedure Findings Check Surgery Details section. Procedure Specimens Taken Check Surgery Details section.
--- OUTSIDE RECORDS SUMMARY | 2024-08-02 14:14 | XMS_ITS | Encounter Summary ---
Author Organization [facility] Address [address] [place] [id number] Care Team Providers Care Senior Instructional Designer Name Role Phone Elsewhere, Pcp Primary Care Provider Unavailabl e Reason for Visit * Outpatient (Routine) - Authorized Specialty Diagnoses / Procedures Referred By Contact Referred To Contact Physical Medicine and Rehabilitation Diagnoses Dysfunction Pelvic Floor Prolapse Rectal Other Female Genital Prolapse Procedures PMR Pelvic floor & bowel/bladder programs Renate Youngblood APRN, C.N.P., M.S.N. [address] [place] [address] Phone: tel: fax: [facility] Referral ID Status Reason Start Date Expiration Date V isits Requested Visits Authorized [id number] Authorized 07/08/2024 09/27/2024 23 23 Encounter Details Date Type Department Care Team (Latest Contact Info) Description 07/27/2024 2:00 PM CDT Clinical Support Department of Physical Medicine and Rehabilitation in [place], [place] [address] [place] [phone] Renate Youngblood APRN, C.N.P., M.S.N. [address] [place] [phone] Dysfunction Pelvic Floor (Primary Dx); Prolapse Rectal; Other Female Genital Prolapse Social History Tobacco Use Types Packs/Day Years Used Date Smoking Tobacco: Never Passive Smoke Exposure: Never Smokeless Tobacco: Never Alcohol Use Standard Drinks/Week Comments Yes 3 (1 standard drink = 0.6 oz pur e alcohol) [facility] Utilities Answer Date Recorded In [...] your living situation today? I have a [facility] place to live 01/07/2024 Comments No Sex and Gender Information Value Date Recorded Sex Assigned at Female 01/07/2024 8:31 PM CDT Legal Sex Female 5:11 PM PLANER OFFBEARER Gender Identity Female 01/07/2024 8:31 PM CDT Sexual Orientation Straight 01/07/2024 8: 31 PM CDT documented as of this encounter Progress Notes * ArgyleCrissy marsh O.T., MOT - 07/27/2024 2:00 PM CDT Please see additional note by this provider on this date for full treatment details. documented in this encounter Plan of Treatment Upcoming Encounters Date Type Department Care Team (Latest Contact Info) Description 08/05/2024 11:00 AM PLANER OFFBEARER Clinical Support Department of Physical Medicine and Rehabilitation in [address] [phone] Renate Youngblood APRN, Celeste.N.P., M.S.N. [address] [place] [phone] 08/05/2024 2:00 PM PLANER OFFBEARER Clinical Support Department of Physical Medicine and Rehabilitation in [address] [phone] Renate Youngblood APRN, Celeste.N.P., M.S.N. [address] [place] [phone] 08/08/2024 2:00 PM PLANER OFFBEARER Clinical Support Department of Physical Medicine and Rehabilitation in [address] [phone] Renate Youngblood APRN, C.N.P., M.S.N. [address] [place] [phone] 08/11/2024 10:00 AM PLANER OFFBEARER Clinical Support Department of Physical Medicine and Rehabilitation in [address] [phone] Renate Youngblood APRN, Celeste.N.P., M.S.N. [address] [place] [phone] 11/10/2024 10:00 AM PLANER OFFBEARER Comprehensive Visit Department of Obstetrics and Gynecology, Division of Urogynecology in [place], [place] [address] [place] [phone] Yan Turner M.D., M.S. [address] [place] [address] Scheduled Procedures Name Priority Associated Diagnoses Date/Ti me ROBOTIC-ASSISTED RECTOPEXY Prolapse Rectal Cystocele Rectocele ROBOTIC-ASSISTED EXPLORATION Prolapse Rectal Cystocele Rectocele documented as of this encounter Goals Goal Patient Goal Type Associated Problems Recent Progress Patient-Stated? Author [facility] Care Plan for Nicotine Dependency Perioperative Care Plan [facility] Care Plan for Nicotine Dependency Perioperative No Genevieve Strickland, R.N. Surgical Readiness and Recovery Care Plan Care Plan Surgical Readiness and Recovery Care Plan No Genevieve Strickland RJose. documented as of this encounter Visit Diagnoses Diagnosis Dysfunction Pelvic Floor- Primary Prolapse Rectal Other Female Genital Prolapse documented in this encounter Additional Health Concerns Active Problems Noted Date Diagnosed Date [facility] Care Plan for Nicotine Dependency Pe rioperative 07/08/2024 Surgical Readiness and Recovery Care Plan 2023 documented as of this encounter Care Teams Senior Instructional Designer Relationship Specialty Start Date End Date Elsewhere, Pcp PCP - General Internal Medicine 07/02/24 documented as of this encounter
--- OUTSIDE RECORDS SUMMARY | 2024-08-02 14:14 | XMS_ITS | Encounter Summary ---
Author Organization [facility] Address [address] [place] [address] Care Team Providers Care Benefits Counselor Name Role Phone Elsewhere, Pcp Primary Care Provider Unavailabl e Reason for Referral * Outpatient (Routine) - Closed Specialty Diagnoses / Procedures Referred By Contac t Referred To Contact Diagnoses Abnormal Computed Tomography Lesion Ovary Procedures US Pelvis Transvaginal and Transabdominal Eleazar Yin M.D. [address] [place] [address] Phone: tel: fax: [facility] Referral ID Status Reason Start Date Expiration Date Visits Re quested Visits Authorized [id number] Closed 07/05/2024 07/05/2025 1 1 Reason for Visit * Outpatient (Routine) - Closed Specialty Diagnoses / Procedures Referred By Contac t Referred To Contact Diagnoses Abnormal Computed Tomography Lesion Ovary Procedures US Pelvis Transvaginal and Transabdominal Eleazar Yin M.D. [address] [place] [address] Phone: tel: fax: [facility] Referral ID Status Reason Start Date Expiration Date Visits Re quested Visits Authorized [id number] Closed 07/05/2024 07/05/2025 1 1 Encounter Details Date Type Department Care Team (Latest Contact Info) Description 07/26/2024 9:03 AM CDT - 07/26/2024 11:59 PM CDT Hospital Encounter Department of Radiology, [facility], in [place], [place] [address] [place] [address] Eleazar Yin M.D. [address] [place] [address] Abnormal Computed Tomography; Lesion Ovary Discharge Disposition: Home or Self Care Social History Tobacco Use Types Packs/Day Years Used Date Smoking Tobacco: Never Passive Smoke Exposure: Never Smokeless Tobacco: Never Alcohol Use Standard Drinks/Week Comments Yes 3 (1 standard drink = 0.6 oz pur e alcohol) [facility] Utilities Answer Date Recorded In the past 12 months has e Project Manager, gas, oil, or water [employer] threatened to shut off services in your [...] your living situation today? I have a [facility] place to live 01/07/2024 Comments No Sex and Gender Information Value Date Recorded Sex Assigned at Female 01/07/2024 8:31 PM CDT Legal Sex Female 5:11 PM TELESCOPE REPAIRER Gender Identity Female 01/07/2024 8:31 PM CDT Sexual Orientation Straight 01/07/2024 8: 31 PM CDT documented as of this encounter Medications at Time of Discharge acetaminophen (TylenoL 8 Hr) 650 mg ER tablet Take 1,300 mg by mouth every 8 (eight) hours. bisacodyL (Dulcolax) 10 mg suppository Insert 10 mg into the rectum daily as needed. 06/21/2024 calcium carbonate (calcium carbonate EX) 750 mg (300 mg calcium) chewable tablet Chew 506 mg daily. Christal chocolate waffers calcium carbonate 1,500 mg (600 mg calcium) tablet Take 650 mg of calcium by mouth daily with morning meal. Viactiv caramels cycloSPORINE (Restasis) 0.05 % ophthalmic emulsion Administer 1 drop into both eyes 2 (two) times a day. 01/05/2013 diclofenac sodium (VOLTAREN) 50 mg EC tablet Take 1 tablet by mouth 2 (two) times a day. 10/27/2023 esomeprazole (NexIUM) [address] capsule Take 1 capsule by mouth at bedtime. 11/28/2016 hydroCHLOROthiazi de (HYDRODIURIL) 25 mg tablet Take 25 mg [...] every 2 (two) hours as needed. 11/28/2016 psyllium, with sugar, (KonsyL) 3.4 gram packet Take 1 packet by mouth daily. Gummies Senexon-S 8.6-50 mg per tablet Take 1 tablet by mouth daily. 06/27/2024 simvastatin (ZOCOR) 20 mg tablet Take 20 mg by mouth at bedtime. 08/31/2016 vits A,C,E/lutein/mine rals (OCUVITE WITH LUTEIN ORAL) Take 150 mg by mouth daily. 11/28/2016 documented as of this encounter Plan of Treatment Upcoming Encounters Date Type Department Care Team (Latest Contact Info) Description 08/05/2024 11:00 AM TELESCOPE REPAIRER Clinical Support Department of Physical Medicine and Rehabilitation in [address] [phone] Renate Youngblood APRN, C.N.P., M.S.N. [address] [place] [phone] 08/05/2024 2:00 PM TELESCOPE REPAIRER Clinical Support Department of Physical Medicine and Rehabilitation in [address] [phone] Renate Youngblood APRN, C.N.P., M.S.N. [address] [place] [phone] 08/08/2024 2:00 PM TELESCOPE REPAIRER Clinical Support Department of Physical Medicine and Rehabilitation in [address] [phone] Renate Youngblood APRN, Celeste.N.P., M.S.N. [address] [place] [phone] 08/11/2024 10:00 AM TELESCOPE REPAIRER Clinical Support Department of Physical Medicine and Rehabilitation in [address] [phone] Renate Youngblood APRN, C.N.P., M.S.N. [address] [place] [phone] 11/10/2024 10:00 AM TELESCOPE REPAIRER Comprehensive Visit Department of Obstetrics and Gynecology, Division of Urogynecology in [place], [place] [address] [place] [address] Yan Turner M.D., M.S. [address] [place] [address] Scheduled Procedures Name Priority Associated Diagnoses Date/Ti mn ROBOTIC-ASSISTED RECTOPEXY Prolapse Rectal Cystocele Rectocele ROBOTIC-ASSISTED EXPLORATION Prolapse Rectal Cystocele Rectocele documented as of this encounter Goals Goal Patient Goal Type Associated Problems Recent Progress Patient-Stated? Author [facility] Care Plan for Nicotine Dependency Perioperative Care Plan [facility] Care Plan for Nicotine Dependency Perioperative No Genevieve Strickland RLaurelN. Surgical Readiness and Recovery Care Plan Care Plan Surgical Readiness and Recovery Care Plan No Genevieve Strickland RVivek documented as of this encounter Procedures Procedure Name Priority Date/Time Associated Diagnosis Comments US PELVIS TRANSVAGINAL AND TRANSABDOMINAL RAD - Routine (most inpatients and all outpatients) 07/26/2024 9:47 AM CDT Abnormal Computed Tomography Lesion Ovary documented in this encounter Results * US Pelvis Transvaginal and Transabdominal (07/26/2024 [...] M.D. IMG US PROCEDURES Final R esult documented in this encounter Visit Diagnoses Diagnosis Abnormal Computed Tomography Lesion Ovary documented in this encounter Additional Health Concerns Active Problems Noted Date Diagnosed Date [facility] Care Plan for Nicotine Dependency Pe rioperative 07/08/2024 Surgical Readiness and Recovery Care Plan 2023 documented as of this encounter Care Teams Benefits Counselor Relationship Specialty Start Date End Date Elsewhere, Pcp PCP - General Internal Medicine 07/02/24 documented as of this encounter
--- OUTSIDE RECORDS SUMMARY | 2024-08-02 14:14 | XMS_ITS | Referral Summary ---
Author Organization [facility] Address [address] [place] [address] Care Team Providers Care Seat Cover Installer Name Role Phone Elsewhere, Pcp Primary Care Provider Unavailabl e Source Comments Patient records contain information from all sites at [facility]. For routine questions regarding patient records, call [phone] during business hours, M-F 8:00 AM - 5:00 PM Central Time. Record requests for emergency care only can be directed to [phone] at any time.[facility] Encounters Date Type Department Care Team Description 07/27/2024 2:00 PM CDT Clinical Support Department of Physical Medicine and Rehabilitation in [place], [place] [address] [place] [address] Renate Youngblood APRN, C.N.P., M.S.N. Dysfunction Pelvic Floor (Primary Dx); Prolapse Rectal; Other Female Genital Prolapse 07/27/2024 10:00 AM CDT Comprehensive Visit Department of Physical Medicine and Rehabilitation in [place], [place] [address] [place] [phone] Renate Youngblood APRN, C.N.P., M.S.N. Dysfunction Pelvic Floor; Prolapse Rectal; Other Female Genital Prolapse 07/26/2024 1:00 PM CDT Procedure visit Department of Obstetrics and Gynecology, Division of Urogynecology in [place], [place] [address] [place] [phone] Yan Turner M.D., M.S. Cystocele Midline (Primary Dx) 07/26/2024 3:00 PM CDT Comprehensive Visit Department of Obstetrics and Gynecology in [address] [phone] Elia Portillo M.D. Mass Adnexal (Primary Dx); Abnormal Computed Tomography 07/26/2024 9:03 AM CDT - 07/26/2024 11:59 PM CDT Hospital Encounter Department of Radiology, [facility], in [place], [place] [address] [place] [phone] Eleazar Yin M.D. Abnormal Computed Tomography; Lesion Ovary Discharge Disposition: Home or Self Care 07/25/2024 2:15 PM CDT Clinical Communication Virtual Review in [place], [place] 200 [place] [address] Pre-visit Intake 07/22/2024 Clinical Communication Department of Obstetrics and Gynecology, Division of Urogynecology in [address] [phone] Yan Turner M.D., M.S. 07/21/2024 1:00 PM CDT Telemedicine Department of Patient Education in [address] [phone] Brianne Beebe M.D., Ph.D. Constipation; Cystocele Midline; Rectocele 07/14/2024 1:00 PM CDT Telemedicine Department of Patient Education in [address] [phone] Brianne Beebe M.D., Ph.D. Constipation; Cystocele Midline; Rectocele 07/08/2024 Orders Only Department of Obstetrics and Gynecology, Division of Urogynecology in [address] [phone] Tanner Camacho R.N. Cystocele Midline (Primary Dx) 07/08/2024 Orders Only Division of Colon and Rectal Surgery in [place], [place] [address] [place] [address] Brianne Beebe M.D., Ph.D. Constipation (Primary Dx); Cystocele Midline; Rectocele 07/08/2024 9:30 AM CDT Office Visit Division of Colon and Rectal Surgery in [place], [place] [address] [place] [phone] Brianne Beebe M.D., Ph.D. Angina Pectoris Unspecified (HCC) (Primary Dx); Other Female Genital Prolapse; Constipation; Proctitis 07/05/2024 Clinical Communication Department of Obstetrics and Gynecology in [place], [place] [address] [place] [phone] Prescheduling, Provider 07/04/2024 Clinical Communication Division of Colon and Rectal Surgery in [place], [place] [address] [place] [phone] Brianne Beebe M.D., Ph.D. 07/04/2024 Referral Triage Division of General Internal Medicine in [place], [place] [address] [place] [phone] Prescheduling, Provider Referral Triage 07/01/2024 10:12 PM CDT - 07/02/2024 2:58 AM CDT Emergency [facility] Emergency Department [address] [place] [phone] Micha Baumann M.D. Abnormal Computed Tomography (Primary Dx); Constipation; Proctitis Discharge Disposition: Home or Self Care 06/13/2024 9:00 AM CDT Telemedicine Department of Medical Genetics in [place], [place] [address] [place] [phone] Renate Youngblood APRN, C.N.P., M.S.N. Fern Ewing, M.S., [facility] Pain Back (Primary Dx); Raynaud's Phenomena Without Gangrene; Other Female Genital Prolapse; Tear Knee Lateral Meniscus Current Initial Left; Strain Of Muscle And Tendon Of Back Wall Of Thorax Initial; Primary Osteoarthritis First Carpometacarpal Joints Bilateral; Polyosteoarthritis Unspecified; Prolapse Rectal; Dyskinesia Esophagus; Hypermobility Joint 06/08/2024 11:00 AM CDT Clinical Support Department of Medical Genetics in [place], [place] [address] [place] [address] Renate Youngblood, JOSE, C.N.P., M.S.N. Peng Cowart Pain Back; Raynaud's Phenomena Without Gangrene; Other Female Genital Prolapse; Tear Knee Lateral Meniscus Current Initial Left; Strain Of Muscle And Tendon Of Back Wall Of Thorax Initial; Primary Osteoarthritis First Carpometacarpal Joints Bilateral; Polyosteoarthritis Unspecified; Prolapse Rectal; Dyskinesia Esophagus; Hypermobility Joint from Last 3 Months Allergies Active Allergy [...] drink = 0.6 oz pur e alcohol) [facility] Utilities Answer Date Recorded In the past 12 months has th e Status [employer], gas, oil, or water [employer] threatened to shut off services in your [...] your living situation today? 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 [address] [place] [phone] 08/05/2024 2:00 PM TRIMMER HELPER Clinical Support Department of Physical Medicine and Rehabilitation in [place], [place] [address] [place] [phone] Renate Youngblood APRN, C.N.P., M.S.N. [address] [place] [phone] 08/08/2024 2:00 PM TRIMMER HELPER Clinical Support Department of Physical Medicine and Rehabilitation in [place], [place] [address] [place] [phone] Renate Youngblood APRN, C.N.P., M.S.N. [address] [place] [phone] 08/11/2024 10:00 AM TRIMMER HELPER Clinical Support Department of Physical Medicine and Rehabilitation in [place], [place] [address] [place] [address] Renate Youngblood APRN, C.N.P., M.S.N. [address] [place] [phone] 11/10/2024 10:00 AM TRIMMER HELPER Comprehensive Visit Department of Obstetrics and Gynecology, Division of Urogynecology in [place], [place] [address] [place] [address] Yan Turner M.D., M.S. [address] [place] [phone] Scheduled Procedures Name Priority Associated Diagnoses Date/Ti me ROBOTIC-ASSISTED RECTOPEXY Prolapse Rectal Cystocele Rectocele ROBOTIC-ASSISTED EXPLORATION Prolapse Rectal Cystocele Rectocele Goals Goal Patient Goal Type Associated Problems Recent Progress Patient-Stated? Author [facility] Care Plan for Nicotine Dependency Perioperative Care Plan [facility] Care Plan for Nicotine Dependency Perioperative No Genevieve Strickland R.N. Surgical Readiness and Recovery Care Plan Care Plan Surgical Readiness and Recovery Care Plan No Genevieve Strickland R.N. Medical Devices Implanted Type Area Flour Distributor Device Identifier Shelf Expiration Date Model / [...] Routine 07/26/2024 1:19 PM CDT Cystocele Midline PA CYSTOMETROGRAM COMPLEX Routine 07/26/2024 1:00 PM CDT Cystocele Midline PA UROFLOWMETRY CMPLX Routine 07/26/2024 1:00 PM CDT Cystocele Midline PA ODELL PST VOID RESID US NON IMG [...] ORDERABLES F inal Result Performing Organization Address [facility] Co de Phone Number [facility] [place] [address] [place] [address], [facility] [address] [place] [address] * Microscopic Automated (07/26/2024 1:19 PM CDT) Pathologist [facility] Microscopy Normal 07/26/2024 3:51 PM CDT DTL RBC None Seen <3 /hpf 07/26/2024 3:51 PM CDT DTL WBC None Seen /hpf 07/26/2024 3:51 PM CDT DTL Comment: ----REFERENCE VALUE---- <4 ??(Males) <11 (Females) Urine 07/26/2024 1:19 PM CDT 07/26/2024 3:25 PM CDT Yan Turner M.D., M.S. LAB URINE ORDERABLES F inal Result Performing Organization Address City/[facility]/ZIP Co de Phone Number [facility] [place] [address] [place], [place] [phone] [place] [address] [address] [place] [address] * Bacterial Culture, Aerobic + Susceptibility, Urine (07/26/2024 1:19 PM CDT) Pathologist [facility] Urine Culture No growth after 1 day of incubation. 07/28/2024 7:23 AM CDT DT Urine (Urine, Straight Catheter) 07/26/2024 1:19 PM CDT 07/26/2024 5:39 PM CDT Comment:Specimen Source Site : Urine Yan Turner M.D., M.S. LAB MICROBIOLOGY - GEN ERAL ORDERABLES Final Result Performing Organization Address City/[facility]/ZIP Co de Phone Number [facility] [place] [address] [place], [place] [address] [place] [address] 200 [place] [address] * pH, Urine (07/26/2024 1:19 PM CDT) Pathologist [facility] pH, U 6.7 4.5 - 8.0 07/26/2024 4:3 5 PM CDT DTL Urine 07/26/2024 1:19 PM CDT 07/26/2024 3:25 PM CDT Yan Turner M.D., M.S. LAB URINE ORDERABLES F inal Result [facility] [place] [address] [place] [address] * (ABNORMAL) Osmolality, Urine (07/26/2024 1:19 PM CDT) Osmolality, U 78(L) 150 - 1150 mOsm/kg 07/26/2024 4:35 PM CDT DTL Urine 07/26/2024 1:19 PM CDT 07/26/2024 3:25 PM CDT us Yan Turner M.D., M.S. LAB URINE ORDERABLES F inal Result Performing Organization Address [facility] Co de Phone Number [facility] [place] [address] [place], [place] [phone] [place] [address] [facility] [address] [place] [address] * (ABNORMAL) Urinalysis, with Microscopic: Urine, Straight [...] ORDERABLES F inal Result Performing Organization Address [facility]/ZIP Co de Phone Number [facility] [place] [address] [place] [address], [facility] [address] [place] [address] * PA ODELL PST VOID RESID US NON IMG, PA UROFLOWMETRY CMPLX, PA CYSTOMETROGRAM COMPLEX (07/26/2024 1:00 PM CDT) Narrative Yan Turner M.D., M.S. - 07/26/2024 1:00 PM CDT Cass Miller M.D. ? 08/01/2024 11:10 AM OBG Urodynamic Studies Performed by: Yan Turner M.D., M.S. Authorized by: Yan Turner M.D., M.S. ?? Care team members present 1. Gurinder Yulianaxavier Cantrell PROCEDURE DETAILS: Procedures: Combined (CMG + Uro) [...] of a mild proctitis. Micha Baumann M.D. IMG CT PROCEDURES Final [...] M.D. LAB BLOOD ADD-ON Final Re sult [facility] [address] [place] [address], [facility] DTL [facility][note 3] [address] [place] [address] * (ABNORMAL) CBC with Differential, Blood (07/01/2024 [...] 10:55 PM CDT 07/01/2024 11:10 PM CDT us Micha Baumann M.D. LAB BLOOD ADD-ON Final Re sult [facility] [place] [address] [place] [address], [facility] STMA [facility][note 3] [address] [place] [address] DHPM [facility][note 3] [address] [place] [address] * Lipase (07/01/2024 10:55 PM CDT) Lipase, S 30 13 - 60 U/L 07/01/2024 11:44 PM CDT DTL Blood (Blood, Venous) 07/01/2024 10:55 PM CDT 07/01/2024 11:30 PM CDT Micha Baumann M.D. LAB BLOOD ADD-ON Final Re sult [facility] [place] [address] [place] [address], [facility] DTL [facility][note 3] [address] [place] [address] * Lactate (07/01/2024 10:55 PM CDT) Pathologist [facility] Lactate, P 1.0 0.5 - 2.2 mmol/L 07/01/2024 11:25 PM CDT STMA Blood (Blood, Venous) 07/01/2024 10:55 PM CDT 07/01/2024 11:10 PM CDT Micha Baumann M.D. LAB BLOOD NON ADD-ON Luisana l Result [facility] [place] [address] [place] [address], [facility] STMA [facility][note 3] [address] [place] [address] * (ABNORMAL) Basic Metabolic Panel (07/01/2024 10:55 PM CDT) Pathologist [facility] Potassium, P 3.5(L) 3.6 - 5.2 [...] M.D. LAB BLOOD ADD-ON Final Re sult [facility] [place] [address] [place] [address], [facility] [address] [place] [address] from Last 3 Months Additional Health Concerns Active Problems Noted Date Diagnosed Date [facility] Care Plan for Nicotine Dependency Pe rioperative 07/08/2024 Surgical Readiness and Recovery Care Plan 2023 Insurance [employer] [place] [id number] Care Teams Seat Cover Installer Relationship Specialty Start Date End Date Elsewhere, Pcp PCP - General Internal Medicine 07/02/24
--- OUTSIDE RECORDS SUMMARY | 2024-08-02 14:14 | XMS_ITS | Encounter Summary ---
Author Organization [facility] Address [address] [place] [address] Care Team Providers Care Sterile Process Coordinator Name Role Phone Elsewhere, Pcp Primary Care Provider Unavailabl e Encounter Details Date Type Department Care Team (Latest Contact Info) Description 07/22/2024 Clinical Communication Department of Obstetrics and Gynecology, Division of Urogynecology in [place], [place] [address] [place] [address] Yan Turner M.D., M.S. [address] [place] [address] Social History Tobacco Use Types Packs/Day Years Used Date Smoking Tobacco: Never Passive Smoke Exposure: Never Smokeless Tobacco: Never Alcohol Use Standard Drinks/Week Comments Yes 3 (1 standard drink = 0.6 oz pur e alcohol) [facility] Utilities Answer Date Recorded In [...] your living situation today? I have a [facility] place to live 01/07/2024 Comments Unknown Sex and Gender Information Value Date Recorded Sex Assigned at Female 01/07/2024 8:31 PM CDT Legal Sex Female 5:11 PM LIQUOR BLENDER Gender Identity Female 01/07/2024 8:31 PM CDT Sexual Orientation Straight 01/07/2024 8: 31 PM CDT documented as of this encounter Plan of Treatment Upcoming Encounters Date Type Department Care Team (Latest Contact Info) Description 08/05/2024 11:00 AM LIQUOR BLENDER Clinical Support Department of Physical Medicine and Rehabilitation in [place], [place] [address] [place] [phone] Renate Youngblood APRN, C.N.P., M.S.N. [address] [place] [address] 08/05/2024 2:00 PM LIQUOR BLENDER Clinical Support Department of Physical Medicine and Rehabilitation in [place], [place] [address] [place] [phone] Renate Youngblood APRN, C.N.P., M.S.N. [address] [place] [phone] 08/08/2024 2:00 PM LIQUOR BLENDER Clinical Support Department of Physical Medicine and Rehabilitation in [place], [place] [address] [place] [phone] Renate Youngblood APRN, C.N.P., M.S.N. [address] [place] [phone] 08/11/2024 10:00 AM LIQUOR BLENDER Clinical Support Department of Physical Medicine and Rehabilitation in [place], [place] [address] [place] [phone] Renate Youngblood APRN, C.N.P., M.S.N. [address] [place] [phone] 11/10/2024 10:00 AM LIQUOR BLENDER Comprehensive Visit Department of Obstetrics and Gynecology, Division of Urogynecology in [address] [phone] Yan Turner M.D., M.S. [address] [place] [phone] Scheduled Procedures Name Priority Associated Diagnoses Date/Ti mn ROBOTIC-ASSISTED RECTOPEXY Prolapse Rectal Cystocele Rectocele ROBOTIC-ASSISTED EXPLORATION Prolapse Rectal Cystocele Rectocele documented as of this encounter Goals Goal Patient Goal Type Associated Problems Recent Progress Patient-Stated? Author [facility] Care Plan for Nicotine Dependency Perioperative Care Plan [facility] Care Plan for Nicotine Dependency Perioperative No Genevieve Strickland R.N. Surgical Readiness and Recovery Care Plan Care Plan Surgical Readiness and Recovery Care Plan No Genevieve Strickland R.N. documented as of this encounter Visit Diagnoses Not on filedocumented in this encounter Additional Health Concerns Active Problems Noted Date Diagnosed Date [facility] Care Plan for Nicotine Dependency Pe rioperative 07/08/2024 Surgical Readiness and Recovery Care Plan 2023 documented as of this encounter Care Teams Sterile Process Coordinator Relationship Specialty Start Date End Date Elsewhere, Pcp PCP - General Internal Medicine 07/02/24 documented as of this encounter
--- OUTSIDE RECORDS SUMMARY | 2024-08-02 14:15 | XMS_ITS | Encounter Summary ---
Author Organization [facility] Address [address] [place] [address] Care Team Providers Care Hydrometer Calibrator Name Role Phone Elsewhere, Pcp Primary Care Provider Unavailabl e Encounter Details Date Type Department Care Team (Late st Contact Info) Description 04/18/2013 Historical Ophthalmology [facility] Thomas Ospina M.D. Social History Tobacco Use Types Packs/Day Years Used Date Smoking Tobacco: Never Assessed Comments Unknown Sex and Gender Information Value Date Recorded Sex Assigned at Female 01/07/2024 8:31 PM CDT Legal Sex Female 5:11 PM MIDDLE SCHOOL MATH TEACHER Gender Identity Female 01/07/2024 8:31 PM CDT [...] ON RESTASIS CDM Reports - EYEGEN Id: [id number] Status: Fnl documented in this encounter Plan of Treatment Upcoming Encounters Date Type Department Care Team (Latest Contact Info) Description 08/05/2024 11:00 AM MIDDLE SCHOOL MATH TEACHER Clinical Support Department of Physical Medicine and Rehabilitation in [address] [phone] Renate Youngblood APRN, C.N.P., M.S.N. [address] [place] [phone] 08/05/2024 2:00 PM MIDDLE SCHOOL MATH TEACHER Clinical Support Department of Physical Medicine and Rehabilitation in [address] [phone] Renate Youngblood APRN, C.N.P., M.S.N. [address] [place] [phone] 08/08/2024 2:00 PM MIDDLE SCHOOL MATH TEACHER Clinical Support Department of Physical Medicine and Rehabilitation in [address] [phone] Renate Youngblood APRN, C.N.P., M.S.N. [address] [place] [phone] 08/11/2024 10:00 AM MIDDLE SCHOOL MATH TEACHER Clinical Support Department of Physical Medicine and Rehabilitation in [address] [phone] Renate Youngblood APRN, C.N.P., M.S.N. [address] [place] [phone] 11/10/2024 10:00 AM MIDDLE SCHOOL MATH TEACHER Comprehensive Visit Department of Obstetrics and Gynecology, Division of Urogynecology in [place], [place] [address] [place] [phone] Yan Turner M.D., M.S. [address] [place] [phone] Scheduled Procedures Name Priority Associated Diagnoses Date/Ti il ROBOTIC-ASSISTED RECTOPEXY Prolapse Rectal Cystocele Rectocele ROBOTIC-ASSISTED EXPLORATION Prolapse Rectal Cystocele Rectocele documented as of this encounter Visit Diagnoses Not on filedocumented in this encounter Care Teams Hydrometer Calibrator Relationship Specialty Start Date End Date Elsewhere, Pcp PCP - General Internal Medicine 07/02/24 documented as of this encounter
--- OUTSIDE RECORDS SUMMARY | 2024-08-02 14:15 | XMS_ITS | Encounter Summary ---
Author Organization [facility] Address [address] [place] [address] Care Team Providers Care Thread Marker Name Role Phone Elsewhere, Pcp Primary Care Provider Unavailabl e Reason for Referral * Outpatient (Routine) - Closed Specialty Diagnoses / Procedures Referred By Contac t Referred To Contact Colon and Rectal Surgery Diagnoses Constipation Proctitis Micha Baumann M.D. [address] [place] [address] Phone: tel: fax: [facility] Referral ID Status Reason Start Date Expiration Date Visits Re quested Visits Authorized [id number] Closed 07/02/2024 01/01/2026 1 1 * Outpatient (Routine) - Closed Specialty Diagnoses / Procedures Referred By Contac t Referred To Contact Gynecology Diagnoses Abnormal Computed Tomography Micha Baumann M.D. [address] [place] [address] Phone: tel: fax: [facility] Referral ID Status Reason Start Date Expiration Date Visits Re quested Visits Authorized [id number] Closed 07/02/2024 01/01/2026 1 1 Reason for Visit * Reason Comments Constipation Encounter Details Date Type Department Care Team (Late st Contact Info) Description 07/01/2024 10:12 PM CDT - 07/02/2024 2:58 AM CDT Emergency [facility] Emergency Department [address] [place] [address] Micha Baumann M.D. [address] [place] [address] Abnormal Computed Tomography (Primary Dx); Constipation; Proctitis Discharge Disposition: Home or Self Care Social History Tobacco Use Types Packs/Day Years Used Date Smoking Tobacco: Never Passive Smoke Exposure: Never Smokeless Tobacco: Never Alcohol Use Standard Drinks/Week Comments Yes 3 (1 standard drink = 0.6 oz pur e alcohol) [facility] Utilities Answer Date Recorded In the past 12 months has e [employer], gas, oil, or water [employer] threatened to shut off services in your [...] your living situation today? 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 Examination and imaging were not concerning for an acute finding that would require admission or surgical intervention. A digital rectal exam was performed which demonstrated no obvious impaction. This was followed by a Fleet enema. We have scheduled to follow up visit with Colorectal surgery here at [facility] for further evaluation and workup of failed [...] this encounter Medications at Time of Discharge bisacodyL (Dulcolax) 10 mg suppository Insert 10 mg into the rectum daily as needed. 06/21/2024 cycloSPORINE (Restasis) 0.05 % ophthalmic emulsion Administer [...] every 2 (two) hours as needed. 11/28/2016 Senexon-S 8.6-50 mg per tablet Take 1 tablet by mouth daily. 06/27/2024 simvastatin (ZOCOR) 20 mg tablet Take 20 mg by mouth at bedtime. 08/31/2016 vits A,C,E/lutein/mine rals (OCUVITE WITH LUTEIN ORAL) Take 150 mg by mouth daily. 11/28/2016 polyethylene glycol (MIRALAX) 17 gram powder packet Take 1 packet by mouth daily. 11/28/2016 4 documented as of this encounter ED Notes [...] neck pain and feels this has been cont ributing. On physical exam the patient is awake [...] M.D. 07/02/24 1406 * Fatoumata Malave R.N., CCRN - 07/01/2024 10:41 PM CDT Pt has not had a bowel movement for the last 2 weeks; per pt report she hasn't been eating as much due to fear that she will have a BM that will complicate her prolapsed uterus Last full meal was last Thursday. Fatoumata Malave R.N., DANIELN 07/01/242243 * Ness Robles Jr., M.D., M.B.A. - 07/01/2024 10:34 PM CDT SUBJECTIVE CHIEF COMPLAINT/REASON FOR VISIT Constipation HISTORY OF PRESENT ILLNESS This is a 68-year-old woman with a history of hyperlipidemia, hypertension, osteoporosis, previous partial colectomy, failed rectopexy who is presenting to the [place] [facility] with proximally 2 weeks of [...] 188/91 SpO2 07/01/242218 100 % Pain Score 07/01/24 2220 5 - Moderate pain Recent Results (from [...] : No CVA Tenderness Integumentary: Warm, Dry, [place], Intact, no jaundice or visible bruises Neuro: A&O. Normal sensory and motor function. Psych: Cooperative. Appropriate mood & affect. Normal judgement. MSK: ROM and muscle strength grossly normal. No deformity, tenderness, localized swelling or erythema. ASSESSMENT/PLAN This is a 68 old woman with a history of partial colectomy and failed rectopexy presenting to the [place] [facility] with 2 weeks of constipation. Patient is passing gas and is not appear to be obstructed. She is chronically on MiraLax daily and has known rectal prolapse. A recent diagnosis of cervical stenosis is exacerbated her pain, for which she was placed on narcotic medication, exacerbating or GI condition. Based on abdominal CT, she was found to have birv-zd-oyfeotdw amountof stool in the rectum, without concern [...] (Latest Contact Info) Description 08/05/2024 11:00 AM PRESS SECRETARY Clinical Support Department of Physical Medicine and Rehabilitation in [address] [phone] Renate Youngblood APRN, C.N.P., M.S.N. [address] [place] [phone] 08/05/2024 2:00 PM PRESS SECRETARY Clinical Support Department of Physical Medicine and Rehabilitation in [address] [phone] Renate Youngblood APRN, Celeste.N.P., M.S.N. [address] [place] [phone] 08/08/2024 2:00 PM PRESS SECRETARY Clinical Support Department of Physical Medicine and Rehabilitation in [address] [phone] Renate Youngblood APRN, C.N.P., M.S.N. [address] [place] [phone] 08/11/2024 10:00 AM PRESS SECRETARY Clinical Support Department of Physical Medicine and Rehabilitation in [place], [place] [address] [place] [address] Renate Youngblood APRN, C.N.P., M.S.N. [address] [place] [phone] 11/10/2024 10:00 AM PRESS SECRETARY Comprehensive Visit Department of Obstetrics and Gynecology, Division of Urogynecology in [place], [place] [address] [place] [address] Yan Turner M.D., M.S. [address] [place] [phone] Scheduled Procedures Name Priority Associated Diagnoses Date/Ti me ROBOTIC-ASSISTED RECTOPEXY Prolapse Rectal Cystocele Rectocele ROBOTIC-ASSISTED EXPLORATION Prolapse Rectal Cystocele Rectocele Scheduled Referrals Name Type Priority Associated Diagnoses [...] of a mild proctitis. Micha Baumann M.D. IMNile CT PROCEDURES Final R esult * Lactate (07/01/2024 10:55 PM CDT) Lactate, P 1.0 0.5 - 2.2 mmol/L 07/01/2024 11:25 PM CDT STMA Blood (Blood, Venous) 07/01/2024 10:55 PM CDT 07/01/2024 11:10 PM CDT Micha Baumann M.D. LAB BLOOD NON ADD-ON Luisana l Result [facility] [address] [place] [address], [facility] STMA [facility] [address] [place] [address] * (ABNORMAL) CBC with Differential, Blood (07/01/2024 [...] M.D. LAB BLOOD ADD-ON Final Re sult Performing Organization Address City/[facility]/ZIP Co de Phone Number [facility] [address] [place] [address], [facility] STMA [place] [facility] [address] [place] [address] [facility] [address] [place] [address] * Lipase (07/01/2024 10:55 PM CDT) Lipase, S 30 13 - 60 U/L 07/01/2024 11:44 PM CDT DTL Blood (Blood, Venous) 07/01/2024 10:55 PM CDT 07/01/2024 11:30 PM CDT Micha Baumann M.D. LAB BLOOD ADD-ON Final Re sult Performing Organization Address [facility] Co de Phone Number [facility] [address] [place] [address], [facility] DTL [facility] [address] [place] [address] * Hepatic Function Panel (07/01/2024 10:55 PM [...] M.D. LAB BLOOD ADD-ON Final Re sult [facility] [address] [place] [address], [facility] [address] [place] [address] * (ABNORMAL) Basic Metabolic Panel (07/01/2024 10:55 [...] M.D. LAB BLOOD ADD-ON Final Re sult [facility] [address] [place] [address], [facility] STMA [place] [facility] [address] [place] [address] documented in this encounter Visit Diagnoses Diagnosis [...] 1-100 mL 1-100 mL, intravenous, Once, On Thu07/01/24 at 2337, For 1 dose, Imaging Protocol [...] (Given - Provid er: Fatoumata Malave R.N., DANIELN) potassium chloride ER tablet 40 mEq (COMPLETED) [...] (Given - Provid er: Fatoumata Malave R.N., DANIELN) PRN Medication Order 06/30/2024 07/01/2024 07/02/2024 iohexoL 300 mg iodine/mL solution 1-200 mL (Omnipaque) (COMPLETED) 1-200 mL, intravenous, Once in imaging, contrast, Starting on 07/01/24 at 2336, For 1 dose, Imaging Protocol Orders, Dose per Radiant Medication Guidelines 2343 (Given - Provider: Ella Rai R.N. - Comment: lot # [id number]) documented in this encounter Care Teams Thread Marker Relationship Specialty Start Date End Date Elsewhere, Pcp PCP - General Internal Medicine 07/02/24 documented as of this encounter
--- OUTSIDE RECORDS SUMMARY | 2024-08-02 14:15 | XMS_ITS | Encounter Summary ---
Author Organization [facility] Address [address] [place] [address] Care Team Providers Care Warehouse Administrative Assistant Name Role Phone Elsewhere, Pcp Primary Care Provider Unavailabl e Encounter Details Date Type Department Care Team (Late st Contact Info) Description 07/04/2024 Clinical Communication Division of Colon and Rectal Surgery in [place], [place] [address] [place] [address] Brianne Beebe M.D., Ph.D. [address] [place] [address] Social History Tobacco Use Types Packs/Day Years Used Date Smoking Tobacco: Never Passive Smoke Exposure: Never Smokeless Tobacco: Never Alcohol Use Standard Drinks/Week Comments Yes 3 (1 standard drink = 0.6 oz pur e alcohol) [facility] Utilities Answer Date Recorded In the past 12 months has [employer], gas, oil, or water company threatened [...] your living situation today? I have a [facility] place to live 01/07/2024 Comments Unknown Sex and Gender Information Value Date Recorded Sex Assigned at Female 01/07/2024 8:31 PM CDT Legal Sex Female 5:11 PM SEAM RUBBING MACHINE OPERATOR Gender Identity Female 01/07/2024 8:31 PM CDT Sexual Orientation Straight 01/07/2024 8: 31 PM CDT documented as of this encounter Plan of Treatment Upcoming Encounters Date Type Department Care Team (Latest Contact Info) Description 08/05/2024 11:00 AM SEAM RUBBING MACHINE OPERATOR Clinical Support Department of Physical Medicine and Rehabilitation in [place], [place] [address] [place] [phone] Renate Youngblood APRN, C.N.P., M.S.N. 200 [place] [phone] 08/05/2024 2:00 PM SEAM RUBBING MACHINE OPERATOR Clinical Support Department of Physical Medicine and Rehabilitation in [place], [place] [address] [place] [phone] Renate Youngblood APRN, C.N.P., M.S.N. [address] [place] [phone] 08/08/2024 2:00 PM SEAM RUBBING MACHINE OPERATOR Clinical Support Department of Physical Medicine and Rehabilitation in [place], [place] [address] [place] [phone] Renate Youngblood APRN, C.NLaurelP., M.S.N. [address] [place] [phone] 08/11/2024 10:00 AM SEAM RUBBING MACHINE OPERATOR Clinical Support Department of Physical Medicine and Rehabilitation in [place], [place] [address] [place] [phone] Renate Youngblood APRN, C.NLewis., M.S.N. [address] [place] [phone] 11/10/2024 10:00 AM SEAM RUBBING MACHINE OPERATOR Comprehensive Visit Department of Obstetrics and Gynecology, Division of Urogynecology in [address] [phone] Yan Turner M.D., M.S. [address] [place] [phone] Scheduled Procedures Name Priority Associated Diagnoses Date/Ti me ROBOTIC-ASSISTED RECTOPEXY Prolapse Rectal Cystocele Rectocele ROBOTIC-ASSISTED EXPLORATION Prolapse Rectal Cystocele Rectocele documented as of this encounter Visit Diagnoses Not on filedocumented in this encounter Care Teams Warehouse Administrative Assistant Relationship Specialty Start Date End Date Elsewhere, Pcp PCP - General Internal Medicine 07/02/24 documented as of this encounter
--- OUTSIDE RECORDS SUMMARY | 2024-08-02 14:15 | XMS_ITS | Encounter Summary ---
Author Organization [facility] Address [address] [place] [address] Care Team Providers Care Medical Case Manager Name Role Phone Elsewhere, Pcp Primary Care Provider Unavailabl e Reason for Referral * Specialty Diagnoses / Procedures Referred By Contac t Referred To Contact Diagnoses Constipation Cystocele Midline Rectocele [facility] [address] [place] [address] Phone: tel: [facility] Referral ID Status Reason Start Date Expiration Date Visits Re quested Visits Authorized * Specialty Diagnoses / Procedures Referred By Contac t Referred To Contact Diagnoses Constipation Cystocele Midline Rectocele [facility] [address] [place] [address] Phone: tel: [facility] Referral ID Status Reason Start Date Expiration Date Visits Re quested Visits Authorized Encounter Details Date Type Department Care Team (Late st Contact Info) Description 07/08/2024 Orders Only Division of Colon and Rectal Surgery in [place], [place] [address] [place] [phone] Brianne Beebe M.D., Ph.D. [address] [place] [address] Constipation (Primary Dx); Cystocele Midline; Rectocele Social History Tobacco Use Types Packs/Day Years Used Date Smoking Tobacco: Never Passive Smoke Exposure: Never Smokeless Tobacco: Never Alcohol Use Standard Drinks/Week Comments Yes 3 (1 standard drink = 0.6 oz pur e alcohol) [facility] Utilities Answer Date Recorded In the past 12 months has e [employer], gas, oil, or water [employer] threatened to shut off services in your [...] [facility] place [facility] 01/07/2024 Comments Unknown Sex and Gender Information Value Date Recorded Sex Assigned at Female 01/07/2024 8:31 PM CDT 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 [address] [place] [phone] 08/05/2024 2:00 PM WATER FILTER CLEANER Clinical Support Department of Physical Medicine and Rehabilitation in [address] [phone] Renate Youngblood APRN, C.NLewis., M.S.N. [address] [place] [phone] 08/08/2024 2:00 PM WATER FILTER CLEANER Clinical Support Department of Physical Medicine and Rehabilitation in [address] [phone] Renate Youngblood APRN, C.N.P., M.S.N. [address] [place] [phone] 08/11/2024 10:00 AM WATER FILTER CLEANER Clinical Support Department of Physical Medicine and Rehabilitation in [address] [phone] Renate Youngblood APRN, C.N.P., M.S.N. [address] [place] [phone] 11/10/2024 10:00 AM WATER FILTER CLEANER Comprehensive Visit Department of Obstetrics and Gynecology, Division of Urogynecology in [address] [phone] Yan Turner M.D., M.S. [address] [place] [address] Scheduled Procedures Name Priority Associated Diagnoses Date/Ti me ROBOTIC-ASSISTED RECTOPEXY Prolapse Rectal Cystocele Rectocele ROBOTIC-ASSISTED EXPLORATION Prolapse Rectal Cystocele Rectocele Scheduled Referrals Name Type Priority Associated Diagnoses Orde r Schedule Patient Education - Pelvic stress - relax education visit (clinic) Outpatient Referral Routine Constipation Cystocele Midline Rectocele Expected: 07/08/2024, Expires: 10/08/2025 Patient Education - Pelvic bowel function class visit (clinic) Outpatient Referral Routine Constipation Cystocele Midline Rectocele Expected: 07/08/2024, Expires: 10/08/2025 documented as of this encounter Goals Goal Patient Goal Type Associated Problems Recent Progress Patient-Stated? Author [facility] Care Plan for Nicotine Dependency Perioperative Care Plan [facility] Care Plan for Nicotine Dependency Perioperative No Genevieve Strickland, RLaurelN. Surgical Readiness and Recovery Care Plan Care Plan Surgical Readiness and Recovery Care Plan No Genevieve Strickland RLaurelN. documented as of this encounter Visit Diagnoses Diagnosis Constipation- Primary Cystocele Midline Rectocele documented in this encounter Additional Health Concerns Active Problems Noted Date Diagnosed Date [facility] Care Plan for Nicotine Dependency Pe rioperative 07/08/2024 Surgical Readiness and Recovery Care Plan 2023 documented as of this encounter Care Teams Medical Case Manager Relationship Specialty Start Date End Date Elsewhere, Pcp PCP - General Internal Medicine 07/02/24 documented as of this encounter
--- OUTSIDE RECORDS SUMMARY | 2024-08-02 14:15 | XMS_ITS | Encounter Summary ---
Author Organization [facility] Address [address] [place] [address] Care Team Providers Care Pick Out Hand Name Role Phone Elsewhere, Pcp Primary Care [...] PM CDT Legal Sex Female 5:11 PM SENIOR AUTOMATION ENGINEER Gender Identity Female 01/07/2024 8:31 PM CDT [...] normal retina CDM Reports - EYESV Id: [id number] Status: Fnl documented in this encounter Plan of Treatment Upcoming Encounters Date Type Department Care Team (Latest Contact Info) Description 08/05/2024 11:00 AM SENIOR AUTOMATION ENGINEER Clinical Support Department of Physical Medicine and Rehabilitation in [address] [phone] Renate Youngblood APRN, C.N.P., M.S.N. [address] [place] [phone] 08/05/2024 2:00 PM SENIOR AUTOMATION ENGINEER Clinical Support Department of Physical Medicine and Rehabilitation in [place], [place] [address] [place] [phone] Renate Youngblood APRN, C.N.Dandre., M.S.N. [address] [place] [phone] 08/08/2024 2:00 PM SENIOR AUTOMATION ENGINEER Clinical Support Department of Physical Medicine and Rehabilitation in [place], [place] [address] [place] [phone] Renate Youngblood APRN, C.N.P., M.S.N. [address] [place] [phone] 08/11/2024 10:00 AM SENIOR AUTOMATION ENGINEER Clinical Support Department of Physical Medicine and Rehabilitation in [address] [phone] Renate Youngblood APRN, C.N.P., M.S.N. [address] [place] [phone] 11/10/2024 10:00 AM SENIOR AUTOMATION ENGINEER Comprehensive Visit Department of Obstetrics and Gynecology, Division of Urogynecology in [address] [phone] Yan Turner M.D., M.S. [address] [place] [phone] Scheduled Procedures Name Priority Associated Diagnoses Date/Ti mn ROBOTIC-ASSISTED RECTOPEXY Prolapse Rectal Cystocele Rectocele ROBOTIC-ASSISTED EXPLORATION Prolapse Rectal Cystocele Rectocele documented as of this encounter Visit Diagnoses Not on filedocumented in this encounter Care Teams Pick Out Hand Relationship Specialty Start Date End Date Elsewhere, Pcp PCP - General Internal Medicine 07/02/24 documented as of this encounter
--- OUTSIDE RECORDS SUMMARY | 2024-08-02 14:15 | XMS_ITS | Encounter Summary ---
Author Organization [facility] Address [address] [place] [address] Care Team Providers Care Machine Records Units Supervisor Name Role Phone Elsewhere, Pcp Primary Care Provider Unavailabl e Reason for Referral * Outpatient (Routine) - Authorized Specialty Diagnoses / Procedures Referred By Contact Referred To Contact Physical Medicine and Rehabilitation Diagnoses Dysfunction Pelvic Floor Prolapse Rectal Other Female Genital Prolapse Procedures PMR Pelvic floor & bowel/bladder programs Renate Youngblood APRN, C.N.P., M.S.N. [address] [place] [address] Phone: tel: fax: [facility] Referral ID Status Reason Start Date Expiration Date V isits Requested Visits Authorized [id number] Authorized 07/08/2024 09/27/2024 23 23 * Specialty Diagnoses / Procedures Referred By Contac t Referred To Contact Diagnoses Dysfunction Pelvic Floor Prolapse Rectal Other Female Genital Prolapse [facility] [address] [place] [address] Phone: tel: [facility] Referral ID Status Reason Start Date Expiration Date Visits Re quested Visits Authorized * Specialty Diagnoses / Procedures Referred By Floresita barraza Referred To Contact Diagnoses Dysfunction Pelvic Floor Prolapse Rectal Other Female Genital Prolapse [facility] [address] [place] [phone] Phone: tel: Referral ID Status Reason Start Date Expiration Date Visits Re quested Visits Authorized Reason for Visit * Physical Therapy (Routine) - Authorized Specialty Diagnoses / Procedures Referred By Floresita barraza Referred To Contact Diagnoses Dysfunction Pelvic Floor Prolapse Rectal Acquired Absence Of Other Specified Parts Of Digestive Tract Other Female Genital Prolapse Procedures PMR Pelvic floor & bowel/bladder rehab Renate Youngblood APRN, C.N.P., M.S.N. [address] [place] [phone] Phone: tel: fax: [facility] Referral ID Status Reason Start Date Expiration Date V isits Requested Visits Authorized [id number] Authorized 04/07/2024 04/07/2025 99 99 Encounter Details Date Type Department Care Team (Latest Contact Info) Description 04/19/2024 9:00 AM CDT Comprehensive Visit Department of Physical Medicine and Rehabilitation in [place], [place] [address] [place] [phone] Renate Youngblood APRN, C.N.Aliyah, M.S.N. [address] [place] [phone] Karin Chambers, P.T., D.P.T. [address] [place] [phone] Dysfunction Pelvic Floor (Primary Dx); Prolapse Rectal; [...] PM CDT Legal Sex Female 5:11 PM STRIPPER AND PRINTER Gender Identity Female 01/07/2024 8:31 PM CDT Sexual Orientation Straight 01/07/2024 8: 31 PM CDT documented as of this encounter Consult Notes * Karin Chambers, P.T., D.P.T. - 04/19/2024 9:00 AM CDT Outpatient Pelvic Health Evaluation and Treatment By co-signing this note, the provider certifies the therapy being provided to this patient is reasonable and necessary for the diagnosis or treatment of this patient. SUBJECTIVE Patient's Name: Allie Barbosa Referring Provider: Renate Youngblood APRN, C.N.P., M.S.N. Medical Diagnosis: 1. Dysfunction Pelvic Floor 2. Prolapse Rectal 3. Acquired Absence Of Other Specified Parts Of Digestive Tract 4. Other Female Genital Prolapse Reason for Referral: appropriateness for evac program Payor: MEDICA / Plan: [place] COST SHARE / Product Type: Cost Share [...] cannot even feel when she is defecating. [place] Type: type 6 with use of miralax, [...] Patient consents to evaluation with no additional stopboard assembler present. Explained each step of pelvic floor [...] Educated on pelvic floor and abdominal muscle awarenessand application to ADLS. -optimizing baseline muscle tone [...] down training and decreasing sympathetic stimulation. -See amcure below -Finding a local pelvic floor therapist with list of providers given Home Exercise Program/Education- -Attend local pelvic floor therapy Access Code: [email or web address] URL: [email or web address] Date: 04/19/2024 Prepared by: Karin Chambers Exercises [...] for pelvic floor therapy here at [facility] for the 2-week program or locally. At this time, the patient prefers to Attend local pelvic floor therapy, pt is welcome to reach out to myself or our team to attend some pelvic floor follow ups here at [facility] as well. Rehab Potential: Ms. Barbosa has [...] min Total Treatment Time (min): 77 min Karin Chambers P.T., D.P.T. Cosigned by Renate Youngblood APRN, C.N.P., M.S.N. at 04/19/2024 11:51 AM CDT documented in this encounter Miscellaneous Notes * Addendum Note - Brandy Dowd P.T., D.P.T. - 04/19/2024 9:00 AM CDT Addended by: BRANDY DOWD on: 07/08/2024 05:00 PM Modules accepted: Orders documented in this encounter Plan of Treatment Upcoming Encounters Date Type Department Care Team (Latest Contact Info) Description 08/05/2024 11:00 AM STRIPPER AND PRINTER Clinical Support Department of Physical Medicine and Rehabilitation in [place], [place] [address] [place] [phone] Renate Youngblood APRN, C.N.P., M.S.N. [address] [place] [phone] 08/05/2024 2:00 PM STRIPPER AND PRINTER Clinical Support Department of Physical Medicine and Rehabilitation in [place], [place] [address] [place] [phone] Renate Youngblood APRN, Celeste.N.P., M.S.N. [address] [place] [phone] 08/08/2024 2:00 PM STRIPPER AND PRINTER Clinical Support Department of Physical Medicine and Rehabilitation in [address] [phone] Renate Youngblood APRN, Celeste.N.P., M.S.N. [address] [place] [phone] 08/11/2024 10:00 AM STRIPPER AND PRINTER Clinical Support Department of Physical Medicine and Rehabilitation in [place], [place] [address] [place] [phone] Renate Youngblood APRN, Celeste.N.P., M.S.N. [address] [place] [phone] 11/10/2024 10:00 AM STRIPPER AND PRINTER Comprehensive Visit Department of Obstetrics and Gynecology, Division of Urogynecology in [place], [place] [address] [place] [phone] Yan Turner M.D., M.S. [address] [place] [address] Scheduled Procedures Name Priority Associated Diagnoses Date/Ti me ROBOTIC-ASSISTED RECTOPEXY Prolapse Rectal Cystocele Rectocele ROBOTIC-ASSISTED EXPLORATION Prolapse Rectal Cystocele Rectocele Scheduled Referrals Name Type Priority Associated Diagnoses Orde r Schedule Bowel function self-guided eLearning Outpatient Referral Routine Dysfunction Pelvic Floor Prolapse Rectal Other Female Genital Prolapse Ordered: 07/08/2024 Patient Education - Pelvic stress - relax education visit (clinic) Outpatient Referral Routine Dysfunction Pelvic Floor Prolapse Rectal Other Female Genital Prolapse Expected: 07/08/2024, Expires: 10/08/2025 documented as of this encounter Goals Goal Patient Goal Type Associated Problems Recent Progress Patient-Stated? Author [facility] Care Plan for Nicotine Dependency Perioperative Care Plan [facility] Care Plan for Nicotine Dependency Perioperative No [...] Active Problems Noted Date Diagnosed Date [facility] Care Plan for Nicotine Dependency Pe rioperative 07/08/2024 Surgical Readiness and Recovery Care Plan 2023 documented as of this encounter Care Teams Machine Records Units Supervisor Relationship Specialty Start Date End Date Elsewhere, Pcp PCP - General Internal Medicine 07/02/24 documented as of this encounter
--- OUTSIDE RECORDS SUMMARY | 2024-08-02 14:15 | XMS_ITS | Encounter Summary ---
Author Organization [facility] Address [address] [place] [address] Care Team Providers Care Force Variation Equipment Tender Name Role Phone Elsewhere, Pcp Primary Care Provider Unavailabl e Reason for Visit * Reason Onset Date Comments Referral Triage 07/04/2024 Encounter Details Date Type Department Care Team (Late st Contact Info) Description 07/04/2024 Referral Triage Division of General Internal Medicine in [place], [place] [address] [place] [phone] Prescheduling, Provider Referral Triage Social History Tobacco Use Types Packs/Day Years Used Date Smoking Tobacco: Never Passive Smoke Exposure: Never Smokeless Tobacco: Never Alcohol Use Standard Drinks/Week Comments Yes 3 (1 standard drink = 0.6 oz pur e alcohol) [facility] Utilities Answer Date Recorded In the past 12 months has [email or web address], gas, oil, or water [employer] threatened to shut off services in your [...] living situation today? I have a [facility] place to live 01/07/2024 Comments Unknown Sex and Gender Information Value Date Recorded Sex Assigned at Female 01/07/2024 8:31 PM CDT Legal Sex Female 5:11 PM CONTACT CENTER ASSISTANT Gender Identity Female 01/07/2024 8:31 PM CDT Sexual Orientation Straight 01/07/2024 8: 31 PM CDT documented as of this encounter Plan of Treatment Upcoming Encounters Date Type Department Care Team (Latest Contact Info) Description 08/05/2024 11:00 AM CONTACT CENTER ASSISTANT Clinical Support Department of Physical Medicine and Rehabilitation in [place], [place] 200 [place] [address] Renate Youngblood APRN, C.N.P., M.S.N. [address] [place] [phone] 08/05/2024 2:00 PM CONTACT CENTER ASSISTANT Clinical Support Department of Physical Medicine and Rehabilitation in [place], [place] [address] [place] [phone] Renate Youngblood APRN, C.N.P., M.S.N. [address] [place] [phone] 08/08/2024 2:00 PM CONTACT CENTER ASSISTANT Clinical Support Department of Physical Medicine and Rehabilitation in [place], [place] [address] [place] [phone] Renate Youngblood APRN, C.NLewis., M.S.N. [address] [place] [phone] 08/11/2024 10:00 AM CONTACT CENTER ASSISTANT Clinical Support Department of Physical Medicine and Rehabilitation in [place], [place] [address] [place] [phone] Renate Youngblood APRN, C.N.P., M.S.N. [address] [place] [phone] 11/10/2024 10:00 AM CONTACT CENTER ASSISTANT Comprehensive Visit Department of Obstetrics and Gynecology, Division of Urogynecology in [address] [phone] Yan Turner M.D., M.S. [address] [place] [phone] Scheduled Procedures Name Priority Associated Diagnoses Date/Ti ok ROBOTIC-ASSISTED RECTOPEXY Prolapse Rectal Cystocele Rectocele ROBOTIC-ASSISTED EXPLORATION Prolapse Rectal Cystocele Rectocele documented as of this encounter Visit Diagnoses Not on filedocumented in this encounter Care Teams Force Variation Equipment Tender Relationship Specialty Start Date End Date Elsewhere, Pcp PCP - General Internal Medicine 07/02/24 documented as of this encounter
--- OUTSIDE RECORDS SUMMARY | 2024-08-02 14:15 | XMS_ITS | Encounter Summary ---
Author Organization [facility] Address [address] [place] [address] Care Team Providers Care Diagnostic Imaging Manager Name Role Phone Elsewhere, Pcp Primary Care Provider Unavailabl e Reason for Visit * Reason Comments Patient Education Encounter Details Date Type Department Care Team (Late st Contact Info) Description 07/14/2024 1:00 PM CDT Telemedicine Department of Patient Education in [place], [place] [address] [place] [address] Brianne Beebe M.D., Ph.D. [address] [place] [address] Constipation; Cystocele Midline; Rectocele Social History Tobacco Use Types Packs/Day Years Used Date Smoking Tobacco: Never Passive Smoke Exposure: Never Smokeless Tobacco: Never Alcohol Use Standard Drinks/Week Comments Yes 3 (1 standard drink = 0.6 oz pur e alcohol) [facility] Utilities Answer Date Recorded In the past 12 months has [employer], gas, oil, or water [employer] threatened to shut off services in your [...] your living situation today? I have a [facility] place to live 01/07/2024 Comments Unknown Sex and Gender Information Value Date Recorded Sex Assigned at Female 01/07/2024 8:31 PM CDT Legal Sex Female 5:11 PM LOFT WORKER HEAD Gender Identity Female 01/07/2024 8:31 PM CDT Sexual Orientation Straight 01/07/2024 8: 31 PM CDT documented as of this encounter Plan of Treatment Upcoming Encounters Date Type Department Care Team (Latest Contact Info) Description 08/05/2024 11:00 AM LOFT WORKER HEAD Clinical Support Department of Physical Medicine and Rehabilitation in [place], [place] [address] [place] [phone] Renate Youngblood, JOSE, C.N.P., M.S.N. [address] [place] [phone] 08/05/2024 2:00 PM LOFT WORKER HEAD Clinical Support Department of Physical Medicine and Rehabilitation in [place], [place] [address] [place] [address] Renate Youngblood APRN, C.NLewis., M.S.N. [address] [place] [phone] 08/08/2024 2:00 PM LOFT WORKER HEAD Clinical Support Department of Physical Medicine and Rehabilitation in [place], [place] [address] [place] [phone] Renate Youngblood APRN, C.NLewis., M.S.N. [address] [place] [phone] 08/11/2024 10:00 AM LOFT WORKER HEAD Clinical Support Department of Physical Medicine and Rehabilitation in [place], [place] [address] [place] [phone] Renate Youngblood APRN, C.NLewis., M.S.N. [address] [place] [phone] 11/10/2024 10:00 AM LOFT WORKER HEAD Comprehensive Visit Department of Obstetrics and Gynecology, Division of Urogynecology in [place], [place] [address] [place] [phone] Yan Turner M.D., M.S. [address] [place] [phone] Scheduled Procedures Name Priority Associated Diagnoses Date/Ti nd ROBOTIC-ASSISTED RECTOPEXY Prolapse Rectal Cystocele Rectocele ROBOTIC-ASSISTED EXPLORATION Prolapse Rectal Cystocele Rectocele documented as of this encounter Goals Goal Patient Goal Type Associated Problems Recent Progress Patient-Stated? Author [facility] Care Plan for Nicotine Dependency Perioperative Care Plan [facility] Care Plan for Nicotine Dependency Perioperative No Genevieve Strickland R.N. Surgical Readiness and Recovery Care Plan Care Plan Surgical Readiness and Recovery Care Plan No Genevieve Strickland R.N. documented as of this encounter Visit Diagnoses Diagnosis Constipation Cystocele Midline Rectocele documented in this encounter Additional Health Concerns Active Problems Noted Date Diagnosed Date [facility] Care Plan for Nicotine Dependency Pe rioperative 07/08/2024 Surgical Readiness and Recovery Care Plan 2023 documented as of this encounter Care Teams Diagnostic Imaging Manager Relationship Specialty Start Date End Date Elsewhere, Pcp PCP - General Internal Medicine 07/02/24 documented as of this encounter
--- OUTSIDE RECORDS SUMMARY | 2024-08-02 14:15 | XMS_ITS | Encounter Summary ---
Author Organization [facility] Address [address] [place] [phone] Care Team Providers Care Clerical Associate Name Role Phone Elsewhere, Pcp Primary Care Provider Unavailabl e Reason for Visit * Reason Comments Consult * Outpatient (Routine) - Closed Specialty Diagnoses / Procedures Referred By Contac t Referred To Contact Colon and Rectal Surgery Diagnoses Constipation Proctitis Micha Baumann M.D. [address] [place] [phone] Phone: tel: fax: [facility] Referral ID Status Reason Start Date Expiration Date Visits Re quested Visits Authorized [id number] Closed 07/02/2024 01/01/2026 1 1 Encounter Details Date Type Department Care Team (Late st Contact Info) Description 07/08/2024 9:30 AM CDT Office Visit Division of Colon and Rectal Surgery in [place], [place] [address] [place] [phone] Brianne Beebe M.D., Ph.D. [address] [place] [phone] Angina Pectoris Unspecified (HCC) (Primary Dx); Other Female Genital Prolapse; Constipation; Proctitis Social History Tobacco Use Types Packs/Day Years Used Date Smoking Tobacco: Never Passive Smoke Exposure: Never Smokeless Tobacco: Never Alcohol Use Standard Drinks/Week Comments Yes 3 (1 standard drink = 0.6 oz pur e alcohol) [facility] Utilities Answer Date Recorded In the [...] living situation today? I have a [facility] place to live 01/07/2024 Comments Unknown Sex and Gender Information Value Date Recorded Sex Assigned at Female 01/07/2024 8:31 PM CDT Legal Sex Female 5:11 PM INSTRUCTIONAL SUPPORT ASSISTANT Gender Identity Female 01/07/2024 8:31 PM CDT Sexual Orientation Straight 01/07/2024 8: 31 PM CDT documented as of this encounter Consult Notes * Brianne Beebe M.D., Ph.D. - 07/08/2024 9:30 AM CDT Colorectal Surgery Consult Note Allie Barbosa is a(n) 68 y.o. female here today for rectal prolapse. Referred by Ref Prov: Evelin Baumann* Accompanied by her daughter Had an injection in her neck which resulted in right-sided pain symptoms. Tramadol did not help so she began using oxycodone. The pain has resolved but unfortunately this resulted in constipation andshe ended up in the emergency department 07/02/24. CT showing mild proctitis. Was able to have a bowel motion there with enemas. Since then she has found no relief from MiraLax but is experiencing relief with senna. Two tablets was too much, 1 tablet seems to be enough. She still has a sensation of a heavy ball falling down when she tries to have bowel movements making it difficult. She does have to do splinting and push on her perineum and anus in order to support her bladder to urinate. She did have a 1 time visit with our physical therapist but has not initiated a physical therapy program. She has not had any external prolapse since the episode of November in 2023. Recovery from surgery in 2005 was terribly difficult and prolonged. -With flatus, she will leak stool. 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 was seen by Genetics, declined genetic testing. -11/2023 to ED with inability to urinate, [...] No straining generally. No bleeding or mucous -2005 partial colectomy: profound intussusception, low abdominal [...] external hemorrhoids and small in ternal hemorrhoids. -Raynaud, GERD, HTN, hyperlipidemia, -1984 SNOW 03/2024 MRI proctogram: IMPRESSION: 1. Normal-appearing internal [...] ARM: high resting pressure. Abnormal balloon expulsion There were no vitals filed for this visit. Nurse Dorcas present for exam No acute distress, well-appearing Documented exam at last clinic visit: Low midline scar from resection rectopexy and [...] Rectocele, enterocele, cystocele after prior transvaginal repair. We reviewed multimodal management of her situation. One will be medical management of her constipation. It sounds like her PCP is not comfortable managing constipation I have recommended she reach out to a laborer petroleum refinery. If stent is working then she should continue with that. I have also recommended that she move forward with pelvic floor physical therapy he will be important to have gotten as much benefit as possible from this before surgery and she will need to be able to maintain this after surgery. Not only though this help with her bowel function but also with her urination issues as well. The last angle of attack is a surgical. Surgery would be ventral mesh rectopexy on my part. I would engage 1 of my urogynecology colleagues for resuspension of the vagina and bladder as well as addressing the enterocele cystocele and rectocele. Would anticipate a robotic approach, although given her prior surgery there is a possibility that we would need to complete the operation in an open fashion. We reviewed that anticipating postoperative bowel function is difficult after recurrent repair for prolapse. For some people at worsens constipation for others it worse as incontinence. We discussed that there are various strategies for each should she experience that postoperatively. At this time, despite her difficult experience from prefer surgery, she was ready to move forward with s urgical repair. We will anticipate surgery early 2024 to coordinate multidisciplinary OR. This willgive her time to work on her constipation as well as pelvic floor physical therapy. She has follow-up with gynecology later this month regarding ovarian findings on her latest CT scan. ultrasound pending. Any concerning findings on there and may need to delay repair for her pelvic organ prolapse. If appropriate, we could always consider including oophorectomy at the time of prolapse repair. #7 Other Female Genital Prolapse See above Lori Beebe MD/PhD Division of Colon and Rectal Surgery documented in this encounter Plan of Treatment Upcoming Encounters Date Type Department Care Team (Latest Contact Info) Description 08/05/2024 11:00 AM INSTRUCTIONAL SUPPORT ASSISTANT Clinical Support Department of Physical Medicine and Rehabilitation in [place], [place] 200 [place] [phone] Renate Youngblood APRN, C.N.P., M.S.N. [address] [place] [phone] 08/05/2024 2:00 PM INSTRUCTIONAL SUPPORT ASSISTANT Clinical Support Department of Physical Medicine and Rehabilitation in [place], [place] [address] [place] [phone] Renate Youngblood APRN, C.NLewis., M.S.N. [address] [place] [phone] 08/08/2024 2:00 PM INSTRUCTIONAL SUPPORT ASSISTANT Clinical Support Department of Physical Medicine and Rehabilitation in [place], [place] [address] [place] [phone] Renate Youngblood APRN, C.N.P., M.S.N. [address] [place] [phone] 08/11/2024 10:00 AM INSTRUCTIONAL SUPPORT ASSISTANT Clinical Support Department of Physical Medicine and Rehabilitation in [address] [phone] Renate Youngblood APRN, C.NLewis., M.S.N. [address] [place] [phone] 11/10/2024 10:00 AM INSTRUCTIONAL SUPPORT ASSISTANT Comprehensive Visit Department of Obstetrics and Gynecology, Division of Urogynecology in [address] [phone] Yan Turner M.D., M.S. [address] [place] [phone] Scheduled Procedures Name Priority Associated Diagnoses Date/Ti wi ROBOTIC-ASSISTED RECTOPEXY Prolapse Rectal Cystocele Rectocele ROBOTIC-ASSISTED EXPLORATION Prolapse Rectal Cystocele Rectocele documented as of this encounter Goals Goal Patient Goal Type Associated Problems Recent Progress Patient-Stated? Author [facility] Care Plan for Nicotine Dependency Perioperative Care Plan [facility] Care Plan for Nicotine Dependency Perioperative No Genevieve Strickland R.N. Surgical Readiness and Recovery Care Plan Care Plan Surgical Readiness and Recovery Care Plan No Genevieve Strickland R.N. documented as of this encounter Visit Diagnoses Diagnosis Angina Pectoris Unspecified (HCC)- Primary Other Female Genital Prolapse Constipation Proctitis documented in this encounter Additional Health Concerns Active Problems Noted Date Diagnosed Date [facility] Care Plan for Nicotine Dependency Pe rioperative 07/08/2024 Surgical Readiness and Recovery Care Plan 2023 documented as of this encounter Care Teams Clerical Associate Relationship Specialty Start Date End Date Elsewhere, Pcp PCP - General Internal Medicine 07/02/24 documented as of this encounter
--- OUTSIDE RECORDS SUMMARY | 2024-08-02 14:15 | XMS_ITS | Encounter Summary ---
Author Organization [facility] Address [address] [place] [address] Care Team Providers Care Client Experience Administrator Name Role Phone Unavailable Primary Care Provider [...] Rectal Dyskinesia Esophagus Hypermobility Joint Renate Youngblood APRN, C.N.P., M.S.N. 200 [place] [address] Phone: tel: fax: [facility] Referral ID Status Reason Start Date Expiration Date Visits Re quested Visits Authorized [id number] Closed 04/08/2024 10/08/2025 1 1 Encounter Details Date Type Department Care Team ([facility] st Contact Info) Description 06/13/2024 9:00 AM CDT Telemedicine Department of Medical Genetics in [place], [place] [address] [place] [address] Renate Youngblood APRN, C.N.P., M.S.N. [address] [place] [address] Fern Ewing M.S., [facility] [address] [place] [address] Pain Back (Primary Dx); Raynaud's Phenomena Without [...] = 0.6 oz pur e alcohol) [facility] Clipsureities Answer Date Recorded In the past 12 months has e [employer], gas, oil, or water [employer] threatened to shut off services in your [...] your living situation today? I have a [facility] place to live 01/07/2024 Comments Unknown Sex and Gender Information Value Date Recorded Sex Assigned at Female 01/07/2024 8:31 PM CDT Legal Sex Female 5:11 PM CHAIRMAN OF THE BOARD Gender Identity Female 01/07/2024 8:31 PM CDT Sexual Orientation Straight 01/07/2024 8: 31 PM CDT documented as of this encounter Consult Notes * Fern Ewing M.S., [facility] - 06/13/2024 9:00 AM CDT REFERRING PROVIDER [...] pedigree was constructed by a Genetic Counseling Ski Lift Attendant. Please also see the referring provider's consult [...] real-time audio/video technology by Sirena Ewing M.S., [facility] [place] at the Patient's Home. [...] the different types of EDS, please visit https://www.elvis-danlos.com/eds-types/. For many of the subtypes of EDS [...] International Classification of the Elvis-Danlos Syndromes (PMID: 14621912).This is also available in a check list format on the EDS Society website (https://www.elvis-danlos. com/mhka-nbrrprymmm-ggmxhyack/). The majority of people who are hypermobile [...] include walking, bicycling, swimming, water exercise, elliptical boxing trainer, yoga, Pilates, and core toning/stability exercises. [...] Pain Medication: Pain should be managed by wign-pwf-lzbkvud medications as much as possible. Participation in [...] and can sometimes exacerbate symptoms. There are dyfa-jgo-vmluajy electrolyte products that can be added to [...] discussed the EDS gene panel available through [facility]. This test includes comprehensive sequencing and [...] for an in-person consultation with a medical advisor for a comprehensive evaluation and discussion surrounding [...] up an in-person evaluation with a medical advisor. For the majority of VUSs further evaluation [...] insurance coverage of genetic testing was discussed. [facility] [employer] will bill your insurance for the genetic [...] questions or concerns should be directed to [employer]'s Billing Office at [phone]. PLAN Allie deferred genetic testing today. If they are [...] We briefly discussed the EDS Society webpage (https://elvis-danlos.com/wp-content/uploads/hEDSvHSD.pdf) and the Elvis- Danlos National Foundation (http://www.ednf.org) as connecting with other individuals with similar symptoms can sometimes be helpful. The additional resources outlined below may also be beneficial should additional information about EDS be desired. 1. Dr. Ernesto Hewitt: Joint Hypermobility Handbook- A Guide for the Issues & Management of Elvis-Danlos Syndrome Hypermobility Type and the Hypermobility Syndrome; Bitly 2. Eunice Kelsey and Surinder Godinez (resource for PTs): Hypermobility Syndrome: Diagnosis and Management for Physiotherapists; Bitly 3.Earnestine Pablo (resource for myofascial trigger point release at home to address muscle spasms andmyofascial pain): The Trigger Point Therapy Workbook; Offermobi (https://www.painscience.com/tutorials/trigger-points.php) 4. In general, mindfulness-based stress reduction can aid in coping with chronic pain. A good resource is Dr. Carlos Pride's books called ???Full Catastrophe Living: Using the [place] of Your Body and Mind to Face Stress, Pain, and Illness?? and ???Wherever You Go, There You Are.?? 5. DEBORAH Jim, VINEET Rivero, DEMARCO Duke Elvis-Danlos Syndrome: A MultiDisciplinary Approach. 370 page e-book (or can order hard copy). http://ebooks.iospress.nl/ISBN/619-8-21255-878-5 6.Dannie Muse PT Living Life to the Fullest with Elvis-Danlos syndrome. A guide for a person living with EDS to achieve a Better quality of life.BiometryCloud 7. In November,, the [place] Journal of Medical Genetics Part C: Seminars in Medical Genetics was dedicated to Elvis Danlos syndrome. These articles are available at https://www.Omnistream.com/ 8695-xik-nhoohldgebofl-classification/. Issue Information: Table of Contents, Volume 175C, [...] Francisco, Milton Ruiz, Mariajose Lai, Mandy Swenson, Surinder Godienz, Yousif Kolb, Zoltan Coronel, Megan Hobson, Christie Villalpando, Melodie Elizondo, Roxy Jain, David Hernandes, Lonnie Lozoya, Dennis Mendoza, [facility], Domonique Conteh, Vivian Syed, Jeremiah Anton, [...] review (pages 116-147) Christie Villalpando, Rosalva Aldrich, Maryann Hernandez, Carmelo Zaldivar and Amadou Jacob 5. A framework for the classification of [...] Ro Poon??-Bagu??, Clau Ruiz and Enoc Kaufman [facility] EDS Panel Gene List: ADAMTS2, AEBP1, ATP7A, X8TEJA0, B3GAT3, B5VIWD7, CHST14, JUW09H7, COL1A1, COL1A2, COL3A1, COL5A1, COL5A2, DSE, FKBP14, FLNA, PLOD1, PRDM5, AXF00K03, SPARC, TNXB, and BYR332 documented in this encounter Plan of Treatment Upcoming Encounters Date Type Department Care Team (Latest Contact Info) Description 08/05/2024 11:00 AM CHAIRMAN OF THE BOARD Clinical Support Department of Physical Medicine and Rehabilitation in [place], [place] [address] [place] [phone] Renate Youngblood APRN, C.N.P., M.S.N. [address] [place] [phone] 08/05/2024 2:00 PM CHAIRMAN OF THE BOARD Clinical Support Department of Physical Medicine and Rehabilitation in [place], [place] [address] [place] [phone] Renate Youngblood APRN, C.N.P., M.S.N. [address] [place] [phone] 08/08/2024 2:00 PM CHAIRMAN OF THE BOARD Clinical Support Department of Physical Medicine and Rehabilitation in [address] [phone] Renate Youngblood APRN, C.N.P., M.S.N. [address] [place] [phone] 08/11/2024 10:00 AM CHAIRMAN OF THE BOARD Clinical Support Department of Physical Medicine and Rehabilitation in [place], [place] [address] [place] [phone] Renate Youngblood APRN, C.N.P., M.S.N. [address] [place] [address] 11/10/2024 10:00 AM CHAIRMAN OF THE BOARD Comprehensive Visit Department of Obstetrics and Gynecology, Division of Urogynecology in [place], [place] [address] [place] [address] Yan Turner M.D., M.S. [address] [place] [phone] Scheduled Procedures Name Priority Associated Diagnoses Date/Ti la ROBOTIC-ASSISTED RECTOPEXY Prolapse Rectal Cystocele Rectocele ROBOTIC-ASSISTED [...]
--- OUTSIDE RECORDS SUMMARY | 2024-08-02 14:15 | XMS_ITS | Encounter Summary ---
Author Organization [facility] Address [address] [place] [address] Care Team Providers Care Slot Operations Director Name Role Phone Elsewhere, Pcp Primary Care Provider Unavailabl e Reason for Visit * Reason Comments Patient Education Encounter Details Date Type Department Care Team (Late st Contact Info) Description 07/21/2024 1:00 PM CDT Telemedicine Department of Patient Education in [place], [place] [address] [place] [address] Brianne Beebe M.D., Ph.D. [address] [place] [address] Constipation; Cystocele Midline; Rectocele Social History Tobacco Use Types Packs/Day Years Used Date Smoking Tobacco: Never Passive Smoke Exposure: Never Smokeless Tobacco: Never Alcohol Use Standard Drinks/Week Comments Yes 3 (1 standard drink = 0.6 oz pur e alcohol) [facility] Utilities Answer Date Recorded In the past 12 months has [employer], gas, oil, or water [employer] threatened to shut off services in your [...] your living situation today? I have a [facility] place to live 01/07/2024 Comments Unknown Sex and Gender Information Value Date Recorded Sex Assigned at Female 01/07/2024 8:31 PM CDT Legal Sex Female 5:11 PM LICENSED EMBALMER SUPERVISOR Gender Identity Female 01/07/2024 8:31 PM CDT Sexual Orientation Straight 01/07/2024 8: 31 PM CDT documented as of this encounter Plan of Treatment Upcoming Encounters Date Type Department Care Team (Latest Contact Info) Description 08/05/2024 11:00 AM LICENSED EMBALMER SUPERVISOR Clinical Support Department of Physical Medicine and Rehabilitation in [place], [place] [address] [place] [address] Renate Youngblood, JOSE, C.N.P., M.S.N. [address] [place] [address] 08/05/2024 2:00 PM LICENSED EMBALMER SUPERVISOR Clinical Support Department of Physical Medicine and Rehabilitation in [place], [place] [address] [place] [address] Renate Youngblood APRN, C.NLewis., M.S.N. [address] [place] [phone] 08/08/2024 2:00 PM LICENSED EMBALMER SUPERVISOR Clinical Support Department of Physical Medicine and Rehabilitation in [place], [place] [address] [place] [phone] Renate Youngblood APRN, C.NLewis., M.S.N. [address] [place] [phone] 08/11/2024 10:00 AM LICENSED EMBALMER SUPERVISOR Clinical Support Department of Physical Medicine and Rehabilitation in [place], [place] [address] [place] [phone] Renate Youngblood APRN, C.NLewis., M.S.N. [address] [place] [phone] 11/10/2024 10:00 AM LICENSED EMBALMER SUPERVISOR Comprehensive Visit Department of Obstetrics and Gynecology, Division of Urogynecology in [place], [place] [address] [place] [phone] Yan Turner M.D., M.S. [address] [place] [phone] Scheduled Procedures Name Priority Associated Diagnoses Date/Ti wv ROBOTIC-ASSISTED RECTOPEXY Prolapse Rectal Cystocele Rectocele ROBOTIC-ASSISTED EXPLORATION Prolapse Rectal Cystocele Rectocele documented as of this encounter Goals Goal Patient Goal Type Associated Problems Recent Progress Patient-Stated? Author [facility] Care Plan for Nicotine Dependency Perioperative Care Plan [facility] Care Plan for Nicotine Dependency Perioperative No Genevieve Strickland R.N. Surgical Readiness and Recovery Care Plan Care Plan Surgical Readiness and Recovery Care Plan No Genevieve Strickland R.N. documented as of this encounter Visit Diagnoses Diagnosis Constipation Cystocele Midline Rectocele documented in this encounter Additional Health Concerns Active Problems Noted Date Diagnosed Date [facility] Care Plan for Nicotine Dependency Pe rioperative 07/08/2024 Surgical Readiness and Recovery Care Plan 2023 documented as of this encounter Care Teams Slot Operations Director Relationship Specialty Start Date End Date Elsewhere, Pcp PCP - General Internal Medicine 07/02/24 documented as of this encounter
--- OUTSIDE RECORDS SUMMARY | 2024-08-02 14:15 | XMS_ITS | Encounter Summary ---
Author Organization [facility] Address [address] [place] [address] Care Team Providers Care Material Control Associate Name Role Phone Elsewhere, Pcp Primary Care Provider Unavailabl e Reason for Referral * Outpatient (Routine) - Closed Specialty Diagnoses / Procedures Referred By Contdana t Referred To Contact Diagnoses Abnormal Computed Tomography Lesion Ovary Procedures US Pelvis Transvaginal and Transabdominal Eleazar Yin M.D. 200 [place] [address] Phone: tel: fax: [facility] Referral ID Status Reason Start Date Expiration Date Visits Re quested Visits Authorized [id number] Closed 07/05/2024 07/05/2025 1 1 Encounter Details Date Type Department Care Team (Late st Contact Info) Description 07/05/2024 Clinical Communication Department of Obstetrics and Gynecology in [place], [place] [address] [place] [address] Prescheduling, Provider Social History Tobacco Use Types Packs/Day Years Used Date Smoking Tobacco: Never Passive Smoke Exposure: Never Smokeless Tobacco: Never Alcohol Use Standard Drinks/Week Comments Yes 3 (1 standard drink = 0.6 oz pur e alcohol) [facility] Utilities Answer Date Recorded In [...] your living situation today? I have a [facility] place to live 01/07/2024 Comments Unknown Sex and Gender Information Value Date Recorded Sex Assigned at Female 01/07/2024 8:31 PM CDT Legal Sex Female 5:11 PM NETWORK DIAGNOSTIC SUPPORT SPECIALIST Gender Identity Female 01/07/2024 8:31 PM CDT Sexual Orientation Straight 01/07/2024 8: 31 PM CDT documented as of this encounter Plan of Treatment Upcoming Encounters Date Type Department Care Team (Latest Contact Info) Description 08/05/2024 11:00 AM NETWORK DIAGNOSTIC SUPPORT SPECIALIST Clinical Support Department of Physical Medicine and Rehabilitation in [place], [place] [address] [place] [address] Renate Youngblood, Melanie GARCIA, M.S.N. [address] [place] [phone] 08/05/2024 2:00 PM NETWORK DIAGNOSTIC SUPPORT SPECIALIST Clinical Support Department of Physical Medicine and Rehabilitation in [place], [place] [address] [place] [phone] Renate Youngblood APRN, C.N.P., M.S.N. [address] [place] [phone] 08/08/2024 2:00 PM NETWORK DIAGNOSTIC SUPPORT SPECIALIST Clinical Support Department of Physical Medicine and Rehabilitation in [address] [phone] Renate Youngblood APRN, C.N.P., M.S.N. [address] [place] [phone] 08/11/2024 10:00 AM NETWORK DIAGNOSTIC SUPPORT SPECIALIST Clinical Support Department of Physical Medicine and Rehabilitation in [address] [phone] Renate Youngblood APRN, C.N.P., M.S.N. [address] [place] [phone] 11/10/2024 10:00 AM NETWORK DIAGNOSTIC SUPPORT SPECIALIST Comprehensive Visit Department of Obstetrics and Gynecology, Division of Urogynecology in [address] [phone] Yan Turner M.D., M.S. [address] [place] [phone] Scheduled Procedures Name Priority Associated Diagnoses Date/Ti md ROBOTIC-ASSISTED RECTOPEXY Prolapse Rectal Cystocele Rectocele ROBOTIC-ASSISTED EXPLORATION Prolapse Rectal Cystocele Rectocele documented as of this encounter Goals Goal Patient Goal Type Associated Problems Recent Progress Patient-Stated? Author [facility] Care Plan for Nicotine Dependency Perioperative Care Plan [facility] Care Plan for Nicotine Dependency Perioperative No Genevieve Strickland R.N. Surgical Readiness and Recovery Care Plan Care Plan Surgical Readiness and Recovery Care Plan No Genevieve Strickland R.N. documented as of this encounter Results * US Pelvis Transvaginal [...] was unable be visualized sonographically. us Eleazar R Yin M.D. IMG US PROCEDURES Final R esult documented in this encounter Visit Diagnoses Diagnosis Abnormal Computed Tomography- Primary Lesion Ovary Abnormal Computed Tomography Lesion Ovary documented in this encounter Additional Health Concerns Active Problems Noted Date Diagnosed Date [facility] Care Plan for Nicotine Dependency Pe rioperative 07/08/2024 Surgical Readiness and Recovery Care Plan 2023 documented as of this encounter Care Teams Material Control Associate Relationship Specialty Start Date End Date Elsewhere, Pcp PCP - General Internal Medicine 07/02/24 documented as of this encounter
--- OUTSIDE RECORDS SUMMARY | 2024-08-02 14:15 | XMS_ITS | Encounter Summary ---
Author Organization [facility] Address [address] [place] [address] Care Team Providers Care Morgue Technician Name Role Phone Elsewhere, Pcp Primary [...] PM CDT Legal Sex Female 5:11 PM CAMP RECREATION SPECIALIST Gender Identity Female 01/07/2024 8:31 PM [...] the Restasis causing this. [facility] - in [facility], she was placed on Lotemax, elvin 128, [...] Night blindness CDM Reports - EYEGEN Id: [id number] Status: Fnl documented in this encounter Plan of Treatment Upcoming Encounters Date Type Department Care Team (Latest Contact Info) Description 08/05/2024 11:00 AM CAMP RECREATION SPECIALIST Clinical Support Department of Physical Medicine and Rehabilitation in [address] [phone] Renate Youngblood APRN, C.N.P., M.S.N. [address] [place] [phone] 08/05/2024 2:00 PM CAMP RECREATION SPECIALIST Clinical Support Department of Physical Medicine and Rehabilitation in [place], [place] [address] [place] [phone] Renate Youngblood APRN, C.N.P., M.S.N. [address] [place] [phone] 08/08/2024 2:00 PM CAMP RECREATION SPECIALIST Clinical Support Department of Physical Medicine and Rehabilitation in [place], [place] [address] [place] [phone] Renate Youngblood APRN, C.N.P., M.S.N. [address] [place] [phone] 08/11/2024 10:00 AM CAMP RECREATION SPECIALIST Clinical Support Department of Physical Medicine and Rehabilitation in [place], [place] [address] [place] [phone] Renate Youngblood APRN, C.N.P., M.S.N. [address] [place] [phone] 11/10/2024 10:00 AM CAMP RECREATION SPECIALIST Comprehensive Visit Department of Obstetrics and Gynecology, Division of Urogynecology in [place], [place] [address] [place] [phone] Yan Turner M.D., M.S. [address] [place] [phone] Scheduled Procedures Name Priority Associated Diagnoses Date/Ti vt ROBOTIC-ASSISTED RECTOPEXY Prolapse Rectal Cystocele Rectocele ROBOTIC-ASSISTED EXPLORATION Prolapse Rectal Cystocele Rectocele documented as of this encounter Visit Diagnoses Not on filedocumented in this encounter Care Teams Morgue Technician Relationship Specialty Start Date End Date Elsewhere, Pcp PCP - General Internal Medicine 07/02/24 documented as of this encounter
--- OUTSIDE RECORDS SUMMARY | 2024-08-02 14:15 | XMS_ITS | Encounter Summary ---
Author Organization [facility] Address [address] [place] [address] Care Team Providers Care Picture Booker Name Role Phone Unavailable Primary Care Provider [...] Joint Renate Youngblood APRN, C.N.P., M.S.N. 200 [place] [address] Phone: tel: fax: [facility] Referral ID Status Reason Start Date Expiration Date Visits Re quested Visits Authorized [id number] Closed 04/08/2024 10/08/2025 1 1 Encounter Details Date Type Department Care Team (Latest Contact Info) Description 06/08/2024 11:00 AM CDT Clinical Support Department of Medical Genetics in [place], [place] [address] [place] [address] Renate Youngblood APRN, C.N.P., M.S.N. [address] [place] [phone] Peng Cowart [address] [place] [phone] Pain Back; Raynaud's Phenomena Without Gangrene; Other [...] drink = 0.6 oz pur e alcohol) [facility] Utilities Answer Date Recorded In the past 12 months has e [employer], gas, oil, or water [employer] threatened to shut off services in your [...] your living situation today? I have a [facility] place to live 01/07/2024 Comments Unknown Sex and Gender Information Value Date Recorded Sex Assigned at Female 01/07/2024 8:31 PM CDT Legal Sex Female 5:11 PM ACCOUNT OFFICER Gender Identity Female 01/07/2024 8:31 PM CDT Sexual Orientation Straight 01/07/2024 8: 31 PM CDT documented as of this encounter Progress Notes * Peng Cowart R - 06/08/2024 11:00 AM CDT Images from [...] pedigree was constructed by the Genetic [employer] Power[employer]. Our risk assessment is based upon medical [...] Marfan syndrome: Uncertain The patient???s ancestry is [place]. There is high probability of paternal consanguinity. [...] (Latest Contact Info) Description 08/05/2024 11:00 AM ACCOUNT OFFICER Clinical Support Department of Physical Medicine and Rehabilitation in [address] [phone] Renate Youngblood APRN, C.N.P., M.S.N. [address] [place] [phone] 08/05/2024 2:00 PM ACCOUNT OFFICER Clinical Support Department of Physical Medicine and Rehabilitation in [place], [place] [address] [place] [phone] Renate Youngblood APRN, C.N.P., M.S.N. [address] [place] [phone] 08/08/2024 2:00 PM ACCOUNT OFFICER Clinical Support Department of Physical Medicine and Rehabilitation in [place], [place] [address] [place] [phone] Renate Youngblood APRN, C.N.P., M.S.N. [address] [place] [phone] 08/11/2024 10:00 AM ACCOUNT OFFICER Clinical Support Department of Physical Medicine and Rehabilitation in [place], [place] [address] [place] [phone] Renate Youngblood APRN, C.NLaurelP., M.S.N. [address] [place] [phone] 11/10/2024 10:00 AM ACCOUNT OFFICER Comprehensive Visit Department of Obstetrics and Gynecology, Division of Urogynecology in [place], [place] [address] [place] [phone] Yan Turner M.D., M.S. [address] [place] [phone] Scheduled Procedures Name Priority Associated Diagnoses Date/Ti [...]
--- OUTSIDE RECORDS SUMMARY | 2024-08-02 14:15 | XMS_ITS | Clinical Summary ---
Author Organization [employer] [facility] Address [place], [place] [address] Care Team Providers Care Setter Cold Rolling Machine Name Role Phone John Paul Miller MD Primary Care Provider Allergies Active Allergy Reactions Criticality Noted Date [...] with meals. 0 11/28/2016 Active Vit C-Vit P-Oxargp-Gkq-OM-3 (OCUVITE 150 MG-30 UNIT-5 MG-150 MG CAPSULE) [id number] mw-iuzz-mu-mg capsuleIndications:Ma cular degeneration (senile) of retina, unspecified Take by mouth. 0 11/28/2016 Active Wxwak-5-TIZ-EPA-Fish Oil (FISH OIL) 1,000 mg (120 mg-180 [...] Body Mass Index 24.86 11/28/2016 9:05 AM SILK TRIMMER Plan of Treatment Health Maintenance Due Date [...] Comments ANTI HCV Routine 11/28/2016 10:50 AM SILK TRIMMER Need for hepatitis C screening test LIPID PANEL W REFLEX MEASURED LDL Routine 11/28/2016 10:50 AM SILK TRIMMER Hyperlipidemia, unspecified from Last 3 Months or Most Recently Relevant to Health Maintenance Results * LIPID PANEL W REFLEX MEASURED LDL (11/28/2016 10:50 AM SILK TRIMMER) CHOLESTEROL,TOTAL 164 100 - 199 mg/dL 11/28/2016 11:[address] [facility] TRIGLYCERIDES 85 <150 mg/dL 11/28/2016 11:[address] [facility] HDL CHOLESTEROL 65 >40 mg/dL 7 11:[address] [facility] NON-HDL CHOLESTEROL 99 <145 mg/dl 11/28/2016 11:[address] [facility] CHOL/HDL RATIO 2.52 <4.50 11/28/2016 11:[address] [facility] LDL CHOLESTEROL 82 <=130 mg/dL 11/28/2016 11:[address] [facility] PATIENT STATUS FASTING 11/28/2016 11:[address] [facility] Blood BLOOD SPECIMEN / Unknown Venipuncture / Unknown 11/28/2016 10:50 AM SILK TRIMMER 11/28/2016 10:50 AM SILK TRIMMER Lucas Abebe MD CHEMISTRY [facility] [address] [place] [address], * ANTI HCV [89141.2] (11/28/2016 10:50 AM SILK TRIMMER) HEPATITIS C ANTIBODY Non-Reacti ve Non-Reacti ve 11/28/2016 4:20 PM SILK TRIMMER [facility] Blood BLOOD SPECIMEN / Unknown Venipuncture / Unknown 11/28/2016 10:50 AM SILK TRIMMER 11/28/2016 10:50 AM SILK TRIMMER Narrative [facility] - 11/28/2016 4:20 PM SILK TRIMMER Antibodies to HCV not detected; does not exclude the possibility of exposure to HCV. Lucas Abebe MD SEND OUTS [facility] [address] [place] [address], from Last 3 Months or Most Recently Relevant to Health Maintenance Care Teams Setter Cold Rolling Machine Relationship Specialty Start Date End Date John Paul Miller MD [address] [place] [address] PCP - General Family Practice 01/03/22
--- OUTSIDE RECORDS SUMMARY | 2024-08-02 14:15 | XMS_ITS | Encounter Summary ---
Author Organization [facility] Address [address] [place] [address] Care Team Providers Care Alarm Signaler Name Role Phone Elsewhere, Pcp Primary Care Provider Unavailabl e Encounter Details Date Type Department Care Team (Late st Contact Info) Description 04/08/2013 Historical Ophthalmology [facility]ST OPH Dmitriy Staples M.D. [address] [place] [address] Social History Tobacco Use Types Packs/Day Years Used Date Smoking Tobacco: Never Assessed Comments Unknown Sex and Gender Information Value Date Recorded Sex Assigned at Female 01/07/2024 8:31 PM CDT Legal Sex Female 5:11 PM MANAGEMENT RETAIL INTERN Gender Identity Female 01/07/2024 8:31 PM CDT [...] for Dark adaptation curve and return to [facility] for appt after that return to Dr. Calle today [address] for dilated refraction Recommend AREDS II 04/08/13 Addendum: DAC shows mildly reduced christopher sensitivity after 10-minutes. recommend return 2-3 years with repeat dark adaptation curve testing. 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 [address] [place] [address] 08/05/2024 2:00 PM MANAGEMENT RETAIL INTERN Clinical Support Department of Physical Medicine and Rehabilitation in [place], [place] [address] [place] [phone] Renate Youngblood APRN, C.NLewis., M.S.N. [address] [place] [phone] 08/08/2024 2:00 PM MANAGEMENT RETAIL INTERN Clinical Support Department of Physical Medicine and Rehabilitation in [place], [place] [address] [place] [phone] Renate Youngblood APRN, C.N.P., M.S.N. [address] [place] [phone] 08/11/2024 10:00 AM MANAGEMENT RETAIL INTERN Clinical Support Department of Physical Medicine and Rehabilitation in [place], [place] [address] [place] [phone] Renate Youngblood APRN, C.NLewis., M.S.N. [address] [place] [phone] 11/10/2024 10:00 AM MANAGEMENT RETAIL INTERN Comprehensive Visit Department of Obstetrics and Gynecology, Division of Urogynecology in [address] [phone] Yan Turner M.D., M.S. [address] [place] [phone] Scheduled Procedures Name Priority Associated Diagnoses Date/Ti me ROBOTIC-ASSISTED RECTOPEXY Prolapse Rectal Cystocele Rectocele ROBOTIC-ASSISTED EXPLORATION Prolapse Rectal Cystocele Rectocele documented as of this encounter Visit Diagnoses Not on filedocumented in this encounter Care Teams Alarm Signaler Relationship Specialty Start Date End Date Elsewhere, Pcp PCP - General Internal Medicine 07/02/24 documented as of this encounter
--- OUTSIDE RECORDS SUMMARY | 2024-08-02 14:15 | XMS_ITS | Encounter Summary ---
Author Organization [facility] Address [address] [place] [address] Care Team Providers Care Supervisor Advice Name Role Phone Elsewhere, Pcp Primary Care Provider Unavailabl e Reason for Referral * Outpatient (Routine) - Closed Specialty Diagnoses / Procedures Referred By Floresita t Referred To Contact Diagnoses Cystocele Midline Procedures OBG Urodynamic Studies Yan Turner M.D., M.S. [address] [place] [address] Phone: tel: fax: [facility] Referral ID Status Reason Start Date Expiration Date Visits Re quested Visits Authorized [id number] Closed 07/08/2024 07/08/2025 1 1 * Outpatient (Routine) - Authorized Specialty Diagnoses / Procedures Referred By Floresita barraza Referred To Contact Obstetrics and Gynecology Diagnoses Cystocele Midline Yan Turner M.D., M.S. [address] [place] [address] Phone: tel: fax: [facility] Referral ID Status Reason Start Date Expiration Date V isits Requested Visits Authorized [id number] Authorized 07/08/2024 01/07/2026 1 1 Encounter Details Date Type Department Care Team (Late st Contact Info) Description 07/08/2024 Orders Only Department of Obstetrics and Gynecology, Division of Urogynecology in [place], [place] [address] [place] [address] Tanner Camacho R.N. [address] [place] [address] Cystocele Midline (Primary Dx) Social History Tobacco Use Types Packs/Day Years Used Date Smoking Tobacco: Never Passive Smoke Exposure: Never Smokeless Tobacco: Never Alcohol Use Standard Drinks/Week Comments Yes 3 (1 standard drink = 0.6 oz pur e alcohol) [facility] Utilities Answer Date Recorded In the past 12 months has e [employer], gas, oil, or water Rain threatened to shut off services in your [...] living situation today? 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 [address] [place] [phone] 08/05/2024 2:00 PM CHIEF LOCK OPERATOR Clinical Support Department of Physical Medicine and Rehabilitation in [place], [place] [address] [place] [phone] Renate Youngblood APRN, Celeste.N.P., M.S.N. [address] [place] [phone] 08/08/2024 2:00 PM CHIEF LOCK OPERATOR Clinical Support Department of Physical Medicine and Rehabilitation in [place], [place] [address] [place] [phone] Renate Youngblood APRN, C.N.P., M.S.N. [address] [place] [phone] 08/11/2024 10:00 AM CHIEF LOCK OPERATOR Clinical Support Department of Physical Medicine and Rehabilitation in [place], [place] [address] [place] [phone] Renate Youngblood APRN, Celeste.N.P., M.S.N. [address] [place] [address] 11/10/2024 10:00 AM CHIEF LOCK OPERATOR Comprehensive Visit Department of Obstetrics and Gynecology, Division of Urogynecology in [place], [place] [address] [place] [address] Yan Turner M.D., M.S. [address] [place] [address] Scheduled Procedures Name Priority Associated Diagnoses Date/Ti me ROBOTIC-ASSISTED RECTOPEXY Prolapse Rectal Cystocele Rectocele ROBOTIC-ASSISTED EXPLORATION Prolapse Rectal Cystocele Rectocele Scheduled Referrals Name Type Priority Associated Diagnoses Order Schedule Obstetrics and Gynecology - Urogynecology consult (clinic) Outpatient Referral Routine Cystocele Midline Expected: 08/23/2024, Expires: 10/08/2025 documented as of this encounter Goals Goal Patient Goal Type Associated Problems Recent Progress Patient-Stated? Author [facility] Care Plan for Nicotine Dependency Perioperative Care Plan [facility] Care Plan for Nicotine Dependency Perioperative No Genevieve Strickland RLaurelN. Surgical Readiness and Recovery Care Plan Care Plan Surgical Readiness and Recovery Care Plan No Genevieve Strickland RJose. documented as of this encounter Results * [place] ODELL PST VOID RESID US NON IMG, [place] UROFLOWMETRY CMPLX, [place] CYSTOMETROGRAM COMPLEX (07/26/2024 1:00 PM CDT) Narrative [...] encounter Visit Diagnoses Diagnosis Cystocele Midline- Primary Cystocele Midline- Primary documented in this encounter Additional Health Concerns Active Problems Noted Date Diagnosed Date [facility] Care Plan for Nicotine Dependency Pe rioperative 07/08/2024 Surgical Readiness and Recovery Care Plan 2023 documented as of this encounter Care Teams Supervisor Advice Relationship Specialty Start Date End Date Elsewhere, Pcp PCP - General Internal Medicine 07/02/24 documented as of this encounter
== END 2024-08-02 14:12 | disposition home or self-care (01) ==
LOC: LKVREF 14:12
PROVIDERS: PCP Family Medicine; Visit Provider Family Medicine
DX: D64.9 Anemia, unspecified (principal)
CPT/HCPCS: 82607

== ENCOUNTER 2024-09-02 08:43 | Outpatient (CLI) | payer OTHER, SELFPAY ==
--- OUTSIDE RECORDS SUMMARY | 2024-09-02 08:46 | XMS_ITS | Referral Summary ---
Author Organization [facility] Address [address] [place] [address] Care Team Providers Care Farm Equipment Assembler Name Role Phone Elsewhere, Pcp Primary Care Provider Unavailabl e Source Comments Patient records contain information from all sites at [facility]. For routine questions regarding patient records, call [phone] during business hours, M-F 8:00 AM - 5:00 PM Central Time. Record requests for emergency care only can be directed to [phone] at any time.[facility] Encounters Date Type Department Care Team Description 08/31/2024 Clinical Communication Division of Colon and Rectal Surgery in [place], [place] [address] [place] [address] Renate Youngblood APRN, C.N.P., M.S.N. Abnormal ECG 08/30/2024 1:10 PM MEDICAL AFFAIRS DIRECTOR Comprehensive Visit Division of Gastroenterology in [place], [place] [address] [place] [address] John Paul Miller M.D. Milton Raman M.D., D.Sc. Carlos Corral M.D., M.P.H. Dysfunction Pelvic Floor (Primary Dx); Constipation Slow Transit; Prolapse Rectal; Hernia Perineal; Hypermobility Joint; Hysterectomy Status Post 08/29/2024 11:17 AM MEDICAL AFFAIRS DIRECTOR - 08/29/2024 11:59 PM MEDICAL AFFAIRS DIRECTOR Hospital Encounter Department of Radiology, [facility], in [place], [place] [address] [place] [address] Eleuterio Escobar M.B.B.S. Constipation Discharge Disposition: Home or Self Care 08/19/[address] [address] John Paul Miller M.D. Loss Visual Transient Right (Primary Dx) 08/15/2024 2:00 PM MEDICAL AFFAIRS DIRECTOR Clinical Support Department of Physical Medicine and Rehabilitation in [place], [place] [address] [place] [phone] Renate Youngblood APRN, C.N.Dandre., M.S.N. Dysfunction Pelvic Floor; Prolapse Rectal; Other Female Genital Prolapse 08/12/2024 Clinical Communication Division of Gastroenterology in [place], [place] [address] [place] [phone] Milton Raman M.D., D.Sc. 08/11/2024 10:00 AM MEDICAL AFFAIRS DIRECTOR Clinical Support Department of Physical Medicine and Rehabilitation in [place], [place] [address] [place] [phone] Renate Youngblood APRN, C.N.P., M.S.N. Dysfunction Pelvic Floor; Prolapse Rectal; Other Female Genital Prolapse 08/08/2024 Orders Only Division of Gastroenterology in [place], [place] [address] [place] [phone] [facility] Constipation 08/05/2024 2:00 PM MEDICAL AFFAIRS DIRECTOR Clinical Support Department of Physical Medicine and Rehabilitation in [place], [place] [address] [place] [phone] Renate Youngblood APRN, C.N.P., M.S.N. Dysfunction Pelvic Floor; Prolapse Rectal; Other Female Genital Prolapse 08/05/2024 11:00 AM MEDICAL AFFAIRS DIRECTOR Clinical Support Department of Physical Medicine and Rehabilitation in [place], [place] [address] [place] [phone] Renate Youngblood APRN, C.N.P., M.S.N. Dysfunction Pelvic Floor; Prolapse Rectal; Other Female Genital Prolapse 08/02/2024 [facility] [address] [place] [address] John Paul Miller M.D. Constipation Slow Transit (Primary Dx) 07/27/2024 2:00 PM CDT Clinical Support Department of Physical Medicine and Rehabilitation in [address] [phone] Renate Youngblood APRN, C.N.P., M.S.N. Dysfunction Pelvic Floor (Primary Dx); Prolapse Rectal; Other Female Genital Prolapse 07/27/2024 10:00 AM CDT Comprehensive Visit Department of Physical Medicine and Rehabilitation in [address] [phone] Renate Youngblood APRN, C.N.P., M.S.N. Dysfunction Pelvic Floor; Prolapse Rectal; Other Female Genital Prolapse 07/26/2024 1:00 PM CDT Procedure visit Department of Obstetrics and Gynecology, Division of Urogynecology in [address] [phone] Yan Turner M.D., M.S. Cystocele Midline (Primary Dx) 07/26/2024 3:00 PM CDT Comprehensive Visit Department of Obstetrics and Gynecology in [address] [phone] Elia Portillo M.D. Mass Adnexal (Primary Dx); Abnormal Computed Tomography 07/26/2024 9:03 AM CDT - 07/26/2024 11:59 PM CDT Hospital Encounter Department of Radiology, [facility], in [address] [address] Eleazar Yin M.D. Abnormal Computed Tomography; Lesion Ovary Discharge Disposition: Home or Self Care 07/25/2024 2:15 PM CDT Clinical Communication Virtual Review in [address] [address] Pre-visit Intake 07/22/2024 Clinical Communication Department of Obstetrics and Gynecology, Division of Urogynecology in [address] [phone] Yan Turner M.D., M.S. 07/21/2024 1:00 PM CDT Telemedicine Department of Patient Education in [address] [phone] Brianne Beebe M.D., Ph.D. Constipation; Cystocele Midline; Rectocele 07/14/2024 1:00 PM CDT Telemedicine Department of Patient Education in [address] [address] Brianne Beebe M.D., Ph.D. Constipation; Cystocele Midline; Rectocele 07/08/2024 Orders Only Department of Obstetrics and Gynecology, Division of Urogynecology in [address] [phone] Tanner Camacho, Margaux. Cystocele Midline (Primary Dx) 07/08/2024 Orders Only Division of Colon and Rectal Surgery in [address] [address] Brianne Beebe M.D., Ph.D. Constipation (Primary Dx); Cystocele Midline; Rectocele 07/08/2024 9:30 AM CDT Office Visit Division of Colon and Rectal Surgery in [address] [address] Brianne Beebe M.D., Ph.D. Angina Pectoris Unspecified (HCC) (Primary Dx); Other Female Genital Prolapse; Constipation; Proctitis 07/05/2024 Clinical Communication Department of Obstetrics and Gynecology in [address] [address] Prescheduling, Provider 07/04/2024 Clinical Communication Division of Colon and Rectal Surgery in [address] [phone] Brianne Beebe M.D., Ph.D. 07/04/2024 Referral Triage Division of General Internal Medicine in [address] [phone] Prescheduling, Provider Referral Triage 07/01/2024 10:12 PM CDT - 07/02/2024 2:58 AM CDT Emergency [facility] Emergency Department [address] [place] [phone] Micha Baumann M.D. Abnormal Computed Tomography (Primary Dx); Constipation; Proctitis Discharge Disposition: Home or Self Care 06/13/2024 9:00 AM CDT Telemedicine Department of Medical Genetics in [place], [place] [address] [place] [address] Renate Youngblood APRN, Celeste.N.P., M.S.N. Fern Ewing, M.S., CASSANDRA Pain Back (Primary Dx); Raynaud's Phenomena Without Gangrene; Other Female Genital Prolapse; Tear Knee Lateral Meniscus Current Initial Left; Strain Of Muscle And Tendon Of Back Wall Of Thorax Initial; Primary Osteoarthritis First Carpometacarpal Joints Bilateral; Polyosteoarthritis Unspecified; Prolapse Rectal; Dyskinesia Esophagus; Hypermobility Joint 06/08/2024 11:00 AM CDT Clinical Support Department of Medical Genetics in [place], [place] [address] [place] [address] Renate Youngblood APRN, C.N.P., M.S.N. Peng Cowart [...] both eyes 2 (two) times a day. 01/06/20 13 Active diclofenac sodium (VOLTAREN) 50 mg EC tablet Take 1 tablet by mouth 2 (two) times a day. 10/27/19 24 Active esomeprazole (NexIUM) [address] capsule Take 1 capsule by mouth at bedtime. 11/29/19 Active hydroCHLOROthia zide (HYDRODIURIL) 25 mg tablet Take 25 mg by mouth as needed. Active multivitamin tablet Take 1 tablet by mouth daily. 11/29/19 Active NIFEdipine XL (PROCARDIA XL) 60 mg 24 hr tablet Take 60 mg by mouth at bedtime. 10/27/19 24 Active nitroglycerin (NITROSTAT) 0.[address] 0.4 mg under the tongue every 2 (two) hours as needed. 11/29/19 Active vits A,C,E/lutein/mi nerals (OCUVITE WITH LUTEIN ORAL) Take 150 mg by mouth daily. 11/29/19 Active psyllium, with sugar, (KonsyL) 3.4 gram [...] daily with morning meal. Viactiv caramels Active fluticasone propionate (Flonase Allergy Relief) 50 mcg/actuation nasal spray Administer 2 sprays into nostril(s) 2 (two) times a day. 08/18/20 24 Active ibandronate (Boniva) 150 mg tablet Take 150 mg by mouth every 30 (thirty) days. 10/27/19 24 Active metoprolol succinate (Toprol XL) 50 mg 24 hr tablet Take 50 mg by mouth daily. 10/27/19 24 Active sennosides-docu sate sodium (Senokot-S) 8.6-50 mg per tablet Take 1 tablet by mouth daily. With dinner 06/27/20 Active simvastatin (Zocor) 20 mg tablet Take 20 mg by mouth at bedtime. 10/27/19 24 Active Linzess 290 mcg capsule Take 290 mcg by mouth daily before morning meal. 08/12/20 Active ibandronate (BONIVA) 150 mg tablet Take 150 mg by mouth every 30 (thirty) days. 11/04/19 24 024 Discontinued metoprolol succinate (TOPROL-XL) 50 mg 24 hr tablet Take 50 mg by mouth daily. 024 Discontinued simvastatin (ZOCOR) 20 mg tablet Take 20 mg by mouth at bedtime. 08/31/20 16 024 Discontinued bisacodyL (Dulcolax) 10 mg suppository Insert 10 mg into the rectum daily as needed. 06/21/20 24 024 Discontinued Senexon-S 8.6-50 mg per tablet Take 1 tablet by mouth daily. 06/27/20 024 Discontinued NIFEdipine (Adalat CC) 60 mg ER tablet Take 60 mg by mouth daily. 08/18/20 24 024 Discontinued Active Problems Problem Noted Date Diagnosed Date [...] drink = 0.6 oz pur e alcohol) [facility] Utilities Answer Date Recorded In [...] [facility] to live 01/07/2024 Comments No Sex and Gender Information Value Date Recorded Sex Assigned at Female 01/07/2024 8:31 PM CDT Legal Sex Female 5:11 PM MEDICAL AFFAIRS DIRECTOR Gender Identity Female 01/07/2024 8:31 PM CDT Sexual Orientation Straight 01/07/2024 8: 31 PM CDT Last Filed Vital Signs Vital Sign Reading Time Taken Comments Blood Pressure 161/74 08/30/2024 12:59 PM MEDICAL AFFAIRS DIRECTOR Pulse 70 08/30/2024 12:59 PM MEDICAL AFFAIRS DIRECTOR Temperature 36.6 C (97.9 F) 07/02/2024 2:35 AM CDT Respiratory Rate 15 07/02/2024 2:30 AM CDT Oxygen Saturation 98% 07/02/2024 2:30 AM CDT Inhaled Oxygen Concentration - - Weight 55.9 kg (123 lb 3.8 oz) 08/30/2024 12:59 PM MEDICAL AFFAIRS DIRECTOR Height 151.6 cm (4' 11.69) 08/30/2024 12:59 PM MEDICAL AFFAIRS DIRECTOR Body Mass Index 24.32 08/30/2024 12:59 PM MEDICAL AFFAIRS DIRECTOR Plan of Treatment Upcoming Encounters Date Type Department Care Team (Latest Contact Info) Description 09/14/2024 9:00 AM MEDICAL AFFAIRS DIRECTOR Comprehensive Visit Department of Physical Medicine and Rehabilitation in [place], [place] [address] [place] [phone] Renate Youngblood APRN, C.N.P., M.S.N. [address] [place] [phone] 09/26/2024 10:00 AM MEDICAL AFFAIRS DIRECTOR Clinical Support Department of Physical Medicine and Rehabilitation in [place], [place] [address] [place] [address] Renate Youngblood APRN, C.N.P., M.S.N. [address] [place] [phone] 10/03/2024 4:20 PM MEDICAL AFFAIRS DIRECTOR Virtual Visit Division of Gastroenterology in [place], [place] [address] [place] [phone] Carlos Corral M.D., M.P.H. [address] [place] [phone] 10/04/2024 10:00 AM MEDICAL AFFAIRS DIRECTOR Clinical Support Department of Physical Medicine and Rehabilitation in [place], [place] [address] [place] [phone] Renate Youngblood APRN, C.NLewis., M.S.N. [address] [place] [phone] 10/10/2024 1:00 PM MEDICAL AFFAIRS DIRECTOR Clinical Support Department of Physical Medicine and Rehabilitation in [place], [place] [address] [place] [address] Renate Youngblood APRN, C.NLewis., M.S.N. [address] [place] [phone] 10/18/2024 1:00 PM MEDICAL AFFAIRS DIRECTOR Clinical Support Department of Physical Medicine and Rehabilitation in [place], [place] [address] [place] [phone] Renate Youngblood APRN, C.NBenton, M.S.N. [address] [place] [phone] 10/25/2024 1:00 PM MEDICAL AFFAIRS DIRECTOR Clinical Support Department of Physical Medicine and Rehabilitation in [place], [place] [address] [place] [address] Renate Youngblood APRN, C.NLewis., M.S.N. [address] [place] [phone] 10/31/2024 1:00 PM MEDICAL AFFAIRS DIRECTOR Clinical Support Department of Physical Medicine and Rehabilitation in [place], [place] [address] [place] [phone] Renate Youngblood APRN, C.N.P., M.S.N. [address] [place] [phone] 11/10/2024 10:00 AM MEDICAL AFFAIRS DIRECTOR Comprehensive Visit Department of Obstetrics and Gynecology, Division of Urogynecology in [place], [place] [address] [place] [phone] Yan Turner M.D., M.S. [address] [place] [phone] 11/22/2024 7:30 AM MEDICAL AFFAIRS DIRECTOR Hospital Encounter [facility]ST ROEI 01 4 AM ADMIT [address] [place] [phone] Brianne Beebe M.D., Ph.D. [address] [place] [phone] 11/22/2024 7:30 AM MEDICAL AFFAIRS DIRECTOR - 11/22/2024 4:42 PM MEDICAL AFFAIRS DIRECTOR Surgery [facility] [address] [place] [phone] Brianne Beebe M.D., Ph.D. [address] [place] [phone] ROBOTIC-ASSISTED Ventral Mesh RECTOPEXY Scheduled Procedures Name Priority Associated Diagnoses Date/Ti tn ROBOTIC-ASSISTED RECTOPEXY Prolapse Rectal Cystocele Rectocele 11/22/2024 7:30 AM MEDICAL AFFAIRS DIRECTOR ROBOTIC-ASSISTED EXPLORATION Prolapse Rectal Cystocele Rectocele 11/22/2024 7:30 AM MEDICAL AFFAIRS DIRECTOR Goals Goal Patient Goal Type Associated Problems Recent Progress Patient-Stated? Author [facility] Care Plan for Nicotine Dependency Perioperative Care Plan [facility] Care Plan for Nicotine Dependency Perioperative No Genevieve Strickland R.N. Surgical Readiness and Recovery Care Plan Care Plan Surgical Readiness and Recovery Care Plan No Genevieve Strickland R.N. Medical Devices Implanted Type Area Breakfast Attendant Device Identifier Shelf Expiration Date Model / [...] Procedure Name Priority Date/Time Associated Diagnosis Comments DX ABDOMEN 1 VIEW RAD - Routine (most inpatients and all outpatients) 08/29/2024 11:35 AM MEDICAL AFFAIRS DIRECTOR Constipation DIPSTICK, U Routine 07/26/2024 1:19 PM CDT PH, U Routine 07/26/2024 1:19 PM CDT MICROSCOPIC AUTOMATED Routine 07/26/2024 1:19 PM CDT OSMOLALITY, U Routine 07/26/2024 1:19 PM CDT URINALYSIS WITH MICROSCOPIC Routine 07/26/2024 1:19 PM CDT Cystocele Midline BACTERIAL CULTURE, AEROBIC + SUSC, URINE Routine 07/26/2024 1:19 PM CDT Cystocele Midline SD CYSTOMETROGRAM COMPLEX Routine 07/26/2024 1:00 PM CDT Cystocele Midline SD UROFLOWMETRY CMPLX Routine 07/26/2024 1:00 PM CDT Cystocele Midline SD ODELL PST VOID RESID US NON IMG [...] CDT from Last 3 Months Results * DX Abdomen 1 View (08/29/2024 11:35 AM MEDICAL AFFAIRS DIRECTOR) Anatomical Region Laterality Modality Abdomen, Abdominal RST LOS, Abdominal ARZ LOS, Abdominal FLA LOS N/A Digital Radiography Impressions 08/29/2024 11:52 AM MEDICAL AFFAIRS DIRECTOR Mild fecal loading in the descending colon. Otherwise negative abdominal radiograph. Narrative 08/29/2024 11:52 AM MEDICAL AFFAIRS DIRECTOR EXAM: DX ABDOMEN 1 VIEW Procedure Note Valentino Ramos M.B.B.S. - 08/29/2024 EXAM: DX ABDOMEN 1 VIEW IMPRESSION: Mild fecal loading in the descending colon. Otherwise negative abdominalradiograph. Carlos Corral M.D., M.P.H. IMG DIAGNOSTIC IMAGI NG PROCEDURES Final Result * Dipstick, Urine (07/26/2024 1:19 PM CDT) [...] ORDERABLES F inal Result Performing Organization Address City/[facility] Co de Phone Number [facility] [address] [place] [address], [facility] [address] [place] [address] * Microscopic Automated (07/26/2024 1:19 PM CDT) Microscopy Normal 07/26/2024 3:51 PM CDT DTL RBC None Seen <3 /hpf 07/26/2024 3:51 PM CDT DTL WBC None Seen /hpf 07/26/2024 3:51 PM CDT DTL Comment: ----REFERENCE VALUE---- <4 (Males) <11 (Females) Urine 07/26/2024 1:19 PM CDT 07/26/2024 3:25 PM CDT Yan Turner M.D., M.S. LAB URINE ORDERABLES F inal Result Performing Organization Address [facility] Co de Phone Number [facility] [address] [place], [place] [phone] [place] [address] 200 [place] [address] * Bacterial Culture, Aerobic + Susceptibility, Urine (07/26/2024 1:19 PM CDT) Urine Culture No growth after 1 day of incubation. 07/28/2024 7:23 AM CDT DTL Urine (Urine, Straight Catheter) 07/26/2024 1:19 PM CDT 07/26/2024 5:39 PM CDT Comment:Specimen Source Site : Urine Yan Turner M.D., M.S. LAB MICROBIOLOGY - GEN ERAL ORDERABLES Final Result Performing Organization Address City/[facility]/ZIP Co de Phone Number [facility] [address] [place] [address], [facility] [address] [place] [address] * pH, Urine (07/26/2024 1:19 PM CDT) pH, U 6.7 4.5 - 8.0 07/26/2024 4:3 5 PM CDT DTL Urine 07/26/2024 1:19 PM CDT 07/26/2024 3:25 PM CDT Yan Turner M.D., M.S. LAB URINE ORDERABLES F inal Result Performing Organization Address City/[facility]/ZIP Co de Phone Number [facility] [address] [place] [address], [facility] [address] [place] [address] * (ABNORMAL) Osmolality, Urine (07/26/2024 1:19 PM CDT) Osmolality, U 78(L) 150 - 1150 mOsm/kg 07/26/2024 4:35 PM CDT DTL Urine 07/26/2024 1:19 PM CDT 07/26/2024 3:25 PM CDT Yan Turner M.D., M.S. LAB URINE ORDERABLES F inal Result Performing Organization Address City/[facility]/ZIP Co de Phone Number [facility] [address] [place] [address], [facility] [address] [place] [address] * (ABNORMAL) Urinalysis, with Microscopic: Urine, Straight [...] M.S. LAB URINE ORDERABLES F inal Result [facility] [address] [place] [address], [facility] [address] [place] [address] * SD ODELL PST VOID RESID US NON IMG, SD UROFLOWMETRY CMPLX, SD CYSTOMETROGRAM COMPLEX (07/26/2024 1:00 PM CDT) Narrative Yan Turner M.D., M.S. - 07/26/2024 1:00 PM CDT Cass Miller M.D. 08/01/2024 11:10 AM OBG Urodynamic Studies Performed [...] proctitis. Narrative 07/02/2024 9:41 AM CDT EXAM: CT ABDOMEN PELVIS WITH IV CONTRAST [...] of a mild proctitis. Micha Baumann M.D. IM CT PROCEDURES Final R esult * Hepatic [...] M.D. LAB BLOOD ADD-ON Final Re sult [facility] [address] [place] [address], [facility] [address] [place] [address] * (ABNORMAL) CBC with Differential, Blood (07/01/2024 [...] ADD-ON Final Re sult Performing Organization Address City/[facility]/ZIP Co de Phone Number [facility] [address] [place], [place] [phone] [place] [address] [facility] [address] [place] [address] [facility] [address] [place] [address] * Lipase (07/01/2024 10:55 PM CDT) Lipase, S 30 13 - 60 U/L 07/01/2024 11:44 PM CDT DTL Blood (Blood, Venous) 07/01/2024 10:55 PM CDT 07/01/2024 11:30 PM CDT Micha Baumann M.D. LAB BLOOD ADD-ON Final Re sult Performing Organization Address City/[facility]/ZIP Co de Phone Number [facility] [address] [place], [place] [phone] [place] [address] DTL [facility] [address] [place] [address] * Lactate (07/01/2024 10:55 PM CDT) Lactate, P 1.0 0.5 - 2.2 mmol/L 07/01/2024 11:25 PM CDT [facility] Blood (Blood, Venous) 07/01/2024 10:55 PM CDT 07/01/2024 11:10 PM CDT Micha Baumann M.D. LAB BLOOD NON ADD-ON Luisana l Result [facility] [address] [place] [address], [facility] [address] [place] [address] * (ABNORMAL) Basic Metabolic Panel (07/01/2024 10:55 PM CDT) Pathologist [facility] Potassium, P 3.5(L) 3.6 - 5.2 mmol/L [...] M.D. LAB BLOOD ADD-ON Final Re sult [facility] [address] [place] [address], [place] [facility] [place] [address] [place] [address] from Last 3 Months Additional Health Concerns Active Problems Noted Date Diagnosed Date [facility] Care Plan for Nicotine Dependency Pe rioperative 07/08/2024 Surgical Readiness and Recovery Care Plan 2023 Insurance [employer] [place] [id number] Care Teams Farm Equipment Assembler Relationship Specialty Start Date End Date Elsewhere, Pcp PCP - General Internal Medicine 07/02/24
--- OUTSIDE RECORDS SUMMARY | 2024-09-02 08:46 | XMS_ITS | Clinical Summary ---
Author Organization [employer] [facility] Address [place], [place] [address] Care Team Providers Care [employer] Tech Name Role Phone John Paul Miller MD Primary Care Provider [phone] Allergies Active Allergy Reactions Criticality Noted Date [...] with meals. 0 11/28/2016 Active Vit C-Vit U-Akwuhf-Hhx-OM-3 (OCUVITE 150 MG-30 UNIT-5 MG-150 MG CAPSULE) 768-32-6-150 xz-olmh-al-mg capsuleIndications:Ma cular degeneration (senile) of retina, unspecified Take by mouth. 0 11/28/2016 Active Xwlxw-2-JQB-EPA-Fish Oil (FISH OIL) 1,000 mg (120 mg-180 [...] 58 02/03/2022 9:06 AM CDT Temperature 36.8 C (98.3 F) 11/28/2016 9:05 AM PRIMER CHARGER Respiratory Rate - - Oxygen Saturation 98% 02/03/2022 9:06 AM CDT Inhaled Oxygen Concentration - - Weight 54.9 kg (121 lb) 02/03/2022 9:06 AM CDT Height 148.6 cm (4' 10.5) 11/28/2016 9:05 AM CS T Body Mass Index 24.86 11/28/2016 9:05 AM PRIMER CHARGER Plan of Treatment Upcoming Encounters Date Type Department Care Team (Late st Contact Info) Description 09/02/2024 9:00 AM PRIMER CHARGER Ancillary Procedure [facility] [place] [facility] [address] [place] [address] Health Maintenance Due Date Last Done Comments [...] age 45-75 11/28/2021 11/28/2016 COVID-19 vaccine series ( - 2023- season) 2024 07/26/2021, 12/01/2020, 11/10/2020 Influenza for age 65+ 05/29/2024 Hepatitis C screening for age 18-79 Completed 11/28 Procedures Procedure Name Priority Date/Time Associated Diagnosis Comments ANTI HCV Routine 11/28/2016 10:50 AM PRIMER CHARGER Need for hepatitis C screening test LIPID PANEL W REFLEX MEASURED LDL Routine 11/28/2016 10:50 AM PRIMER CHARGER Hyperlipidemia, unspecified from Last 3 Months or Most Recently Relevant to Health Maintenance Results * LIPID PANEL W REFLEX MEASURED LDL (11/28/2016 10:50 AM PRIMER CHARGER) CHOLESTEROL,TOTAL 164 100 - 199 mg/dL 11/28/2016 11:36 AM PRIMER CHARGER [facility] TRIGLYCERIDES 85 <150 mg/dL 11/28/2016 11:36 AM PRIMER CHARGER [facility] HDL CHOLESTEROL 65 >40 mg/dL 7 11:36 AM PRIMER CHARGER [facility] NON-HDL CHOLESTEROL 99 <145 mg/dl 11/28/2016 11:36 AM PRIMER CHARGER [facility] CHOL/HDL RATIO 2.52 <4.50 11/28/2016 11:36 AM [facility] LDL CHOLESTEROL 82 <=130 mg/dL 11/28/2016 11:36 AM PRIMER CHARGER [facility] PATIENT STATUS FASTING 11/28/2016 11:36 AM [facility] Blood BLOOD SPECIMEN / Unknown Venipuncture / Unknown 11/28/2016 10:50 AM PRIMER CHARGER 11/28/2016 10:50 AM PRIMER CHARGER Lucas Abebe MD CHEMISTRY [facility] [address] [place] [address], * ANTI HCV [33899.2] (11/28/2016 10:50 AM PRIMER CHARGER) HEPATITIS C ANTIBODY Non-Reacti ve Non-Reacti ve 11/28/2016 4:20 PM PRIMER CHARGER [facility] Blood BLOOD SPECIMEN / Unknown Venipuncture / Unknown 11/28/2016 10:50 AM PRIMER CHARGER 11/28/2016 10:50 AM PRIMER CHARGER Narrative [facility] - 11/28/2016 4:20 PM PRIMER CHARGER Antibodies to HCV not detected; does not exclude the possibility of exposure to HCV. Lucas Abebe MD SEND OUTS Performing Organization Address City/[facility]/ZIP Co de Phone Number [facility] [address] [place] [address], from Last 3 Months or Most Recently Relevant to Health Maintenance Care Teams [employer] Tech Relationship Specialty Start Date End Date John Paul Miller MD [address] [place] [address] PCP - General Family Practice 01/03/22
--- OUTSIDE RECORDS SUMMARY | 2024-09-02 08:46 | XMS_ITS ---
Author Organization [facility] Address [address] [place] [address] Care Team Providers Care Beader Name Role Phone Unavailable Unavailable Unavailable Surgery Details Not on file Complications Check Surgery Details section. Procedure Estimated Blood Loss Check Surgery Details section. Procedure Findings Check Surgery Details section. Procedure Specimens Taken Check Surgery Details section.
--- OUTSIDE RECORDS SUMMARY | 2024-09-02 08:46 | XMS_ITS | Encounter Summary ---
Author Organization [facility] Address [address] [place] [address] Care Team Providers Care Telegraphic Typewriter Installer Name Role Phone Elsewhere, Pcp Primary Care Provider Unavailabl e Reason for Referral * Outpatient (Routine) - Closed Specialty Diagnoses / Procedures Referred By Contac t Referred To Contact Diagnoses Constipation Procedures DX Abdomen 1 View Milton Raman M.D., D.Sc. [address] [place] [address] Phone: tel: fax: [facility] Referral ID Status Reason Start Date Expiration Date Visits Re quested Visits Authorized [id number] Closed 08/08/2024 08/08/2025 1 1 ING INSTRUCTOR Reason for Visit * Outpatient (Routine) - Closed Specialty Diagnoses / Procedures Referred By Contac t Referred To Contact Diagnoses Constipation Procedures DX Abdomen 1 View Milton Raman M.D., D.Sc. [address] [place] [address] Phone: tel: fax: [facility] Referral ID Status Reason Start Date Expiration Date Visits Re quested Visits Authorized [id number] Closed 08/08/2024 08/08/2025 1 1 Encounter Details Date Type Department Care Team (Latest Contact Info) Description 08/29/2024 11:17 AM RUNNING INSTRUCTOR - 08/29/2024 11:59 PM RUNNING INSTRUCTOR Hospital Encounter Department of Radiology, [facility], in [place], [place] [address] [place] [address] Eleuterio Escobar M.B.BLaurelS. [address] [place] [address] Constipation Discharge Disposition: Home or Self Care Social History Tobacco Use Types Packs/Day Years Used Date Smoking Tobacco: Never Passive Smoke Exposure: Never Smokeless Tobacco: Never Alcohol Use Standard Drinks/Week Comments Yes 3 (1 standard drink = 0.6 oz pur e alcohol) [facility] Utilities Answer Date Recorded In the past 12 months has th e electric, gas, oil, or water Entitle threatened to shut off services in your [...] your living situation today? I have a [facility] place to live 01/07/2024 Comments No Sex and Gender Information Value Date Recorded Sex Assigned at Female 01/07/2024 8:31 PM CDT Legal Sex Female 5:11 PM RUNNING INSTRUCTOR Gender Identity Female 01/07/2024 8:31 PM CDT Sexual Orientation Straight 01/07/2024 8: 31 PM CDT documented as of this encounter Medications at Time of Discharge acetaminophen (TylenoL 8 Hr) 650 mg ER tablet Take 1,300 mg by mouth every 8 (eight) hours. calcium carbonate (calcium carbonate EX) 750 mg [...] 1 capsule by mouth at bedtime. 11/28/2016 fluticasone propionate (Flonase Allergy Relief) 50 mcg/actuation nasal spray Administer 2 sprays into nostril(s) 2 (two) times a day. 08/18/2024 hydroCHLOROthiazi de (HYDRODIURIL) 25 mg tablet Take 25 mg by mouth as needed. ibandronate (Boniva) 150 mg tablet Take 150 mg by mouth every 30 (thirty) days. 10/27/2023 Linzess 290 mcg capsule Take 290 mcg by mouth daily before morning meal. 08/12/2024 metoprolol succinate (Toprol XL) 50 mg 24 hr tablet Take 50 mg by mouth daily. 10/27/2023 multivitamin tablet Take 1 tablet by mouth daily. 11/28/2016 NIFEdipine XL (PROCARDIA XL) 60 mg 24 hr tablet Take 60 mg by mouth at bedtime. 10/27/2023 nitroglycerin (NITROSTAT) 0.[address] 0.4 mg under the tongue every 2 (two) hours as needed. 11/28/2016 psyllium, with sugar, (KonsyL) 3.4 gram packet Take 1 packet by mouth daily. Gummies sennosides-docusa te sodium (Senokot-S) 8.6-50 mg per tablet Take 1 tablet by mouth daily. With dinner 06/27/2024 simvastatin (Zocor) 20 mg tablet Take 20 mg by mouth at bedtime. 10/27/2023 vits A,C,E/lutein/mine rals (OCUVITE WITH LUTEIN ORAL) Take 150 mg by mouth daily. 11/28/2016 bisacodyL (Dulcolax) 10 mg suppository Insert 10 mg into the rectum daily as needed. 06/21/2024 4 ibandronate (BONIVA) 150 mg tablet Take 150 mg by mouth every 30 (thirty) days. 11/04/2023 4 metoprolol succinate (TOPROL-XL) 50 mg 24 hr tablet Take 50 mg by mouth daily. 4 NIFEdipine (Adalat CC) 60 mg ER tablet Take 60 mg by mouth daily. 08/18/2024 4 Senexon-S 8.6-50 mg per tablet Take 1 tablet by mouth daily. 06/27/2024 4 simvastatin (ZOCOR) 20 mg tablet Take 20 mg by mouth at bedtime. 08/31/2016 4 documented as of this encounter Plan of Treatment Upcoming Encounters Date Type Department Care Team (Latest Contact Info) Description 09/14/2024 9:00 AM RUNNING INSTRUCTOR Comprehensive Visit Department of Physical Medicine and Rehabilitation in [place], [place] [address] [place] [address] Renate Youngblood APRN, C.N.P., M.S.N. [address] [place] [address] 09/26/2024 10:00 AM RUNNING INSTRUCTOR Clinical Support Department of Physical Medicine and Rehabilitation in [place], [place] [address] [place] [phone] Renate Youngblood APRN, C.NLewis., M.S.N. [address] [place] [phone] 10/03/2024 4:20 PM RUNNING INSTRUCTOR Virtual Visit Division of Gastroenterology in [place], [place] [address] [place] [phone] Carlos Corral M.D., M.P.H. [address] [place] [phone] 10/04/2024 10:00 AM RUNNING INSTRUCTOR Clinical Support Department of Physical Medicine and Rehabilitation in [place], [place] [address] [place] [phone] Renate Youngblood APRN, C.NLewis., M.S.N. [address] [place] [phone] 10/10/2024 1:00 PM RUNNING INSTRUCTOR Clinical Support Department of Physical Medicine and Rehabilitation in [place], [place] [address] [place] [phone] Renate Youngblood APRN, C.NLewis., M.S.N. [address] [place] [phone] 10/18/2024 1:00 PM RUNNING INSTRUCTOR Clinical Support Department of Physical Medicine and Rehabilitation in [place], [place] [address] [place] [address] Renate Youngblood APRN, C.N.P., M.S.N. [address] [place] [phone] 10/25/2024 1:00 PM RUNNING INSTRUCTOR Clinical Support Department of Physical Medicine and Rehabilitation in [place], [place] [address] [place] [address] Renate Youngblood APRN, C.N.P., M.S.N. [address] [place] [phone] 10/31/2024 1:00 PM RUNNING INSTRUCTOR Clinical Support Department of Physical Medicine and Rehabilitation in [place], [place] [address] [place] [phone] Renate Youngblood APRN, CLaurelNLaurelP., M.S.N. [address] [place] [phone] 11/10/2024 10:00 AM RUNNING INSTRUCTOR Comprehensive Visit Department of Obstetrics and Gynecology, Division of Urogynecology in [place], [place] [address] [place] [phone] Yan Turner M.D., M.S. [address] [place] [phone] 11/22/2024 7:30 AM RUNNING INSTRUCTOR Hospital Encounter [facility] 4 AM ADMIT [address] [place] [phone] Brianne Beebe M.D., Ph.D. [address] [place] [phone] 11/22/2024 7:30 AM RUNNING INSTRUCTOR - 11/22/2024 4:42 PM RUNNING INSTRUCTOR Surgery [facility] MAIN OR [address] [place] [address] Brianne Beebe M.D., Ph.D. [address] [place] [phone] ROBOTIC-ASSISTED Ventral Mesh RECTOPEXY Scheduled Procedures Name Priority Associated Diagnoses Date/Ti mt ROBOTIC-ASSISTED RECTOPEXY Prolapse Rectal Cystocele Rectocele 11/22/2024 7:30 AM RUNNING INSTRUCTOR ROBOTIC-ASSISTED EXPLORATION Prolapse Rectal Cystocele Rectocele 11/22/2024 7:30 AM RUNNING INSTRUCTOR documented as of this encounter Goals Goal Patient Goal Type Associated Problems Recent Progress Patient-Stated? Author [facility] Care Plan for Nicotine Dependency Perioperative Care Plan [facility] Care Plan for Nicotine Dependency Perioperative No Genevieve Strickland R.N. Surgical Readiness and Recovery Care Plan Care Plan Surgical Readiness and Recovery Care Plan No Genevieve Strickland R.N. documented as of this encounter Procedures Procedure Name Priority Date/Time Associated Diagnosis Comments DX ABDOMEN 1 VIEW RAD - Routine (most inpatients and all outpatients) 08/29/2024 11:35 AM RUNNING INSTRUCTOR Constipation documented in this encounter Results * DX Abdomen 1 View (08/29/2024 11:35 AM RUNNING INSTRUCTOR) Anatomical Region Laterality Modality Abdomen, Abdominal RST LOS, Abdominal ARZ LOS, Abdominal FLA LOS N/A Digital Radiography Impressions 08/29/2024 11:52 AM RUNNING INSTRUCTOR Mild fecal loading in the descending colon. Otherwise negative abdominal radiograph. Narrative 08/29/2024 11:52 AM RUNNING INSTRUCTOR EXAM: DX ABDOMEN 1 VIEW Procedure Note Valentino Ramos M.B.BLaurelS. - 08/29/2024 EXAM: DX ABDOMEN 1 VIEW IMPRESSION: Mild fecal loading in the descending colon. Otherwise negative abdominalradiograph. Carlos Corral M.D., M.P.H. IMG DIAGNOSTIC IMAGI NG PROCEDURES Final Result documented in this encounter Visit Diagnoses Diagnosis Prolapse Rectal Cystocele Rectocele Constipation Prolapse Rectal Cystocele Rectocele documented in this encounter Additional Health Concerns Active Problems Noted Date Diagnosed Date [facility] Care Plan for Nicotine Dependency Pe rioperative 07/08/2024 Surgical Readiness and Recovery Care Plan 2023 documented as of this encounter Care Teams Telegraphic Typewriter Installer Relationship Specialty Start Date End Date Elsewhere, Pcp PCP - General Internal Medicine 07/02/24 documented as of this encounter
--- OUTSIDE RECORDS SUMMARY | 2024-09-02 08:46 | XMS_ITS | Encounter Summary ---
Author Organization [facility] Address [address] [place] [address] Care Team Providers Care Autoglazier Name Role Phone Elsewhere, Pcp Primary Care Provider Unavailabl e Reason for Referral * Outpatient (Routine) - Authorized Specialty Diagnoses / Procedures Referred By Contact Referred To Contact Gastroenterology and Hepatology Carlos Corral M.D., M.P.H. [address] [place] [address] Phone: tel: fax: [facility] Referral ID Status Reason Start Date Expiration Date V isits Requested Visits Authorized [id number] Authorized 08/30/2024 03/01/2026 1 1 HT SIMULATOR TEACHER Reason for Visit * Outpatient (Routine) - Closed Specialty Diagnoses / Procedures Referred By Contact Referred To Contact Gastroenterology and Hepatology Diagnoses Constipation Slow Transit John Paul Miller M.D. [address] [place] [address] Phone: tel: fax: [facility] Referral ID Status Reason Start Date Expiration Date Visits Re quested Visits Authorized [id number] Closed 08/02/2024 02/01/2026 1 1 Encounter Details Date Type Department Care Team (Latest Contact Info) Description 08/30/2024 1:10 PM FLIGHT SIMULATOR TEACHER Comprehensive Visit Division of Gastroenterology in [place], [place] [address] [place] [address] John Paul Miller M.D. [address] [place] [address] Stefano Raman M.D., D.Sc. [address] [place] [phone] Carlos Corral M.D., M.P.H. [address] [place] [phone] Dysfunction Pelvic Floor (Primary Dx); Constipation Slow Transit; Prolapse Rectal; Hernia Perineal; Hypermobility Joint; Hysterectomy Status Post Social History Tobacco Use Types Packs/Day Years Used Date Smoking Tobacco: Never Passive Smoke Exposure: Never Smokeless Tobacco: Never Alcohol Use Standard Drinks/Week Comments Yes 3 (1 standard drink = 0.6 oz pur e alcohol) [facility] Utilities Answer Date Recorded In the past 12 months has th e [employer], gas, oil, or water [employer] threatened to shut off services in your [...] your living situation today? I have a [facility] place to live 01/07/2024 Comments No Sex and Gender Information Value Date Recorded Sex Assigned at Female 01/07/2024 8:31 PM CDT Legal Sex Female 5:11 PM FLIGHT SIMULATOR TEACHER Gender Identity Female 01/07/2024 8:31 PM CDT Sexual Orientation Straight 01/07/2024 8: 31 PM CDT documented as of this encounter Last Filed Vital Signs Vital Sign Reading Time Taken Comments Blood Pressure 161/74 08/30/2024 12:59 PM FLIGHT SIMULATOR TEACHER Pulse 70 08/30/2024 12:59 PM FLIGHT SIMULATOR TEACHER Temperature - - Respiratory Rate - - Oxygen Saturation - - Inhaled Oxygen Concentration - - Weight 55.9 kg (123 lb 3.8 oz) 08/30/2024 12:59 PM FLIGHT SIMULATOR TEACHER Height 151.6 cm (4' 11.69) 08/30/2024 12:59 PM FLIGHT SIMULATOR TEACHER Body Mass Index 24.32 08/30/2024 12:59 PM FLIGHT SIMULATOR TEACHER documented in this encounter Progress Notes * Stefano Raman M.D., D.Sc. - 08/30/2024 1:10 PM CST SUBJECTIVE Patient ID: Allie Barbosa is a 68 y.o. female who presents for evaluation of constipation in the setting of rectal mucosal prolapse, with request for revision of medical management of constipation ASSESSMENT / PLAN This is a supervisory note to accompany the note of Dr. Carlos Corral I completely agree with the assessment as well as the recommendations given. The patient is a 68-year-old white female who is suffering from constipation with episodes of fecal incontinence. The constipation is associated with incomplete evacuation and requirement of digitation, and the patient haspreviously undergone surgery for rectal prolapse and intussusception and also underwent a partial colectomy with the anastomosis located about 10 cm from the anal verge. She has recurrent rectal prolapse, and the constipation is currently being treated with a combination of linaclotide 290 mcg, Metamucil 3 gummies per day and senna 8.6 mg tablets. This is resulting in extreme looseness of the bowel movement with consistency 6 or 7 on the Wheatland stool form scale, and fecal leakage about 3 or 4 times per month. She is currently pursuing physical therapy at [facility] to enhance pelvic floor and anal sphincter function. She is also due to undergo surgery for rectal prolapse in the new year. The patient was referred predominantly to review and revise the current regimen for treatment of the constipation. Given the fact that she has excessive perineal descent and mucosal prolapse, with history consistent with fecal leakage, we have recommended that the patient should continue treatment only with linaclotide 290 mcg daily, avoiding the increased bulk provided by the Metamucil and the senna prokinetic both of which are likely to induce further contractions of the colon, predisposing to episodes of fecal incontinence. If necessary, the patient could also supplement the effects of theoral linaclotide with 10 mg bisacodyl suppositories in order to facilitate emptying of the lower bowel. I met with the patient and her daughter and answered her questions. HT SIMULATOR TEACHER documented in this encounter Consult Notes * Carlos Corral M.D., M.P.H. - 08/30/2024 1:10 PM CST Referring Physician: John Paul Miller M.D. Primary Care Physician: CAPRICE, PCP Subjective: Chief Complaint/Reason for Consult: constipation HPI: Mrs. Barbosa is a 68-year-old female who is seen in clinic today with her daughter for constipation.She endorses chronic constipation, passing Wheatland 1-2 about 2-3 times a week without laxatives, associated with straining, incomplete evacuation, digitation, no blood or black stool. She tried MiraLAX 1 capful daily which didn't seem to be effective and increasing it to 2 capful daily made the stool loose. About a month ago she started a regimen together with her local provider consistent of Linzess 290 mcg, 3 metamucil gummies and 1 tablet of Senakot, but that resulted in Wheatland 6-7, fecal incontinence 3-4 times a month, sometimes of large amount without awareness, no nocturnal symptoms. She never tried Linzess on its own. She also endorses recurrence of rectal prolapse which was previously operated and urinary incontinence with stress (cough, sneeze and sudden movement). She denied weight loss, dysphagia, odynophagia, regurgitation, abdominal pain, vomiting, lumps or bumps. She is currently in a physiotherapy program at [facility]. Past medical history: GERD Esophageal spasms Hypertension Hyperlipidemia Possible EDS Hysterectomy in 1984 Partial colectomy (lower abdominal resection) and rectopexy for rectal intussusception Previous two normal vaginal deliveries - uncomplicated Current medications: Linzess 290 mcg Metamucil gummies - 3 daily Senakot - 1 daily Esomeprazole and Pepcid NIFEdipine Previous medications: MiraLAX Suppositories Family history: No sinister GI family history Reported EDS history in 2 nieces Social history: Retired investment accountant She denied smoking, CBD/marijuana use She drinks 1 serving of wine 4-5 times weekly Her diet is rich in fiber and reports about 64 oz of water intake daily Previous investigations: Colonoscopy in 2021: anastomosis at 10 cm, circumferential internal hemorrhoids ARM 2023: suggestive of rectal evacuation disorder Abdominal X-ray showed mild stool buden MR proctogram 2023: 1. Normal-appearing internal sphincter. There is some [...] Moderate to large cystocele with urethral kinking. Review of Systems Pertinent items are noted in HPI. Objective: Physical Exam BP (!) 161/74 (BP Location: Left arm, Patient Position: Sitting) Pulse 70 Ht 151.6 cm Wt 55.9kg BMI 24.32 kg/m?? General appearance: alert and cooperative Eyes: Anicteric sclera. Pupils are equally round and reactive to light. Extraocular movements are intact. Throat: lips, mucosa, and tongue normal; teeth and gums normal Neck: no adenopathy Abdomen: soft, non-tender; no masses, no organomegaly; rectal exam: large external hemorrhoids, mucosal rectal prolapse on simulated evacuation, high resting tone, normal squeeze, excessive perineal descent and rectal prolapse noted on simulated evacuation and digital rectal exam Assessment/Plan: Mrs. Barbosa is a 68-year-old female who is seen in clinic today with her daughter for chronic constipation and rectal prolapse. She is planned for rectopexy with mesh support in 10/2024 and seeking advice on constipation management prior to surgery. It is possible to the combination of Linzess, metam ucil and Senakot is contributing to fecal incontinence and seems over treating the constipation. The recommendation is to give Linzess 290 mcg alone a trial with as needed Dulcolax suppositories every 2-3 days and continuing with pelvic floor physical therapy. Anorectal manometry was suggestive of rectal evacuation disorder and the MR proctogram reported excessive descent with evacuation, rectocele, circumferential rectal prolapse, enterocele and cystocele. 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 The patient was advised to message me through the portal in 2 weeks with her progress Advised to continue with the pelvic floor therapy as planned, allowing 3-6 months for maximum effect We will cancel the gastric emptying and colon transit scan as it won't add additional information that will alter the plan Planned for rectopexy with mesh in 11/22 Return after 1 month I have spent 60 minutes with the patient, 50% involved [id number] constulation and assessment. Patient was seen by Dr. Raman, plan of care was discussed in details. Electronically signed by: Carlos Corral M.D., M.P.H. 08/30/2024 12:53 PM FLIGHT SIMULATOR TEACHER HT SIMULATOR TEACHER documented in this encounter Miscellaneous Notes * Addendum Note - Stefano Raman M.D., D.Sc. - 08/30/2024 1:10 PM FLIGHT SIMULATOR TEACHER Addended by: STEFANO RAMAN on: 08/31/2024 07:09 AM Modules accepted: Orders HT SIMULATOR TEACHER documented in this encounter Plan of Treatment Upcoming Encounters Date Type Department Care Team (Latest Contact Info) Description 09/14/2024 9:00 AM FLIGHT SIMULATOR TEACHER Comprehensive Visit Department of Physical Medicine and Rehabilitation in [address] [phone] Renate Youngblood APRN, C.N.Dandre., M.S.N. [address] [place] [phone] 09/26/2024 10:00 AM FLIGHT SIMULATOR TEACHER Clinical Support Department of Physical Medicine and Rehabilitation in [address] [phone] Renate Youngblood APRN, Celeste.N.P., M.S.N. [address] [place] [phone] 10/03/2024 4:20 PM FLIGHT SIMULATOR TEACHER Virtual Visit Division of Gastroenterology in [address] [phone] Carlos Corral M.D., M.P.H. [address] [place] [phone] 10/04/2024 10:00 AM FLIGHT SIMULATOR TEACHER Clinical Support Department of Physical Medicine and Rehabilitation in [address] [phone] Renate Youngblood APRN, C.N.P., M.S.N. [address] [place] [phone] 10/10/2024 1:00 PM FLIGHT SIMULATOR TEACHER Clinical Support Department of Physical Medicine and Rehabilitation in [place], [place] [address] [place] [address] Renate Youngblood APRN, C.NLewis., M.S.N. [address] [place] [phone] 10/18/2024 1:00 PM FLIGHT SIMULATOR TEACHER Clinical Support Department of Physical Medicine and Rehabilitation in [place], [place] [address] [place] [phone] Renate Youngblood APRN, C.NLewis., M.S.N. [address] [place] [phone] 10/25/2024 1:00 PM FLIGHT SIMULATOR TEACHER Clinical Support Department of Physical Medicine and Rehabilitation in [place], [place] [address] [place] [phone] Renate Youngblood APRN, C.NLewis., M.S.N. [address] [place] [phone] 10/31/2024 1:00 PM FLIGHT SIMULATOR TEACHER Clinical Support Department of Physical Medicine and Rehabilitation in [place], [place] [address] [place] [phone] Renate Youngblood APRN, C.N.P., M.S.N. [address] [place] [phone] 11/10/2024 10:00 AM FLIGHT SIMULATOR TEACHER Comprehensive Visit Department of Obstetrics and Gynecology, Division of Urogynecology in [place], [place] [address] [place] [phone] Yan Turner M.D., M.S. [address] [place] [phone] 11/22/2024 7:30 AM FLIGHT SIMULATOR TEACHER Hospital Encounter [facility] 01 4 AM ADMIT [address] [place] [address] Brianne Beebe M.D., Ph.D. [address] [place] [phone] 11/22/2024 7:30 AM FLIGHT SIMULATOR TEACHER - 11/22/2024 4:42 PM FLIGHT SIMULATOR TEACHER Surgery [facility] MAIN OR [address] [place] [address] Brianne Beebe M.D., Ph.D. [address] [place] [phone] ROBOTIC-ASSISTED Ventral Mesh RECTOPEXY Scheduled Procedures Name Priority Associated Diagnoses Date/Ti dc ROBOTIC-ASSISTED RECTOPEXY Prolapse Rectal Cystocele Rectocele 11/22/2024 7:30 AM FLIGHT SIMULATOR TEACHER ROBOTIC-ASSISTED EXPLORATION Prolapse Rectal Cystocele Rectocele 11/22/2024 7:30 AM FLIGHT SIMULATOR TEACHER Scheduled Referrals Name Type Priority Associated Diagnoses Order Schedule Gastroenterology and Hepatology office visit (clinic) Outpatient Referral Routine Expected: 09/30/2024, Expires: 11/28/2025 documented as of this encounter Goals Goal Patient Goal Type Associated Problems Recent Progress Patient-Stated? Author [facility] Care Plan for Nicotine Dependency Perioperative Care Plan [facility] Care Plan for Nicotine Dependency Perioperative No Genevieve Strickland, R.N. Surgical Readiness and Recovery Care Plan Care Plan Surgical Readiness and Recovery Care Plan No Genevieve Strickland, R.N. documented as of this encounter Visit Diagnoses Diagnosis Prolapse Rectal Cystocele Rectocele Dysfunction Pelvic Floor- Primary Constipation Slow Transit Prolapse Rectal Hernia Perineal Hypermobility Joint Hysterectomy Status Post Prolapse Rectal Cystocele Rectocele documented in this encounter Additional Health Concerns Active Problems Noted Date Diagnosed Date [facility] Care Plan for Nicotine Dependency Pe rioperative 07/08/2024 Surgical Readiness and Recovery Care Plan 2023 documented as of this encounter Care Teams Autoglazier Relationship Specialty Start Date End Date Elsewhere, Pcp PCP - General Internal Medicine 07/02/24 documented as of this encounter
--- OUTSIDE RECORDS SUMMARY | 2024-09-02 08:46 | XMS_ITS | Encounter Summary ---
Author Organization [facility] Address [address] [place] [address] Care Team Providers Care Artist'S Manager Name Role Phone Elsewhere, Pcp Primary Care Provider Unavailabl e Reason for Visit * Reason Onset Date Comments Abnormal ECG 08/31/2024 Encounter Details Date Type Department Care Team (Late st Contact Info) Description 08/31/2024 Clinical Communication Division of Colon and Rectal Surgery in [place], [place] [address] [place] [address] Renate Youngblood APRN, C.N.P., M.S.N. [address] [place] [phone] Abnormal ECG Social History Tobacco Use Types Packs/Day Years Used Date Smoking Tobacco: Never Passive Smoke Exposure: Never Smokeless Tobacco: Never Alcohol Use Standard Drinks/Week Comments Yes 3 (1 standard drink = 0.6 oz pur e alcohol) [facility] Utilities Answer Date Recorded In [...] your living situation today? I have a [facility] place to live 01/07/2024 Comments No Sex and Gender Information Value Date Recorded Sex Assigned at Female 01/07/2024 8:31 PM CDT Legal Sex Female 5:11 PM CATHODE BUILDER Gender Identity Female 01/07/2024 8:31 PM CDT Sexual Orientation Straight 01/07/2024 8: 31 PM CDT documented as of this encounter Plan of Treatment Upcoming Encounters Date Type Department Care Team (Latest Contact Info) Description 09/14/2024 9:00 AM CATHODE BUILDER Comprehensive Visit Department of Physical Medicine and Rehabilitation in [place], [place] [address] [place] [phone] Renate Youngblood APRN, C.N.P., M.S.N. [address] [place] [address] 09/26/2024 10:00 AM CATHODE BUILDER Clinical Support Department of Physical Medicine and Rehabilitation in [place], [place] [address] [place] [phone] Renate Youngblood APRN, C.N.P., M.S.N. [address] [place] [phone] 10/03/2024 4:20 PM CATHODE BUILDER Virtual Visit Division of Gastroenterology in [place], [place] [address] [place] [phone] Carlos Corral M.D., M.P.H. [address] [place] [phone] 10/04/2024 10:00 AM CATHODE BUILDER Clinical Support Department of Physical Medicine and Rehabilitation in [place], [place] [address] [place] [phone] Renate Youngblood APRN, C.N.P., M.S.N. [address] [place] [phone] 10/10/2024 1:00 PM CATHODE BUILDER Clinical Support Department of Physical Medicine and Rehabilitation in [place], [place] [address] [place] [phone] Renate Youngblood APRN, C.NLaurelP., M.S.N. [address] [place] [phone] 10/18/2024 1:00 PM CATHODE BUILDER Clinical Support Department of Physical Medicine and Rehabilitation in [place], [place] [address] [place] [phone] Renate Youngblood APRN, C.N.P., M.S.N. [address] [place] [phone] 10/25/2024 1:00 PM CATHODE BUILDER Clinical Support Department of Physical Medicine and Rehabilitation in [place], [place] [address] [place] [phone] Renate Youngblood APRN, C.N.P., M.S.N. [address] [place] [phone] 10/31/2024 1:00 PM CATHODE BUILDER Clinical Support Department of Physical Medicine and Rehabilitation in [place], [place] [address] [place] [phone] Renate Youngblood APRN, C.N.P., M.S.N. [address] [place] [phone] 11/10/2024 10:00 AM CATHODE BUILDER Comprehensive Visit Department of Obstetrics and Gynecology, Division of Urogynecology in [place], [place] [address] [place] [phone] Yan Turner M.D., M.S. [address] [place] [phone] 11/22/2024 7:30 AM CATHODE BUILDER Hospital Encounter [facility] 4 AM ADMIT [address] [place] [phone] Brianne Beebe M.D., Ph.D. [address] [place] [phone] 11/22/2024 7:30 AM CATHODE BUILDER - 11/22/2024 4:42 PM CATHODE BUILDER Surgery [facility] MAIN OR [address] [place] [address] Brianne Beebe M.D., Ph.D. [address] [place] [phone] ROBOTIC-ASSISTED Ventral Mesh RECTOPEXY Scheduled Procedures Name Priority Associated Diagnoses Date/Ti vt ROBOTIC-ASSISTED RECTOPEXY Prolapse Rectal Cystocele Rectocele 11/22/2024 7:30 AM CATHODE BUILDER ROBOTIC-ASSISTED EXPLORATION Prolapse Rectal Cystocele Rectocele 11/22/2024 7:30 AM CATHODE BUILDER documented as of this encounter Goals Goal Patient Goal Type Associated Problems Recent Progress Patient-Stated? Author [facility] Care Plan for Nicotine Dependency Perioperative Care Plan [facility] Care Plan for Nicotine Dependency Perioperative No Genevieve Strickland, RLaurelN. Surgical Readiness and Recovery Care Plan Care Plan Surgical Readiness and Recovery Care Plan No Genevieve Strickland, RJose. documented as of this encounter Visit Diagnoses Not on filedocumented in this encounter Additional Health Concerns Active Problems Noted Date Diagnosed Date [facility] Care Plan for Nicotine Dependency Pe rioperative 07/08/2024 Surgical Readiness and Recovery Care Plan 2023 documented as of this encounter Care Teams Artist'S Manager Relationship Specialty Start Date End Date Elsewhere, Pcp PCP - General Internal Medicine 07/02/24 documented as of this encounter
--- OUTSIDE RECORDS SUMMARY | 2024-09-02 08:46 | XMS_ITS | Encounter Summary ---
Author Organization [facility] Address [address] [place] [id number] Care Team Providers Care Director Furniture Name Role Phone Elsewhere, Pcp Primary Care Provider Unavailabl e Reason for Visit * Outpatient (Routine) - Authorized Specialty Diagnoses / Procedures Referred By Contact Referred To Contact Physical Medicine and Rehabilitation Diagnoses Dysfunction Pelvic Floor Prolapse Rectal Other Female Genital Prolapse Procedures PMR Pelvic floor & bowel/bladder programs Renate Youngblood APRN, C.N.P., M.S.N. 200 [place] [address] Phone: tel: fax: [facility] Referral ID Status Reason Start Date Expiration Date V isits Requested Visits Authorized [id number] Authorized 07/08/2024 09/27/2024 23 23 Encounter Details Date Type Department Care Team (Latest Contact Info) Description 08/15/2024 2:00 PM VOICE PROFESSOR Clinical Support Department of Physical Medicine and Rehabilitation in [place], [place] [address] [place] [phone] Renate Youngblood APRN, C.N.P., M.S.N. [address] [place] [phone] Dysfunction Pelvic Floor; Prolapse Rectal; Other Female Genital Prolapse Social History Tobacco Use Types Packs/Day Years Used Date Smoking Tobacco: Never Passive Smoke Exposure: Never Smokeless Tobacco: Never Alcohol Use Standard Drinks/Week Comments Yes 3 (1 standard drink = 0.6 oz pur e alcohol) [facility] Utilities Answer Date Recorded In the [...] your living situation today? I have a [facility] place to live 01/07/2024 Comments No Sex and Gender Information Value Date Recorded Sex Assigned at Female 01/07/2024 8:31 PM CDT Legal Sex Female 5:11 PM VOICE PROFESSOR Gender Identity Female 01/07/2024 8:31 PM CDT Sexual Orientation Straight 01/07/2024 8: 31 PM CDT documented as of this encounter Progress Notes * Crissy Cohen O.T., MOT - 08/15/2024 2:00 PM CST Pelvic Health Occupational Therapy Progress Note SUBJECTIVE Patient's Name: Allie Barbosa Referring Provider: Renate Youngblood APRN, C.NLaurelPLaurel, M.S.N. Medical Diagnosis: 1. Dysfunction Pelvic Floor 2. Prolapse Rectal 3. Other Female Genital Prolapse Reason for Referral: Rectal Prolapse, cystocele, rectocele, enterocele-hx of repair Onset Date: 07/08/24 Payor: MEDICA / Plan: [employer] PPO / Product Type: PPO / Total Visit Count: 7 History of Present Illness: rectal prolapse, cystocele, rectocele, enterocele- history of repair Patient goals:delay surgical procedures Patient reports she continues to find her journal helpful and to manage her medications and fiber intake. Notes she did not have a bowel movement all day Thursday or most of Thursday and so she used anenema. Reports it was productive but not as much as she expected. Patient also by a squatty potty but does note in her current location it is not the appropriate height however she is moving to a condo soon and feels it will be useful there. She is seeing [facility] in 2 weeks for transit study. Fall in the last 12 months: Yes OBJECTIVE Vitals: Not indicated at this time TREATMENT Treatment today consisted of: Procedural pause was used to discuss next steps in pelvic floor treatment prior to assessment. Patient consented to ongoing treatment which included the below items. Patient given option to discontinue examination at any time. Neuromuscular Re-education- The following neuromuscular re-education utilized to increase body awareness and interoception. Verbal and tactile cues used when appropriate. Educated on pelvic floor and abdominal muscle awareness and application to ADLS. - Diaphragmatic Breathing - In side lying position, the patient was guided through the appropriate body mechanics for proper diaphragmatic breathing technique. Verbal and tactile cues at lateral ribsfor rib cage expansion and diaphragm range of motion coupled with relaxation of the pelvic floor mus culature, goal of optimizing baseline muscle tone and patient's ability to relax pelvic floor muscles, as well as improve the pace and abdominal expansion during diaphragmatic breathing. - Awareness - Coached patient in recognition of pelvic floor activation and relaxation, using the following strategies: contract-relax, diaphragmatic breathing, visualization, digital cues. Guided patient in identifying ways they can integrate these strategies into their daily routine for improved pelvic floor awareness. Therapist inserted rectal balloon with patient in side lying position. Moderate resistance noted during insertion of balloon. Patient reports pain with insertion of the balloon on this date. Unable to tolerate insertion deeper into rectum likely due to excess tissue decent and hypersensitized tissue. Sensory Testing - Patient unable to tolerate quick fill series as it triggered significant discomfort. During slow fill testing, patient reports discomfort past tolerance a 30cc and was able to tolerate at 25cc. However, Patient unable to accommodate with time alone. Patient unable to blunt an urgeutilizing urge suppression techniques. Of note patient reports less discomfort with digital rectal exam. Manual Therapy- The following manual therapy was provided after screening for contraindications and obtaining consent: - Corey's massage to hypertonic pelvic floor muscles as listed in exam to improve pelvic floor muscle excursion - Digital cueing for pelvic floor muscle relaxation as well as general full body relaxation - Intrarectal trigger point release to puborectalis for increased pelvic floor range of motion and addressing pain Worked with patient on down-training during pain with use of diaphragmatic breathing and full body relaxation. Only notes pain with pressure on pubo rectalis. Reports it decreased with continued manual therapy. Note good pelvic floor movement with cued diaphragmatic breathing. Home Management Training- -Briefly discussed utilizing fiber sources such as kiwi or pitted fruits to help improve stool texture and motility. -Encouraged patient to continue with bowel routines as able, and to continue with muscles relaxation and practice with diaphragmatic breathing in addition to other home program exercises. HEP: Access Code: [email or web address] URL: [email or web address] Date: 08/05/2024 Prepared by: Crissy Cohen Assessment Ms. Barbosa presents to pelvic health [...] these skills and strategies as they have continued to increase hydration and fiber as appropriate and take medications as recommended by medical provider. She has also continued with her home program. Patient able to tolerate manual pelvic therapy internal rectalwork but had significant pain with use of evacuation balloon. Continued skilled occupational therapy services necessary for further development of functional activation and relaxation of the [...] program. Functional Goals and Timeframes: OT Goal #1: Patient will understand pressure management and skills to support prolapse management by discharge. OT Goal #1 Status: Progressing OT Goal #2: Patient will be able to demonstrate and verbalize home exercise program correctly in order to show independence and understanding of the exercises. OT Goal #2 Status: Progressing OT Goal #3: Patient will demonstrate and/or verbalize correct sequencing for pelvic floor relaxation to ensure a successful and complete defecation of stool. OT Goal #3 Status: Progressing OT Goal #4: Patient will be able to identify necessary behavioral changes for improved management of bowel symptoms within daily routines. OT Goal #4 Status: Progressing Plan Treatment Plan: OT Amount: 1 visit per day (1-2 visits per day) Number of Visits: up to 15 visits OT Duration: 90 days Plan: Continue with current plan Next Session: biofeedback, general pelvic muscle release Treatment interventions may include: Treatment Interventions: Therapeutic exercise, Therapeutic functional activity, Neuromuscular re-education, Self-care/home management, Therapeutic modalities as needed, Manual therapy Other OT Interventions: Biofeedback Time Spent with Patient Therapeutic Interventions Home Management Training (min): 10 min Manual Therapy (min): 15 min Neuromuscular Re-Education (min): 15 min Time Tracking Total Timed Units (min): 40 min Total Treatment Time (min): 40 min Crissy Cohen OTR/L E PROFESSOR documented in this encounter Plan of Treatment Upcoming Encounters Date Type Department Care Team (Latest Contact Info) Description 09/14/2024 9:00 AM VOICE PROFESSOR Comprehensive Visit Department of Physical Medicine and Rehabilitation in [place], [place] [address] [place] [address] Renate Youngblood APRN, C.NLewis., M.S.N. [address] [place] [phone] 09/26/2024 10:00 AM VOICE PROFESSOR Clinical Support Department of Physical Medicine and Rehabilitation in [place], [place] [address] [place] [address] Renate Youngblood APRN, C.N.Dandre., M.S.N. [address] [place] [phone] 10/03/2024 4:20 PM VOICE PROFESSOR Virtual Visit Division of Gastroenterology in [place], [place] [address] [place] [phone] Carlos Corral M.D., M.P.H. [address] [place] [phone] 10/04/2024 10:00 AM VOICE PROFESSOR Clinical Support Department of Physical Medicine and Rehabilitation in [place], [place] [address] [place] [phone] Renate Youngblood APRN, C.NLewis., M.S.N. [address] [place] [phone] 10/10/2024 1:00 PM VOICE PROFESSOR Clinical Support Department of Physical Medicine and Rehabilitation in [place], [place] [address] [place] [phone] Renate Youngblood APRN, C.N.P., M.S.N. [address] [place] [phone] 10/18/2024 1:00 PM VOICE PROFESSOR Clinical Support Department of Physical Medicine and Rehabilitation in [place], [place] [address] [place] [phone] Renate Youngblood APRN, C.N.P., M.S.N. [address] [place] [phone] 10/25/2024 1:00 PM VOICE PROFESSOR Clinical Support Department of Physical Medicine and Rehabilitation in [place], [place] [address] [place] [phone] Renate Youngblood APRN, C.N.P., M.S.N. [address] [place] [phone] 10/31/2024 1:00 PM VOICE PROFESSOR Clinical Support Department of Physical Medicine and Rehabilitation in [place], [place] [address] [place] [phone] Renate Youngblood APRN, C.N.P., M.S.N. [address] [place] [phone] 11/10/2024 10:00 AM VOICE PROFESSOR Comprehensive Visit Department of Obstetrics and Gynecology, Division of Urogynecology in [place], [place] [address] [place] [phone] Yan Turner M.D., M.S. [address] [place] [phone] 11/22/2024 7:30 AM VOICE PROFESSOR Hospital Encounter [facility] 4 AM ADMIT [address] [place] [phone] Brianne Beebe M.D., Ph.D. [address] [place] [phone] 11/22/2024 7:30 AM VOICE PROFESSOR - 11/22/2024 4:42 PM VOICE PROFESSOR Surgery [facility] MAIN OR [address] [place] [address] Brianne Beebe M.D., Ph.D. [address] [place] [phone] ROBOTIC-ASSISTED Ventral Mesh RECTOPEXY Scheduled Procedures Name Priority Associated Diagnoses Date/Ti il ROBOTIC-ASSISTED RECTOPEXY Prolapse Rectal Cystocele Rectocele 11/22/2024 7:30 AM VOICE PROFESSOR ROBOTIC-ASSISTED EXPLORATION Prolapse Rectal Cystocele Rectocele 11/22/2024 7:30 AM VOICE PROFESSOR documented as of this encounter Goals Goal Patient Goal Type Associated Problems Recent Progress Patient-Stated? Author [facility] Care Plan for Nicotine Dependency Perioperative Care Plan [facility] Care Plan for Nicotine Dependency Perioperative No Genevieve Strickland, R.N. Surgical Readiness and Recovery Care Plan Care Plan Surgical Readiness and Recovery Care Plan No Genevieve Strickland, RLaurelN. documented as of this encounter Visit Diagnoses Diagnosis Prolapse Rectal Cystocele Rectocele Dysfunction Pelvic Floor Prolapse Rectal Other Female Genital Prolapse Prolapse Rectal Cystocele Rectocele documented in this encounter Additional Health Concerns Active Problems Noted Date Diagnosed Date [facility] Care Plan for Nicotine Dependency Pe rioperative 07/08/2024 Surgical Readiness and Recovery Care Plan 2023 documented as of this encounter Care Teams Director Furniture Relationship Specialty Start Date End Date Elsewhere, Pcp PCP - General Internal Medicine 07/02/24 documented as of this encounter
--- OUTSIDE RECORDS SUMMARY | 2024-09-02 08:46 | XMS_ITS | Encounter Summary ---
Author Organization [facility] Address [address] [place] [address] Care Team Providers Care Sandwich Maker Name Role Phone Elsewhere, Pcp Primary Care Provider Unavailabl e Reason for Referral * Outpatient (Routine) - Authorized Specialty Diagnoses / Procedures Referred By Contdana t Referred To Contact Neurology Diagnoses Loss Visual Transient Right John Paul Miller M.D. [address] [place] [address] Phone: tel: fax: [facility] Referral ID Status Reason Start Date Expiration Date V isits Requested Visits Authorized [id number] Authorized 08/19/2024 02/18/2026 1 1 R PIPE INSTALLER Encounter Details Date Type Department Care Team (Late st Contact Info) Description 08/19/2024 [facility] [address] [place], [place] [phone] John Paul Miller M.D. [address] [place] [address] Loss Visual Transient Right (Primary Dx) Social History Tobacco Use Types Packs/Day Years Used Date Smoking Tobacco: Never Passive Smoke Exposure: Never Smokeless Tobacco: Never Alcohol Use Standard Drinks/Week Comments Yes 3 (1 standard drink = 0.6 oz pur e alcohol) [facility] Utilities Answer Date Recorded In the [...] your living situation today? I have a [facility] place to live 01/07/2024 Comments No Sex and Gender Information Value Date Recorded Sex Assigned at Female 01/07/2024 8:31 PM CDT Legal Sex Female 5:11 PM WATER PIPE INSTALLER Gender Identity Female 01/07/2024 8:31 PM CDT Sexual Orientation Straight 01/07/2024 8: 31 PM CDT documented as of this encounter Plan of Treatment Upcoming Encounters Date Type Department Care Team (Latest Contact Info) Description 09/14/2024 9:00 AM WATER PIPE INSTALLER Comprehensive Visit Department of Physical Medicine and Rehabilitation in [place], [place] [address] [place] [phone] Renate Youngblood APRN, C.NLaurelP., M.S.N. [address] [place] [phone] 09/26/2024 10:00 AM WATER PIPE INSTALLER Clinical Support Department of Physical Medicine and Rehabilitation in [place], [place] [address] [place] [address] Renate Youngblood APRN, C.NLewis., M.S.N. [address] [place] [phone] 10/03/2024 4:20 PM WATER PIPE INSTALLER Virtual Visit Division of Gastroenterology in [address] [phone] Carlos Corral M.D., M.P.H. [address] [place] [phone] 10/04/2024 10:00 AM WATER PIPE INSTALLER Clinical Support Department of Physical Medicine and Rehabilitation in [place], [place] [address] [place] [address] Renate Youngblood APRN, C.NBenton, M.S.N. [address] [place] [phone] 10/10/2024 1:00 PM WATER PIPE INSTALLER Clinical Support Department of Physical Medicine and Rehabilitation in [place], [place] [address] [place] [phone] Rentae Youngblood APRN, C.N.P., M.S.N. [address] [place] [phone] 10/18/2024 1:00 PM WATER PIPE INSTALLER Clinical Support Department of Physical Medicine and Rehabilitation in [place], [place] [address] [place] [phone] Renate Youngblood APRN, C.N.P., M.S.N. [address] [place] [phone] 10/25/2024 1:00 PM WATER PIPE INSTALLER Clinical Support Department of Physical Medicine and Rehabilitation in [place], [place] [address] [place] [address] Renate Youngblood APRN, C.N.P., M.S.N. [address] [place] [phone] 10/31/2024 1:00 PM WATER PIPE INSTALLER Clinical Support Department of Physical Medicine and Rehabilitation in [place], [place] [address] [place] [phone] Renate Youngblood APRN, C.N.P., M.S.N. [address] [place] [phone] 11/10/2024 10:00 AM WATER PIPE INSTALLER Comprehensive Visit Department of Obstetrics and Gynecology, Division of Urogynecology in [place], [place] [address] [place] [phone] Yan Turner M.D., M.S. [address] [place] [phone] 11/22/2024 7:30 AM WATER PIPE INSTALLER Hospital Encounter [facility] 4 AM ADMIT [address] [place] [phone] Brianne Beebe M.D., Ph.D. [address] [place] [phone] 11/22/2024 7:30 AM WATER PIPE INSTALLER - 11/22/2024 4:42 PM WATER PIPE INSTALLER Surgery [facility] MAIN OR [address] [place] [address] Brianne Beebe M.D., Ph.D. 200 [place] [phone] ROBOTIC-ASSISTED Ventral Mesh RECTOPEXY Scheduled Procedures Name Priority Associated Diagnoses Date/Ti nv ROBOTIC-ASSISTED RECTOPEXY Prolapse Rectal Cystocele Rectocele 11/22/2024 7:30 AM WATER PIPE INSTALLER ROBOTIC-ASSISTED EXPLORATION Prolapse Rectal Cystocele Rectocele 11/22/2024 7:30 AM WATER PIPE INSTALLER Scheduled Referrals Name Type Priority Associated Diagnoses Orde r Schedule Neurology Referral Outpatient Referral Routine Loss Visual Transient Right Expected: 08/19/2024 (Approximate), Expires: 11/19/2025 documented as of this encounter Goals Goal Patient Goal Type Associated Problems Recent Progress Patient-Stated? Author [facility] Care Plan for Nicotine Dependency Perioperative Care Plan [facility] Care Plan for Nicotine Dependency Perioperative No Genevieve Strickland, R.N. Surgical Readiness and Recovery Care Plan Care Plan Surgical Readiness and Recovery Care Plan No Genevieve Strickland, R.N. documented as of this encounter Visit Diagnoses Diagnosis Prolapse Rectal Cystocele Rectocele Loss Visual Transient Right- Primary Prolapse Rectal Cystocele Rectocele documented in this encounter Additional Health Concerns Active Problems Noted Date Diagnosed Date [facility] Care Plan for Nicotine Dependency Pe rioperative 07/08/2024 Surgical Readiness and Recovery Care Plan 2023 documented as of this encounter Care Teams Sandwich Maker Relationship Specialty Start Date End Date Elsewhere, Pcp PCP - General Internal Medicine 07/02/24 documented as of this encounter
--- OUTSIDE RECORDS SUMMARY | 2024-09-02 08:46 | XMS_ITS | Clinical Summary ---
Author Organization [facility] Address [address] [place] [address] Care Team Providers Care Cheese Pancake Roller Name Role Phone Elsewhere, Pcp Primary Care Provider Unavailabl e Source Comments Patient records contain information from all sites at [facility]. For routine questions regarding patient records, call [phone] during business hours, M-F 8:00 AM - 5:00 PM Central Time. Record requests for emergency care only can be directed to [phone] at any time.[facility] Allergies Active Allergy Reactions Criticality Noted Date [...] 1 capsule by mouth at bedtime. 11/29/19 17 Active hydroCHLOROthia zide (HYDRODIURIL) 25 mg tablet Take 25 mg by mouth as needed. Active multivitamin tablet Take 1 tablet by mouth daily. 11/29/19 Active NIFEdipine XL (PROCARDIA XL) 60 mg 24 hr tablet Take 60 mg by mouth at bedtime. 10/27/19 Active nitroglycerin (NITROSTAT) 0.4 mg SL tablet [...] nostril(s) 2 (two) times a day. 08/18/20 Active ibandronate (Boniva) 150 mg tablet Take 150 mg by mouth every 30 (thirty) days. 10/27/19 24 Active metoprolol succinate (Toprol XL) 50 mg 24 hr tablet Take 50 mg by mouth daily. 10/27/19 Active sennosides-docu sate sodium (Senokot-S) 8.6-50 mg per tablet Take 1 tablet by mouth daily. With dinner 06/27/20 Active simvastatin (Zocor) 20 mg tablet Take 20 mg by mouth at bedtime. 10/27/19 Active Linzess 290 mcg capsule Take 290 mcg by mouth daily before morning meal. 08/12/20 24 Active ibandronate (BONIVA) 150 mg tablet Take 150 mg by mouth every 30 (thirty) days. 11/04/19 24 Discontinued metoprolol succinate (TOPROL-XL) 50 mg 24 hr tablet Take 50 mg by mouth daily. Discontinued simvastatin (ZOCOR) 20 mg tablet Take 20 mg by mouth at bedtime. 08/31/20 16 024 Discontinued bisacodyL (Dulcolax) 10 mg suppository Insert 10 mg into the rectum daily as needed. 06/21/20 24 024 Discontinued Senexon-S 8.6-50 mg per tablet Take 1 tablet by mouth daily. 06/27/20 24 024 Discontinued NIFEdipine (Adalat CC) 60 mg [...] Division of Colon and Rectal Surgery in [place], [place] [address] [place] [address] Renate Youngblood, JOSE, C.N.P., M.S.N. Abnormal ECG 08/30/2024 1:10 PM SPRING UPHOLSTERER Comprehensive Visit Division of Gastroenterology in [place], [place] [address] [place] [phone] John Paul Miller M.D. Milton Raman M.D., D.Sc. Carlos Corral M.D., M.P.H. Dysfunction Pelvic Floor (Primary Dx); Constipation Slow Transit; Prolapse Rectal; Hernia Perineal; Hypermobility Joint; Hysterectomy Status Post 08/29/2024 11:17 AM SPRING UPHOLSTERER - 08/29/2024 11:59 PM SPRING UPHOLSTERER Hospital Encounter Department of Radiology, [facility] in [place], [place] [address] [place] [phone] Eleuterio Escobar M.B.B.S. Constipation Discharge Disposition: Home or Self Care 08/19/[address] [address] John Paul Miller M.D. Loss Visual Transient Right (Primary Dx) 08/15/2024 2:00 PM SPRING UPHOLSTERER Clinical Support Department of Physical Medicine and Rehabilitation in [address] [phone] Renate Youngblood APRN, C.N.P., M.S.N. Dysfunction Pelvic Floor; Prolapse Rectal; Other Female Genital Prolapse 08/12/2024 Clinical Communication Division of Gastroenterology in [address] [phone] Milton Raman M.D., D.Sc. 08/11/2024 10:00 AM SPRING UPHOLSTERER Clinical Support Department of Physical Medicine and Rehabilitation in [address] [address] Renate Youngblood APRN, C.NLaurelP., M.S.N. Dysfunction Pelvic Floor; Prolapse Rectal; Other Female Genital Prolapse 08/08/2024 Orders Only Division of Gastroenterology in [address] [phone] [facility] 08/05/2024 2:00 PM SPRING UPHOLSTERER Clinical Support Department of Physical Medicine and Rehabilitation in [address] [phone] Renate Youngblood APRN, C.N.P., M.S.N. Dysfunction Pelvic Floor; Prolapse Rectal; Other Female Genital Prolapse 08/05/2024 11:00 AM SPRING UPHOLSTERER Clinical Support Department of Physical Medicine and Rehabilitation in [place], [place] [address] [place] [phone] Renate Youngblood APRN, C.N.P., M.S.N. Dysfunction Pelvic Floor; Prolapse Rectal; Other Female Genital Prolapse 08/02/2024 [facility] [address] [place] [address] John Paul Miller M.D. Constipation Slow Transit (Primary Dx) 07/27/2024 2:00 PM CDT Clinical Support Department of Physical Medicine and Rehabilitation in [place], [place] [address] [place] [phone] Renate Youngblood APRN, C.N.P., M.S.N. Dysfunction Pelvic Floor (Primary Dx); Prolapse Rectal; Other Female Genital Prolapse 07/27/2024 10:00 AM CDT Comprehensive Visit Department of Physical Medicine and Rehabilitation in [place], [place] [address] [place] [phone] Renate Youngblood APRN, C.NLewis., M.S.N. Dysfunction Pelvic Floor; Prolapse Rectal; Other Female Genital Prolapse 07/26/2024 3:00 PM CDT Comprehensive Visit Department of Obstetrics and Gynecology in [address] [phone] Elia Portillo M.D. Mass Adnexal (Primary Dx); Abnormal Computed Tomography 07/26/2024 1:00 PM CDT Procedure visit Department of Obstetrics and Gynecology, Division of Urogynecology in [place], [place] [address] [place] [phone] Yan Turner M.D., M.S. Cystocele Midline (Primary Dx) 07/26/2024 9:03 AM CDT - 07/26/2024 11:59 PM CDT Hospital Encounter Department of Radiology, [facility], in [place], [place] [address] [place] [phone] Eleazar Yin M.D. Abnormal Computed Tomography; Lesion Ovary Discharge Disposition: Home or Self Care 07/25/2024 2:15 PM CDT Clinical Communication Virtual Review in [address] [phone] Pre-visit Intake 07/22/2024 Clinical Communication Department of Obstetrics and Gynecology, Division of Urogynecology in [address] [phone] Yan Turner M.D., M.S. 07/21/2024 1:00 PM CDT Telemedicine Department of Patient Education in [address] [address] Brianne Beebe M.D., Ph.D. Constipation; Cystocele Midline; Rectocele 07/14/2024 1:00 PM CDT Telemedicine Department of Patient Education in [address] [phone] Brianne Beebe M.D., Ph.D. Constipation; Cystocele Midline; Rectocele 07/08/2024 9:30 AM CDT Office Visit Division of Colon and Rectal Surgery in [address] [phone] Brianne Beebe M.D., Ph.D. Angina Pectoris Unspecified (HCC) (Primary Dx); Other Female Genital Prolapse; Constipation; Proctitis 07/08/2024 Orders Only Department of Obstetrics and Gynecology, Division of Urogynecology in [address] [phone] Tanner Camacho, RJose. Cystocele Midline (Primary Dx) 07/08/2024 Orders Only Division of Colon and Rectal Surgery in [address] [phone] Brianne Beebe M.D., Ph.D. Constipation (Primary Dx); Cystocele Midline; Rectocele 07/05/2024 Clinical Communication Department of Obstetrics and Gynecology in [address] [phone] Prescheduling, Provider 07/04/2024 Clinical Communication Division of Colon and Rectal Surgery in [place], [place] [address] [place] [phone] Brianne Beebe M.D., Ph.D. 07/04/2024 Referral Triage Division of General Internal Medicine in [place], [place] [address] [place] [phone] Prescheduling, Provider Referral Triage 07/01/2024 10:12 PM CDT - 07/02/2024 2:58 AM CDT Emergency [facility] Emergency Department [address] [place] [phone] Micha Baumann M.D. Abnormal Computed Tomography (Primary Dx); Constipation; Proctitis Discharge Disposition: Home or Self Care 06/13/2024 9:00 AM CDT Telemedicine Department of Medical Genetics in [place], [place] [address] [place] [phone] Renate Youngblood APRN, C.N.P., M.S.N. Fern Ewing, M.S., CASSANDRA Pain Back (Primary Dx); Raynaud's Phenomena Without Gangrene; Other Female Genital Prolapse; Tear Knee Lateral Meniscus Current Initial Left; Strain Of Muscle And Tendon Of Back Wall Of Thorax Initial; Primary Osteoarthritis First Carpometacarpal Joints Bilateral; Polyosteoarthritis Unspecified; Prolapse Rectal; Dyskinesia Esophagus; Hypermobility Joint 06/08/2024 11:00 AM CDT Clinical Support Department of Medical Genetics in [place], [place] [address] [place] [address] Renate Youngblood APRN, C.N.P., M.S.N. Peng Cowart [...] 0.6 oz pur e alcohol) [facility] [employer] Answer Date Recorded In the past 12 months has th e [employer], gas, oil, or water [employer] threatened to shut off services in your [...] your living situation today? I have a [facility] place to live 01/07/2024 Comments No Sex and Gender Information Value Date Recorded Sex Assigned at Female 01/07/2024 8:31 PM CDT Legal Sex Female 5:11 PM SPRING UPHOLSTERER Gender Identity Female 01/07/2024 8:31 PM CDT Sexual Orientation Straight 01/07/2024 8: 31 PM CDT Last Filed Vital Signs Vital Sign Reading Time Taken Comments Blood Pressure 161/74 08/30/2024 12:59 PM SPRING UPHOLSTERER Pulse 70 08/30/2024 12:59 PM SPRING UPHOLSTERER Temperature 36.6 C (97.9 F) 07/02/2024 2:35 AM CDT Respiratory Rate 15 07/02/2024 2:30 AM CDT Oxygen Saturation 98% 07/02/2024 2:30 AM CDT Inhaled Oxygen Concentration - - Weight 55.9 kg (123 lb 3.8 oz) 08/30/2024 12:59 PM SPRING UPHOLSTERER Height 151.6 cm (4' 11.69) 08/30/2024 12:59 PM SPRING UPHOLSTERER Body Mass Index 24.32 08/30/2024 12:59 PM SPRING UPHOLSTERER Plan of Treatment Upcoming Encounters Date Type Department Care Team (Latest Contact Info) Description 09/14/2024 9:00 AM SPRING UPHOLSTERER Comprehensive Visit Department of Physical Medicine and Rehabilitation in [place], [place] [address] [place] [address] Renate Youngblood APRN, C.N.P., M.S.N. [address] [place] [address] 09/26/2024 10:00 AM SPRING UPHOLSTERER Clinical Support Department of Physical Medicine and Rehabilitation in [place], [place] [address] [place] [phone] Renate Youngblood APRN, C.N.P., M.S.N. [address] [place] [phone] 10/03/2024 4:20 PM SPRING UPHOLSTERER Virtual Visit Division of Gastroenterology in [place], [place] [address] [place] [phone] Carlos Corral M.D., M.P.H. [address] [place] [phone] 10/04/2024 10:00 AM SPRING UPHOLSTERER Clinical Support Department of Physical Medicine and Rehabilitation in [place], [place] [address] [place] [phone] Renate Youngblood APRN, C.N.P., M.S.N. [address] [place] [phone] 10/10/2024 1:00 PM SPRING UPHOLSTERER Clinical Support Department of Physical Medicine and Rehabilitation in [place], [place] [address] [place] [phone] Renate Youngblood APRN, C.N.Dandre., M.S.N. [address] [place] [phone] 10/18/2024 1:00 PM SPRING UPHOLSTERER Clinical Support Department of Physical Medicine and Rehabilitation in [place], [place] [address] [place] [address] Renate Youngblood APRN, C.N.P., M.S.N. [address] [place] [phone] 10/25/2024 1:00 PM SPRING UPHOLSTERER Clinical Support Department of Physical Medicine and Rehabilitation in [place], [place] [address] [place] [phone] Renate Youngblood APRN, C.N.P., M.S.N. [address] [place] [phone] 10/31/2024 1:00 PM SPRING UPHOLSTERER Clinical Support Department of Physical Medicine and Rehabilitation in [place], [place] [address] [place] [phone] Renate Youngblood APRN, C.N.P., M.S.N. [address] [place] [phone] 11/10/2024 10:00 AM SPRING UPHOLSTERER Comprehensive Visit Department of Obstetrics and Gynecology, Division of Urogynecology in [place], [place] [address] [place] [phone] Yan Turner M.D., M.S. [address] [place] [phone] 11/22/2024 7:30 AM SPRING UPHOLSTERER Hospital Encounter [facility] 4 AM ADMIT [address] [place] [phone] Brianne Beebe M.D., Ph.D. [address] [place] [phone] 11/22/2024 7:30 AM SPRING UPHOLSTERER - 11/22/2024 4:42 PM SPRING UPHOLSTERER Surgery [facility] MAIN OR [address] [place] [address] Brianne Beebe M.D., Ph.D. [address] [place] [phone] ROBOTIC-ASSISTED Ventral Mesh RECTOPEXY Scheduled Procedures Name Priority Associated Diagnoses Date/Ti pr ROBOTIC-ASSISTED RECTOPEXY Prolapse Rectal Cystocele Rectocele 11/22/2024 7:30 AM SPRING UPHOLSTERER ROBOTIC-ASSISTED EXPLORATION Prolapse Rectal Cystocele Rectocele 11/22/2024 7:30 AM SPRING UPHOLSTERER Health Maintenance Due Date Last Done Comments Hepatitis C Screening 1955 Lipid (Cholesterol) Screening 1955 Mammogram 1955 Depression Screening (Annual PHQ-2) 09/28/2023 Fall Risk Screen (Annual) 09/28/2023 Office Visit for Blood Pressure Check / Re-check 11/28/2024 08/30/2024 Creatinine Level (Kidney Function Test) 07/01/2025 07/01/2024 Potassium Level 07/01/2025 07/01/2024 Sodium Level 07/01/2025 07/01/2024, 01/10/2013 Fasting Glucose for Diabetes Screening 07/01/2027 07/01/2024, 02/24/2013 DTaP,Tdap,and Td Vaccines (3 - Td or Tdap) 10/27/2033 10/27/2023, 09/29/2012 Zoster Vaccines Completed 11/05/2021, 04/28, 08/31/2015 Pneumococcal vaccine (65+ years) Completed 11/28/2021, 09/30/2019 RSV vaccine - (32-36 weeks) or 60+ years Completed 07/31/2023 COVID-19 Vaccine Completed 07/25/2024, , 08/06/2022, Additional history exists Influenza Vaccine Completed 08/03/2024, , 07/25/2022, Additional history exists IPV Vaccines Aged Out No longer eligi ble based on patient's age to complete this topic Goals Goal Patient Goal Type Associated Problems Recent Progress Patient-Stated? Author [facility] Care Plan for Nicotine Dependency Perioperative Care Plan [facility] Care Plan for Nicotine Dependency Perioperative No Genevieve Strickland R.N. Surgical Readiness and Recovery Care Plan Care Plan Surgical Readiness and Recovery Care Plan No Genevieve Strickland R.N. Medical Devices Implanted Type Area Geospatial Developer Device Identifier Shelf Expiration Date Model / [...] inpatients and all outpatients) 08/29/2024 11:35 AM SPRING UPHOLSTERER Constipation DIPSTICK, U Routine 07/26/2024 1:19 PM CDT PH, U Routine 07/26/2024 1:19 PM CDT MICROSCOPIC AUTOMATED Routine 07/26/2024 1:19 PM CDT OSMOLALITY, U Routine 07/26/2024 1:19 PM CDT URINALYSIS WITH MICROSCOPIC Routine 07/26/2024 1:19 PM CDT Cystocele Midline BACTERIAL CULTURE, AEROBIC + SUSC, URINE Routine 07/26/2024 1:19 PM CDT Cystocele Midline IA CYSTOMETROGRAM COMPLEX Routine 07/26/2024 1:00 PM CDT Cystocele Midline IA UROFLOWMETRY CMPLX Routine 07/26/2024 1:00 PM CDT Cystocele Midline IA ODELL PST VOID RESID US NON IMG [...] DX Abdomen 1 View (08/29/2024 11:35 AM SPRING UPHOLSTERER) Anatomical Region Laterality Modality Abdomen, Abdominal RST LOS, Abdominal ARZ LOS, Abdominal FLA LOS N/A Digital Radiography Impressions 08/29/2024 11:52 AM SPRING UPHOLSTERER Mild fecal loading in the descending colon. Otherwise negative abdominal radiograph. Narrative 08/29/2024 11:52 AM SPRING UPHOLSTERER EXAM: DX ABDOMEN 1 VIEW Procedure Note [...] M.S. LAB URINE ORDERABLES F inal Result [facility] [address] [place] [address] * Microscopic Automated (07/26/2024 1:19 PM CDT) Pathologist [facility] Microscopy Normal 07/26/2024 3:51 PM CDT DTL RBC None Seen <3 /hpf 07/26/2024 3:51 PM CDT DTL WBC None Seen /hpf 07/26/2024 3:51 PM CDT DTL Comment: ----REFERENCE VALUE---- <4 (Males) <11 (Females) Urine 07/26/2024 1:19 PM CDT 07/26/2024 3:25 PM CDT us Yan Turner M.D., M.S. LAB URINE ORDERABLES F inal Result Performing Organization Address City/[facility]/ZIP Co de Phone Number [facility] [address] [place] [address] * Bacterial Culture, Aerobic + Susceptibility, Urine (07/26/2024 1:19 PM CDT) [facility] Urine Culture No growth after 1 day of incubation. 07/28/2024 7:23 AM CDT DTL Urine (Urine, Straight Catheter) 07/26/2024 1:19 PM CDT 07/26/2024 5:39 PM CDT Comment:Specimen Source Site : Urine us Yan Turner M.D., M.S. LAB MICROBIOLOGY - GEN ERAL ORDERABLES Final Result Performing Organization Address City/[facility]/ZIP Co de Phone Number [facility] [address] [place] [address] * pH, Urine (07/26/2024 1:19 PM CDT) Pathologist [facility] pH, U 6.7 4.5 - 8.0 07/26/2024 4:3 5 PM CDT DTL Urine 07/26/2024 1:19 PM CDT 07/26/2024 3:25 PM CDT Yan Turner M.D., M.S. LAB URINE ORDERABLES F inal Result Performing Organization Address [facility] Co de Phone Number [facility] [address] [place] [address], [facility] [address] [place] [address] * (ABNORMAL) Osmolality, Urine (07/26/2024 1:19 PM CDT) Osmolality, U 78(L) 150 - 1150 mOsm/kg 07/26/2024 4:35 PM CDT DTL Urine 07/26/2024 1:19 PM CDT 07/26/2024 3:25 PM CDT us Yan Turner M.D., M.S. LAB URINE ORDERABLES F inal Result Performing Organization Address [facility] de Phone Number [facility] [address] [place] [address], [facility] [address] [place] [address] * (ABNORMAL) Urinalysis, with Microscopic: Urine, Straight [...] M.S. LAB URINE ORDERABLES F inal Result [facility] [address] [place] [address], [place] DTL [facility] [address] [place] [address] * IA ODELL PST VOID RESID US NON IMG, IA UROFLOWMETRY CMPLX, IA CYSTOMETROGRAM COMPLEX (07/26/2024 1:00 PM CDT) Narrative [...] M.D. LAB BLOOD ADD-ON Final Re sult [facility] [address] [place] [address], [facility] DTL [facility] [address] [place] [address] * (ABNORMAL) CBC with Differential, Blood (07/01/2024 [...] ADD-ON Final Re sult Performing Organization Address City/[facility]/ZIP Co de Phone Number [facility] [address] [place] [address], [facility] STMA [facility] [address] [place] [address] DHPM [facility] [address] [place] [address] * Lipase (07/01/2024 10:55 PM CDT) Lipase, S 30 13 - 60 U/L 07/01/2024 11:44 PM CDT DTL Blood (Blood, Venous) 07/01/2024 10:55 PM CDT 07/01/2024 11:30 PM CDT Micha Baumann M.D. LAB BLOOD ADD-ON Final Re sult Performing Organization Address [facility] Co de Phone Number [facility] [address] [place] [address], [facility] DTL [facility] [address] [place] [address] * Lactate (07/01/2024 10:55 PM CDT) Lactate, P 1.0 0.5 - 2.2 mmol/L 07/01/2024 11:25 PM CDT STMA Blood (Blood, Venous) 07/01/2024 10:55 PM CDT 07/01/2024 11:10 PM CDT Micha Baumann M.D. LAB BLOOD NON ADD-ON Luisana l Result [facility] [address] [place] [address], [facility] STMA [facility] [address] [place] [address] * (ABNORMAL) Basic Metabolic Panel (07/01/2024 10:55 [...] M.D. LAB BLOOD ADD-ON Final Re sult [facility] [address] [place] [address], [facility] STMA [facility] [address] [place] [address] from Last 3 Months Additional Health Concerns Active Problems Noted Date Diagnosed Date [facility] Care Plan for Nicotine Dependency Pe rioperative 07/08/2024 Surgical Readiness and Recovery Care Plan 2023 Insurance [employer] [place] [id number] Care Teams Cheese Pancake Roller Relationship Specialty Start Date End Date Elsewhere, Pcp PCP - General Internal Medicine 07/02/24
--- OUTSIDE RECORDS SUMMARY | 2024-09-02 08:47 | XMS_ITS | Encounter Summary ---
Author Organization [facility] Address [address] [place] [address] Care Team Providers Care Skin Piler Name Role Phone Elsewhere, Pcp Primary Care Provider Unavailabl e Reason for Referral * Outpatient (Routine) - Closed Specialty Diagnoses / Procedures Referred By Floresita t Referred To Contact Diagnoses Cystocele Midline Procedures OBG Urodynamic Studies Yan Turner M.D., M.S. [address] [place] [address] Phone: tel: fax: [facility] Referral ID Status Reason Start Date Expiration Date Visits Re quested Visits Authorized [id number] Closed 07/08/2024 07/08/2025 1 1 * Outpatient (Routine) - Authorized Specialty Diagnoses / Procedures Referred By Floresita barraza Referred To Contact Obstetrics and Gynecology Diagnoses Cystocele Midline Yan Turner M.D., M.S. [address] [place] [address] Phone: tel: fax: [facility] Referral ID Status Reason Start Date Expiration Date V isits Requested Visits Authorized [id number] Authorized 07/08/2024 01/07/2026 1 1 Encounter Details Date Type Department Care Team (Late st Contact Info) Description 07/08/2024 Orders Only Department of Obstetrics and Gynecology, Division of Urogynecology in [place], [place] [address] [place] [address] Tanner Camacho R.N. [address] [place] [address] Cystocele Midline (Primary Dx) Social History Tobacco Use Types Packs/Day Years Used Date Smoking Tobacco: Never Passive Smoke Exposure: Never Smokeless Tobacco: Never Alcohol Use Standard Drinks/Week Comments Yes 3 (1 standard drink = 0.6 oz pur e alcohol) [facility] Utilities Answer Date Recorded In the past 12 months has e [employer], gas, oil, or water [employer] threatened to shut off services in your [...] your living situation today? I have a [facility] place to live 01/07/2024 Comments Unknown Sex and Gender Information Value Date Recorded Sex Assigned at Female 01/07/2024 8:31 PM CDT Legal Sex Female 5:11 PM GRADER [employer]OL Gender Identity Female 01/07/2024 8:31 PM CDT Sexual Orientation Straight 01/07/2024 8: 31 PM CDT documented as of this encounter Plan of Treatment Upcoming Encounters Date Type Department Care Team (Latest Contact Info) Description 09/14/2024 9:00 AM GRADER [employer]OL Comprehensive Visit Department of Physical Medicine and Rehabilitation in [place], [place] [address] [place] [phone] Renate Youngblood APRN, C.N.P., M.S.N. [address] [place] [phone] 09/26/2024 10:00 AM [employer]OL Clinical Support Department of Physical Medicine and Rehabilitation in [place], [place] [address] [place] [phone] Renate Youngblood APRN, C.N.P., M.S.N. [address] [place] [phone] 10/03/2024 4:20 PM GRADER [employer]OL Virtual Visit Division of Gastroenterology in [place], [place] [address] [place] [phone] Carlos Corral M.D., M.P.H. [address] [place] [phone] 10/04/2024 10:00 AM GRADER PATROL Clinical Support Department of Physical Medicine and Rehabilitation in [place], [place] [address] [place] [address] Renate Youngblood APRN, C.N.P., M.S.N. [address] [place] [phone] 10/10/2024 1:00 PM GRADER [employer]ROL Clinical Support Department of Physical Medicine and Rehabilitation in [place], [place] [address] [place] [phone] Renate Youngblood APRN, C.NBenton, M.S.N. [address] [place] [phone] 10/18/2024 1:00 PM GRADER PATROL Clinical Support Department of Physical Medicine and Rehabilitation in [place], [place] [address] [place] [phone] Renate Youngblood APRN, C.NLewis., M.S.N. [address] [place] [phone] 10/25/2024 1:00 PM GRADER PATROL Clinical Support Department of Physical Medicine and Rehabilitation in [place], [place] [address] [place] [phone] Renate Youngblood APRN, C.NLewis., M.S.N. [address] [place] [phone] 10/31/2024 1:00 PM GRADER PATROL Clinical Support Department of Physical Medicine and Rehabilitation in [place], [place] [address] [place] [phone] Renate Youngblood APRN, C.N.P., M.S.N. [address] [place] [phone] 11/10/2024 10:00 AM GRADER PATROL Comprehensive Visit Department of Obstetrics and Gynecology, Division of Urogynecology in [place], [place] [address] [place] [phone] Yan Turner M.D., M.S. [address] [place] [phone] 11/22/2024 7:30 AM GRADER PATROL Hospital Encounter [facility] 01 4 AM ADMIT [address] [place] [address] Brianne Beebe M.D., Ph.D. [address] [place] [phone] 11/22/2024 7:30 AM GRADER PATROL - 11/22/2024 4:42 PM GRADER PATROL Surgery [facility] MAIN OR [address] [place] [address] Brianne Beebe M.D., Ph.D. [address] [place] [address] ROBOTIC-ASSISTED Ventral Mesh RECTOPEXY Scheduled Procedures Name Priority Associated Diagnoses Date/Ti tx ROBOTIC-ASSISTED RECTOPEXY Prolapse Rectal Cystocele Rectocele 11/22/2024 7:30 AM GRADER PATROL ROBOTIC-ASSISTED EXPLORATION Prolapse Rectal Cystocele Rectocele 11/22/2024 7:30 AM GRADER PATROL Scheduled Referrals Name Type Priority Associated Diagnoses Order Schedule Obstetrics and Gynecology - Urogynecology consult (clinic) Outpatient Referral Routine Cystocele Midline Expected: 08/23/2024, Expires: 10/08/2025 documented as of this encounter Goals Goal Patient Goal Type Associated Problems Recent Progress Patient-Stated? Author [facility] Care Plan for Nicotine Dependency Perioperative Care Plan [facility] Care Plan for Nicotine Dependency Perioperative No Genevieve Strickland, RLaurelN. Surgical Readiness and Recovery Care Plan Care Plan Surgical Readiness and Recovery Care Plan No Genevieve Strickland R.N. documented as of this encounter Results * LA ODELL PST VOID RESID US NON IMG, LA UROFLOWMETRY CMPLX, LA CYSTOMETROGRAM COMPLEX (07/26/2024 1:00 PM CDT) Narrative Yan Turner M.D., M.S. - 07/26/2024 1:00 PM CDT Cass Miller M.D. 08/01/2024 11:10 AM OBG Urodynamic Studies Performed by: Yan Turner M.D., M.S. Authorized by: Yan Turner M.D., M.S. Care team members present 1. Victorino Fairchild Óscar PROCEDURE DETAILS: Procedures: Combined (CMG + Uro) [...] Visit Diagnoses Diagnosis Prolapse Rectal Cystocele Rectocele Cystocele Midline- Primary Cystocele Midline- Primary Prolapse Rectal Cystocele Rectocele documented in this encounter Additional Health Concerns Active Problems Noted Date Diagnosed Date [facility] Care Plan for Nicotine Dependency Pe rioperative 07/08/2024 Surgical Readiness and Recovery Care Plan 2023 documented as of this encounter Care Teams Skin Piler Relationship Specialty Start Date End Date Elsewhere, Pcp PCP - General Internal Medicine 07/02/24 documented as of this encounter
--- OUTSIDE RECORDS SUMMARY | 2024-09-02 08:47 | XMS_ITS | Encounter Summary ---
Author Organization [facility] Address [address] [place] [phone] Care Team Providers Care Vice President [employer] Name Role Phone Elsewhere, Pcp Primary Care Provider Unavailabl e Reason for Visit * Outpatient (Routine) - Closed Specialty Diagnoses / Procedures Referred By Floresita barraza Referred To Contact Diagnoses Cystocele Midline Procedures OBG Urodynamic Studies Yan Turner M.D., M.S. [address] [place] [phone] Phone: tel: fax: [facility] Referral ID Status Reason Start Date Expiration Date Visits Re quested Visits Authorized [id number] Closed 07/08/2024 07/08/2025 1 1 Encounter Details Date Type Department Care Team (Latest Contact Info) Description 07/26/2024 1:00 PM CDT Procedure visit Department of Obstetrics and Gynecology, Division of Urogynecology in [place], [place] [address] [place] [phone] Yan Turner M.D., M.S. [address] [place] [phone] Cystocele Midline (Primary Dx) Social History Tobacco Use Types Packs/Day Years Used Date Smoking Tobacco: Never Passive Smoke Exposure: Never Smokeless Tobacco: Never Alcohol Use Standard Drinks/Week Comments Yes 3 (1 standard drink = 0.6 oz pur e alcohol) [facility] Utilities Answer Date Recorded [...] your living situation today? I have a [facility] place to live 01/07/2024 Comments No Sex and Gender Information Value Date Recorded Sex Assigned at Female 01/07/2024 8:31 PM CDT Legal Sex Female 5:11 PM REGISTERED NURSE CARDIAC Gender Identity Female 01/07/2024 8:31 PM CDT [...] Turner M.D., M.S. at 08/01/2024 12:50 PM REGISTERED NURSE CARDIAC STERED NURSE CARDIAC STERED NURSE CARDIAC documented in this encounter Plan of Treatment Upcoming Encounters Date Type Department Care Team (Latest Contact Info) Description 09/14/2024 9:00 AM REGISTERED NURSE CARDIAC Comprehensive Visit Department of Physical Medicine and Rehabilitation in [place], [place] [address] [place] [phone] Renate Youngblood APRN, C.N.P., M.S.N. [address] [place] [phone] 09/26/2024 10:00 AM REGISTERED NURSE CARDIAC Clinical Support Department of Physical Medicine and Rehabilitation in [place], [place] [address] [place] [phone] Renate Youngblood APRN C.N.P., M.S.N. [address] [place] [phone] 10/03/2024 4:20 PM REGISTERED NURSE CARDIAC Virtual Visit Division of Gastroenterology in [place], [place] [address] [place] [phone] Carlos Corral M.D., M.P.H. [address] [place] [phone] 10/04/2024 10:00 AM REGISTERED NURSE CARDIAC Clinical Support Department of Physical Medicine and Rehabilitation in [place], [place] [address] [place] [address] Renate Youngblood APRN, C.N.P., M.S.N. [address] [place] [phone] 10/10/2024 1:00 PM REGISTERED NURSE CARDIAC Clinical Support Department of Physical Medicine and Rehabilitation in [place], [place] [address] [place] [phone] Renate Youngblood APRN, C.N.P., M.S.N. [address] [place] [phone] 10/18/2024 1:00 PM REGISTERED NURSE CARDIAC Clinical Support Department of Physical Medicine and Rehabilitation in [place], [place] [address] [place] [phone] Renate Youngblood APRN, Celeste.N.P., M.S.N. [address] [place] [phone] 10/25/2024 1:00 PM REGISTERED NURSE CARDIAC Clinical Support Department of Physical Medicine and Rehabilitation in [place], [place] [address] [place] [phone] Renate Youngblood APRN, C.N.P., M.S.N. [address] [place] [phone] 10/31/2024 1:00 PM REGISTERED NURSE CARDIAC Clinical Support Department of Physical Medicine and Rehabilitation in [place], [place] [address] [place] [phone] Renate Youngblood APRN, C.N.P., M.S.N. [address] [place] [phone] 11/10/2024 10:00 AM REGISTERED NURSE CARDIAC Comprehensive Visit Department of Obstetrics and Gynecology, Division of Urogynecology in [place], [place] [address] [place] [phone] Yan Turner M.D., M.S. [address] [place] [phone] 11/22/2024 7:30 AM REGISTERED NURSE CARDIAC Hospital Encounter [facility] 01 4 AM ADMIT [address] [place] [phone] Brianne Beebe M.D., Ph.D. [address] [place] [phone] 11/22/2024 7:30 AM REGISTERED NURSE CARDIAC - 11/22/2024 4:42 PM REGISTERED NURSE CARDIAC Surgery [facility] MAIN OR [address] [place] [phone] Brianne Beebe M.D., Ph.D. [address] [place] [phone] ROBOTIC-ASSISTED Ventral Mesh RECTOPEXY Scheduled Procedures Name Priority Associated Diagnoses Date/Ti nh ROBOTIC-ASSISTED RECTOPEXY Prolapse Rectal Cystocele Rectocele 11/22/2024 7:30 AM REGISTERED NURSE CARDIAC ROBOTIC-ASSISTED EXPLORATION Prolapse Rectal Cystocele Rectocele 11/22/2024 7:30 AM REGISTERED NURSE CARDIAC documented as of this encounter Goals Goal Patient Goal Type Associated Problems Recent Progress Patient-Stated? Author [facility] Care Plan for Nicotine Dependency Perioperative Care Plan [facility] Care Plan for Nicotine Dependency Perioperative No [...] M.S. LAB URINE ORDERABLES F inal Result [facility] [address] [place] [address] * pH, Urine (07/26/2024 1:19 PM CDT) Pathologist [facility] pH, U 6.7 4.5 - 8.0 07/26/2024 4:3 5 PM CDT DTL Urine 07/26/2024 1:19 PM CDT 07/26/2024 3:25 PM CDT us Yan Turner M.D., M.S. LAB URINE ORDERABLES F inal Result [facility] 200 [place] [address] * Microscopic Automated (07/26/2024 1:19 PM CDT) [facility] Microscopy Normal 07/26/2024 3:51 PM CDT DTL RBC None Seen <3 /hpf 07/26/2024 3:51 PM CDT DTL WBC None Seen /hpf 07/26/2024 3:51 PM CDT DTL Comment: ----REFERENCE VALUE---- <4 (Males) <11 (Females) Urine 07/26/2024 1:19 PM CDT 07/26/2024 3:25 PM CDT us Yan Turner M.D., M.S. LAB URINE ORDERABLES F inal Result [facility] [address] [place] [address] * (ABNORMAL) Osmolality, Urine (07/26/2024 1:19 PM CDT) [facility] Osmolality, U 78(L) 150 - 1150 mOsm/kg 07/26/2024 4:35 PM CDT DTL Urine 07/26/2024 1:19 PM CDT 07/26/2024 3:25 PM CDT Yan Turner M.D., M.S. LAB URINE ORDERABLES F inal Result Performing Organization Address [facility]/ZIP Co de Phone Number [facility] [address] [place] [address], [facility] [address] [place] [address] * (ABNORMAL) Urinalysis, with Microscopic: Urine, Straight [...] PM CDT 07/26/2024 3:25 PM CDT Yan Turnre M.D., M.S. LAB URINE ORDERABLES F inal Result Performing Organization Address City/[facility]/ZIP Co de Phone Number [facility] [address] [place] [address], [facility] [address] [place] [address] * Bacterial Culture, Aerobic + Susceptibility, Urine (07/26/2024 1:19 PM CDT) Urine Culture No growth after 1 day of incubation. 07/28/2024 7:23 AM CDT DTL Urine (Urine, Straight Catheter) 07/26/2024 1:19 PM CDT 07/26/2024 5:39 PM CDT Comment:Specimen Source Site : Urine Yan Turner M.D., M.S. LAB MICROBIOLOGY - GEN ERAL ORDERABLES Final Result [facility] [address] [place] [address], [facility] [address] [place] [address] * DC ODELL PST VOID RESID US [...] Prolapse Rectal Cystocele Rectocele Cystocele Midline- Primary Prolapse Rectal Cystocele Rectocele documented in this encounter Additional Health Concerns Active Problems Noted Date Diagnosed Date [facility] Care Plan for Nicotine Dependency Pe rioperative 07/08/2024 Surgical Readiness and Recovery Care Plan 2023 documented as of this encounter Care Teams Vice President [employer] Relationship Specialty Start Date End Date Elsewhere, Pcp PCP - General Internal Medicine 07/02/24 documented as of this encounter
--- OUTSIDE RECORDS SUMMARY | 2024-09-02 08:47 | XMS_ITS | Encounter Summary ---
Author Organization [facility] Address [address] [place] [id number] Care Team Providers Care Customer Pricing Manager Name Role Phone Elsewhere, Pcp Primary Care Provider Unavailabl e Reason for Visit * Outpatient (Routine) - Authorized Specialty Diagnoses / Procedures Referred By Contact Referred To Contact Physical Medicine and Rehabilitation Diagnoses Dysfunction Pelvic Floor Prolapse Rectal Other Female Genital Prolapse Procedures PMR Pelvic floor & bowel/bladder programs Renate Youngblood APRN, C.N.P., M.S.N. [address] [place] [phone] Phone: tel: fax: [facility] Referral ID Status Reason Start Date Expiration Date V isits Requested Visits Authorized [id number] Authorized 07/08/2024 09/27/2024 23 23 Encounter Details Date Type Department Care Team (Latest Contact Info) Description 08/11/2024 10:00 AM CREDIT COLLECTIONS MANAGER Clinical Support Department of Physical Medicine and Rehabilitation in [place], [place] [address] [place] [phone] Renate Youngblood APRN, C.N.P., M.S.N. [address] [place] [phone] Dysfunction Pelvic Floor; Prolapse Rectal; Other Female Genital Prolapse Social History Tobacco Use Types Packs/Day Years Used Date Smoking Tobacco: Never Passive Smoke Exposure: Never Smokeless Tobacco: Never Alcohol Use Standard Drinks/Week Comments Yes 3 (1 standard drink = 0.6 oz pur e alcohol) [facility] Utilities Answer Date Recorded In [...] your living situation today? I have a [facility] place to live 01/07/2024 Comments No Sex and Gender Information Value Date Recorded Sex Assigned at Female 01/07/2024 8:31 PM CDT Legal Sex Female 5:11 PM CREDIT COLLECTIONS MANAGER Gender Identity Female 01/07/2024 8:31 PM CDT Sexual Orientation Straight 01/07/2024 8: 31 PM CDT documented as of this encounter Progress Notes * Crissy Cohen O.T., MOT - 08/11/2024 10:00 AM CST Pelvic Health Occupational Therapy Progress Note SUBJECTIVE Patient's Name: Allie Barbosa Referring Provider: Renate Youngblood APRN, C.N.P., M.S.N. Medical Diagnosis: No diagnosis found. Reason for Referral: Rectal Prolapse, cystocele, rectocele, enterocele-hx of repair Onset Date: 07/08/24 Payor: MEDICA / Plan: [employer] PPO / Product Type: PPO / Total Visit Count: 6 History of Present Illness: rectal prolapse, cystocele, rectocele, enterocele- history of repair Patient goals:delay surgical procedures Patient reports changes to medications and diet with information from our prior session and her medical provider. She has also been completing her home program exercises. Fall in the last 12 months: Yes [...] relaxation of the pelvic floor musculature. - Evacuation Breathing Pattern - Coached patient in breathing pattern for management of intraabdominal pressure and pelvic floor opening as a strategy for bowel evacuation. - Awareness - Coached patient in recognition of pelvic floor activation and relaxation, using the following strategies: contract-relax, diaphragmatic breathing, visualization, digital cues. Guided patient in identifying ways they can integrate these strategies into their daily routine for improved pelvic floor awareness. Manual Therapy- The following manual therapy was provided after screening for contraindications and obtaining consent: - Digital cueing for pelvic floor muscle relaxation, with repetition and cues for use of evacuationbreathing patient demonstrated significantly improved coordination and relaxation with bear down. - Intrarectal trigger point release to obturator internus, iliococcygeus, and levator ani for increased pelvic floor range of motion, increased myofascial mobility, and addressing pain - Intrarectal Corey's massage to levator ani for improved pelvic floor muscle excursion Home Management Training- -Patient reports per her physician she is now taking 2 sennacot at night, and in the Am taking 2 Linzess and Metamucil. She has also increased her fiber intake and is keeping a bowel, fiber, and hydration journal. She notes she has noted improved ability to evacuate in mornings with less strain. -briefly Education: Toileting techniques - Guided patient in proper use of techniques for improved bowel evacuation, including relaxation and breathing patterns. Positioning - Educated patient on positioning for bowel evacuation, including use of a footstool. Coached patient in integrating these concepts with personal preferences and current habits. GI system - Educated patient on basic GI system anatomy and function, as it relates to patient-specific concerns. Gastrocolic reflex - Discussed the gastrocolic reflex, with an emphasis on understanding the GI response to food intake. HEP: Access Code: [email or web address] URL: [email or web address] Date: 08/05/2024 Prepared by: Crissy Cohen Assessment [...] they have been able to demonstrate improved participation in progressing home program for improved functional and strength. They also demonstrate good emerging understanding of evacuation and diaphragmatic breathing and coordinationwith cuing as documented above. Continued skilled occupational therapy services necessary for [...] Plan: Continue with current plan Next Session: Biofeedback/ intro balloon Treatment interventions may include: Treatment Interventions: Therapeutic exercise, Therapeutic functional activity, Neuromuscular re-education, Self-care/home management, Therapeutic modalities as needed, Manual therapy Other OT Interventions: Biofeedback Time Spent with Patient Therapeutic Interventions Home Management Training (min): 15 min Manual therapy (min): 10 min Neuromuscular Re-education(min): 25 min Time Tracking Total Timed Units (min): 50 min Total Treatment Time (min): 50 min Crissy Cohen O.T., MOT IT COLLECTIONS MANAGER documented in this encounter Plan of Treatment Upcoming Encounters Date Type Department Care Team (Latest Contact Info) Description 09/14/2024 9:00 AM CREDIT COLLECTIONS MANAGER Comprehensive Visit Department of Physical Medicine and Rehabilitation in [place], [place] [address] [place] [phone] Renate Youngblood APRN, C.N.P., M.S.N. [address] [place] [phone] 09/26/2024 10:00 AM CREDIT COLLECTIONS MANAGER Clinical Support Department of Physical Medicine and Rehabilitation in [place], [place] [address] [place] [phone] Renate Youngblood APRN, C.N.P., M.S.N. [address] [place] [phone] 10/03/2024 4:20 PM CREDIT COLLECTIONS MANAGER Virtual Visit Division of Gastroenterology in [place], [place] [address] [place] [phone] Carlos Corral M.D., M.P.H. [address] [place] [phone] 10/04/2024 10:00 AM CREDIT COLLECTIONS MANAGER Clinical Support Department of Physical Medicine and Rehabilitation in [place], [place] [address] [place] [phone] Renate Youngblood APRN, C.NLewis., M.S.N. [address] [place] [phone] 10/10/2024 1:00 PM CREDIT COLLECTIONS MANAGER Clinical Support Department of Physical Medicine and Rehabilitation in [place], [place] [address] [place] [phone] Renate Youngblood APRN, C.NLewis., M.S.N. [address] [place] [phone] 10/18/2024 1:00 PM CREDIT COLLECTIONS MANAGER Clinical Support Department of Physical Medicine and Rehabilitation in [place], [place] [address] [place] [phone] Renate Youngblood APRN, C.N.P., M.S.N. [address] [place] [phone] 10/25/2024 1:00 PM CREDIT COLLECTIONS MANAGER Clinical Support Department of Physical Medicine and Rehabilitation in [place], [place] [address] [place] [phone] Renate Youngblood APRN, C.N.P., M.S.N. [address] [place] [phone] 10/31/2024 1:00 PM CREDIT COLLECTIONS MANAGER Clinical Support Department of Physical Medicine and Rehabilitation in [place], [place] [address] [place] [phone] Renate Youngblood APRN, C.NLewis., M.S.N. [address] [place] [phone] 11/10/2024 10:00 AM CREDIT COLLECTIONS MANAGER Comprehensive Visit Department of Obstetrics and Gynecology, Division of Urogynecology in [place], [place] [address] [place] [phone] Yan Turner M.D., M.S. [address] [place] [phone] 11/22/2024 7:30 AM CREDIT COLLECTIONS MANAGER Hospital Encounter [facility] 4 AM ADMIT [address] [place] [phone] Brianne Beebe M.D., Ph.D. [address] [place] [phone] 11/22/2024 7:30 AM CREDIT COLLECTIONS MANAGER - 11/22/2024 4:42 PM CREDIT COLLECTIONS MANAGER Surgery [facility] MAIN OR [address] [place] [address] Brianne Beebe M.D., Ph.D. [address] [place] [phone] ROBOTIC-ASSISTED Ventral Mesh RECTOPEXY Scheduled Procedures Name Priority Associated Diagnoses Date/Ti or ROBOTIC-ASSISTED RECTOPEXY Prolapse Rectal Cystocele Rectocele 11/22/2024 7:30 AM CREDIT COLLECTIONS MANAGER ROBOTIC-ASSISTED EXPLORATION Prolapse Rectal Cystocele Rectocele 11/22/2024 7:30 AM CREDIT COLLECTIONS MANAGER documented as of this encounter Goals Goal Patient Goal Type Associated Problems Recent Progress Patient-Stated? Author [facility] Care Plan for Nicotine Dependency Perioperative Care Plan [facility] Care Plan for Nicotine Dependency Perioperative [...] Problems Noted Date Diagnosed Date [facility] Care Plan for Nicotine Dependency Pe rioperative 07/08/2024 Surgical Readiness and Recovery Care Plan 2023 documented as of this encounter Care Teams Customer Pricing Manager Relationship Specialty Start Date End Date Elsewhere, Pcp PCP - General Internal Medicine 07/02/24 documented as of this encounter
--- OUTSIDE RECORDS SUMMARY | 2024-09-02 08:47 | XMS_ITS | Encounter Summary ---
Author Organization [facility] Address [address] [place] [phone] Care Team Providers Care Ethnoarchaeology Professor Name Role Phone Elsewhere, Pcp Primary Care Provider Unavailabl e Reason for Visit * Outpatient (Routine) - Authorized Specialty Diagnoses / Procedures Referred By Contact Referred To Contact Physical Medicine and Rehabilitation Diagnoses Dysfunction Pelvic Floor Prolapse Rectal Other Female Genital Prolapse Procedures PMR Pelvic floor & bowel/bladder programs Renate Youngblood APRN, C.N.P., M.S.N. 200 [place] [address] Phone: tel: fax: [facility] Referral ID Status Reason Start Date Expiration Date V isits Requested Visits Authorized [id number] Authorized 07/08/2024 09/27/2024 23 23 Encounter Details Date Type Department Care Team (Latest Contact Info) Description 07/27/2024 2:00 PM CDT Clinical Support Department of Physical Medicine and Rehabilitation in [place], [place] [address] [place] [phone] Renate Youngblood APRN, C.N.P., M.S.N. [address] [place] [phone] Dysfunction Pelvic Floor (Primary Dx); Prolapse Rectal; [...] your living situation today? I have a [facility] place to live 01/07/2024 Comments No Sex and Gender Information Value Date Recorded Sex Assigned at Female 01/07/2024 8:31 PM CDT Legal Sex Female 5:11 PM STEAM CONDITIONER OPERATOR Gender Identity Female 01/07/2024 8:31 PM CDT Sexual Orientation Straight 01/07/2024 8: 31 PM CDT documented as of this encounter Progress Notes * [place]Crissy marsh O.T., MOT - 07/27/2024 2:00 PM CDT Please see additional note by this provider on this date for full treatment details. documented in this encounter Plan of Treatment Upcoming Encounters Date Type Department Care Team (Latest Contact Info) Description 09/14/2024 9:00 AM STEAM CONDITIONER OPERATOR Comprehensive Visit Department of Physical Medicine and Rehabilitation in [place], [place] [address] [place] [phone] Renate Youngblood APRN, C.NLaurelP., M.S.N. [address] [place] [phone] 09/26/2024 10:00 AM STEAM CONDITIONER OPERATOR Clinical Support Department of Physical Medicine and Rehabilitation in [place], [place] [address] [place] [phone] Renate Youngblood APRN, C.N.P., M.S.N. [address] [place] [phone] 10/03/2024 4:20 PM STEAM CONDITIONER OPERATOR Virtual Visit Division of Gastroenterology in [place], [place] [address] [place] [phone] Carlos Corral M.D., M.P.H. [address] [place] [phone] 10/04/2024 10:00 AM STEAM CONDITIONER OPERATOR Clinical Support Department of Physical Medicine and Rehabilitation in [place], [place] [address] [place] [phone] Renate Youngblood APRN, C.N.P., M.S.N. [address] [place] [phone] 10/10/2024 1:00 PM STEAM CONDITIONER OPERATOR Clinical Support Department of Physical Medicine and Rehabilitation in [place], [place] [address] [place] [phone] Renate Youngblood APRN, C.NLewis., M.S.N. [address] [place] [phone] 10/18/2024 1:00 PM STEAM CONDITIONER OPERATOR Clinical Support Department of Physical Medicine and Rehabilitation in [place], [place] [address] [place] [phone] Renate Youngblood APRN, C.N.P., M.S.N. [address] [place] [phone] 10/25/2024 1:00 PM STEAM CONDITIONER OPERATOR Clinical Support Department of Physical Medicine and Rehabilitation in [address] [phone] Renate Youngblood APRN, C.NLewis., M.S.N. [address] [place] [phone] 10/31/2024 1:00 PM STEAM CONDITIONER OPERATOR Clinical Support Department of Physical Medicine and Rehabilitation in [address] [phone] Renate Youngblood APRN, C.NLewis., M.S.N. [address] [place] [phone] 11/10/2024 10:00 AM STEAM CONDITIONER OPERATOR Comprehensive Visit Department of Obstetrics and Gynecology, Division of Urogynecology in [address] [phone] Yan Turner M.D., M.S. [address] [place] [phone] 11/22/2024 7:30 AM STEAM CONDITIONER OPERATOR Hospital Encounter [facility] 01 4 AM ADMIT [address] [place] [phone] Brianne Beebe M.D., Ph.D. [address] [place] [phone] 11/22/2024 7:30 AM STEAM CONDITIONER OPERATOR - 11/22/2024 4:42 PM STEAM CONDITIONER OPERATOR Surgery [facility] MAIN OR [address] [place] [address] Brianne Beebe M.D., Ph.D. 200 [place] [phone] ROBOTIC-ASSISTED Ventral Mesh RECTOPEXY Scheduled Procedures Name Priority Associated Diagnoses Date/Ti sc ROBOTIC-ASSISTED RECTOPEXY Prolapse Rectal Cystocele Rectocele 11/22/2024 7:30 AM STEAM CONDITIONER OPERATOR ROBOTIC-ASSISTED EXPLORATION Prolapse Rectal Cystocele Rectocele 11/22/2024 7:30 AM STEAM CONDITIONER OPERATOR documented as of this encounter Goals Goal Patient Goal Type Associated Problems Recent Progress Patient-Stated? Author [facility] Care Plan for Nicotine Dependency Perioperative Care Plan [facility] Care Plan for Nicotine Dependency Perioperative No Genevieve Strickland, R.N. Surgical Readiness and Recovery Care Plan Care Plan Surgical Readiness and Recovery Care Plan No Genevieve Strickland R.Sylvia. documented as of this encounter Visit Diagnoses Diagnosis Prolapse Rectal Cystocele Rectocele Dysfunction Pelvic Floor- Primary Prolapse Rectal Other Female Genital Prolapse Prolapse Rectal Cystocele Rectocele documented in this encounter Additional Health Concerns Active Problems Noted Date Diagnosed Date [facility] Care Plan for Nicotine Dependency Pe rioperative 07/08/2024 Surgical Readiness and Recovery Care Plan 2023 documented as of this encounter Care Teams Ethnoarchaeology Professor Relationship Specialty Start Date End Date Elsewhere, Pcp PCP - General Internal Medicine 07/02/24 documented as of this encounter
--- OUTSIDE RECORDS SUMMARY | 2024-09-02 08:47 | XMS_ITS | Encounter Summary ---
Author Organization [facility] Address [address] [place] [address] Care Team Providers Care Plant Control Aide Name Role Phone Elsewhere, Pcp Primary Care Provider Unavailabl e Reason for Visit * Reason Comments Patient Education Encounter Details Date Type Department Care Team (Late st Contact Info) Description 07/21/2024 1:00 PM CDT Telemedicine Department of Patient Education in [place], [place] [address] [place] [address] Brianne Beebe M.D., Ph.D. [address] [place] [phone] Constipation; Cystocele Midline; Rectocele Social History Tobacco Use Types Packs/Day Years Used Date Smoking Tobacco: Never Passive Smoke Exposure: Never Smokeless Tobacco: Never Alcohol Use Standard Drinks/Week Comments Yes 3 (1 standard drink = 0.6 oz pur e alcohol) [facility] Utilities Answer Date Recorded In the past 12 months has Placeling, gas, oil, or water app2you threatened to shut off services in your [...] your living situation today? I have a [facility] place to live 01/07/2024 Comments Unknown Sex and Gender Information Value Date Recorded Sex Assigned at Female 01/07/2024 8:31 PM CDT Legal Sex Female 5:11 PM SPAR FINISHER Gender Identity Female 01/07/2024 8:31 PM CDT Sexual Orientation Straight 01/07/2024 8: 31 PM CDT documented as of this encounter Plan of Treatment Upcoming Encounters Date Type Department Care Team (Latest Contact Info) Description 09/14/2024 9:00 AM SPAR FINISHER Comprehensive Visit Department of Physical Medicine and Rehabilitation in [place], [place] [address] [place] [address] Renate Youngblood, JOSE, C.N.P., M.S.N. [address] [place] [phone] 09/26/2024 10:00 AM SPAR FINISHER Clinical Support Department of Physical Medicine and Rehabilitation in [place], [place] [address] [place] [phone] Renate Youngblood APRN, C.NBenton, M.S.N. [address] [place] [phone] 10/03/2024 4:20 PM SPAR FINISHER Virtual Visit Division of Gastroenterology in [place], [place] [address] [place] [phone] Carlos Corral M.D., M.P.H. [address] [place] [phone] 10/04/2024 10:00 AM SPAR FINISHER Clinical Support Department of Physical Medicine and Rehabilitation in [place], [place] [address] [place] [address] Renate Youngblood APRN, C.NLewis., M.S.N. [address] [place] [phone] 10/10/2024 1:00 PM SPAR FINISHER Clinical Support Department of Physical Medicine and Rehabilitation in [place], [place] [address] [place] [phone] Renate Youngblood APRN, C.NLewis., M.S.N. [address] [place] [phone] 10/18/2024 1:00 PM SPAR FINISHER Clinical Support Department of Physical Medicine and Rehabilitation in [place], [place] [address] [place] [phone] Renate Youngblood APRN, C.N.P., M.S.N. [address] [place] [phone] 10/25/2024 1:00 PM SPAR FINISHER Clinical Support Department of Physical Medicine and Rehabilitation in [place], [place] [address] [place] [address] Renate Youngblood APRN, C.N.P., M.S.N. [address] [place] [phone] 10/31/2024 1:00 PM SPAR FINISHER Clinical Support Department of Physical Medicine and Rehabilitation in [place], [place] [address] [place] [phone] Renate Youngblood APRN, C.NLaurelP., M.S.N. [address] [place] [phone] 11/10/2024 10:00 AM SPAR FINISHER Comprehensive Visit Department of Obstetrics and Gynecology, Division of Urogynecology in [place], [place] [address] [place] [phone] Yna Turner M.D., M.S. [address] [place] [phone] 11/22/2024 7:30 AM SPAR FINISHER Hospital Encounter [facility] 4 AM ADMIT [address] [place] [phone] Brianne Beebe M.D., Ph.D. [address] [place] [phone] 11/22/2024 7:30 AM SPAR FINISHER - 11/22/2024 4:42 PM SPAR FINISHER Surgery [facility] MAIN OR [address] [place] [address] Brianne Beebe M.D., Ph.D. [address] [place] [phone] ROBOTIC-ASSISTED Ventral Mesh RECTOPEXY Scheduled Procedures Name Priority Associated Diagnoses Date/Ti ga ROBOTIC-ASSISTED RECTOPEXY Prolapse Rectal Cystocele Rectocele 11/22/2024 7:30 AM SPAR FINISHER ROBOTIC-ASSISTED EXPLORATION Prolapse Rectal Cystocele Rectocele 11/22/2024 7:30 AM SPAR FINISHER documented as of this encounter Goals Goal Patient Goal Type Associated Problems Recent Progress Patient-Stated? Author [facility] Care Plan for Nicotine Dependency Perioperative Care Plan [facility] Care Plan for Nicotine Dependency Perioperative No Genevieve Strickland RLaurelN. Surgical Readiness and Recovery Care Plan Care Plan Surgical Readiness and Recovery Care Plan No Gneevieve Strickland R.N. documented as of this encounter Visit Diagnoses Diagnosis Prolapse Rectal Cystocele Rectocele Constipation Cystocele Midline Rectocele Prolapse Rectal Cystocele Rectocele documented in this encounter Additional Health Concerns Active Problems Noted Date Diagnosed Date [facility] Care Plan for Nicotine Dependency Pe rioperative 07/08/2024 Surgical Readiness and Recovery Care Plan 2023 documented as of this encounter Care Teams Plant Control Aide Relationship Specialty Start Date End Date Elsewhere, Pcp PCP - General Internal Medicine 07/02/24 documented as of this encounter
--- OUTSIDE RECORDS SUMMARY | 2024-09-02 08:47 | XMS_ITS | Encounter Summary ---
Author Organization [facility] Address [address] [place] [address] Care Team Providers Care Match Maker Name Role Phone Elsewhere, Pcp Primary Care Provider Unavailabl e Encounter Details Date Type Department Care Team (Latest Contact Info) Description 07/22/2024 Clinical Communication Department of Obstetrics and Gynecology, Division of Urogynecology in [place], [place] [address] [place] [address] Yan Turner M.D., M.S. [address] [place] [address] Social History Tobacco Use Types Packs/Day Years Used Date Smoking Tobacco: Never Passive Smoke Exposure: Never Smokeless Tobacco: Never Alcohol Use Standard Drinks/Week Comments Yes 3 (1 standard drink = 0.6 oz pur e alcohol) [facility] Utilities Answer Date Recorded In the [...] PM CDT Legal Sex Female 5:11 PM PLASTERER FOREMAN Gender Identity Female 01/07/2024 8:31 PM CDT Sexual Orientation Straight 01/07/2024 8: 31 PM CDT documented as of this encounter Plan of Treatment Upcoming Encounters Date Type Department Care Team (Latest Contact Info) Description 09/14/2024 9:00 AM PLASTERER FOREMAN Comprehensive Visit Department of Physical Medicine and Rehabilitation in [place], [place] [address] [place] [phone] Renate Youngblood APRN, C.N.P., M.S.N. [address] [place] [phone] 09/26/2024 10:00 AM PLASTERER FOREMAN Clinical Support Department of Physical Medicine and Rehabilitation in [place], [place] [address] [place] [phone] Renate Youngblood APRN, C.N.P., M.S.N. [address] [place] [phone] 10/03/2024 4:20 PM PLASTERER FOREMAN Virtual Visit Division of Gastroenterology in [place], [place] [address] [place] [phone] Carlos Corral M.D., M.P.H. [address] [place] [phone] 10/04/2024 10:00 AM PLASTERER FOREMAN Clinical Support Department of Physical Medicine and Rehabilitation in [place], [place] [address] [place] [phone] Reante Youngblood APRN, C.N.P., M.S.N. [address] [place] [phone] 10/10/2024 1:00 PM PLASTERER FOREMAN Clinical Support Department of Physical Medicine and Rehabilitation in [place], [place] [address] [place] [phone] Renate Youngblood APRN, C.N.P., M.S.N. [address] [place] [phone] 10/18/2024 1:00 PM PLASTERER FOREMAN Clinical Support Department of Physical Medicine and Rehabilitation in [place], [place] [address] [place] [phone] Renate Youngblood APRN, C.NBenton, M.S.N. [address] [place] [phone] 10/25/2024 1:00 PM PLASTERER FOREMAN Clinical Support Department of Physical Medicine and Rehabilitation in [place], [place] [address] [place] [phone] Renate Youngblood APRN, C.NBenton, M.S.N. [address] [place] [phone] 10/31/2024 1:00 PM PLASTERER FOREMAN Clinical Support Department of Physical Medicine and Rehabilitation in [place], [place] [address] [place] [phone] Renate Youngblood APRN, C.N.P., M.S.N. [address] [place] [phone] 11/10/2024 10:00 AM PLASTERER FOREMAN Comprehensive Visit Department of Obstetrics and Gynecology, Division of Urogynecology in [place], [place] [address] [place] [phone] Yan Turner M.D., M.S. [address] [place] [phone] 11/22/2024 7:30 AM PLASTERER FOREMAN Hospital Encounter RST RO 01 4 AM ADMIT [address] [place] [phone] Brianne Beebe M.D., Ph.D. [address] [place] [phone] 11/22/2024 7:30 AM PLASTERER FOREMAN - 11/22/2024 4:42 PM PLASTERER FOREMAN Surgery [facility]ST [facility] MA[facility] OR [address] [place] [address] Brianne Beebe M.D., Ph.D. [address] [place] [phone] ROBOTIC-ASSISTED Ventral Mesh RECTOPEXY Scheduled Procedures Name Priority Associated Diagnoses Date/Ti ca ROBOTIC-ASSISTED RECTOPEXY Prolapse Rectal Cystocele Rectocele 11/22/2024 7:30 AM PLASTERER FOREMAN ROBOTIC-ASSISTED EXPLORATION Prolapse Rectal Cystocele Rectocele 11/22/2024 7:30 AM PLASTERER FOREMAN documented as of this encounter Goals Goal [...] documented as of this encounter Care Teams Match Maker Relationship Specialty Start Date End Date Elsewhere, Pcp PCP - General Internal Medicine 07/02/24 documented as of this encounter
--- OUTSIDE RECORDS SUMMARY | 2024-09-02 08:47 | XMS_ITS | Encounter Summary ---
Author Organization [facility] Address [address] [place] [address] Care Team Providers Care Sales Attendant Name Role Phone Elsewhere, Pcp Primary Care Provider Unavailabl e Reason for Referral * Outpatient (Routine) - Closed Specialty Diagnoses / Procedures Referred By Contac t Referred To Contact Diagnoses Constipation Procedures DX Abdomen 1 View Milton Raman M.D., D.Sc. [address] [place] [address] Phone: tel: fax: [facility] Referral ID Status Reason Start Date Expiration Date Visits Re quested Visits Authorized [id number] Closed 08/08/2024 08/08/2025 1 1 L INSPECTOR Encounter Details Date Type Department Care Team (Late st Contact Info) Description 08/08/2024 Orders Only Division of Gastroenterology in [place], [place] [address] [place] [phone] Jay Grayson MD Constipation Social History Tobacco Use Types Packs/Day Years Used Date Smoking Tobacco: Never Passive Smoke Exposure: Never Smokeless Tobacco: Never Alcohol Use Standard Drinks/Week Comments Yes 3 (1 standard drink = 0.6 oz pur e alcohol) [facility] Utilities Answer Date Recorded In the past 12 months has th e electric, gas, oil, or water [facility] threatened to shut off services in your [...] your living situation today? [facility] 01/07/2024 Comments No Sex and Gender Information Value Date Recorded Sex Assigned at Female 01/07/2024 8:31 PM CDT Legal Sex Female 5:11 PM JEWEL INSPECTOR Gender Identity Female 01/07/2024 8:31 PM CDT Sexual Orientation Straight 01/07/2024 8: 31 PM CDT documented as of this encounter Plan of Treatment Upcoming Encounters Date Type Department Care Team (Latest Contact Info) Description 09/14/2024 9:00 AM JEWEL INSPECTOR Comprehensive Visit Department of Physical Medicine and Rehabilitation in [place], [place] [address] [place] [address] Renate Youngblood APRN, C.N.P., M.S.N. [address] [place] [address] 09/26/2024 10:00 AM JEWEL INSPECTOR Clinical Support Department of Physical Medicine and Rehabilitation in [place], [place] [address] [place] [phone] Renate Youngblood APRN, Celeste.N.P., M.S.N. [address] [place] [phone] 10/03/2024 4:20 PM JEWEL INSPECTOR Virtual Visit Division of Gastroenterology in [place], [place] [address] [place] [phone] Carlos Corral M.D., M.P.H. [address] [place] [phone] 10/04/2024 10:00 AM JEWEL INSPECTOR Clinical Support Department of Physical Medicine and Rehabilitation in [place], [place] [address] [place] [phone] Renate Youngblood APRN, C.N.Dandre., M.S.N. [address] [place] [phone] 10/10/2024 1:00 PM JEWEL INSPECTOR Clinical Support Department of Physical Medicine and Rehabilitation in [place], [place] [address] [place] [phone] Renate Youngblood APRN, C.N.P., M.S.N. [address] [place] [phone] 10/18/2024 1:00 PM JEWEL INSPECTOR Clinical Support Department of Physical Medicine and Rehabilitation in [address] [phone] Renate Youngblood APRN, C.N.P., M.S.N. [address] [place] [phone] 10/25/2024 1:00 PM JEWEL INSPECTOR Clinical Support Department of Physical Medicine and Rehabilitation in [place], [place] [address] [place] [phone] Renate Youngblood APRN, C.NLewis., M.S.N. [address] [place] [phone] 10/31/2024 1:00 PM JEWEL INSPECTOR Clinical Support Department of Physical Medicine and Rehabilitation in [place], [place] [address] [place] [phone] Renate Youngblood APRN, C.N.Dandre., M.S.N. [address] [place] [phone] 11/10/2024 10:00 AM JEWEL INSPECTOR Comprehensive Visit Department of Obstetrics and Gynecology, Division of Urogynecology in [place], [place] [address] [place] [phone] Yan Turner M.D., M.S. [address] [place] [phone] 11/22/2024 7:30 AM JEWEL INSPECTOR Hospital Encounter [facility]ST [facility] 01 4 AM ADMIT [address] [place] [phone] Brianne Beebe M.D., Ph.D. [address] [place] [phone] 11/22/2024 7:30 AM JEWEL INSPECTOR - 11/22/2024 4:42 PM JEWEL INSPECTOR Surgery RST [facility] MAIN OR [address] [place] [phone] Brianne Beebe M.D., Ph.D. [address] [place] [phone] ROBOTIC-ASSISTED Ventral Mesh RECTOPEXY Scheduled Procedures Name Priority Associated Diagnoses Date/Ti ga ROBOTIC-ASSISTED RECTOPEXY Prolapse Rectal Cystocele Rectocele 11/22/2024 7:30 AM JEWEL INSPECTOR ROBOTIC-ASSISTED EXPLORATION Prolapse Rectal Cystocele Rectocele 11/22/2024 7:30 AM JEWEL INSPECTOR documented as of this encounter Goals Goal Patient Goal Type Associated Problems Recent Progress Patient-Stated? Author [facility] Care Plan for Nicotine Dependency Perioperative Care Plan [facility] Care Plan for Nicotine Dependency Perioperative No Genevieve Strickland R.N. Surgical Readiness and Recovery Care Plan Care Plan Surgical Readiness and Recovery Care Plan No Genevieve Strickland R.N. documented as of this encounter Results * DX Abdomen 1 View (08/29/2024 11:35 AM JEWEL INSPECTOR) Anatomical Region Laterality Modality Abdomen, Abdominal RST LOS, Abdominal ARZ LOS, Abdominal FLA LOS N/A Digital Radiography Impressions 08/29/2024 11:52 AM JEWEL INSPECTOR Mild fecal loading in the descending colon. Otherwise negative abdominal radiograph. Narrative 08/29/2024 11:52 AM JEWEL INSPECTOR EXAM: DX ABDOMEN 1 VIEW Procedure Note Valentino Ramos M.B.BLaurelS. - 08/29/2024 EXAM: DX ABDOMEN 1 VIEW IMPRESSION: Mild fecal loading in the descending colon. Otherwise negative abdominalradiograph. Carlos Corral M.D., M.P.H. IMG DIAGNOSTIC IMAGI NG PROCEDURES Final Result documented in this encounter Visit Diagnoses Diagnosis Prolapse Rectal Cystocele Rectocele Constipation Constipation Prolapse Rectal Cystocele Rectocele documented in this encounter Additional Health Concerns Active Problems Noted Date Diagnosed Date [facility] Care Plan for Nicotine Dependency Pe rioperative 07/08/2024 Surgical Readiness and Recovery Care Plan 2023 documented as of this encounter Care Teams Sales Attendant Relationship Specialty Start Date End Date Elsewhere, Pcp PCP - General Internal Medicine 07/02/24 documented as of this encounter
--- OUTSIDE RECORDS SUMMARY | 2024-09-02 08:47 | XMS_ITS | Encounter Summary ---
Author Organization [facility] Address [address] [place] [address] Care Team Providers Care Marketing Intelligence Analyst Name Role Phone Elsewhere, Pcp Primary Care Provider Unavailabl e Reason for Visit * Outpatient (Routine) - Authorized Specialty Diagnoses / Procedures Referred By Contact Referred To Contact Physical Medicine and Rehabilitation Diagnoses Dysfunction Pelvic Floor Prolapse Rectal Other Female Genital Prolapse Procedures PMR Pelvic floor & bowel/bladder programs Renate Youngblood APRN, C.N.P., M.S.N. [address] [place] [phone] Phone: tel: fax: [facility] Referral ID Status Reason Start Date Expiration Date V isits Requested Visits Authorized [id number] Authorized 07/08/2024 09/27/2024 23 23 Encounter Details Date Type Department Care Team (Latest Contact Info) Description 08/05/2024 11:00 AM ELECTRONIC ASSEMBLY Clinical Support Department of Physical Medicine and Rehabilitation in [place], [place] [address] [place] [phone] Renate Youngblood APRN, C.N.P., M.S.N. [address] [place] [phone] Dysfunction Pelvic Floor; Prolapse Rectal; Other Female Genital Prolapse Social History Tobacco Use Types Packs/Day Years Used Date Smoking Tobacco: Never Passive Smoke Exposure: Never Smokeless Tobacco: Never Alcohol Use Standard Drinks/Week Comments Yes 3 (1 standard drink = 0.6 oz pur e alcohol) [facility] Utilities Answer Date Recorded In the [...] your living situation today? I have a [facility] to live 01/07/2024 Comments No Sex and Gender Information Value Date Recorded Sex Assigned at Female 01/07/2024 8:31 PM CDT Legal Sex Female 5:11 PM ELECTRONIC ASSEMBLY Gender Identity Female 01/07/2024 8:31 PM CDT Sexual Orientation Straight 01/07/2024 8: 31 PM CDT documented as of this encounter Progress Notes * Crissy Cohen O.T., MOT - 08/05/2024 11:00 AM CST Pelvic Health Occupational Therapy Progress Note SUBJECTIVE Patient's Name: Allie Barbosa Referring Provider: Renate Youngblood APRN C.NLaurelPLaurel, M.S.N. Medical Diagnosis: 1. Dysfunction Pelvic Floor 2. Prolapse Rectal 3. Other Female Genital Prolapse Reason for Referral: Rectal Prolapse, cystocele, rectocele, enterocele-hx of repair Onset Date: 07/08/24 Payor: MEDICA / Plan: [employer] ADVANT[employer] SOLUTION PPO / Product Type: PPO / Total Visit Count: 4,5 History of Present Illness: rectal prolapse, cystocele, rectocele, enterocele- history of repair Patient goals:delay surgical procedures Session 1: Patient reports she took a dulcolax suppository as prescribed by her provider and it took 4 hours to take effect. She then had multiple uncontrolled BMs for 12 hours. She went to her doctor to get a better plan. She has started taking Linzess as directed by her doctor. Reports it helped for first 3days but now she has not had a BM in 2 days. Plans to double dose tonight as directed by her provider. She continues to take senna at night, and 3 metamucil tables in addition to increasing fiber in her diet. She also has a referral in to be seen by a [facility] provider. She shared also her surgery was moved to Nov.10 from September 30 She further reports she was seen by ENT and found her larynx was agitated and is working to reduce coughing and clearing her throat. Session 2: Patient reports no change. Fall in the last 12 months: Yes OBJECTIVE Vitals: Not indicated at this time TREATMENT Treatment today consisted of: Procedural pause was used to discuss next steps in pelvic floor treatment prior to assessment. Patient consented to ongoing treatment which included the below items. Patient given option to discontinue examination at any time. Session 1: Therapeutic Exercise- Adapted initial exercises based on patient positioning and comfort. Home Management Training- Educated patient in the use of consistent routines for stimulation of bowel movements. Discussed process for building muscle strength, general timelines and how spreading out appointments would be a better utilization of time. Patient in agreement. Education: Anatomy - Educated patient on the anatomy of the pelvic floor and its role in bowel evacuation. Toileting techniques - Guided patient in proper use of techniques for improved bowel evacuation, including relaxation and breathing patterns. Positioning - Educated patient on positioning for bowel evacuation, including use of foot stool. Coached patient in integrating these concepts with personal preferences and current habits. GI system - Educated patient on basic GI system anatomy and function, as it relates to patient-specific concerns. Session 2: Therapeutic Exercise- Patient was instructed in the following therapeutic exercise with the goal of improving general hip, gluteal, core musculature and pelvic floor strength. Appropriate verbal and tactile cues were usedto ensure correct and safe performance. - Bent Knee Fallouts - 1 x daily - 7 x weekly - 3 sets - 10 reps - Supine Pelvic Tilt with Straight Leg Raise - 1 x daily - 7 x weekly - 3 sets - 10 reps - Clamshell - 1 x daily - 4-5 x weekly - 3 sets - 10 reps - Supine Hip Adduction Isometric with Ball - 1 x daily - 4-5 x weekly - 3 sets - 10 reps - Standing Hip Abduction with Counter Support - 1 x daily - 7 x weekly - 3 sets - 10 reps - Mini Squat with Counter Support - 1 x daily - 7 x weekly - 3 sets - 10 reps - Sidestepping - 1 x daily - 7 x weekly - 3 sets - 10 reps - Seated Pelvic Tilt - 1 x daily - 7 x weekly - 3 sets - 10 reps HEP: Access Code: [email or web address] URL: [email or web address] Date: 08/05/2024 Prepared by: Crissy Cohen Exercises - Beginner [...] x daily - 7 x weekly - Toileting Posture - modified happy baby - 1 x daily - 90 sec hold - Bent Knee Fallouts - 1 x daily - 7 x weekly - 3 sets - 10 reps - Supine Pelvic Tilt with Straight Leg Raise - 1 x daily - 7 x weekly - 3 sets - 10 reps - Clamshell - 1 x daily - 4-5 x weekly - 3 sets - 10 reps - Supine Hip Adduction Isometric with Ball - 1 x daily - 4-5 x weekly - 3 sets - 10 reps - Standing Hip Abduction with Counter Support - 1 x daily - 7 x weekly - 3 sets - 10 reps - Mini Squat with Counter Support - 1 x daily - 7 x weekly - 3 sets - 10 reps - Sidestepping - 1 x daily - 7 x weekly - 3 sets - 10 reps - Seated Pelvic Tilt - 1 x daily - 7 x weekly - 3 sets - 10 reps Assessment Ms. Barbosa presents to pelvic health [...] home program for improved functional and strength. Continued skilled occupational therapy services necessary for [...] Plan: Continue with current plan Next Session: review progress exercises, biofeedback, balloon or manual Treatment interventions may include: Treatment Interventions: Therapeutic exercise, Therapeutic functional activity, Neuromuscular re-education, Self-care/home management, Therapeutic modalities as needed, Manual therapy Other OT Interventions: Biofeedback Time Spent with Patient Therapeutic Interventions Home Management Training (min): 45 min Therapeutic Exercise (min): 45 min Time Tracking Total Timed Units (min): 90 min Total Treatment Time (min): 90 min Crissy Cohen OTR/L TRONIC ASSEMBLY documented in this encounter Plan of Treatment Upcoming Encounters Date Type Department Care Team (Latest Contact Info) Description 09/14/2024 9:00 AM ELECTRONIC ASSEMBLY Comprehensive Visit Department of Physical Medicine and Rehabilitation in [address] [phone] Renate Youngblood APRN, Celeste.N.P., M.S.N. [address] [place] [phone] 09/26/2024 10:00 AM ELECTRONIC ASSEMBLY Clinical Support Department of Physical Medicine and Rehabilitation in [address] [phone] Renate Youngblood APRN, Celeste.N.P., M.S.N. [address] [place] [phone] 10/03/2024 4:20 PM ELECTRONIC ASSEMBLY Virtual Visit Division of Gastroenterology in [address] [phone] Carlos Corral M.D., M.P.H. [address] [place] [phone] 10/04/2024 10:00 AM ELECTRONIC ASSEMBLY Clinical Support Department of Physical Medicine and Rehabilitation in [address] [phone] Rentae Youngblood APRN, C.N.P., M.S.N. [address] [place] [phone] 10/10/2024 1:00 PM ELECTRONIC ASSEMBLY Clinical Support Department of Physical Medicine and Rehabilitation in [place], [place] [address] [place] [phone] Renate Youngblood APRN, C.N.P., M.S.N. [address] [place] [phone] 10/18/2024 1:00 PM ELECTRONIC ASSEMBLY Clinical Support Department of Physical Medicine and Rehabilitation in [place], [place] [address] [place] [phone] Renate Youngblood APRN, C.N.P., M.S.N. [address] [place] [phone] 10/25/2024 1:00 PM ELECTRONIC ASSEMBLY Clinical Support Department of Physical Medicine and Rehabilitation in [place], [place] [address] [place] [phone] Renate Youngblood APRN, C.N.P., M.S.N. [address] [place] [phone] 10/31/2024 1:00 PM ELECTRONIC ASSEMBLY Clinical Support Department of Physical Medicine and Rehabilitation in [place], [place] [address] [place] [phone] Renate Youngblood APRN, C.N.P., M.S.N. [address] [place] [phone] 11/10/2024 10:00 AM ELECTRONIC ASSEMBLY Comprehensive Visit Department of Obstetrics and Gynecology, Division of Urogynecology in [place], [place] [address] [place] [phone] Yan Turner M.D., M.S. [address] [place] [phone] 11/22/2024 7:30 AM ELECTRONIC ASSEMBLY Hospital Encounter [facility] 01 4 AM ADMIT [address] [place] [address] Brianne Beebe M.D., Ph.D. [address] [place] [address] 11/22/2024 7:30 AM ELECTRONIC ASSEMBLY - 11/22/2024 4:42 PM ELECTRONIC ASSEMBLY Surgery [facility] MAIN OR [address] [place] [address] Brianne Beebe M.D., Ph.D. [address] [place] [address] ROBOTIC-ASSISTED Ventral Mesh RECTOPEXY Scheduled Procedures Name Priority Associated Diagnoses Date/Ti vt ROBOTIC-ASSISTED RECTOPEXY Prolapse Rectal Cystocele Rectocele 11/22/2024 7:30 AM ELECTRONIC ASSEMBLY ROBOTIC-ASSISTED EXPLORATION Prolapse Rectal Cystocele Rectocele 11/22/2024 7:30 AM ELECTRONIC ASSEMBLY documented as of this encounter Goals Goal Patient Goal Type Associated Problems Recent Progress Patient-Stated? Author [facility] Care Plan for Nicotine Dependency Perioperative Care Plan [facility] Care Plan for Nicotine Dependency Perioperative No [...] Concerns Active Problems Noted Date Diagnosed Date [facility] Care Plan for Nicotine Dependency Pe rioperative 07/08/2024 Surgical Readiness and Recovery Care Plan 2023 documented as of this encounter Care Teams Marketing Intelligence Analyst Relationship Specialty Start Date End Date Elsewhere, Pcp PCP - General Internal Medicine 07/02/24 documented as of this encounter
--- OUTSIDE RECORDS SUMMARY | 2024-09-02 08:47 | XMS_ITS | Encounter Summary ---
Author Organization [facility] Address [address] [place] [phone] Care Team Providers Care Business Systems Administrator Name Role Phone Elsewhere, Pcp Primary Care Provider Unavailabl e Reason for Visit * Reason Comments Consult * Outpatient (Routine) - Closed Specialty Diagnoses / Procedures Referred By Contac t Referred To Contact Colon and Rectal Surgery Diagnoses Constipation Proctitis Micha Baumann M.D. [address] [place] [phone] Phone: tel: fax: [facility] Referral ID Status Reason Start Date Expiration Date Visits Re quested Visits Authorized [id number] Closed 07/02/2024 01/01/2026 1 1 Encounter Details Date Type Department Care Team (Late st Contact Info) Description 07/08/2024 9:30 AM CDT Office Visit Division of Colon and Rectal Surgery in [place], [place] [address] [place] [phone] Brianne Beebe M.D., Ph.D. [address] [place] [phone] Angina Pectoris Unspecified (HCC) (Primary Dx); Other Female Genital Prolapse; Constipation; Proctitis Social History Tobacco Use Types Packs/Day Years Used Date Smoking Tobacco: Never Passive Smoke Exposure: Never Smokeless Tobacco: Never Alcohol Use Standard Drinks/Week Comments Yes 3 (1 standard drink = 0.6 oz pur e alcohol) [facility] Utilities Answer Date Recorded In the past [...] your living situation today? I have a [facility] place to live 01/07/2024 Comments Unknown Sex and Gender Information Value Date Recorded Sex Assigned at Female 01/07/2024 8:31 PM CDT Legal Sex Female 5:11 PM ONLINE MEDIA DIRECTOR Gender Identity Female 01/07/2024 8:31 PM [...] have recommended she reach out to a stage driver. If stent is working then she should [...] (Latest Contact Info) Description 09/14/2024 9:00 AM ONLINE MEDIA DIRECTOR Comprehensive Visit Department of Physical Medicine and Rehabilitation in [place], [place] [address] [place] [phone] Renate Youngblood APRN, C.N.P., M.S.N. [address] [place] [phone] 09/26/2024 10:00 AM ONLINE MEDIA DIRECTOR Clinical Support Department of Physical Medicine and Rehabilitation in [place], [place] [address] [place] [address] Renate Youngblood APRN, C.N.P., M.S.N. [address] [place] [phone] 10/03/2024 4:20 PM ONLINE MEDIA DIRECTOR Virtual Visit Division of Gastroenterology in [place], [place] [address] [place] [phone] Carlos Corral M.D., M.P.H. [address] [place] [phone] 10/04/2024 10:00 AM ONLINE MEDIA DIRECTOR Clinical Support Department of Physical Medicine and Rehabilitation in [place], [place] [address] [place] [address] Renate Youngblood APRN, C.N.P., M.S.N. [address] [place] [phone] 10/10/2024 1:00 PM ONLINE MEDIA DIRECTOR Clinical Support Department of Physical Medicine and Rehabilitation in [place], [place] [address] [place] [phone] Renate Youngblood APRN, C.N.P., M.S.N. [address] [place] [phone] 10/18/2024 1:00 PM ONLINE MEDIA DIRECTOR Clinical Support Department of Physical Medicine and Rehabilitation in [place], [place] [address] [place] [phone] Renate Youngblood APRN, C.N.P., M.S.N. [address] [place] [phone] 10/25/2024 1:00 PM ONLINE MEDIA DIRECTOR Clinical Support Department of Physical Medicine and Rehabilitation in [place], [place] [address] [place] [address] Renate Youngblood APRN, C.NLewis., M.S.N. [address] [place] [phone] 10/31/2024 1:00 PM ONLINE MEDIA DIRECTOR Clinical Support Department of Physical Medicine and Rehabilitation in [place], [place] [address] [place] [phone] Renate Youngblood APRN, C.N.P., M.S.N. [address] [place] [phone] 11/10/2024 10:00 AM ONLINE MEDIA DIRECTOR Comprehensive Visit Department of Obstetrics and Gynecology, Division of Urogynecology in [place], [place] [address] [place] [phone] Yan Turner M.D., M.S. [address] [place] [phone] 11/22/2024 7:30 AM ONLINE MEDIA DIRECTOR Hospital Encounter RST RO 4 AM ADMIT [address] [place] [phone] Brianne Beebe M.D., Ph.D. [address] [place] [phone] 11/22/2024 7:30 AM ONLINE MEDIA DIRECTOR - 11/22/2024 4:42 PM ONLINE MEDIA DIRECTOR Surgery RST [facility] [address] [place] [address] Brianne Beebe M.D., Ph.D. [address] [place] [phone] ROBOTIC-ASSISTED Ventral Mesh RECTOPEXY Scheduled Procedures Name Priority Associated Diagnoses Date/Ti wy ROBOTIC-ASSISTED RECTOPEXY Prolapse Rectal Cystocele Rectocele 11/22/2024 7:30 AM ONLINE MEDIA DIRECTOR ROBOTIC-ASSISTED EXPLORATION Prolapse Rectal Cystocele Rectocele 11/22/2024 7:30 AM ONLINE MEDIA DIRECTOR documented as of this encounter Goals Goal Patient Goal Type Associated Problems Recent Progress Patient-Stated? Author [facility] Care Plan for Nicotine Dependency Perioperative Care Plan [facility] Care Plan for Nicotine Dependency Perioperative No Genevieve Strickland, RLaurelN. Surgical Readiness and Recovery Care Plan Care Plan Surgical Readiness and Recovery Care Plan No Genevieve Strickland R.N. documented as of this encounter Visit Diagnoses Diagnosis Angina Pectoris Unspecified (HCC)- Primary Other Female Genital Prolapse Constipation Proctitis Prolapse Rectal Cystocele Rectocele documented in this encounter Additional Health Concerns Active Problems Noted Date Diagnosed Date [facility] Care Plan for Nicotine Dependency Pe rioperative 07/08/2024 Surgical Readiness and Recovery Care Plan 2023 documented as of this encounter Care Teams Business Systems Administrator Relationship Specialty Start Date End Date Elsewhere, Pcp PCP - General Internal Medicine 07/02/24 documented as of this encounter
--- OUTSIDE RECORDS SUMMARY | 2024-09-02 08:47 | XMS_ITS | Encounter Summary ---
Author Organization [facility] Address [address] [place] [address] Care Team Providers Care Buffet Server Name Role Phone Elsewhere, Pcp Primary Care Provider Unavailabl e Reason for Visit * Outpatient (Routine) - Closed Specialty Diagnoses / Procedures Referred By Floresita t Referred To Contact Gynecology Diagnoses Abnormal Computed Tomography Micha Baumann M.D. 200 [place] [address] Phone: tel: fax: [facility] Referral ID Status Reason Start Date Expiration Date Visits Re quested Visits Authorized [id number] Closed 07/02/2024 01/01/2026 1 1 Encounter Details Date Type Department Care Team (Latest Contact Info) Description 07/26/2024 3:00 PM CDT Comprehensive Visit Department of Obstetrics and Gynecology in [place], [place] [address] [place] [phone] Elia Portillo M.D. [address] [place] [phone] Mass Adnexal (Primary Dx); Abnormal Computed Tomography Social History Tobacco Use Types Packs/Day Years Used Date Smoking Tobacco: Never Passive Smoke Exposure: Never Smokeless Tobacco: Never Alcohol Use Standard Drinks/Week Comments Yes 3 (1 standard drink = 0.6 oz pur e alcohol) [facility] Utilities Answer Date Recorded In [...] PM CDT Legal Sex Female 5:11 PM SOFTWARE QA MANAGER Gender Identity Female 01/07/2024 8:31 PM [...] as recurrent abnormal pap smears (performed in [facility]). She does not recall the specifics of [...] Colon surgery; Bladder surgery; and Total hysterectomy. Bottler Helper History: Last pap smear: 11/11/2018 Result: NILM [...] appreciate the opportunity to participate in Ms. Barboas's care. At the conclusion of this consultation, [...] (Latest Contact Info) Description 09/14/2024 9:00 AM SOFTWARE QA MANAGER Comprehensive Visit Department of Physical Medicine and Rehabilitation in [address] [phone] Renate Youngblood APRN, C.NLewis., M.S.N. [address] [place] [phone] 09/26/2024 10:00 AM SOFTWARE QA MANAGER Clinical Support Department of Physical Medicine and Rehabilitation in [address] [phone] Renate Youngblood APRN, C.NLewis., M.S.N. [address] [place] [phone] 10/03/2024 4:20 PM SOFTWARE QA MANAGER Virtual Visit Division of Gastroenterology in [address] [phone] Carlos Corral M.D., M.P.H. [address] [place] [phone] 10/04/2024 10:00 AM SOFTWARE QA MANAGER Clinical Support Department of Physical Medicine and Rehabilitation in [address] [phone] Renate Youngblood APRN, C.N.P., M.S.N. [address] [place] [phone] 10/10/2024 1:00 PM SOFTWARE QA MANAGER Clinical Support Department of Physical Medicine and Rehabilitation in [address] [phone] Renate Youngblood APRN, C.NLewis., M.S.N. [address] [place] [phone] 10/18/2024 1:00 PM SOFTWARE QA MANAGER Clinical Support Department of Physical Medicine and Rehabilitation in [place], [place] [address] [place] [address] Renate Youngblood APRN, C.NLewis., M.S.N. [address] [place] [phone] 10/25/2024 1:00 PM SOFTWARE QA MANAGER Clinical Support Department of Physical Medicine and Rehabilitation in [place], [place] [address] [place] [phone] Renate Youngblood APRN, C.NLewis., M.S.N. [address] [place] [phone] 10/31/2024 1:00 PM SOFTWARE QA MANAGER Clinical Support Department of Physical Medicine and Rehabilitation in [place], [place] [address] [place] [phone] Renate Youngblood APRN, C.NLewis., M.S.N. [address] [place] [phone] 11/10/2024 10:00 AM SOFTWARE QA MANAGER Comprehensive Visit Department of Obstetrics and Gynecology, Division of Urogynecology in [place], [place] [address] [place] [phone] Yan Turner M.D., M.S. [address] [place] [phone] 11/22/2024 7:30 AM SOFTWARE QA MANAGER Hospital Encounter [facility] 01 4 AM ADMIT [address] [place] [phone] Brianne Beebe M.D., Ph.D. [address] [place] [address] 11/22/2024 7:30 AM SOFTWARE QA MANAGER - 11/22/2024 4:42 PM SOFTWARE QA MANAGER Surgery [facility] MAIN OR [address] [place] [address] Brianne Beebe M.D., Ph.D. 200 [place] [address] ROBOTIC-ASSISTED Ventral Mesh RECTOPEXY Scheduled Procedures Name Priority Associated Diagnoses Date/Ti il ROBOTIC-ASSISTED RECTOPEXY Prolapse Rectal Cystocele Rectocele 11/22/2024 7:30 AM SOFTWARE QA MANAGER ROBOTIC-ASSISTED EXPLORATION Prolapse Rectal Cystocele Rectocele 11/22/2024 7:30 AM SOFTWARE QA MANAGER documented as of this encounter Goals Goal Patient Goal Type Associated Problems Recent Progress Patient-Stated? Author [facility] Care Plan for Nicotine Dependency Perioperative Care Plan [facility] Care Plan for Nicotine Dependency Perioperative No Genevieve Strickland, R.N. Surgical Readiness and Recovery Care Plan Care Plan Surgical Readiness and Recovery Care Plan No Genevieve Strickland, R.N. documented as of this encounter Visit Diagnoses Diagnosis Prolapse Rectal Cystocele Rectocele Mass Adnexal- Primary Abnormal Computed Tomography Prolapse Rectal Cystocele Rectocele documented in this encounter Additional Health Concerns Active Problems Noted Date Diagnosed Date [facility] Care Plan for Nicotine Dependency Pe rioperative 07/08/2024 Surgical Readiness and Recovery Care Plan 2023 documented as of this encounter Care Teams Buffet Server Relationship Specialty Start Date End Date Elsewhere, Pcp PCP - General Internal Medicine 07/02/24 documented as of this encounter
--- OUTSIDE RECORDS SUMMARY | 2024-09-02 08:47 | XMS_ITS | Encounter Summary ---
Author Organization [facility] Address [address] [place] [address] Care Team Providers Care International Guest Coordinator Name Role Phone Elsewhere, Pcp Primary Care Provider Unavailabl e Reason for Referral * Specialty Diagnoses / Procedures Referred By Contac t Referred To Contact Diagnoses Constipation Cystocele Midline Rectocele RST [facility] [address] [place] [address] Phone: tel: [facility] Referral ID Status Reason Start Date Expiration Date Visits Re quested Visits Authorized * Specialty Diagnoses / Procedures Referred By Contac t Referred To Contact Diagnoses Constipation Cystocele Midline Rectocele RST [facility] [address] [place] [address] Phone: tel: [facility] Referral ID Status Reason Start Date Expiration Date Visits Re quested Visits Authorized Encounter Details Date Type Department Care Team (Late st Contact Info) Description 07/08/2024 Orders Only Division of Colon and Rectal Surgery in [place], [place] [address] [place] [phone] Brianne Beebe M.D., Ph.D. [address] [place] [address] Constipation (Primary Dx); Cystocele Midline; Rectocele Social History Tobacco Use Types Packs/Day Years Used Date Smoking Tobacco: Never Passive Smoke Exposure: Never Smokeless Tobacco: Never Alcohol Use Standard Drinks/Week Comments Yes 3 (1 standard drink = 0.6 oz pur e alcohol) [facility] Utilities Answer Date Recorded In the past 12 months has e [employer], gas, oil, or water [employer] threatened to shut off services in your [...] your living situation today? I have a [facility] place to live 01/07/2024 Comments Unknown Sex and Gender Information Value Date Recorded Sex Assigned at Female 01/07/2024 8:31 PM CDT Legal Sex Female 5:11 PM MANAGER OF SELECTION AND ASSESSMENT Gender Identity Female 01/07/2024 8:31 PM CDT Sexual Orientation Straight 01/07/2024 8: 31 PM CDT documented as of this encounter Plan of Treatment Upcoming Encounters Date Type Department Care Team (Latest Contact Info) Description 09/14/2024 9:00 AM MANAGER OF SELECTION AND ASSESSMENT Comprehensive Visit Department of Physical Medicine and Rehabilitation in [place], [place] [address] [place] [phone] Renate Youngblood APRN, C.NLewis., M.S.N. [address] [place] [phone] 09/26/2024 10:00 AM MANAGER OF SELECTION AND ASSESSMENT Clinical Support Department of Physical Medicine and Rehabilitation in [address] [phone] Renate Youngblood APRN, C.NLewis., M.S.N. [address] [place] [phone] 10/03/2024 4:20 PM MANAGER OF SELECTION AND ASSESSMENT Virtual Visit Division of Gastroenterology in [address] [phone] Carlos Corral M.D., M.P.H. [address] [place] [phone] 10/04/2024 10:00 AM MANAGER OF SELECTION AND ASSESSMENT Clinical Support Department of Physical Medicine and Rehabilitation in [place], [place] [address] [place] [phone] Renate Youngblood APRN, C.N.P., M.S.N. [address] [place] [phone] 10/10/2024 1:00 PM MANAGER OF SELECTION AND ASSESSMENT Clinical Support Department of Physical Medicine and Rehabilitation in [address] [phone] Renate Youngblood APRN, C.N.P., M.S.N. [address] [place] [phone] 10/18/2024 1:00 PM MANAGER OF SELECTION AND ASSESSMENT Clinical Support Department of Physical Medicine and Rehabilitation in [place], [place] [address] [place] [phone] Renate Youngblood APRN, C.N.P., M.S.N. [address] [place] [phone] 10/25/2024 1:00 PM MANAGER OF SELECTION AND ASSESSMENT Clinical Support Department of Physical Medicine and Rehabilitation in [place], [place] [address] [place] [phone] Renate Youngblood APRN, C.N.P., M.S.N. [address] [place] [phone] 10/31/2024 1:00 PM MANAGER OF SELECTION AND ASSESSMENT Clinical Support Department of Physical Medicine and Rehabilitation in [place], [place] [address] [place] [phone] Renate Youngblood APRN, C.N.P., M.S.N. [address] [place] [phone] 11/10/2024 10:00 AM MANAGER OF SELECTION AND ASSESSMENT Comprehensive Visit Department of Obstetrics and Gynecology, Division of Urogynecology in [place], [place] [address] [place] [phone] Yan Turner M.D., M.S. [address] [place] [phone] 11/22/2024 7:30 AM MANAGER OF SELECTION AND ASSESSMENT Hospital Encounter [facility] 01 4 AM ADMIT [address] [place] [phone] Brianne Beebe M.D., Ph.D. [address] [place] [phone] 11/22/2024 7:30 AM MANAGER OF SELECTION AND ASSESSMENT - 11/22/2024 4:42 PM MANAGER OF SELECTION AND ASSESSMENT Surgery [facility] MAIN OR [address] [place] [address] Brianne Beebe M.D., Ph.D. [address] [place] [address] ROBOTIC-ASSISTED Ventral Mesh RECTOPEXY Scheduled Procedures Name Priority Associated Diagnoses Date/Ti me ROBOTIC-ASSISTED RECTOPEXY Prolapse Rectal Cystocele Rectocele 11/22/2024 7:30 AM MANAGER OF SELECTION AND ASSESSMENT ROBOTIC-ASSISTED EXPLORATION Prolapse Rectal Cystocele Rectocele 11/22/2024 7:30 AM MANAGER OF SELECTION AND ASSESSMENT Scheduled Referrals Name Type Priority Associated Diagnoses [...] Type Associated Problems Recent Progress Patient-Stated? Author [facility] Care Plan for Nicotine Dependency Perioperative Care Plan [facility] Care Plan for Nicotine Dependency Perioperative No Genevieve Strickland, R.N. Surgical Readiness and Recovery Care Plan Care Plan Surgical Readiness and Recovery Care Plan No Genevieve Strickland RLaurelN. documented as of this encounter Visit Diagnoses Diagnosis Constipation- Primary Cystocele Midline Rectocele Prolapse Rectal Cystocele Rectocele Prolapse Rectal Cystocele Rectocele documented in this encounter Additional Health Concerns Active Problems Noted Date Diagnosed Date [facility] Care Plan for Nicotine Dependency Pe rioperative 07/08/2024 Surgical Readiness and Recovery Care Plan 2023 documented as of this encounter Care Teams International Guest Coordinator Relationship Specialty Start Date End Date Elsewhere, Pcp PCP - General Internal Medicine 07/02/24 documented as of this encounter
--- OUTSIDE RECORDS SUMMARY | 2024-09-02 08:47 | XMS_ITS | Encounter Summary ---
Author Organization [facility] Address [address] [place] [address] Care Team Providers Care Eligibility Clerk Name Role Phone Elsewhere, Pcp Primary Care Provider Unavailabl e Reason for Visit * Outpatient (Routine) - Authorized Specialty Diagnoses / Procedures Referred By Contact Referred To Contact Physical Medicine and Rehabilitation Diagnoses Dysfunction Pelvic Floor Prolapse Rectal Other Female Genital Prolapse Procedures PMR Pelvic floor & bowel/bladder programs Renate Youngblood APRN, C.N.P., M.S.N. 200 [place] [address] Phone: tel: fax: [facility] Referral ID Status Reason Start Date Expiration Date V isits Requested Visits Authorized [id number] Authorized 07/08/2024 09/27/2024 23 23 Encounter Details Date Type Department Care Team (Latest Contact Info) Description 07/27/2024 10:00 AM CDT Comprehensive Visit Department of Physical Medicine and Rehabilitation in [place], [place] [address] [place] [phone] Renate Youngblood APRN, C.N.P., M.S.N. [address] [place] [phone] Dysfunction Pelvic Floor; Prolapse Rectal; Other Female Genital Prolapse Social History Tobacco Use Types Packs/Day Years Used Date Smoking Tobacco: Never Passive Smoke Exposure: Never Smokeless Tobacco: Never Alcohol Use Standard Drinks/Week Comments Yes 3 (1 standard drink = 0.6 oz pur e alcohol) [facility] Utilities Answer Date Recorded In the past [...] [facility] 01/07/2024 Comments No Sex and Gender Information Value Date Recorded Sex Assigned at Female 01/07/2024 8:31 PM CDT Legal Sex Female 5:11 PM NUTRITION AIDE Gender Identity Female 01/07/2024 8:31 PM CDT Sexual Orientation Straight 01/07/2024 8: 31 PM CDT documented as of this encounter Progress Notes * Crissy Cohen OEsther., [facility] - 07/27/2024 10:00 AM CDT Pelvic Health [...] preferences and current habits. HEP: Access Code: [email or web address] URL: [email or web address] Date: 07/28/2024 Prepared by: Crissy Cohen Exercises [...] (Latest Contact Info) Description 09/14/2024 9:00 AM NUTRITION AIDE Comprehensive Visit Department of Physical Medicine and Rehabilitation in [place], [place] [address] [place] [phone] Renate Youngblood APRN, C.N.P., M.S.N. [address] [place] [address] 09/26/2024 10:00 AM NUTRITION AIDE Clinical Support Department of Physical Medicine and Rehabilitation in [place], [place] [address] [place] [address] Renate Youngblood APRN, C.N.P., M.S.N. [address] [place] [phone] 10/03/2024 4:20 PM NUTRITION AIDE Virtual Visit Division of Gastroenterology in [place], [place] [address] [place] [phone] Carlos Corral M.D., M.P.H. [address] [place] [phone] 10/04/2024 10:00 AM NUTRITION AIDE Clinical Support Department of Physical Medicine and Rehabilitation in [place], [place] [address] [place] [phone] Renate Youngblood APRN, C.NLaurelP., M.S.N. [address] [place] [phone] 10/10/2024 1:00 PM NUTRITION AIDE Clinical Support Department of Physical Medicine and Rehabilitation in [place], [place] [address] [place] [phone] Renate Youngblood APRN, C.N.P., M.S.N. [address] [place] [phone] 10/18/2024 1:00 PM NUTRITION AIDE Clinical Support Department of Physical Medicine and Rehabilitation in [place], [place] [address] [place] [phone] Renate Youngblood APRN, C.N.P., M.S.N. [address] [place] [phone] 10/25/2024 1:00 PM NUTRITION AIDE Clinical Support Department of Physical Medicine and Rehabilitation in [place], [place] [address] [place] [phone] Renate Youngblood APRN, C.N.P., M.S.N. [address] [place] [phone] 10/31/2024 1:00 PM NUTRITION AIDE Clinical Support Department of Physical Medicine and Rehabilitation in [place], [place] [address] [place] [phone] Renate Youngblood APRN, C.N.P., M.S.N. [address] [place] [phone] 11/10/2024 10:00 AM NUTRITION AIDE Comprehensive Visit Department of Obstetrics and Gynecology, Division of Urogynecology in [place], [place] [address] [place] [phone] Yan Turner M.D., M.S. [address] [place] [phone] 11/22/2024 7:30 AM NUTRITION AIDE Hospital Encounter [facility] 01 4 AM ADMIT [address] [place] [phone] Brianne Beebe M.D., Ph.D. [address] [place] [phone] 11/22/2024 7:30 AM NUTRITION AIDE - 11/22/2024 4:42 PM NUTRITION AIDE Surgery [facility] MAIN OR [address] [place] [address] Brianne Beebe M.D., Ph.D. [address] [place] [phone] ROBOTIC-ASSISTED Ventral Mesh RECTOPEXY Scheduled Procedures Name Priority Associated Diagnoses Date/Ti me ROBOTIC-ASSISTED RECTOPEXY Prolapse Rectal Cystocele Rectocele 11/22/2024 7:30 AM NUTRITION AIDE ROBOTIC-ASSISTED EXPLORATION Prolapse Rectal Cystocele Rectocele 11/22/2024 7:30 AM NUTRITION AIDE documented as of this encounter Goals Goal Patient Goal Type Associated Problems Recent Progress Patient-Stated? Author [facility] Care Plan for Nicotine Dependency Perioperative Care Plan [facility] Care Plan for Nicotine Dependency Perioperative [...] Problems Noted Date Diagnosed Date [facility] Care Plan for Nicotine Dependency Pe rioperative 07/08/2024 Surgical Readiness and Recovery Care Plan 2023 documented as of this encounter Care Teams Eligibility Clerk Relationship Specialty Start Date End Date Elsewhere, Pcp PCP - General Internal Medicine 07/02/24 documented as of this encounter
--- OUTSIDE RECORDS SUMMARY | 2024-09-02 08:47 | XMS_ITS | Encounter Summary ---
Author Organization [facility] Address [address] [place] [address] Care Team Providers Care Grave Cleaner Name Role Phone Elsewhere, Pcp Primary Care Provider Unavailabl e Reason for Visit * Reason Onset Date Comments Pre-visit Intake 07/25/2024 Encounter Details Date Type Department Care Team (Latest Contact Info) Description 07/25/2024 2:15 PM CDT Clinical Communication Virtual Review in [place], [place] [address] [place] [phone] Pre-visit Intake Social History Tobacco Use Types Packs/Day Years Used Date Smoking Tobacco: Never Passive Smoke Exposure: Never Smokeless Tobacco: Never Tobacco Cessation:Counseling Given: Not Answered Alcohol Use Standard Drinks/Week Comments Yes 3 (1 standard drink = 0.6 oz pur e alcohol) [facility] Utilities Answer Date Recorded In [...] your living situation today? I have a [facility] place to live 01/07/2024 Comments Unknown Sex and Gender Information Value Date Recorded Sex Assigned at Female 01/07/2024 8:31 PM CDT Legal Sex Female 5:11 PM INFORMATION SECURITY SPECIALIST Gender Identity Female 01/07/2024 8:31 PM CDT Sexual Orientation Straight 01/07/2024 8: 31 PM CDT documented as of this encounter Plan of Treatment Upcoming Encounters Date Type Department Care Team (Latest Contact Info) Description 09/14/2024 9:00 AM INFORMATION SECURITY SPECIALIST Comprehensive Visit Department of Physical Medicine and Rehabilitation in [place], [place] 200 [place] [phone] Renate Youngblood APRN, C.N.P., M.S.N. 200 [place] [phone] 09/26/2024 10:00 AM INFORMATION SECURITY SPECIALIST Clinical Support Department of Physical Medicine and Rehabilitation in [place], [place] 200 [place] [phone] Renate Youngblood APRN, C.N.P., M.S.N. 200 [place] [phone] 10/03/2024 4:20 PM INFORMATION SECURITY SPECIALIST Virtual Visit Division of Gastroenterology in [address] [phone] Carlos Corral M.D., M.P.H. [address] [place] [phone] 10/04/2024 10:00 AM INFORMATION SECURITY SPECIALIST Clinical Support Department of Physical Medicine and Rehabilitation in [place], [place] [address] [place] [phone] Renate Youngblood APRN, C.N.P., M.S.N. [address] [place] [phone] 10/10/2024 1:00 PM INFORMATION SECURITY SPECIALIST Clinical Support Department of Physical Medicine and Rehabilitation in [place], [place] [address] [place] [phone] Renate Youngblood APRN, C.N.P., M.S.N. [address] [place] [phone] 10/18/2024 1:00 PM INFORMATION SECURITY SPECIALIST Clinical Support Department of Physical Medicine and Rehabilitation in [address] [phone] Renate Youngblood APRN, Celeste.N.P., M.S.N. [address] [place] [phone] 10/25/2024 1:00 PM INFORMATION SECURITY SPECIALIST Clinical Support Department of Physical Medicine and Rehabilitation in [address] [phone] Renate Youngblood APRN, C.N.P., M.S.N. [address] [place] [phone] 10/31/2024 1:00 PM INFORMATION SECURITY SPECIALIST Clinical Support Department of Physical Medicine and Rehabilitation in [place], [place] [address] [place] [address] Rentae Youngblood APRN, C.N.P., M.S.N. [address] [place] [phone] 11/10/2024 10:00 AM INFORMATION SECURITY SPECIALIST Comprehensive Visit Department of Obstetrics and Gynecology, Division of Urogynecology in [place], [place] [address] [place] [phone] Yan Turner M.D., M.S. [address] [place] [phone] 11/22/2024 7:30 AM INFORMATION SECURITY SPECIALIST Hospital Encounter [facility] 01 4 AM ADMIT [address] [place] [phone] Brianne Beebe M.D., Ph.D. [address] [place] [phone] 11/22/2024 7:30 AM INFORMATION SECURITY SPECIALIST - 11/22/2024 4:42 PM INFORMATION SECURITY SPECIALIST Surgery [facility] MAIN OR [address] [place] [address] Brianne Beebe M.D., Ph.D. [address] [place] [phone] ROBOTIC-ASSISTED Ventral Mesh RECTOPEXY Scheduled Procedures Name Priority Associated Diagnoses Date/Ti nd ROBOTIC-ASSISTED RECTOPEXY Prolapse Rectal Cystocele Rectocele 11/22/2024 7:30 AM INFORMATION SECURITY SPECIALIST ROBOTIC-ASSISTED EXPLORATION Prolapse Rectal Cystocele Rectocele 11/22/2024 7:30 AM INFORMATION SECURITY SPECIALIST documented as of this encounter Goals Goal Patient Goal Type Associated Problems Recent Progress Patient-Stated? Author [facility] Care Plan for Nicotine Dependency Perioperative Care Plan [facility] Care Plan for Nicotine Dependency Perioperative No Genevieve Strickland, RoJse. Surgical Readiness and Recovery Care Plan Care Plan Surgical Readiness and Recovery Care Plan No Genevieve Strickland, RLaurelN. documented as of this encounter Visit Diagnoses Not on filedocumented in this encounter Additional Health Concerns Active Problems Noted Date Diagnosed Date [facility] Care Plan for Nicotine Dependency Pe rioperative 07/08/2024 Surgical Readiness and Recovery Care Plan 2023 documented as of this encounter Care Teams Grave Cleaner Relationship Specialty Start Date End Date Elsewhere, Pcp PCP - General Internal Medicine 07/02/24 documented as of this encounter
--- OUTSIDE RECORDS SUMMARY | 2024-09-02 08:47 | XMS_ITS | Encounter Summary ---
Author Organization [facility] Address [address] [place] [address] Care Team Providers Care Open Pit Quarry Supervisor Name Role Phone Elsewhere, Pcp Primary Care Provider Unavailabl e Reason for Referral * Outpatient (Routine) - Closed Specialty Diagnoses / Procedures Referred By Contac t Referred To Contact Diagnoses Abnormal Computed Tomography Lesion Ovary Procedures US Pelvis Transvaginal and Transabdominal Eleazar Yin M.D. 200 [place] [address] Phone: tel: fax: [facility] Referral ID Status Reason Start Date Expiration Date Visits Re quested Visits Authorized [id number] Closed 07/05/2024 07/05/2025 1 1 Reason for Visit * Outpatient (Routine) - Closed Specialty Diagnoses / Procedures Referred By Contac t Referred To Contact Diagnoses Abnormal Computed Tomography Lesion Ovary Procedures US Pelvis Transvaginal and Transabdominal Eleazar Yin M.D. 200 [place] [address] Phone: tel: fax: [facility] Referral ID Status Reason Start Date Expiration Date Visits Re quested Visits Authorized [id number] Closed 07/05/2024 07/05/2025 1 1 Encounter Details Date Type Department Care Team (Latest Contact Info) Description 07/26/2024 9:03 AM CDT - 07/26/2024 11:59 PM CDT Hospital Encounter Department of Radiology, [facility], in [place], [place] [address] [place] [address] Eleazar Yin M.D. [address] [place] [address] Abnormal Computed Tomography; Lesion Ovary Discharge Disposition: Home or Self Care Social History Tobacco Use Types Packs/Day Years Used Date Smoking Tobacco: Never Passive Smoke Exposure: Never Smokeless Tobacco: Never Alcohol Use Standard Drinks/Week Comments Yes 3 (1 standard drink = 0.6 oz pur e alcohol) [facility] Utilities Answer Date Recorded In the past 12 months has e [employer], gas, oil, or water [employer] threatened to shut off services in your [...] PM CDT Legal Sex Female 5:11 PM LENS FINISHER Gender Identity Female 01/07/2024 8:31 PM [...] by mouth every 30 (thirty) days. 10/27/2023 metoprolol succinate (Toprol XL) 50 mg 24 [...] Take 50 mg by mouth daily. 4 Senexon-S 8.6-50 mg per tablet Take 1 tablet by mouth daily. 06/27/2024 4 simvastatin (ZOCOR) 20 mg tablet Take 20 mg by mouth at bedtime. 08/31/2016 4 documented as of this encounter Plan of Treatment Upcoming Encounters Date Type Department Care Team (Latest Contact Info) Description 09/14/2024 9:00 AM LENS FINISHER Comprehensive Visit Department of Physical Medicine and Rehabilitation in [place], [place] [address] [place] [address] Renate Youngblood APRN, C.N.P., M.S.N. [address] [place] [phone] 09/26/2024 10:00 AM LENS FINISHER Clinical Support Department of Physical Medicine and Rehabilitation in [place], [place] 200 [place] [phone] Renate Youngblood APRN, C.N.P., M.S.N. [address] [place] [phone] 10/03/2024 4:20 PM LENS FINISHER Virtual Visit Division of Gastroenterology in [place], [place] [address] [place] [phone] Carlos Corral M.D., M.P.H. [address] [place] [phone] 10/04/2024 10:00 AM LENS FINISHER Clinical Support Department of Physical Medicine and Rehabilitation in [place], [place] [address] [place] [address] Renate Youngblood APRN, C.N.P., M.S.N. [address] [place] [phone] 10/10/2024 1:00 PM LENS FINISHER Clinical Support Department of Physical Medicine and Rehabilitation in [place], [place] [address] [place] [phone] Renate Youngblood APRN, C.NLewis., M.S.N. [address] [place] [phone] 10/18/2024 1:00 PM LENS FINISHER Clinical Support Department of Physical Medicine and Rehabilitation in [place], [place] [address] [place] [address] Renate Youngblood APRN, C.N.P., M.S.N. [address] [place] [phone] 10/25/2024 1:00 PM LENS FINISHER Clinical Support Department of Physical Medicine and Rehabilitation in [place], [place] [address] [place] [phone] Renate Youngblood APRN, C.N.P., M.S.N. [address] [place] [phone] 10/31/2024 1:00 PM LENS FINISHER Clinical Support Department of Physical Medicine and Rehabilitation in [place], [place] [address] [place] [address] Renate Youngblood APRN, C.N.P., M.S.N. [address] [place] [phone] 11/10/2024 10:00 AM LENS FINISHER Comprehensive Visit Department of Obstetrics and Gynecology, Division of Urogynecology in [place], [place] [address] [place] [phone] Yan Turner M.D., M.S. [address] [place] [phone] 11/22/2024 7:30 AM LENS FINISHER Hospital Encounter [facility] 01 4 AM ADMIT [address] [place] [phone] Brianne Beebe M.D., Ph.D. [address] [place] [phone] 11/22/2024 7:30 AM LENS FINISHER - 11/22/2024 4:42 PM LENS FINISHER Surgery [facility] MAIN OR [address] [place] [address] Brianne Beebe M.D., Ph.D. [address] [place] [phone] ROBOTIC-ASSISTED Ventral Mesh RECTOPEXY Scheduled Procedures Name Priority Associated Diagnoses Date/Ti ga ROBOTIC-ASSISTED RECTOPEXY Prolapse Rectal Cystocele Rectocele 11/22/2024 7:30 AM LENS FINISHER ROBOTIC-ASSISTED EXPLORATION Prolapse Rectal Cystocele Rectocele 11/22/2024 7:30 AM LENS FINISHER documented as of this encounter Goals Goal Patient Goal Type Associated Problems Recent Progress Patient-Stated? Author [facility] Care Plan for Nicotine Dependency Perioperative Care Plan [facility] Care Plan for Nicotine Dependency Perioperative No Genevieve Strickland, RJose. Surgical Readiness and Recovery Care Plan Care [...] Visit Diagnoses Diagnosis Prolapse Rectal Cystocele Rectocele Abnormal Computed Tomography Lesion Ovary Prolapse Rectal Cystocele Rectocele documented in this encounter Additional Health Concerns Active Problems Noted Date Diagnosed Date [facility] Care Plan for Nicotine Dependency Pe rioperative 07/08/2024 Surgical Readiness and Recovery Care Plan 2023 documented as of this encounter Care Teams Open Pit Quarry Supervisor Relationship Specialty Start Date End Date Elsewhere, Pcp PCP - General Internal Medicine 07/02/24 documented as of this encounter
--- OUTSIDE RECORDS SUMMARY | 2024-09-02 08:47 | XMS_ITS | Encounter Summary ---
Author Organization [facility] Address [address] [place] [address] Care Team Providers Care Rib Cutter Name Role Phone Elsewhere, Pcp Primary Care Provider Unavailabl e Reason for Visit * Outpatient (Routine) - Authorized Specialty Diagnoses / Procedures Referred By Contact Referred To Contact Physical Medicine and Rehabilitation Diagnoses Dysfunction Pelvic Floor Prolapse Rectal Other Female Genital Prolapse Procedures PMR Pelvic floor & bowel/bladder programs Renate Youngblood APRN, C.N.P., M.S.N. 200 [place] [address] Phone: tel: fax: [facility] Referral ID Status Reason Start Date Expiration Date V isits Requested Visits Authorized [id number] Authorized 07/08/2024 09/27/2024 23 23 Encounter Details Date Type Department Care Team (Latest Contact Info) Description 08/05/2024 2:00 PM BLANCHING MACHINE OPERATOR Clinical Support Department of Physical Medicine and Rehabilitation in [place], [place] [address] [place] [phone] Renate Youngblood APRN, C.N.P., M.S.N. [address] [place] [phone] Dysfunction Pelvic Floor; Prolapse Rectal; Other Female Genital Prolapse Social History Tobacco Use Types Packs/Day Years Used Date Smoking Tobacco: Never Passive Smoke Exposure: Never Smokeless Tobacco: Never Alcohol Use Standard Drinks/Week Comments Yes 3 (1 standard drink = 0.6 oz pur e alcohol) [facility] Utilities Answer Date Recorded In the [...] your living situation today? I have a [facility] place to live 01/07/2024 Comments No Sex and Gender Information Value Date Recorded Sex Assigned at Female 01/07/2024 8:31 PM CDT Legal Sex Female 5:11 PM BLANCHING MACHINE OPERATOR Gender Identity Female 01/07/2024 8:31 PM CDT Sexual Orientation Straight 01/07/2024 8: 31 PM CDT documented as of this encounter Progress Notes * Crissy Cohen O.T., MOT - 08/05/2024 2:00 PM CST Please see additional note by this provider on this date for full treatment details. CHING MACHINE OPERATOR documented in this encounter Plan of Treatment Upcoming Encounters Date Type Department Care Team (Latest Contact Info) Description 09/14/2024 9:00 AM BLANCHING MACHINE OPERATOR Comprehensive Visit Department of Physical Medicine and Rehabilitation in [address] [phone] Renate Youngblood APRN, C.N.P., M.S.N. [address] [place] [phone] 09/26/2024 10:00 AM BLANCHING MACHINE OPERATOR Clinical Support Department of Physical Medicine and Rehabilitation in [address] [phone] Renate Youngblood APRN, C.N.P., M.S.N. [address] [place] [phone] 10/03/2024 4:20 PM BLANCHING MACHINE OPERATOR Virtual Visit Division of Gastroenterology in [address] [phone] Carlos Corral M.D., M.P.H. [address] [place] [phone] 10/04/2024 10:00 AM BLANCHING MACHINE OPERATOR Clinical Support Department of Physical Medicine and Rehabilitation in [address] [phone] Renate Youngblood APRN, C.N.P., M.S.N. [address] [place] [phone] 10/10/2024 1:00 PM BLANCHING MACHINE OPERATOR Clinical Support Department of Physical Medicine and Rehabilitation in [address] [phone] Renate Youngblood APRN, C.NLewis., M.S.N. [address] [place] [phone] 10/18/2024 1:00 PM BLANCHING MACHINE OPERATOR Clinical Support Department of Physical Medicine and Rehabilitation in [place], [place] [address] [place] [phone] Renate Youngblood APRN, C.N.P., M.S.N. [address] [place] [phone] 10/25/2024 1:00 PM BLANCHING MACHINE OPERATOR Clinical Support Department of Physical Medicine and Rehabilitation in [place], [place] [address] [place] [phone] Renate Youngblood APRN, C.NLewis., M.S.N. [address] [place] [phone] 10/31/2024 1:00 PM BLANCHING MACHINE OPERATOR Clinical Support Department of Physical Medicine and Rehabilitation in [place], [place] [address] [place] [phone] Renate Youngblood APRN, C.NLewis., M.S.N. [address] [place] [phone] 11/10/2024 10:00 AM BLANCHING MACHINE OPERATOR Comprehensive Visit Department of Obstetrics and Gynecology, Division of Urogynecology in [place], [place] [address] [place] [phone] Yan Turner M.D., M.S. [address] [place] [phone] 11/22/2024 7:30 AM BLANCHING MACHINE OPERATOR Hospital Encounter [facility] 01 4 AM ADMIT [address] [place] [phone] Brianne Beebe M.D., Ph.D. [address] [place] [phone] 11/22/2024 7:30 AM BLANCHING MACHINE OPERATOR - 11/22/2024 4:42 PM BLANCHING MACHINE OPERATOR Surgery [facility] [address] [place] [phone] Brianne Beebe M.D., Ph.D. 200 [place] [phone] ROBOTIC-ASSISTED Ventral Mesh RECTOPEXY Scheduled Procedures Name Priority Associated Diagnoses Date/Ti id ROBOTIC-ASSISTED RECTOPEXY Prolapse Rectal Cystocele Rectocele 11/22/2024 7:30 AM BLANCHING MACHINE OPERATOR ROBOTIC-ASSISTED EXPLORATION Prolapse Rectal Cystocele Rectocele 11/22/2024 7:30 AM BLANCHING MACHINE OPERATOR documented as of this encounter Goals Goal Patient Goal Type Associated Problems Recent Progress Patient-Stated? Author [facility] Care Plan for Nicotine Dependency Perioperative Care Plan [facility] Care Plan for Nicotine Dependency Perioperative [...] Problems Noted Date Diagnosed Date [facility] Care Plan for Nicotine Dependency Pe rioperative 07/08/2024 Surgical Readiness and Recovery Care Plan 2023 documented as of this encounter Care Teams Rib Cutter Relationship Specialty Start Date End Date Elsewhere, Pcp PCP - General Internal Medicine 07/02/24 documented as of this encounter
--- OUTSIDE RECORDS SUMMARY | 2024-09-02 08:47 | XMS_ITS | Encounter Summary ---
Author Organization [facility] Address [address] [place] [address] Care Team Providers Care Video Photographer Name Role Phone Elsewhere, Pcp Primary Care Provider Unavailabl e Reason for Visit * Reason Comments Patient Education Encounter Details Date Type Department Care Team (Late st Contact Info) Description 07/14/2024 1:00 PM CDT Telemedicine Department of Patient Education in [place], [place] [address] [place] [address] Brianne Beebe M.D., Ph.D. [address] [place] [address] Constipation; Cystocele Midline; Rectocele Social History Tobacco Use Types Packs/Day Years Used Date Smoking Tobacco: Never Passive Smoke Exposure: Never Smokeless Tobacco: Never Alcohol Use Standard Drinks/Week Comments Yes 3 (1 standard drink = 0.6 oz pur e alcohol) [facility] Utilities Answer Date Recorded In the past 12 months has [employer], gas, oil, or water [employer] threatened to shut off services in your [...] living situation today? I have a [facility] place to live 01/07/2024 Comments Unknown Sex and Gender Information Value Date Recorded Sex Assigned at Female 01/07/2024 8:31 PM CDT Legal Sex Female 5:11 PM DEVELOPMENT SCIENTIST Gender Identity Female 01/07/2024 8:31 PM CDT Sexual Orientation Straight 01/07/2024 8: 31 PM CDT documented as of this encounter Plan of Treatment Upcoming Encounters Date Type Department Care Team (Latest Contact Info) Description 09/14/2024 9:00 AM DEVELOPMENT SCIENTIST Comprehensive Visit Department of Physical Medicine and Rehabilitation in [place], [place] [address] [place] [address] Renate Youngblood, JOSE, C.N.P., M.S.N. [address] [place] [address] 09/26/2024 10:00 AM DEVELOPMENT SCIENTIST Clinical Support Department of Physical Medicine and Rehabilitation in [place], [place] [address] [place] [phone] Renate Youngblood APRN, C.NBenton, M.S.N. [address] [place] [phone] 10/03/2024 4:20 PM DEVELOPMENT SCIENTIST Virtual Visit Division of Gastroenterology in [place], [place] [address] [place] [phone] Carlos Corral M.D., M.P.H. [address] [place] [phone] 10/04/2024 10:00 AM DEVELOPMENT SCIENTIST Clinical Support Department of Physical Medicine and Rehabilitation in [place], [place] [address] [place] [address] Renate Youngblood APRN, C.NLewis., M.S.N. [address] [place] [phone] 10/10/2024 1:00 PM DEVELOPMENT SCIENTIST Clinical Support Department of Physical Medicine and Rehabilitation in [place], [place] [address] [place] [phone] Renate Youngblood APRN, C.NLewis., M.S.N. [address] [place] [phone] 10/18/2024 1:00 PM DEVELOPMENT SCIENTIST Clinical Support Department of Physical Medicine and Rehabilitation in [place], [place] [address] [place] [phone] Renate Youngblood APRN, C.N.P., M.S.N. [address] [place] [phone] 10/25/2024 1:00 PM DEVELOPMENT SCIENTIST Clinical Support Department of Physical Medicine and Rehabilitation in [place], [place] [address] [place] [address] Renate Youngblood APRN, C.N.P., M.S.N. [address] [place] [phone] 10/31/2024 1:00 PM DEVELOPMENT SCIENTIST Clinical Support Department of Physical Medicine and Rehabilitation in [place], [place] [address] [place] [phone] Renate Youngblood APRN, C.NLaurelP., M.S.N. [address] [place] [phone] 11/10/2024 10:00 AM DEVELOPMENT SCIENTIST Comprehensive Visit Department of Obstetrics and Gynecology, Division of Urogynecology in [place], [place] [address] [place] [phone] Yan Turner M.D., M.S. [address] [place] [phone] 11/22/2024 7:30 AM DEVELOPMENT SCIENTIST Hospital Encounter [facility]ST RO 4 AM ADMIT [address] [place] [phone] Brianne Beebe M.D., Ph.D. [address] [place] [phone] 11/22/2024 7:30 AM DEVELOPMENT SCIENTIST - 11/22/2024 4:42 PM DEVELOPMENT SCIENTIST Surgery [facility] MAIN OR [address] [place] [address] Brianne Beebe M.D., Ph.D. [address] [place] [phone] ROBOTIC-ASSISTED Ventral Mesh RECTOPEXY Scheduled Procedures Name Priority Associated Diagnoses Date/Ti wv ROBOTIC-ASSISTED RECTOPEXY Prolapse Rectal Cystocele Rectocele 11/22/2024 7:30 AM DEVELOPMENT SCIENTIST ROBOTIC-ASSISTED EXPLORATION Prolapse Rectal Cystocele Rectocele 11/22/2024 7:30 AM DEVELOPMENT SCIENTIST documented as of this encounter Goals Goal Patient Goal Type Associated Problems Recent Progress Patient-Stated? Author [facility] Care Plan for Nicotine Dependency Perioperative Care Plan [facility] Care Plan for Nicotine Dependency Perioperative No Genevieve Strickland RLaurelN. Surgical Readiness and Recovery Care Plan Care Plan Surgical Readiness and Recovery Care Plan No Genevieve Strickland R.N. documented as of this encounter Visit Diagnoses Diagnosis Prolapse Rectal Cystocele Rectocele Constipation Cystocele Midline Rectocele Prolapse Rectal Cystocele Rectocele documented in this encounter Additional Health Concerns Active Problems Noted Date Diagnosed Date [facility] Care Plan for Nicotine Dependency Pe rioperative 07/08/2024 Surgical Readiness and Recovery Care Plan 2023 documented as of this encounter Care Teams Video Photographer Relationship Specialty Start Date End Date Elsewhere, Pcp PCP - General Internal Medicine 07/02/24 documented as of this encounter
--- OUTSIDE RECORDS SUMMARY | 2024-09-02 08:47 | XMS_ITS | Encounter Summary ---
Author Organization [facility] Address [address] [place] [address] Care Team Providers Care Sheep Sticker Name Role Phone Elsewhere, Pcp Primary Care Provider Unavailabl e Encounter Details Date Type Department Care Team (Latest Contact Info) Description 08/12/2024 Clinical Communication Division of Gastroenterology in [place], [place] [address] [place] [address] Milton Raman M.D., D.Sc. [address] [place] [address] Social History Tobacco Use Types Packs/Day Years Used Date Smoking Tobacco: Never Passive Smoke Exposure: Never Smokeless Tobacco: Never Alcohol Use Standard Drinks/Week Comments Yes 3 (1 standard drink = 0.6 oz pur e alcohol) [facility] Utilities Answer Date Recorded In [...] for women place to live 01/07/2024 Comments No Sex and Gender Information Value Date Recorded Sex Assigned at Female 01/07/2024 8:31 PM CDT Legal Sex Female 5:11 PM DIGITAL MARKETING EXECUTIVE Gender Identity Female 01/07/2024 8:31 PM CDT Sexual Orientation Straight 01/07/2024 8: 31 PM CDT documented as of this encounter Plan of Treatment Upcoming Encounters Date Type Department Care Team (Latest Contact Info) Description 09/14/2024 9:00 AM DIGITAL MARKETING EXECUTIVE Comprehensive Visit Department of Physical Medicine and Rehabilitation in [place], [place] [address] [place] [address] Renate Youngblood APRN, C.N.P., M.S.N. [address] [place] [phone] 09/26/2024 10:00 AM DIGITAL MARKETING EXECUTIVE Clinical Support Department of Physical Medicine and Rehabilitation in [place], [place] [address] [place] [address] Renate Youngblood APRN, C.N.P., M.S.N. [address] [place] [phone] 10/03/2024 4:20 PM DIGITAL MARKETING EXECUTIVE Virtual Visit Division of Gastroenterology in [place], [place] [address] [place] [phone] Carlos Corral M.D., M.P.H. [address] [place] [phone] 10/04/2024 10:00 AM DIGITAL MARKETING EXECUTIVE Clinical Support Department of Physical Medicine and Rehabilitation in [place], [place] [address] [place] [phone] Renate Youngblood APRN, C.NLewis., M.S.N. [address] [place] [phone] 10/10/2024 1:00 PM DIGITAL MARKETING EXECUTIVE Clinical Support Department of Physical Medicine and Rehabilitation in [place], [place] [address] [place] [phone] Renate Youngblood APRN, C.NLaurelP., M.S.N. [address] [place] [phone] 10/18/2024 1:00 PM DIGITAL MARKETING EXECUTIVE Clinical Support Department of Physical Medicine and Rehabilitation in [place], [place] [address] [place] [phone] Renate Youngblood APRN, C.N.P., M.S.N. [address] [place] [phone] 10/25/2024 1:00 PM DIGITAL MARKETING EXECUTIVE Clinical Support Department of Physical Medicine and Rehabilitation in [place], [place] [address] [place] [phone] Renate Youngblood APRN, C.N.P., M.S.N. [address] [place] [phone] 10/31/2024 1:00 PM DIGITAL MARKETING EXECUTIVE Clinical Support Department of Physical Medicine and Rehabilitation in [place], [place] [address] [place] [phone] Renate Youngblood APRN, QueenieNLaurelP., M.S.N. [address] [place] [phone] 11/10/2024 10:00 AM DIGITAL MARKETING EXECUTIVE Comprehensive Visit Department of Obstetrics and Gynecology, Division of Urogynecology in [place], [place] [address] [place] [phone] Yan Turner M.D., M.S. [address] [place] [phone] 11/22/2024 7:30 AM DIGITAL MARKETING EXECUTIVE Hospital Encounter [facility] 4 AM ADMIT [address] [place] [phone] Brianne Beebe M.D., Ph.D. [address] [place] [phone] 11/22/2024 7:30 AM DIGITAL MARKETING EXECUTIVE - 11/22/2024 4:42 PM DIGITAL MARKETING EXECUTIVE Surgery [facility] MAIN OR [address] [place] [address] Brianne Beebe M.D., Ph.D. [address] [place] [phone] ROBOTIC-ASSISTED Ventral Mesh RECTOPEXY Scheduled Procedures Name Priority Associated Diagnoses Date/Ti mt ROBOTIC-ASSISTED RECTOPEXY Prolapse Rectal Cystocele Rectocele 11/22/2024 7:30 AM DIGITAL MARKETING EXECUTIVE ROBOTIC-ASSISTED EXPLORATION Prolapse Rectal Cystocele Rectocele 11/22/2024 7:30 AM DIGITAL MARKETING EXECUTIVE documented as of this encounter Goals Goal Patient Goal Type Associated Problems Recent Progress Patient-Stated? Author [facility] Care Plan for Nicotine Dependency Perioperative Care Plan [facility] Care Plan for Nicotine Dependency Perioperative No Genevieve Strickland, Margaux. Surgical Readiness and Recovery Care Plan Care Plan Surgical Readiness and Recovery Care Plan No Genevieve Strickland R.N. documented as of this encounter Visit Diagnoses Not on filedocumented in this encounter Additional Health Concerns Active Problems Noted Date Diagnosed Date [facility] Care Plan for Nicotine Dependency Pe rioperative 07/08/2024 Surgical Readiness and Recovery Care Plan 2023 documented as of this encounter Care Teams Sheep Sticker Relationship Specialty Start Date End Date Elsewhere, Pcp PCP - General Internal Medicine 07/02/24 documented as of this encounter
--- OUTSIDE RECORDS SUMMARY | 2024-09-02 08:47 | XMS_ITS | Encounter Summary ---
Author Organization [facility] Address [address] [place] [address] Care Team Providers Care Airway Controller Name Role Phone Elsewhere, Pcp Primary Care Provider Unavailabl e Reason for Referral * Outpatient (Routine) - Closed Specialty Diagnoses / Procedures Referred By Contact Referred To Contact Gastroenterology and Hepatology Diagnoses Constipation Slow Transit John Paul Miller M.D. [address] [place] [address] Phone: tel: fax: [facility] Referral ID Status Reason Start Date Expiration Date Visits Re quested Visits Authorized [id number] Closed 08/02/2024 02/01/2026 1 1 CTOR CPG Encounter Details Date Type Department Care Team (Latest Contact Info) Description 08/02/2024 [facility] [address] [place], [place] [phone] John Paul Miller M.D. [address] [place] [address] Constipation Slow Transit (Primary Dx) Social History Tobacco Use Types Packs/Day Years Used Date Smoking Tobacco: Never Passive Smoke Exposure: Never Smokeless Tobacco: Never Alcohol Use Standard Drinks/Week Comments Yes 3 (1 standard drink = 0.6 oz pur e alcohol) [facility] Utilities Answer Date Recorded In the [...] situation today? I have a [facility] place to live 01/07/2024 Comments No Sex and Gender Information Value Date Recorded Sex Assigned at Female 01/07/2024 8:31 PM CDT Legal Sex Female 5:11 PM DIRECTOR CPG Gender Identity Female 01/07/2024 8:31 PM CDT Sexual Orientation Straight 01/07/2024 8: 31 PM CDT documented as of this encounter Plan of Treatment Upcoming Encounters Date Type Department Care Team (Latest Contact Info) Description 09/14/2024 9:00 AM DIRECTOR CPG Comprehensive Visit Department of Physical Medicine and Rehabilitation in [place], [place] [address] [place] [phone] Renate Youngblood APRN, C.N.P., M.S.N. [address] [place] [phone] 09/26/2024 10:00 AM DIRECTOR CPG Clinical Support Department of Physical Medicine and Rehabilitation in [place], [place] [address] [place] [phone] Renate Youngblood APRN, C.N.P., M.S.N. [address] [place] [phone] 10/03/2024 4:20 PM DIRECTOR CPG Virtual Visit Division of Gastroenterology in [address] [phone] Carlos Corral M.D., M.P.H. [address] [place] [phone] 10/04/2024 10:00 AM DIRECTOR CPG Clinical Support Department of Physical Medicine and Rehabilitation in [place], [place] [address] [place] [phone] Renate Youngblood APRN, C.NLewis., M.S.N. [address] [place] [phone] 10/10/2024 1:00 PM DIRECTOR CPG Clinical Support Department of Physical Medicine and Rehabilitation in [place], [place] [address] [place] [phone] Renate Youngblood APRN, C.N.P., M.S.N. [address] [place] [phone] 10/18/2024 1:00 PM DIRECTOR CPG Clinical Support Department of Physical Medicine and Rehabilitation in [place], [place] [address] [place] [phone] Renate Youngblood APRN, C.N.P., M.S.N. [address] [place] [phone] 10/25/2024 1:00 PM DIRECTOR CPG Clinical Support Department of Physical Medicine and Rehabilitation in [place], [place] [address] [place] [phone] Renate Youngblood APRN, C.N.P., M.S.N. [address] [place] [phone] 10/31/2024 1:00 PM DIRECTOR CPG Clinical Support Department of Physical Medicine and Rehabilitation in [place], [place] [address] [place] [phone] Renate Youngblood APRN, C.N.P., M.S.N. [address] [place] [phone] 11/10/2024 10:00 AM DIRECTOR CPG Comprehensive Visit Department of Obstetrics and Gynecology, Division of Urogynecology in [place], [place] [address] [place] [phone] Yan Turner M.D., M.S. [address] [place] [phone] 11/22/2024 7:30 AM DIRECTOR CPG Hospital Encounter [facility] 4 AM ADMIT [address] [place] [phone] Brianne Beebe M.D., Ph.D. [address] [place] [phone] 11/22/2024 7:30 AM DIRECTOR CPG - 11/22/2024 4:42 PM DIRECTOR CPG Surgery [facility] MAIN OR [address] [place] [address] Brianne Beebe M.D., Ph.D. [address] [place] [address] ROBOTIC-ASSISTED Ventral Mesh RECTOPEXY Scheduled Procedures Name Priority Associated Diagnoses Date/Ti pr ROBOTIC-ASSISTED RECTOPEXY Prolapse Rectal Cystocele Rectocele 11/22/2024 7:30 AM DIRECTOR CPG ROBOTIC-ASSISTED EXPLORATION Prolapse Rectal Cystocele Rectocele 11/22/2024 7:30 AM DIRECTOR CPG Scheduled Referrals Name Type Priority Associated Diagnoses Order Schedule Gastroenterology & Hepatology Referral Outpatient Referral Routine Constipation Slow Transit Expected: 08/02/2024 (Approximate), Expires: 11/02/2025 documented as of this encounter Goals Goal [...] Diagnoses Diagnosis Prolapse Rectal Cystocele Rectocele Constipation Slow Transit- Primary Prolapse Rectal Cystocele Rectocele documented in this encounter Additional Health Concerns Active Problems Noted Date Diagnosed Date [facility] Care Plan for Nicotine Dependency Pe rioperative 07/08/2024 Surgical Readiness and Recovery Care Plan 2023 documented as of this encounter Care Teams Airway Controller Relationship Specialty Start Date End Date Elsewhere, Pcp PCP - General Internal Medicine 07/02/24 documented as of this encounter
--- OUTSIDE RECORDS SUMMARY | 2024-09-02 08:48 | XMS_ITS | Encounter Summary ---
Author Organization [facility] Address [address] [place] [address] Care Team Providers Care Annealing Furnace Tender Name Role Phone Elsewhere, Pcp Primary Care Provider Unavailabl e Reason for Referral * Outpatient (Routine) - Authorized Specialty Diagnoses / Procedures Referred By Contact Referred To Contact Physical Medicine and Rehabilitation Diagnoses Dysfunction Pelvic Floor Prolapse Rectal Other Female Genital Prolapse Procedures PMR Pelvic floor & bowel/bladder programs Renate Youngblood APRN, C.N.P., M.S.N. [address] [place] [address] Phone: tel: fax: [facility] Referral ID Status Reason Start Date Expiration Date V isits Requested Visits Authorized [id number] Authorized 07/08/2024 09/27/2024 23 23 * Specialty Diagnoses / Procedures Referred By Contac t Referred To Contact Diagnoses Dysfunction Pelvic Floor Prolapse Rectal Other Female Genital Prolapse [facility] [address] [place] [address] Phone: tel: [facility] Referral ID Status Reason Start Date Expiration Date Visits Re quested Visits Authorized * Specialty Diagnoses / Procedures Referred By Floresita barraza Referred To Contact Diagnoses Dysfunction Pelvic Floor Prolapse Rectal Other Female Genital Prolapse RST [facility] [address] [place] [phone] Phone: tel: Referral ID Status Reason Start [...] rehab Renate Youngblood APRN, C.N.P., M.S.N. [address] [place] [phone] Phone: tel: fax: [facility] Referral ID Status Reason Start Date Expiration Date V isits Requested Visits Authorized [id number] Authorized 04/07/2024 04/07/2025 99 99 Encounter Details Date Type Department Care Team (Latest Contact Info) Description 04/19/2024 9:00 AM CDT Comprehensive Visit Department of Physical Medicine and Rehabilitation in [place], [place] [address] [place] [phone] Renate Youngblood APRN, C.N.Aliyah, M.S.N. [address] [place] [phone] Karin Chambers, P.T., D.P.T. [address] [place] [phone] Dysfunction Pelvic Floor (Primary Dx); Prolapse Rectal; Acquired Absence Of Other Specified Parts Of Digestive Tract; Other Female Genital Prolapse Social History Tobacco Use Types Packs/Day Years Used Date Smoking Tobacco: Never Passive Smoke Exposure: Never Smokeless Tobacco: Never Alcohol Use Standard Drinks/Week Comments Yes 3 (1 standard drink = 0.6 oz pur e alcohol) [facility] Utilities Answer Date Recorded In the [...] your living situation today? 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 Assumption Type: type 6 with use of miralax, [...] Patient consents to evaluation with no additional rifle case repairer present. Explained each step of pelvic floor [...] down training and decreasing sympathetic stimulation. -See [employer] below -Finding a local pelvic floor therapist with list of providers given Home Exercise Program/Education- -Attend local pelvic floor therapy Access Code: [email or web address] URL: [email or web address] Date: 04/19/2024 Prepared by: Karin Chambers Exercises [...] options for pelvic floor therapy here at [facility] for the 2-week program or locally. At this time, the patient prefers to Attend local pelvic floor therapy, pt is welcome to reach out to myself or our team to attend some pelvic floor follow ups here at [facility] as well. Rehab Potential: Ms. Barbosa has [...] (Latest Contact Info) Description 09/14/2024 9:00 AM FUEL OIL TRUCK DRIVER Comprehensive Visit Department of Physical Medicine and Rehabilitation in [place], [place] [address] [place] [phone] Renate Youngblood APRN, C.NLewis., M.S.N. [address] [place] [phone] 09/26/2024 10:00 AM FUEL OIL TRUCK DRIVER Clinical Support Department of Physical Medicine and Rehabilitation in [place], [place] [address] [place] [phone] Renate Youngblood APRN, C.NLewis., M.S.N. [address] [place] [phone] 10/03/2024 4:20 PM FUEL OIL TRUCK DRIVER Virtual Visit Division of Gastroenterology in [address] [phone] Carlos Corral M.D., M.P.H. [address] [place] [phone] 10/04/2024 10:00 AM FUEL OIL TRUCK DRIVER Clinical Support Department of Physical Medicine and Rehabilitation in [place], [place] [address] [place] [phone] Renate Youngblood APRN, C.N.P., M.S.N. [address] [place] [phone] 10/10/2024 1:00 PM FUEL OIL TRUCK DRIVER Clinical Support Department of Physical Medicine and Rehabilitation in [place], [place] [address] [place] [phone] Rentae Youngblood APRN, C.NLweis., M.S.N. [address] [place] [phone] 10/18/2024 1:00 PM FUEL OIL TRUCK DRIVER Clinical Support Department of Physical Medicine and Rehabilitation in [place], [place] [address] [place] [phone] Renate Youngblood APRN, C.N.P., M.S.N. [address] [place] [phone] 10/25/2024 1:00 PM FUEL OIL TRUCK DRIVER Clinical Support Department of Physical Medicine and Rehabilitation in [place], [place] [address] [place] [phone] Renate Youngblood APRN, C.NLewis., M.S.N. [address] [place] [phone] 10/31/2024 1:00 PM FUEL OIL TRUCK DRIVER Clinical Support Department of Physical Medicine and Rehabilitation in [address] [phone] Renate Youngblood APRN, C.NLewis., M.S.N. [address] [place] [phone] 11/10/2024 10:00 AM FUEL OIL TRUCK DRIVER Comprehensive Visit Department of Obstetrics and Gynecology, Division of Urogynecology in [place], [place] [address] [place] [phone] Yan Turner M.D., M.S. [address] [place] [phone] 11/22/2024 7:30 AM FUEL OIL TRUCK DRIVER Hospital Encounter [facility] 01 4 AM ADMIT [address] [place] [phone] Brianne Beebe M.D., Ph.D. [address] [place] [phone] 11/22/2024 7:30 AM FUEL OIL TRUCK DRIVER - 11/22/2024 4:42 PM FUEL OIL TRUCK DRIVER Surgery [facility] [address] [place] [phone] Brianne Beebe M.D., Ph.D. [address] [place] [phone] ROBOTIC-ASSISTED Ventral Mesh RECTOPEXY Scheduled Procedures Name Priority Associated Diagnoses Date/Ti nm ROBOTIC-ASSISTED RECTOPEXY Prolapse Rectal Cystocele Rectocele 11/22/2024 7:30 AM FUEL OIL TRUCK DRIVER ROBOTIC-ASSISTED EXPLORATION Prolapse Rectal Cystocele Rectocele 11/22/2024 7:30 AM FUEL OIL TRUCK DRIVER Scheduled Referrals Name Type Priority Associated Diagnoses [...] Type Associated Problems Recent Progress Patient-Stated? Author [facility] Care Plan for Nicotine Dependency Perioperative Care Plan [facility] Care Plan for Nicotine Dependency Perioperative No Genevieve Strickland, R.N. Surgical Readiness and Recovery Care Plan Care Plan Surgical Readiness and Recovery Care Plan No Genevieve Strickland, R.N. documented as of this encounter Visit Diagnoses Diagnosis Dysfunction Pelvic Floor- Primary Prolapse Rectal Acquired Absence Of Other Specified Parts Of Digestive Tract Other Female Genital Prolapse Prolapse Rectal Cystocele Rectocele Prolapse Rectal Cystocele Rectocele documented in this encounter Additional Health Concerns Active Problems Noted Date Diagnosed Date [facility] Care Plan for Nicotine Dependency Pe rioperative 07/08/2024 Surgical Readiness and Recovery Care Plan 2023 documented as of this encounter Care Teams Annealing Furnace Tender Relationship Specialty Start Date End Date Elsewhere, Pcp PCP - General Internal Medicine 07/02/24 documented as of this encounter
--- OUTSIDE RECORDS SUMMARY | 2024-09-02 08:48 | XMS_ITS | Encounter Summary ---
Author Organization [facility] Address [address] [place] [address] Care Team Providers Care Day Haul Youth Supervisor Name Role Phone Unavailable Primary Care [...] Joint Renate Youngblood APRN, C.N.P., M.S.N. [address] [place] [address] Phone: tel: fax: [facility] Referral ID Status Reason Start Date Expiration Date Visits Re quested Visits Authorized [id number] Closed 04/08/2024 10/08/2025 1 1 Encounter Details Date Type Department Care Team (Latest Contact Info) Description 06/08/2024 11:00 AM CDT Clinical Support Department of Medical Genetics in [place], [place] [address] [place] [phone] Renate Youngblood APRN, C.N.P., M.S.N. [address] [place] [phone] Peng Cowart [address] [place] [phone] Pain Back; Raynaud's Phenomena Without Gangrene; Other [...] oz pur e alcohol) [facility] Utilities Answer Date Recorded In the past 12 months has [employer], gas, oil, or water [employer] threatened to shut off services in your [...] your living situation today? 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 Our risk assessment is based upon medical [...] Marfan syndrome: Uncertain The patient???s ancestry is [place]. There is high probability of paternal consanguinity. PLAN Above information will be available to the genetic counselor for review prior to patient's virtual appointment. The virtual appointment is scheduled on 06/13/2024 with Sierna Ewing CGC. A portal message will be sent to the patient outlining the scope of their EDS appointment and what it will entail. documented in this encounter Plan of Treatment Upcoming Encounters Date Type Department Care Team (Latest Contact Info) Description 09/14/2024 9:00 AM PARKING METER ATTENDANT Comprehensive Visit Department of Physical Medicine and Rehabilitation in [place], [place] [address] [place] [phone] Renate Youngblood APRN, C.N.P., M.S.N. [address] [place] [phone] 09/26/2024 10:00 AM PARKING METER ATTENDANT Clinical Support Department of Physical Medicine and Rehabilitation in [place], [place] [address] [place] [phone] Renate Youngblood APRN, C.N.P., M.S.N. [address] [place] [phone] 10/03/2024 4:20 PM PARKING METER ATTENDANT Virtual Visit Division of Gastroenterology in [place], [place] [address] [place] [phone] Carlos Corral M.D., M.P.H. [address] [place] [phone] 10/04/2024 10:00 AM PARKING METER ATTENDANT Clinical Support Department of Physical Medicine and Rehabilitation in [place], [place] [address] [place] [phone] Renate Youngblood APRN, C.N.P., M.S.N. [address] [place] [phone] 10/10/2024 1:00 PM PARKING METER ATTENDANT Clinical Support Department of Physical Medicine and Rehabilitation in [place], [place] [address] [place] [phone] Renate Youngblood APRN, C.N.P., M.S.N. [address] [place] [phone] 10/18/2024 1:00 PM PARKING METER ATTENDANT Clinical Support Department of Physical Medicine and Rehabilitation in [place], [place] [address] [place] [phone] Renate Youngblood APRN, C.N.P., M.S.N. [address] [place] [phone] 10/25/2024 1:00 PM PARKING METER ATTENDANT Clinical Support Department of Physical Medicine and Rehabilitation in [address] [phone] Renate Youngblood APRN, C.N.P., M.S.N. [address] [place] [phone] 10/31/2024 1:00 PM PARKING METER ATTENDANT Clinical Support Department of Physical Medicine and Rehabilitation in [place], [place] [address] [place] [phone] Renate Youngblood APRN, C.N.P., M.S.N. [address] [place] [phone] 11/10/2024 10:00 AM PARKING METER ATTENDANT Comprehensive Visit Department of Obstetrics and Gynecology, Division of Urogynecology in [place], [place] [address] [place] [phone] Yan Turner M.D., M.S. [address] [place] [phone] 11/22/2024 7:30 AM PARKING METER ATTENDANT [facility] 01 4 AM ADMIT [address] [place] [phone] Brianne Beebe M.D., Ph.D. [address] [place] [phone] 11/22/2024 7:30 AM PARKING METER ATTENDANT - 11/22/2024 4:42 PM PARKING METER ATTENDANT Surgery [facility] OR [address] [place] [phone] Brianne Beebe M.D., Ph.D. [address] [place] [phone] ROBOTIC-ASSISTED Ventral Mesh RECTOPEXY Scheduled Procedures Name Priority Associated Diagnoses Date/Ti va ROBOTIC-ASSISTED RECTOPEXY Prolapse Rectal Cystocele Rectocele 11/22/2024 7:30 AM PARKING METER ATTENDANT ROBOTIC-ASSISTED EXPLORATION Prolapse Rectal Cystocele Rectocele 11/22/2024 7:30 AM PARKING METER ATTENDANT documented as of this encounter Visit Diagnoses Diagnosis Pain Back Raynaud's Phenomena Without Gangrene Other Female Genital Prolapse Tear Knee Lateral Meniscus Current Initial Left Strain Of Muscle And Tendon Of Back Wall Of Thorax Initial Primary Osteoarthritis First Carpometacarpal Joints Bilateral Polyosteoarthritis Unspecified Prolapse Rectal Dyskinesia Esophagus Hypermobility Joint Prolapse Rectal Cystocele Rectocele documented in this encounter
--- OUTSIDE RECORDS SUMMARY | 2024-09-02 08:48 | XMS_ITS | Encounter Summary ---
Author Organization [facility] Address [address] [place] [address] Care Team Providers Care Radiology Resident Name Role Phone Elsewhere, Pcp Primary Care Provider Unavailabl e Reason for Referral * Outpatient (Routine) - Closed Specialty Diagnoses / Procedures Referred By Contac t Referred To Contact Colon and Rectal Surgery Diagnoses Constipation Proctitis Micha Baumann M.D. [address] [place] [address] Phone: tel: fax: [facility] Referral ID Status Reason Start Date Expiration Date Visits Re quested Visits Authorized [id number] Closed 07/02/2024 01/01/2026 1 1 * Outpatient (Routine) - Closed Specialty Diagnoses / Procedures Referred By Contac t Referred To Contact Gynecology Diagnoses Abnormal Computed Tomography Micha Baumann M.D. [address] [place] [address] Phone: tel: fax: [facility] Referral ID Status Reason Start Date Expiration Date Visits Re quested Visits Authorized [id number] Closed 07/02/2024 01/01/2026 1 1 Reason for Visit * Reason Comments Constipation Encounter Details Date Type Department Care Team (Late st Contact Info) Description 07/01/2024 10:12 PM CDT - 07/02/2024 2:[address] [facility] Emergency Department [address] [place] [address] Micha Baumann M.D. [address] [place] [address] Abnormal Computed Tomography (Primary Dx); Constipation; Proctitis Discharge Disposition: Home or Self Care Social History Tobacco Use Types Packs/Day Years Used Date Smoking Tobacco: Never Passive Smoke Exposure: Never Smokeless Tobacco: Never Alcohol Use Standard Drinks/Week Comments Yes 3 (1 standard drink = 0.6 oz pur e alcohol) [facility] Utilities Answer Date Recorded In the past 12 months has e [employer], gas, oil, or water [employer] threatened to shut off services in your [...] your living situation today? 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 Examination and imaging were not concerning for an acute finding that would require admission or surgical intervention. A digital rectal exam was performed which demonstrated no obvious impaction. This was followed by a Fleet enema. We have scheduled to follow up visit with Colorectal surgery here at [facility] for further evaluation and workup of failed rectal flexi recurrent rectal prolapse. We have also placed an order for a follow up appointment to OBGYN due to a left adnexal cystic lesion measuring 12 mm incidentally found on CT abdomen and pelvis. [facility] or elsewhere [facility]necology in the next 1-2 weeks regarding incidental findings of left adnexal cystic lesion. Please return to the emergency department if you experience severe abdominal pain, nausea, vomiting, severe fatigue, shortness of breath, chest pain, etc.. documented in this encounter Medications at Time of Discharge cycloSPORINE (Restasis) 0.05 % ophthalmic emulsion Administer [...] every 2 (two) hours as needed. 11/28/2016 sennosides-docusa te sodium (Senokot-S) 8.6-50 mg per [...] Take 50 mg by mouth daily. 4 polyethylene glycol (MIRALAX) 17 gram powder packet Take 1 packet by mouth daily. 11/28/2016 4 Senexon-S 8.6-50 mg per tablet Take 1 tablet by mouth daily. 06/27/2024 4 simvastatin (ZOCOR) 20 mg tablet Take 20 mg by mouth at bedtime. 08/31/2016 4 documented as of this encounter ED [...] failed rectopexy who is presenting to the [facility] with proximally 2 weeks of [...] noted in HPI. OBJECTIVE Initial Vitals Temperature 10/04/24 2219 37 ??C Pulse Rate 07/01/242218 (!) 113 [...] : No CVA Tenderness Integumentary: Warm, Dry, [place], Intact, no jaundice or visible bruises Neuro: A&O. Normal sensory and motor function. Psych: Cooperative. Appropriate mood & affect. Normal judgement. MSK: ROM and muscle strength grossly normal. No deformity, tenderness, localized swelling or erythema. ASSESSMENT/PLAN This is a 68 old woman with a history of partial colectomy and failed rectopexy presenting to the [facility] with 2 weeks of constipation. Patient is passing gas and is not appear to be obstructed. She is chronically on MiraLax daily and has known rectal prolapse. A recent diagnosis of cervical stenosis is exacerbated her pain, for which she was placed on narcotic medication, exacerbating or GI condition. Based on abdominal CT, she was found to have sxen-hs-nyskcreo amountof stool in the rectum, without concern [...] (Latest Contact Info) Description 09/14/2024 9:00 AM SAND MIXER Comprehensive Visit Department of Physical Medicine and Rehabilitation in [place], [place] [address] [place] [address] Renate Youngblood APRN, C.N.P., M.S.N. [address] [place] [phone] 09/26/2024 10:00 AM SAND MIXER Clinical Support Department of Physical Medicine and Rehabilitation in [place], [place] [address] [place] [phone] Renate Youngblood APRN, C.NLewis., M.S.N. [address] [place] [phone] 10/03/2024 4:20 PM SAND MIXER Virtual Visit Division of Gastroenterology in [place], [place] [address] [place] [phone] Carlos Corral M.D., M.P.H. [address] [place] [phone] 10/04/2024 10:00 AM SAND MIXER Clinical Support Department of Physical Medicine and Rehabilitation in [place], [place] [address] [place] [phone] Renate Youngblood APRN, C.N.Dandre., M.S.N. [address] [place] [phone] 10/10/2024 1:00 PM SAND MIXER Clinical Support Department of Physical Medicine and Rehabilitation in [place], [place] [address] [place] [address] Renate Youngblood APRN, C.NLaurelP., M.S.N. [address] [place] [phone] 10/18/2024 1:00 PM SAND MIXER Clinical Support Department of Physical Medicine and Rehabilitation in [place], [place] [address] [place] [address] Renate Youngblood APRN, C.N.P., M.S.N. [address] [place] [phone] 10/25/2024 1:00 PM SAND MIXER Clinical Support Department of Physical Medicine and Rehabilitation in [place], [place] [address] [place] [address] Renate Youngblood APRN, C.N.P., M.S.N. [address] [place] [phone] 10/31/2024 1:00 PM SAND MIXER Clinical Support Department of Physical Medicine and Rehabilitation in [place], [place] [address] [place] [phone] Renate Youngblood APRN, QueenieNLewis., M.S.N. [address] [place] [phone] 11/10/2024 10:00 AM SAND MIXER Comprehensive Visit Department of Obstetrics and Gynecology, Division of Urogynecology in [place], [place] [address] [place] [phone] Yan Turner M.D., M.S. [address] [place] [phone] 11/22/2024 7:30 AM SAND MIXER Hospital Encounter [facility] 4 AM ADMIT [address] [place] [phone] Brianne Beebe M.D., Ph.D. [address] [place] [phone] 11/22/2024 7:30 AM SAND MIXER - 11/22/2024 4:42 PM SAND MIXER Surgery [facility] [address] [place] [address] Brianne Beebe M.D., Ph.D. [address] [place] [phone] ROBOTIC-ASSISTED Ventral Mesh RECTOPEXY Scheduled Procedures Name Priority Associated Diagnoses Date/Ti sd ROBOTIC-ASSISTED RECTOPEXY Prolapse Rectal Cystocele Rectocele 11/22/2024 7:30 AM SAND MIXER ROBOTIC-ASSISTED EXPLORATION Prolapse Rectal Cystocele Rectocele 11/22/2024 7:30 AM SAND MIXER Scheduled Referrals Name Type Priority Associated Diagnoses [...] IMG CT PROCEDURES Final R esult * Lactate (07/01/2024 10:55 PM CDT) Pathologist [facility] Lactate, P 1.0 0.5 - 2.2 mmol/L 07/01/2024 11:25 PM CDT STMA Blood (Blood, Venous) 07/01/2024 10:55 PM CDT 07/01/2024 11:10 PM CDT us Micha Baumann M.D. LAB BLOOD NON ADD-ON Luisana l Result [facility] [address] [place] [address], [facility] [address] [place] [address] * (ABNORMAL) CBC with Differential, Blood (07/01/2024 [...] M.D. LAB BLOOD ADD-ON Final Re sult [facility] [address] [place] [address], [facility] STMA [facility] [address] [place] [address] DHPM [facility] [address] [place] [address] * Lipase (07/01/2024 10:55 PM CDT) Lipase, S 30 13 - 60 U/L 07/01/2024 11:44 PM CDT DTL Blood (Blood, Venous) 07/01/2024 10:55 PM CDT 07/01/2024 11:30 PM CDT Micha Baumann M.D. LAB BLOOD ADD-ON Final Re sult Performing Organization Address City/[facility]/ZIP Co de Phone Number [facility] [address] [place] [address], [facility] [address] [place] [address] * Hepatic Function Panel (07/01/2024 10:55 PM [...] ADD-ON Final Re sult Performing Organization Address City/[facility]/ZIP Co de Phone Number [facility] [address] [place] [address], [facility] [address] [place] [address] * (ABNORMAL) Basic Metabolic Panel (07/01/2024 10:55 [...] M.D. LAB BLOOD ADD-ON Final Re sult [facility] [address] [place] [address], [facility] [address] [place] [address] documented in this encounter Visit Diagnoses Diagnosis Abnormal Computed Tomography- Primary Constipation Proctitis Prolapse Rectal Cystocele Rectocele documented in this encounter Administered Medications Inactive [...] (Given - Provid er: Fatoumata Malave R.N., DANIELN - Comment: doesnt want anything thats hard on her stomach) sodium chloride (PF) 0.9 % injection 1-100 mL (COMPLETED) 1-100 mL, intravenous, Once, On Thu07/01/24 at [...] Ella Rai R.N. - Comment: lot # [id number]) documented in this encounter Care Teams Radiology Resident Relationship Specialty Start Date End Date Elsewhere, Pcp PCP - General Internal Medicine 07/02/24 documented as of this encounter
--- OUTSIDE RECORDS SUMMARY | 2024-09-02 08:48 | XMS_ITS | Encounter Summary ---
Author Organization [facility] Address [address] [place] [address] Care Team Providers Care Purchasing Contracting Clerk Name Role Phone Elsewhere, Pcp Primary Care Provider Unavailabl e Reason for Visit * Reason Onset Date Comments Referral Triage 07/04/2024 Encounter Details Date Type Department Care Team (Late st Contact Info) Description 07/04/2024 Referral Triage Division of General Internal Medicine in [place], [place] [address] [place] [address] Prescheduling, Provider Referral Triage Social History Tobacco Use Types Packs/Day Years Used Date Smoking Tobacco: Never Passive Smoke Exposure: Never Smokeless Tobacco: Never Alcohol Use Standard Drinks/Week Comments Yes 3 (1 standard drink = 0.6 oz pur e alcohol) [facility] Utilities Answer Date Recorded In the past 12 months has [employer], gas, oil, or water [employer] threatened to shut off services in your [...] living situation today? I have a [facility] place to live 01/07/2024 Comments Unknown Sex and Gender Information Value Date Recorded Sex Assigned at Female 01/07/2024 8:31 PM CDT Legal Sex Female 5:11 PM FORK TRUCK OPERATOR Gender Identity Female 01/07/2024 8:31 PM CDT Sexual Orientation Straight 01/07/2024 8: 31 PM CDT documented as of this encounter Plan of Treatment Upcoming Encounters Date Type Department Care Team (Latest Contact Info) Description 09/14/2024 9:00 AM FORK TRUCK OPERATOR Comprehensive Visit Department of Physical Medicine and Rehabilitation in [place], [place] 200 [place] [address] Renate Youngblood APRN, C.N.P., M.S.N. [address] [place] [phone] 09/26/2024 10:00 AM FORK TRUCK OPERATOR Clinical Support Department of Physical Medicine and Rehabilitation in [place], [place] 200 [place] [address] Renate Youngblood APRN, C.N.P., M.S.N. [address] [place] [phone] 10/03/2024 4:20 PM FORK TRUCK OPERATOR Virtual Visit Division of Gastroenterology in [place], [place] [address] [place] [phone] Carlos Corral M.D., M.P.H. [address] [place] [phone] 10/04/2024 10:00 AM FORK TRUCK OPERATOR Clinical Support Department of Physical Medicine and Rehabilitation in [place], [place] [address] [place] [phone] Renate Youngblood APRN, C.N.P., M.S.N. [address] [place] [phone] 10/10/2024 1:00 PM FORK TRUCK OPERATOR Clinical Support Department of Physical Medicine and Rehabilitation in [place], [place] [address] [place] [phone] Renate Youngblood APRN, C.N.P., M.S.N. [address] [place] [phone] 10/18/2024 1:00 PM FORK TRUCK OPERATOR Clinical Support Department of Physical Medicine and Rehabilitation in [place], [place] [address] [place] [phone] Renate Youngblood APRN, Celeste.N.P., M.S.N. [address] [place] [phone] 10/25/2024 1:00 PM FORK TRUCK OPERATOR Clinical Support Department of Physical Medicine and Rehabilitation in [place], [place] [address] [place] [phone] Renate Youngblood APRN, C.N.P., M.S.N. [address] [place] [phone] 10/31/2024 1:00 PM FORK TRUCK OPERATOR Clinical Support Department of Physical Medicine and Rehabilitation in [place], [place] [address] [place] [phone] Renate Youngblood APRN, C.N.P., M.S.N. [address] [place] [phone] 11/10/2024 10:00 AM FORK TRUCK OPERATOR Comprehensive Visit Department of Obstetrics and Gynecology, Division of Urogynecology in [place], [place] [address] [place] [phone] Yan Turner M.D., M.S. [address] [place] [phone] 11/22/2024 7:30 AM FORK TRUCK OPERATOR Hospital Encounter [facility] 4 AM ADMIT [address] [place] [phone] Brianne Beebe M.D., Ph.D. [address] [place] [phone] 11/22/2024 7:30 AM FORK TRUCK OPERATOR - 11/22/2024 4:42 PM FORK TRUCK OPERATOR Surgery [facility] MAIN OR [address] [place] [address] Brianne Beebe M.D., Ph.D. [address] [place] [phone] ROBOTIC-ASSISTED Ventral Mesh RECTOPEXY Scheduled Procedures Name Priority Associated Diagnoses Date/Ti wv ROBOTIC-ASSISTED RECTOPEXY Prolapse Rectal Cystocele Rectocele 11/22/2024 7:30 AM FORK TRUCK OPERATOR ROBOTIC-ASSISTED EXPLORATION Prolapse Rectal Cystocele Rectocele 11/22/2024 7:30 AM FORK TRUCK OPERATOR documented as of this encounter Visit Diagnoses Not on filedocumented in this encounter Care Teams Purchasing Contracting Clerk Relationship Specialty Start Date End Date Elsewhere, Pcp PCP - General Internal Medicine 07/02/24 documented as of this encounter
--- OUTSIDE RECORDS SUMMARY | 2024-09-02 08:48 | XMS_ITS | Encounter Summary ---
Author Organization [facility] Address [address] [place] [address] Care Team Providers Care Water Resource Manager Name Role Phone Elsewhere, Pcp Primary Care Provider Unavailabl e Encounter Details Date Type Department Care Team (Late st Contact Info) Description 07/04/2024 Clinical Communication Division of Colon and Rectal Surgery in [place], [place] [address] [place] [address] Brianne Beebe M.D., Ph.D. [address] [place] [address] Social History Tobacco Use Types Packs/Day Years Used Date Smoking Tobacco: Never Passive Smoke Exposure: Never Smokeless Tobacco: Never Alcohol Use Standard Drinks/Week Comments Yes 3 (1 standard drink = 0.6 oz pur e alcohol) [facility] Utilities Answer Date Recorded In [...] [facility] 01/07/2024 Comments Unknown Sex and Gender Information Value Date Recorded Sex Assigned at Female 01/07/2024 8:31 PM CDT Legal Sex Female 5:11 PM STUDIO CAMERA OPERATOR Gender Identity Female 01/07/2024 8:31 PM CDT Sexual Orientation Straight 01/07/2024 8: 31 PM CDT documented as of this encounter Plan of Treatment Upcoming Encounters Date Type Department Care Team (Latest Contact Info) Description 09/14/2024 9:00 AM STUDIO CAMERA OPERATOR Comprehensive Visit Department of Physical Medicine and Rehabilitation in [place], [place] [address] [place] [phone] Renate Youngblood APRN, C.N.P., M.S.N. 200 [place] [phone] 09/26/2024 10:00 AM STUDIO CAMERA OPERATOR Clinical Support Department of Physical Medicine and Rehabilitation in [place], [place] [address] [place] [phone] Renate Youngblood APRN, C.N.P., M.S.N. [address] [place] [phone] 10/03/2024 4:20 PM STUDIO CAMERA OPERATOR Virtual Visit Division of Gastroenterology in [place], [place] [address] [place] [phone] Carlos Corral M.D., M.P.H. [address] [place] [phone] 10/04/2024 10:00 AM STUDIO CAMERA OPERATOR Clinical Support Department of Physical Medicine and Rehabilitation in [place], [place] [address] [place] [phone] Renate Youngblood APRN, C.N.P., M.S.N. [address] [place] [phone] 10/10/2024 1:00 PM STUDIO CAMERA OPERATOR Clinical Support Department of Physical Medicine and Rehabilitation in [place], [place] [address] [place] [phone] Renate Youngblood APRN, C.N.P., M.S.N. [address] [place] [phone] 10/18/2024 1:00 PM STUDIO CAMERA OPERATOR Clinical Support Department of Physical Medicine and Rehabilitation in [place], [place] [address] [place] [phone] Renate Youngblood APRN, C.N.P., M.S.N. [address] [place] [phone] 10/25/2024 1:00 PM STUDIO CAMERA OPERATOR Clinical Support Department of Physical Medicine and Rehabilitation in [address] [phone] Renate Youngblood APRN, C.N.P., M.S.N. [address] [place] [phone] 10/31/2024 1:00 PM STUDIO CAMERA OPERATOR Clinical Support Department of Physical Medicine and Rehabilitation in [place], [place] [address] [place] [phone] Renate Youngblood APRN, C.N.P., M.S.N. [address] [place] [phone] 11/10/2024 10:00 AM STUDIO CAMERA OPERATOR Comprehensive Visit Department of Obstetrics and Gynecology, Division of Urogynecology in [place], [place] [address] [place] [phone] Yan Turner M.D., M.S. [address] [place] [phone] 11/22/2024 7:30 AM STUDIO CAMERA OPERATOR Hospital Encounter [facility] 4 AM ADMIT [address] [place] [phone] Brianne Beebe M.D., Ph.D. [address] [place] [phone] 11/22/2024 7:30 AM STUDIO CAMERA OPERATOR - 11/22/2024 4:42 PM STUDIO CAMERA OPERATOR Surgery [facility] MAIN OR [address] [place] [address] Brianne Beebe M.D., Ph.D. [address] [place] [phone] ROBOTIC-ASSISTED Ventral Mesh RECTOPEXY Scheduled Procedures Name Priority Associated Diagnoses Date/Ti wy ROBOTIC-ASSISTED RECTOPEXY Prolapse Rectal Cystocele Rectocele 11/22/2024 7:30 AM STUDIO CAMERA OPERATOR ROBOTIC-ASSISTED EXPLORATION Prolapse Rectal Cystocele Rectocele 11/22/2024 7:30 AM STUDIO CAMERA OPERATOR documented as of this encounter Visit Diagnoses Not on filedocumented in this encounter Care Teams Water Resource Manager Relationship Specialty Start Date End Date Elsewhere, Pcp PCP - General Internal Medicine 07/02/24 documented as of this encounter
--- OUTSIDE RECORDS SUMMARY | 2024-09-02 08:48 | XMS_ITS | Encounter Summary ---
Author Organization [facility] Address [address] [place] [address] Care Team Providers Care Sales Hunter Name Role Phone Elsewhere, Pcp Primary Care Provider Unavailabl e Reason for Referral * Outpatient (Routine) - Closed Specialty Diagnoses / Procedures Referred By Contdana t Referred To Contact Diagnoses Abnormal Computed Tomography Lesion Ovary Procedures US Pelvis Transvaginal and Transabdominal Eleazar Yin M.D. [address] [place] [address] Phone: tel: fax: [facility] Referral ID Status Reason Start Date Expiration Date Visits Re quested Visits Authorized [id number] Closed 07/05/2024 07/05/2025 1 1 Encounter Details Date Type Department Care Team (Late st Contact Info) Description 07/05/2024 Clinical Communication Department of Obstetrics and Gynecology in [place], [place] [address] [place] [address] Prescheduling, Provider Social History Tobacco Use Types Packs/Day Years Used Date Smoking Tobacco: Never Passive Smoke Exposure: Never Smokeless Tobacco: Never Alcohol Use Standard Drinks/Week Comments Yes 3 (1 standard drink = 0.6 oz pur e alcohol) [facility] Utilities Answer Date Recorded In the [...] [facility] 01/07/2024 Comments Unknown Sex and Gender Information Value Date Recorded Sex Assigned at Female 01/07/2024 8:31 PM CDT Legal Sex Female 5:11 PM MATTRESS AND BOXSPRINGS SUPERVISOR Gender Identity Female 01/07/2024 8:31 PM CDT Sexual Orientation Straight 01/07/2024 8: 31 PM CDT documented as of this encounter Plan of Treatment Upcoming Encounters Date Type Department Care Team (Latest Contact Info) Description 09/14/2024 9:00 AM MATTRESS AND BOXSPRINGS SUPERVISOR Comprehensive Visit Department of Physical Medicine and Rehabilitation in [place], [place] [address] [place] [address] Renate Youngblood, Melanie GARCIA, M.S.N. [address] [place] [phone] 09/26/2024 10:00 AM MATTRESS AND BOXSPRINGS SUPERVISOR Clinical Support Department of Physical Medicine and Rehabilitation in [place], [place] [address] [place] [phone] Renate Youngblood APRN, C.N.P., M.S.N. [address] [place] [phone] 10/03/2024 4:20 PM MATTRESS AND BOXSPRINGS SUPERVISOR Virtual Visit Division of Gastroenterology in [address] [phone] Carlos Corral M.D., M.P.H. [address] [place] [phone] 10/04/2024 10:00 AM MATTRESS AND BOXSPRINGS SUPERVISOR Clinical Support Department of Physical Medicine and Rehabilitation in [address] [phone] Renate Youngblood APRN, C.N.P., M.S.N. [address] [place] [phone] 10/10/2024 1:00 PM MATTRESS AND BOXSPRINGS SUPERVISOR Clinical Support Department of Physical Medicine and Rehabilitation in [address] [phone] Renate Youngblood APRN, C.N.P., M.S.N. [address] [place] [phone] 10/18/2024 1:00 PM MATTRESS AND BOXSPRINGS SUPERVISOR Clinical Support Department of Physical Medicine and Rehabilitation in [address] [phone] Renate Youngblood APRN, C.N.P., M.S.N. [address] [place] [phone] 10/25/2024 1:00 PM MATTRESS AND BOXSPRINGS SUPERVISOR Clinical Support Department of Physical Medicine and Rehabilitation in [place], [place] [address] [place] [address] Renate Youngblood APRN, C.N.P., M.S.N. [address] [place] [phone] 10/31/2024 1:00 PM MATTRESS AND BOXSPRINGS SUPERVISOR Clinical Support Department of Physical Medicine and Rehabilitation in [place], [place] [address] [place] [address] Renate Youngblood APRN, C.N.P., M.S.N. [address] [place] [phone] 11/10/2024 10:00 AM MATTRESS AND BOXSPRINGS SUPERVISOR Comprehensive Visit Department of Obstetrics and Gynecology, Division of Urogynecology in [place], [place] [address] [place] [phone] Yan Turner M.D., M.S. [address] [place] [phone] 11/22/2024 7:30 AM MATTRESS AND BOXSPRINGS SUPERVISOR Hospital Encounter [facility] 4 AM ADMIT [address] [place] [phone] Brianne Beebe M.D., Ph.D. [address] [place] [phone] 11/22/2024 7:30 AM MATTRESS AND BOXSPRINGS SUPERVISOR - 11/22/2024 4:42 PM MATTRESS AND BOXSPRINGS SUPERVISOR Surgery [facility] MAIN OR [address] [place] [address] Brianne Beebe M.D., Ph.D. [address] [place] [phone] ROBOTIC-ASSISTED Ventral Mesh RECTOPEXY Scheduled Procedures Name Priority Associated Diagnoses Date/Ti nm ROBOTIC-ASSISTED RECTOPEXY Prolapse Rectal Cystocele Rectocele 11/22/2024 7:30 AM MATTRESS AND BOXSPRINGS SUPERVISOR ROBOTIC-ASSISTED EXPLORATION Prolapse Rectal Cystocele Rectocele 11/22/2024 7:30 AM MATTRESS AND BOXSPRINGS SUPERVISOR documented as of this encounter Goals Goal Patient Goal Type Associated Problems Recent Progress Patient-Stated? Author [facility] Care Plan for Nicotine Dependency Perioperative Care Plan [facility] Care Plan for Nicotine Dependency Perioperative [...] Lesion Ovary Abnormal Computed Tomography Lesion Ovary Prolapse Rectal Cystocele Rectocele documented in this encounter Additional Health Concerns Active Problems Noted Date Diagnosed Date [facility] Care Plan for Nicotine Dependency Pe rioperative 07/08/2024 Surgical Readiness and Recovery Care Plan 2023 documented as of this encounter Care Teams Sales Hunter Relationship Specialty Start Date End Date Elsewhere, Pcp PCP - General Internal Medicine 07/02/24 documented as of this encounter
--- OUTSIDE RECORDS SUMMARY | 2024-09-02 08:48 | XMS_ITS | Encounter Summary ---
Author Organization [facility] Address [address] [place] [address] Care Team Providers Care Microsoft Architect Name Role Phone Unavailable Primary Care Provider [...] Joint Renate Youngblood APRN, C.N.P., M.S.N. [address] [place] [address] Phone: tel: fax: [facility] Referral ID Status Reason Start Date Expiration Date Visits Re quested Visits Authorized [id number] Closed 04/08/2024 10/08/2025 1 1 Encounter Details Date Type Department Care Team ([facility] st Contact Info) Description 06/13/2024 9:00 AM CDT Telemedicine Department of Medical Genetics in [place], [place] [address] [place] [address] Renate Youngblood APRN, C.N.P., M.S.N. [address] [place] [address] Fern Ewing M.S., [facility] [address] [place] [address] Pain Back (Primary Dx); Raynaud's Phenomena Without [...] 0.6 oz pur e alcohol) [facility] Knowledgestreemities Answer Date Recorded In the past 12 months has e [employer], gas, oil, or water [employer] threatened to shut off services in your [...] your living situation today? I have a [facility] place to live 01/07/2024 Comments Unknown Sex and Gender Information Value Date Recorded Sex Assigned at Female 01/07/2024 8:31 PM CDT Legal Sex Female 5:11 PM SELLING MANAGER Gender Identity Female 01/07/2024 8:31 PM CDT Sexual Orientation Straight 01/07/2024 8: 31 PM CDT documented as of this encounter Consult Notes * Fern Ewing M.S., [facility] - 06/13/2024 9:00 AM CDT REFERRING PROVIDER [...] pedigree was constructed by a Genetic Counseling Research Scientist. Please also see the referring provider's consult [...] real-time audio/video technology by Sirena Ewing M.S., [facility] [place] the [place] at the Patient's Home. [...] International Classification of the Elvis-Danlos Syndromes (PMID: 58723257).This is also available in a check list format on the EDS Society website (https://www.elvis-danlos. com/jetz-iuljegnccf-ydxsoymtl/). The majority of people who are hypermobile [...] include walking, bicycling, swimming, water exercise, elliptical inside sales trainer, yoga, Pilates, and core toning/stability exercises. [...] Pain Medication: Pain should be managed by agpo-hvd-xckvtiv medications as much as possible. Participation in [...] and can sometimes exacerbate symptoms. There are kaqk-mgy-ohrfekc electrolyte products that can be added to [...] discussed the EDS gene panel available through [facility]. This test includes comprehensive sequencing [...] scheduled for an in-person consultation with a biomedical field service engineer for a comprehensive evaluation and discussion surrounding [...] set up an in-person evaluation with a biomedical field service engineer. For the majority of VUSs further evaluation [...] insurance coverage of genetic testing was discussed. [facility] [employer] will bill your insurance for the genetic [...] questions or concerns should be directed to Susan's Billing Office at [phone]. PLAN Allie deferred genetic testing today. If [...] Syndrome Hypermobility Type and the Hypermobility Syndrome; Rebel Monkey 2. Eunice Kelsey and Surinder Godinez (resource for PTs): Hypermobility Syndrome: Diagnosis and Management for Physiotherapists; Rebel Monkey 3.Earnestine Pablo (resource for myofascial trigger point release at home to address muscle spasms andmyofascial pain): The Trigger Point Therapy Workbook; veriCAR (https://www.painscience.com/tutorials/trigger-points.php) 4. In general, mindfulness-based stress reduction can aid in coping with chronic pain. A good resource is Dr. Carlos Pride's books called ???Full Catastrophe Living: Using the [place] of Your Body and Mind to Face Stress, Pain, and Illness?? and ???Wherever You Go, There You Are.?? 5. DEBORAH Jim, VINEET Rivero, DEMARCO Duke Elvis-Danlos Syndrome: A MultiDisciplinary Approach. 370 page e-book (or can order hard copy). http://ebooks.iospress.nl/ISBN/821-1-87779-878-5 6.Dannie Muse PT Living Life to the Fullest with Elvis-Danlos syndrome. A guide for a person living with EDS to achieve a Better quality of life.CareerImp 7. In November,, the [place] Journal of Medical Genetics Part C: Seminars in Medical Genetics was dedicated to Elvis Danlos syndrome. These articles are available at https://www.[employer].com/ 0388-fiw-fidjrndkzqcvp-classification/. Issue Information: Table of Contents, Volume 175C, [...] Milton Ruiz, Mariajose Lai, Mandy Swenson, Surinder Godinez, Yousif Kolb, Zoltan Coronel, Megan Hobson, Christie Villalpando, Melodie Elizondo, Roxy Jain, David Hernandes, Lonnie Lozoya, Dennis Mendoza, [facility], Domonique Conteh, Vivian Syed, Jeremiah Anton, Heena [...] (pages 158-167) Amadou Jacob, Christie Villalpando, Brittney Cabrear, Janine Lee, Shayna Varela, [place], Yi Reyez, [...] Ro Poon??-Bagu??, Clau Ruiz and Enoc Kaufman [facility] EDS Panel Gene List: ADAMTS2, AEBP1, ATP7A, R4JTQX5, B3GAT3, B5MHXB8, CHST14, NPM23F4, COL1A1, COL1A2, COL3A1, COL5A1, COL5A2, DSE, FKBP14, FLNA, PLOD1, PRDM5, UMC41K18, SPARC, TNXB, and RIX324 documented in this encounter Plan of Treatment Upcoming Encounters Date Type Department Care Team (Latest Contact Info) Description 09/14/2024 9:00 AM SELLING MANAGER Comprehensive Visit Department of Physical Medicine and Rehabilitation in [address] [phone] Renate Youngblood APRN, C.N.Dandre., M.S.N. [address] [place] [phone] 09/26/2024 10:00 AM SELLING MANAGER Clinical Support Department of Physical Medicine and Rehabilitation in [address] [phone] Renate Youngblood APRN, C.N.P., M.S.N. [address] [place] [phone] 10/03/2024 4:20 PM SELLING MANAGER Virtual Visit Division of Gastroenterology in [address] [phone] Carlos Corral M.D., M.P.H. [address] [place] [phone] 10/04/2024 10:00 AM SELLING MANAGER Clinical Support Department of Physical Medicine and Rehabilitation in [address] [phone] Renate Youngblood APRN, C.N.P., M.S.N. [address] [place] [phone] 10/10/2024 1:00 PM SELLING MANAGER Clinical Support Department of Physical Medicine and Rehabilitation in [place], [place] [address] [place] [phone] Renate Youngblood APRN, C.NLewis., M.S.N. [address] [place] [phone] 10/18/2024 1:00 PM SELLING MANAGER Clinical Support Department of Physical Medicine and Rehabilitation in [place], [place] [address] [place] [phone] Renate Youngblood APRN, C.NLewis., M.S.N. [address] [place] [phone] 10/25/2024 1:00 PM SELLING MANAGER Clinical Support Department of Physical Medicine and Rehabilitation in [place], [place] [address] [place] [phone] Renate Youngblood APRN, C.NLewis., M.S.N. [address] [place] [phone] 10/31/2024 1:00 PM SELLING MANAGER Clinical Support Department of Physical Medicine and Rehabilitation in [place], [place] [address] [place] [phone] Renate Youngblood APRN, C.N.P., M.S.N. [address] [place] [phone] 11/10/2024 10:00 AM SELLING MANAGER Comprehensive Visit Department of Obstetrics and Gynecology, Division of Urogynecology in [address] [address] Yan Turner M.D., M.S. [address] [place] [phone] 11/22/2024 7:30 AM SELLING MANAGER Hospital Encounter [facility] 4 AM ADMIT [address] [place] [address] Brianne Beebe M.D., Ph.D. [address] [place] [address] 11/22/2024 7:30 AM SELLING MANAGER - 11/22/2024 4:42 PM SELLING MANAGER Surgery [facility] MAIN OR [address] [place] [address] Brianne Beebe M.D., Ph.D. [address] [place] [address] ROBOTIC-ASSISTED Ventral Mesh RECTOPEXY Scheduled Procedures Name Priority Associated Diagnoses Date/Ti mo ROBOTIC-ASSISTED RECTOPEXY Prolapse Rectal Cystocele Rectocele 11/22/2024 7:30 AM SELLING MANAGER ROBOTIC-ASSISTED EXPLORATION Prolapse Rectal Cystocele Rectocele 11/22/2024 7:30 AM SELLING MANAGER documented as of this encounter Visit Diagnoses [...]
--- OUTSIDE RECORDS SUMMARY | 2024-09-02 08:49 | XMS_ITS | Encounter Summary ---
Author Organization [facility] Address [address] [place] [address] Care Team Providers Care Per Diem Physical Therapist Name Role Phone Elsewhere, Pcp Primary Care [...] PM CDT Legal Sex Female 5:11 PM LINE ANALYST Gender Identity Female 01/07/2024 8:31 PM CDT [...] ON RESTASIS CDM Reports - EYEGEN Id: [id number] Status: Fnl documented in this encounter Plan of Treatment Upcoming Encounters Date Type Department Care Team (Latest Contact Info) Description 09/14/2024 9:00 AM LINE ANALYST Comprehensive Visit Department of Physical Medicine and Rehabilitation in [address] [phone] Renate Youngblood APRN, C.NLewis., M.S.N. [address] [place] [phone] 09/26/2024 10:00 AM LINE ANALYST Clinical Support Department of Physical Medicine and Rehabilitation in [address] [address] Renate Youngblood APRN, C.NLaurelP., M.S.N. [address] [place] [phone] 10/03/2024 4:20 PM LINE ANALYST Virtual Visit Division of Gastroenterology in [address] [phone] Carlos Corral M.D., M.P.H. [address] [place] [phone] 10/04/2024 10:00 AM LINE ANALYST Clinical Support Department of Physical Medicine and Rehabilitation in [address] [phone] Renate Youngblood APRN, C.N.P., M.S.N. [address] [place] [phone] 10/10/2024 1:00 PM LINE ANALYST Clinical Support Department of Physical Medicine and Rehabilitation in [place], [place] [address] [place] [phone] Renate Youngblood APRN, C.NLewis., M.S.N. [address] [place] [phone] 10/18/2024 1:00 PM LINE ANALYST Clinical Support Department of Physical Medicine and Rehabilitation in [place], [place] [address] [place] [phone] Renate Youngblood APRN, C.N.P., M.S.N. [address] [place] [phone] 10/25/2024 1:00 PM LINE ANALYST Clinical Support Department of Physical Medicine and Rehabilitation in [place], [place] [address] [place] [phone] Renate Youngblood APRN, C.NLewis., M.S.N. [address] [place] [phone] 10/31/2024 1:00 PM LINE ANALYST Clinical Support Department of Physical Medicine and Rehabilitation in [address] [phone] Renate Youngblood APRN, C.NLaurelP., M.S.N. [address] [place] [phone] 11/10/2024 10:00 AM LINE ANALYST Comprehensive Visit Department of Obstetrics and Gynecology, Division of Urogynecology in [address] [phone] Yan Turner M.D., M.S. [address] [place] [phone] 11/22/2024 7:30 AM LINE ANALYST Hospital Encounter [facility] 4 AM ADMIT [address] [place] [address] Brianne Beebe M.D., Ph.D. [address] [place] [address] 11/22/2024 7:30 AM LINE ANALYST - 11/22/2024 4:42 PM LINE ANALYST Surgery [facility] MAIN OR [address] [place] [address] Brianne Beebe M.D., Ph.D. [address] [place] [address] ROBOTIC-ASSISTED Ventral Mesh RECTOPEXY Scheduled Procedures Name Priority Associated Diagnoses Date/Ti me ROBOTIC-ASSISTED RECTOPEXY Prolapse Rectal Cystocele Rectocele 11/22/2024 7:30 AM LINE ANALYST ROBOTIC-ASSISTED EXPLORATION Prolapse Rectal Cystocele Rectocele 11/22/2024 7:30 AM LINE ANALYST documented as of this encounter Visit Diagnoses Not on filedocumented in this encounter Care Teams Per Diem Physical Therapist Relationship Specialty Start Date End Date Elsewhere, Pcp PCP - General Internal Medicine 07/02/24 documented as of this encounter
--- OUTSIDE RECORDS SUMMARY | 2024-09-02 08:49 | XMS_ITS | Encounter Summary ---
Author Organization [facility] Address [address] [place] [phone] Care Team Providers Care Jewel Bearing Facer Name Role Phone Elsewhere, Pcp Primary Care Provider Unavailabl e Reason for Visit * Outpatient (Routine) - Closed Specialty Diagnoses / Procedures Referred By Floresita t Referred To Contact Colon and Rectal Surgery Renate Youngblood APRN, C.NLaurelP., M.S.N. [address] [place] [phone] Phone: tel: fax: [facility] Referral ID Status Reason Start Date Expiration Date Visits Re quested Visits Authorized [id number] Closed 01/11/2024 07/12/2025 1 1 Encounter Details Date Type Department Care Team (Latest Contact Info) Description 04/08/2024 11:30 AM CDT Office Visit Division of Colon and Rectal Surgery in [place], [place] [address] [place] [phone] Renate Youngblood APRN, C.N.P., M.S.N. [address] [place] [phone] Preanesthetic Medical Exam (Primary Dx); Prolapse Rectal; [...] drink = 0.6 oz pur e alcohol) [facility] Utilities Answer Date Recorded In the past 12 months has e [employer] gas, oil, or water [employer] threatened to shut off services in your [...] living situation today? I have a [facility] place to live 01/07/2024 Comments Unknown Sex and Gender Information Value Date Recorded Sex Assigned at Female 01/07/2024 8:31 PM CDT Legal Sex Female 5:11 PM ORDERING BOX OPERATOR Gender Identity Female 01/07/2024 8:31 PM [...] 2005 - Obtain outside colonoscopy report from [facility] from 2 years ago Diagnosis Plan 1. [...] time. No Charge Visit/Saw surgeon earlier today Addendum 08/31/2024: Patient reached out on 08/31/2024 stating she has had 2 abnormal ECGs now and had an episode of right sided blindness. Her local provider is concerned she may have carotid artery blockage. I reviewed the visit note on 08/18/[address] John Paul Miller that is recommending a bilateral carotid artery ultrasound, MR imaging of head/brain, an echocardiogram and repeat ECG. He also referred patient to Neurology regarding the episode of right sided vision loss. Dr. Beebe's team was notified that she is not considered cleared for surgery and will need surgicalclearance from Neurology and possibly Cardiology depending on upcoming imaging studies. Patient also notified of this plan and asked to keep Dr. Beebe's team updated so the surgical date on 11/22/2023an be adjusted if needed. RING BOX OPERATOR documented in this encounter Plan of Treatment Upcoming Encounters Date Type Department Care Team (Latest Contact Info) Description 09/14/2024 9:00 AM ORDERING BOX OPERATOR Comprehensive Visit Department of Physical Medicine and Rehabilitation in [place], [place] [address] [place] [phone] Renate Youngblood APRN, C.N.Aliyah, M.S.N. [address] [place] [address] 09/26/2024 10:00 AM ORDERING BOX OPERATOR Clinical Support Department of Physical Medicine and Rehabilitation in [place], [place] [address] [place] [phone] Renate Youngblood APRN, C.N.PLaurel, M.S.N. [address] [place] [phone] 10/03/2024 4:20 PM ORDERING BOX OPERATOR Virtual Visit Division of Gastroenterology in [place], [place] [address] [place] [phone] Carlos Corral M.D., M.P.H. [address] [place] [phone] 10/04/2024 10:00 AM ORDERING BOX OPERATOR Clinical Support Department of Physical Medicine and Rehabilitation in [place], [place] [address] [place] [address] Renate Youngblood APRN, C.N.P., M.S.N. [address] [place] [phone] 10/10/2024 1:00 PM ORDERING BOX OPERATOR Clinical Support Department of Physical Medicine and Rehabilitation in [place], [place] [address] [place] [address] Renate Youngblood APRN, C.N.P., M.S.N. [address] [place] [phone] 10/18/2024 1:00 PM ORDERING BOX OPERATOR Clinical Support Department of Physical Medicine and Rehabilitation in [place], [place] [address] [place] [address] Renate Youngblood APRN, C.N.P., M.S.N. [address] [place] [phone] 10/25/2024 1:00 PM ORDERING BOX OPERATOR Clinical Support Department of Physical Medicine and Rehabilitation in [place], [place] [address] [place] [address] Renate Youngblood APRN, C.N.P., M.S.N. [address] [place] [phone] 10/31/2024 1:00 PM ORDERING BOX OPERATOR Clinical Support Department of Physical Medicine and Rehabilitation in [place], [place] [address] [place] [address] Renate Youngblood APRN, C.N.P., M.S.N. [address] [place] [phone] 11/10/2024 10:00 AM ORDERING BOX OPERATOR Comprehensive Visit Department of Obstetrics and Gynecology, Division of Urogynecology in [place], [place] [address] [place] [phone] Yan Turner M.D., M.S. [address] [place] [phone] 11/22/2024 7:30 AM ORDERING BOX OPERATOR Hospital Encounter RST RO 01 4 AM ADMIT [address] [place] [phone] Brianne Beebe M.D., Ph.D. [address] [place] [phone] 11/22/2024 7:30 AM ORDERING BOX OPERATOR - 11/22/2024 4:42 PM ORDERING BOX OPERATOR Surgery RST [facility] [address] [place] [phone] Brianne Beebe M.D., Ph.D. [address] [place] [phone] ROBOTIC-ASSISTED Ventral Mesh RECTOPEXY Scheduled Procedures Name Priority Associated Diagnoses Date/Ti va ROBOTIC-ASSISTED RECTOPEXY Prolapse Rectal Cystocele Rectocele 11/22/2024 7:30 AM ORDERING BOX OPERATOR ROBOTIC-ASSISTED EXPLORATION Prolapse Rectal Cystocele Rectocele 11/22/2024 7:30 AM ORDERING BOX OPERATOR documented as of this encounter Goals Goal Patient Goal Type Associated Problems Recent Progress Patient-Stated? Author [facility] Care Plan for Nicotine Dependency Perioperative Care Plan [facility] Care Plan for Nicotine Dependency Perioperative [...] Osteopenia Adjustment Disorder With Depressed Mood Vertigo Prolapse Rectal Cystocele Rectocele Prolapse Rectal Cystocele Rectocele documented in this encounter Additional Health Concerns Active Problems Noted Date Diagnosed Date [facility] Care Plan for Nicotine Dependency Pe rioperative 07/08/2024 Surgical Readiness and Recovery Care Plan 2023 documented as of this encounter Care Teams Jewel Bearing Facer Relationship Specialty Start Date End Date Elsewhere, Pcp PCP - General Internal Medicine 07/02/24 documented as of this encounter
--- OUTSIDE RECORDS SUMMARY | 2024-09-02 08:49 | XMS_ITS | Encounter Summary ---
Author Organization [facility] Address [address] [place] [address] Care Team Providers Care Feed In Worker Name Role Phone Elsewhere, Pcp [...] PM CDT Legal Sex Female 5:11 PM TOP FRAME MAKER Gender Identity Female 01/07/2024 8:31 PM CDT [...] normal retina CDM Reports - EYESV Id: [id number] Status: Fnl documented in this encounter Plan of Treatment Upcoming Encounters Date Type Department Care Team (Latest Contact Info) Description 09/14/2024 9:00 AM TOP FRAME MAKER Comprehensive Visit Department of Physical Medicine and Rehabilitation in [place], [place] [address] [place] [phone] Renate Youngblood APRN, C.N.P., M.S.N. [address] [place] [phone] 09/26/2024 10:00 AM TOP FRAME MAKER Clinical Support Department of Physical Medicine and Rehabilitation in [place], [place] [address] [place] [phone] Renate Youngblood APRN, C.N.Dandre., M.S.N. [address] [place] [phone] 10/03/2024 4:20 PM TOP FRAME MAKER Virtual Visit Division of Gastroenterology in [address] [phone] Carlos Corral M.D., M.P.H. [address] [place] [phone] 10/04/2024 10:00 AM TOP FRAME MAKER Clinical Support Department of Physical Medicine and Rehabilitation in [place], [place] [address] [place] [phone] Renate Youngblood APRN, C.N.P., M.S.N. [address] [place] [phone] 10/10/2024 1:00 PM TOP FRAME MAKER Clinical Support Department of Physical Medicine and Rehabilitation in [place], [place] [address] [place] [address] [phone] Renate Youngblood APRN, C.N.P., M.S.N. [address] [place] [phone] 10/18/2024 1:00 PM TOP FRAME MAKER Clinical Support Department of Physical Medicine and Rehabilitation in [place], [place] [address] [place] [phone] Renate Youngblood APRN, C.NLewis., M.S.N. [address] [place] [phone] 10/25/2024 1:00 PM TOP FRAME MAKER Clinical Support Department of Physical Medicine and Rehabilitation in [place], [place] [address] [place] [phone] Renate Youngblood APRN, C.NLewis., M.S.N. [address] [place] [phone] 10/31/2024 1:00 PM TOP FRAME MAKER Clinical Support Department of Physical Medicine and Rehabilitation in [place], [place] [address] [place] [phone] Renate Youngblood APRN, C.NLewis., M.S.N. [address] [place] [phone] 11/10/2024 10:00 AM TOP FRAME MAKER Comprehensive Visit Department of Obstetrics and Gynecology, Division of Urogynecology in [place], [place] [address] [place] [phone] Yan Turner M.D., M.S. [address] [place] [phone] 11/22/2024 7:30 AM TOP FRAME MAKER Hospital Encounter [facility]ST [facility] 01 4 AM ADMIT [address] [place] [phone] Brianne Beebe M.D., Ph.D. [address] [place] [phone] 11/22/2024 7:30 AM TOP FRAME MAKER - 11/22/2024 4:42 PM TOP FRAME MAKER Surgery [facility] [address] [place] [phone] Brianne Beebe M.D., Ph.D. [address] [place] [phone] ROBOTIC-ASSISTED Ventral Mesh RECTOPEXY Scheduled Procedures Name Priority Associated Diagnoses Date/Ti mt ROBOTIC-ASSISTED RECTOPEXY Prolapse Rectal Cystocele Rectocele 11/22/2024 7:30 AM TOP FRAME MAKER ROBOTIC-ASSISTED EXPLORATION Prolapse Rectal Cystocele Rectocele 11/22/2024 7:30 AM TOP FRAME MAKER documented as of this encounter Visit Diagnoses Not on filedocumented in this encounter Care Teams Feed In Worker Relationship Specialty Start Date End Date Elsewhere, Pcp PCP - General Internal Medicine 07/02/24 documented as of this encounter
--- OUTSIDE RECORDS SUMMARY | 2024-09-02 08:49 | XMS_ITS | Encounter Summary ---
Author Organization [facility] Address [address] [place] [address] Care Team Providers Care Classifications Officer Cc/Cm Name Role Phone Elsewhere, Pcp Primary Care Provider Unavailabl e Encounter Details Date Type Department Care Team (Late st Contact Info) Description 04/08/2013 Historical Ophthalmology [facility] Dmitriy Staples M.D. [address] [place] [address] Social History Tobacco Use Types Packs/Day Years Used Date Smoking Tobacco: Never Assessed Comments Unknown Sex and Gender Information Value Date Recorded Sex Assigned at Female 01/07/2024 8:31 PM CDT Legal Sex Female 5:11 PM VENDING SUPERVISOR Gender Identity Female 01/07/2024 8:31 PM [...] after that return to Dr. Calle today [address] for dilated refraction Recommend AREDS II 04/08/13 Addendum: DAC shows mildly reduced christopher sensitivity after 10-minutes. recommend return 2-3 years with repeat dark adaptation curve testing. 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 [address] [place] [address] 09/26/2024 10:00 AM VENDING SUPERVISOR Clinical Support Department of Physical Medicine and Rehabilitation in [place], [place] [address] [place] [phone] Renate Youngblood APRN, C.N.P., M.S.N. [address] [place] [phone] 10/03/2024 4:20 PM VENDING SUPERVISOR Virtual Visit Division of Gastroenterology in [place], [place] [address] [place] [phone] Carlos Corral M.D., M.P.H. [address] [place] [phone] 10/04/2024 10:00 AM VENDING SUPERVISOR Clinical Support Department of Physical Medicine and Rehabilitation in [place], [place] [address] [place] [phone] Renate Youngblood APRN, C.N.Dandre., M.S.N. [address] [place] [phone] 10/10/2024 1:00 PM VENDING SUPERVISOR Clinical Support Department of Physical Medicine and Rehabilitation in [address] [phone] Renate Youngblood APRN, C.N.Dandre., M.S.N. [address] [place] [phone] 10/18/2024 1:00 PM VENDING SUPERVISOR Clinical Support Department of Physical Medicine and Rehabilitation in [place], [place] [address] [place] [phone] Renate Youngblood APRN, C.N.P., M.S.N. [address] [place] [phone] 10/25/2024 1:00 PM VENDING SUPERVISOR Clinical Support Department of Physical Medicine and Rehabilitation in [place], [place] [address] [place] [phone] Renate Youngblood APRN, C.N.P., M.S.N. [address] [place] [phone] 10/31/2024 1:00 PM VENDING SUPERVISOR Clinical Support Department of Physical Medicine and Rehabilitation in [place], [place] [address] [place] [phone] Renate Youngblood APRN, C.N.P., M.S.N. [address] [place] [phone] 11/10/2024 10:00 AM VENDING SUPERVISOR Comprehensive Visit Department of Obstetrics and Gynecology, Division of Urogynecology in [place], [place] [address] [place] [phone] Yan Turner M.D., M.S. [address] [place] [phone] 11/22/2024 7:30 AM VENDING SUPERVISOR Hospital Encounter RST RO 01 4 AM ADMIT [address] [place] [phone] Brianne Beebe M.D., Ph.D. [address] [place] [phone] 11/22/2024 7:30 AM VENDING SUPERVISOR - 11/22/2024 4:42 PM VENDING SUPERVISOR Surgery RST [facility] MA[facility] OR [address] [place] [address] Brianne Beebe M.D., Ph.D. [address] [place] [phone] ROBOTIC-ASSISTED Ventral Mesh RECTOPEXY Scheduled Procedures Name Priority Associated Diagnoses Date/Ti id ROBOTIC-ASSISTED RECTOPEXY Prolapse Rectal Cystocele Rectocele 11/22/2024 7:30 AM VENDING SUPERVISOR ROBOTIC-ASSISTED EXPLORATION Prolapse Rectal Cystocele Rectocele 11/22/2024 7:30 AM VENDING SUPERVISOR documented as of this encounter Visit Diagnoses Not on filedocumented in this encounter Care Teams Classifications Officer Cc/Cm Relationship Specialty Start Date End Date Elsewhere, Pcp PCP - General Internal Medicine 07/02/24 documented as of this encounter
--- OUTSIDE RECORDS SUMMARY | 2024-09-02 08:49 | XMS_ITS | Encounter Summary ---
Author Organization [facility] Address [address] [place] [address] Care Team Providers Care Shirt Finisher Name Role Phone Elsewhere, Pcp Primary Care [...] PM CDT Legal Sex Female 5:11 PM SUPERVISOR DECORATING Gender Identity Female 01/07/2024 8:31 PM CDT [...] the Restasis causing this. [facility] - in [facility], she was placed on Lotemax, elvin 128, [...] Night blindness CDM Reports - EYEGEN Id: [id number] Status: Fnl documented in this encounter Plan of Treatment Upcoming Encounters Date Type Department Care Team (Latest Contact Info) Description 09/14/2024 9:00 AM SUPERVISOR DECORATING Comprehensive Visit Department of Physical Medicine and Rehabilitation in [place], [place] [address] [place] [phone] Renate Youngblood APRN, C.N.P., M.S.N. [address] [place] [phone] 09/26/2024 10:00 AM SUPERVISOR DECORATING Clinical Support Department of Physical Medicine and Rehabilitation in [place], [place] [address] [place] [phone] Renate Youngblood APRN C.N.P., M.S.N. [address] [place] [phone] 10/03/2024 4:20 PM SUPERVISOR DECORATING Virtual Visit Division of Gastroenterology in [place], [place] [address] [place] [phone] Carlos Corral M.D., M.P.H. [address] [place] [phone] 10/04/2024 10:00 AM SUPERVISOR DECORATING Clinical Support Department of Physical Medicine and Rehabilitation in [place], [place] [address] [place] [phone] Renate Youngblood APRN, C.N.P., M.S.N. [address] [place] [phone] 10/10/2024 1:00 PM SUPERVISOR DECORATING Clinical Support Department of Physical Medicine and Rehabilitation in [place], [place] [address] [place] [phone] Renate Youngblood APRN, C.NLewis., M.S.N. [address] [place] [phone] 10/18/2024 1:00 PM SUPERVISOR DECORATING Clinical Support Department of Physical Medicine and Rehabilitation in [address] [phone] Renate Youngblood APRN, C.NLewis., M.S.N. [address] [place] [phone] 10/25/2024 1:00 PM SUPERVISOR DECORATING Clinical Support Department of Physical Medicine and Rehabilitation in [place], [place] [address] [place] [phone] Renate Youngblood APRN, C.N.P., M.S.N. [address] [place] [phone] 10/31/2024 1:00 PM SUPERVISOR DECORATING Clinical Support Department of Physical Medicine and Rehabilitation in [address] [phone] Renate Youngblood APRN, C.N.P., M.S.N. [address] [place] [phone] 11/10/2024 10:00 AM SUPERVISOR DECORATING Comprehensive Visit Department of Obstetrics and Gynecology, Division of Urogynecology in [place], [place] [address] [place] [address] Yan Turner M.D., M.S. [address] [place] [phone] 11/22/2024 7:30 AM SUPERVISOR DECORATING Hospital Encounter RST RO 4 AM ADMIT [address] [place] [phone] Brianne Beebe M.D., Ph.D. [address] [place] [phone] 11/22/2024 7:30 AM SUPERVISOR DECORATING - 11/22/2024 4:42 PM SUPERVISOR DECORATING Surgery RST RO MAIN OR [address] [place] [address] Brianne Beebe M.D., Ph.D. [address] [place] [phone] ROBOTIC-ASSISTED Ventral Mesh RECTOPEXY Scheduled Procedures Name Priority Associated Diagnoses Date/Ti tx ROBOTIC-ASSISTED RECTOPEXY Prolapse Rectal Cystocele Rectocele 11/22/2024 7:30 AM SUPERVISOR DECORATING ROBOTIC-ASSISTED EXPLORATION Prolapse Rectal Cystocele Rectocele 11/22/2024 7:30 AM SUPERVISOR DECORATING documented as of this encounter Visit Diagnoses Not on filedocumented in this encounter Care Teams Shirt Finisher Relationship Specialty Start Date End Date Elsewhere, Pcp PCP - General Internal Medicine 07/02/24 documented as of this encounter
--- NOTE | 2024-09-02 10:15 | CRLHL7_ITS ---
For Patients: As a result of the Century Cures Act, medical imaging exams and procedure reports are released immediately into your electronic medical record. You may view this report before your referring provider. If you have questions, please contact your health care provider. INDICATION: Transient right-sided vision loss TECHNIQUE: Noncontrast Sagittal T1,Axial FSE T2, Flair, DWI images submitted. No comparisons. FINDINGS: The ventricles, sulci and gyri are of normal size, shape and contour for age. Midline structures are centrally located. No convincing evidence of suspicious intra- or extra-axial fluid collections. Miniscule scattered foci of increased T2 signal within the periventricular and subcortical white matter of both cerebral hemispheres. No regions of restricted diffusion. Globes bilaterally appear within normal limits. IMPRESSION: 1. No radiographic evidence of acute intracranial abnormalities. 2. Miniscule supratentorial white matter changes that are non-specific, but statistically most likely related to chronic small vessel ischemic disease. Dictated by Demetrio Bose MD @ 09/02/2024 1:05:19 PM (Electronically Signed)
--- NOTE | 2024-09-02 11:30 | CRLHL7_ITS ---
For Patients: As a result of the Century Cures Act, medical imaging exams and procedure reports are released immediately into your electronic medical record. You may view this report before your referring provider. If you have questions, please contact your health care provider. CLINICAL HISTORY: Transient visual loss, right eye TECHNIQUE: The carotid circulations and the vertebral arteries in the neck were examined with elmore-scale ultrasound, color-flow and Doppler spectral analysis. Degrees of stenosis were determined using SRU 2002 Consensus Panel Criteria. FINDINGS: Sonographic images demonstrate no evidence of atherosclerotic plaque formation or suspicious soft tissue mass. There was antegrade blood flow demonstrated within the vertebral arteries and the subclavian arteries demonstrated a normal triphasic waveform. The spectral Doppler tracings of the common carotid, internal and external carotid arteries demonstrate no abnormal turbulence or spectral broadening. There was no significant elevation of peak systolic blood flow which would indicate a hemodynamically-significant stenosis by SRU criteria. The ICA/CCA peak systolic velocity ratio measures 1.2 on the right and 1.2 on the left. IMPRESSION: Normal carotid ultrasound. Dictated by José Miguel Tracy MD @ 09/03/2024 6:16:32 PM (Electronically Signed)
== END 2024-09-02 08:44 | disposition home or self-care (01) ==
PROVIDERS: PCP Family Medicine; Visit Provider Family Medicine
DX: H53.121 Transient visual loss, right eye (principal); R94.31 Abnormal electrocardiogram [ECG] [EKG]
CPT/HCPCS: 70551; 93306; 93880

== ENCOUNTER 2024-09-15 08:36 | Outpatient (CLI) | payer OTHER, SELFPAY ==
--- NOTE | 2024-09-15 09:00 | CRLHL7_ITS ---
For Patients: As a result of the Century Cures Act, medical imaging exams and procedure reports are released immediately into your electronic medical record. You may view this report before your referring provider. If you have questions, please contact your health care provider. INDICATION: Right eye amaurosis fugax. TECHNIQUE: CTA head with contrast bolus tracking, 3D angiographic rendering using maximum intensity projection (MIP) and images permanently archived. FINDINGS: There is normal opacification of the intracranial vasculature. There is no large vessel occlusion. No aneurysm is identified. IMPRESSION: Unremarkable head CTA. Please note that all CT scans at this facility use dose modulation, iterative reconstruction, and/or weight-based dosing when appropriate to reduce radiation dose to as low as reasonably achievable. Dictated by Rudi Horvath MD @ 09/15/2024 12:15:18 PM (Electronically Signed)
[2024-09-15 09:13] LABS: Creatinine* 0.9 mg/dL (0.5-1.5); Estimated Glomerular Filt Rate 69 ml/min
== END 2024-09-15 08:37 | disposition home or self-care (01) ==
LOC: CT 08:36
PROVIDERS: PCP Family Medicine; Visit Provider Family Medicine
DX: G45.3 Amaurosis fugax (principal)
CPT/HCPCS: 36415; 70496; 82565; Q9967

== ENCOUNTER 2024-12-08 12:17 | Outpatient (CLI) | payer MEDICARE, SELFPAY ==
--- NOTE | 2024-12-27 12:50 | W.PM.SLEEP ---
Sleep Study Details Details Interpreting Provider: Naye Date of Sleep Study: 12/08/24 Sleep Study Details: STUDY TYPE:? Home unattended ? BMI:? 22.65 ORDERING PROVIDER:? Naye INDICATION:? Concern about sleep apnea ? SLEEP SUMMARY:? 576 minutes monitored RESPIRATORY SUMMARY:? AHI 28.4 per rule 1A. There 1119 central apneas, 45 obstructive apnea and 180 hypopneas Low oxygen 77 74.1% of study oxygen less than 90% Snoring 41.4% PERIODIC LIMB MOVEMENTS OF SLEEP:? Not recorded CARDIAC:? Range 50-85, mean 65 beats per minute IMPRESSION:? Mixed central and obstructive sleep apnea, moderate RECOMMENDATION: Would recommend an in-lab titration because of the presence of central apneas.
== END 2024-12-08 12:18 | disposition home or self-care (01) ==
LOC: SLEEP 12:17
PROVIDERS: PCP Family Medicine; Visit Provider Otolaryngology
DX: G47.33 Obstructive sleep apnea (adult) (pediatric) (principal); G47.31 Primary central sleep apnea
CPT/HCPCS: 95806

== ENCOUNTER 2025-01-05 10:11 | Outpatient (CLI) | payer MEDICARE, SELFPAY | END 2025-01-05 10:12 | disposition home or self-care (01) | PROVIDERS: PCP Family Medicine; Visit Provider Family Medicine | DX: E78.5 Hyperlipidemia, unspecified (principal); I10 Essential (primary) hypertension; R82.90 Unspecified abnormal findings in urine | CPT/HCPCS: 80053; 80061; 87086 ==

== ENCOUNTER 2025-01-29 19:59 | Outpatient (CLI) | payer MEDICARE, SELFPAY ==
--- NOTE | 2025-02-07 11:50 | W.PM.SLEEP ---
Sleep Study Details Details Interpreting Provider: Naye Date of Sleep Study: 01/29/25 Sleep Study Details: STUDY TYPE:? Hospital-based attended with CPAP titration ? BMI:? 23.8 ORDERING PROVIDER:? Naye INDICATION:? Mixed central and obstructive sleep apnea on previous sleep study ? SLEEP SUMMARY:? 249 minutes total sleep time RESPIRATORY SUMMARY:? This was a titration study. The overall AHI during the study was 7.7 post treatment. The patient was titrated to a pressure of 8 which included some REM stage sleep in the nonsupine position and decreased AHI to 6.2 there were few central apneas noted PERIODIC LIMB MOVEMENTS OF SLEEP:? Index 24.1, index with arousal 1.2 CARDIAC:? Awake 62 asleep 58 no arrhythmia noted IMPRESSION:? Reasonably successful CPAP titration to a pressure of 8 eliminated most of her apnea events and included REM stage sleep in the nonsupine position. Would recommend that she trial and AutoSet pressure of 5-12. RECOMMENDATION: See above impression.
== END 2025-01-29 20:00 | disposition home or self-care (01) ==
LOC: SLEEP 20:00
PROVIDERS: PCP Family Medicine; Visit Provider Otolaryngology
DX: G47.33 Obstructive sleep apnea (adult) (pediatric) (principal); G47.31 Primary central sleep apnea
CPT/HCPCS: 95811

== ENCOUNTER 2025-04-04 13:06 | Outpatient (CLI) | payer MEDICARE, SELFPAY ==
--- NOTE | 2025-04-04 13:20 | CRLHL7_ITS ---
For Patients: As a result of the Century Cures Act, medical imaging exams and procedure reports are released immediately into your electronic medical record. You may view this report before your referring provider. If you have questions, please contact your health care provider. INDICATION: BILATERAL SCREENING MAMMOGRAM, ASYMPTOMATIC 69 Y/O FEMALE COMPARISON: 06/25/2023, 03/27/2022, 01/17/2021 TECHNIQUE: Digital mammogram in CC and MLO projections including computer-aided detection (CAD) and tomosynthesis. BREAST COMPOSITION: There are scattered areas of fibroglandular density. FINDINGS: No suspicious findings. ASSESSMENT: BI-RADS 1 Negative RECOMMENDATION: Annual screening mammogram. A lay language report of this examination will be provided to the patient. Dictated by: José Miguel Tracy MD @ 04/05/2025 12:53:02 (Electronically Signed)
== END 2025-04-04 13:07 | disposition home or self-care (01) ==
LOC: MAMMO 13:06
PROVIDERS: PCP Family Medicine; Visit Provider Family Medicine
DX: Z12.31 Encounter for screening mammogram for malignant neoplasm of breast (principal)
CPT/HCPCS: 77063; 77067

== ENCOUNTER 2025-04-16 21:01 | Outpatient (CLI) | payer MEDICARE, SELFPAY ==
--- NOTE | 2025-04-18 08:41 | W.PM.SLEEP ---
Sleep Study Details Details Interpreting Provider: Naye Date of Sleep Study: 04/16/25 Sleep Study Details: STUDY TYPE:? Hospital-based, attended, ASV titration ? BMI:? 22.7 ORDERING PROVIDER:? Naye INDICATION:? Mixed central and obstructive sleep apnea on previous study ? SLEEP SUMMARY:? 371 minutes total sleep time RESPIRATORY SUMMARY:? The for call AHI for this study per CMS guidelines was 3.4. The patient was titrated at pressures of 6/3/10 decreasing AHI per CMS guidelines to 2.1. At pressures of 7/3/10 patient's AHI elevated to 9.2 due to central apneas. PERIODIC LIMB MOVEMENTS OF SLEEP:? Index 22, index with arousal 1.3 CARDIAC:? Awake 63 asleep 54 no arrhythmias noted IMPRESSION:? Successful titration at pressure of 6/3/ RECOMMENDATION: Initiate ASV at pressures of 02/28/2010
--- NOTE | 2025-05-02 09:46 | W.PM.SLEEP ---
Sleep Study Details Details Interpreting Provider: Naye Date of Sleep Study: 04/16/25 Sleep Study Details: STUDY TYPE:? hospital-based, attended, ASV titration ? BMI:? 22.7 ORDERING PROVIDER:? Naye INDICATION:? previous positive study with frequent central apneas ? SLEEP SUMMARY:? 371 minutes total sleep time RESPIRATORY SUMMARY:? AHI for this study per CMS guideline was 3.4 she was titrated with a is the as high as a pressure of 6/3/10 decreasing AHI to 2.1. PERIODIC LIMB MOVEMENTS OF SLEEP:? Index 22, index with arousal 1.3 CARDIAC:? awake 63 asleep 54 no arrhythmias noted IMPRESSION:? mixed central and obstructive sleep apnea. ASV titration was relatively successful a pressure of 6/3/10 RECOMMENDATION: initiate ASV pressure 6/3/10
== END 2025-04-16 21:02 | disposition home or self-care (01) ==
LOC: SLEEP 21:01
PROVIDERS: PCP Family Medicine; Visit Provider Otolaryngology
DX: G47.33 Obstructive sleep apnea (adult) (pediatric) (principal); G47.31 Primary central sleep apnea
CPT/HCPCS: 95811